=== PATIENT | female | born 1945 | race American Indian/Alaskan Native ===

== ENCOUNTER 2017-02-25 16:17 | Inpatient (IN) | payer MEDICARE, OTHER ==
[2017-02-25 16:17] VITALS: BMI 23.2
--- NOTE | 2017-02-25 17:15 | C.PDOC ---
History Of Present Illness 71 yr old female with ovarian cancer and is on chemo therapy, presents to the ER stating she gets intermittent ascites which needs to be drained and has not been drained in a while and the fluid is building up now. Patient states due to that she has been SOB, coughing with white sputum and feels like she is having trouble taking a deep breath. Patient states initially she was SOB on exertion but now any type of activity makes her SOB. Patient denies fever, chills, chest pain, nausea, vomiting, headache, weakness or numbness. Time Seen by Provider: 02/25/17 16:45 Chief Complaint (Nursing): Shortness Of Breath History Per: Patient History/Exam Limitations: no limitations Onset/Duration Of Symptoms: Days Current Symptoms Are (Timing): Still Present Past Medical History Reviewed: Historical Data, Nursing Documentation, Vital Signs Vital Signs: Last Vital Signs Temp 97.3 F L 02/25/17 16:37 Pulse 88 02/25/17 16:37 Resp 15 02/25/17 17:35 BP 185/97 H 02/25/17 16:37 Pulse Ox 99 02/25/17 19:02 - Medical History PMH: Anemia, Arthritis (GENERALIZED), Asthma, Diabetes, HTN, Hypercholesterolemia, Rheumatoid Arthritis, Seizures (UP TIL AGE 14YRS.) Surgical History: Endoscopy - [facility] Procedures CLOSED ENDOSCOPIC BIOPSY OF LARGE INTESTINE (11/29/14) DRAINAGE OF L PLEURAL CAV WITH DRAIN DEV, PERC APPROACH (12/18/16) DX ULTRASOUND-DIGESTIVE (11/29/14) ENDOSC POLYPECTOMY OF LG INTEST (11/29/14) ESOPHAGOGASTRODUODENOSCOPY [EGD] W/CLOSED BIOPSY (11/29/14) INFLUENZA VACCINATION (11/29/14) INJECT/INFUSE NEC (11/29/14) INSERTION OF TOTALLY IMPLANTABLE VASC ACCESS DEVIC (02/22/15) NEBULIZER THERAPY (11/29/14) OTH REMOVE BOTH OVARIES/TUBES (12/11/14) PERCUTANEOUS ABDOMINAL DRAINAGE (06/11/15) PERITONEAL BIOPSY (12/11/14) Family History: States: No Known Family Hx - Social History Hx Tobacco Use: No Hx Alcohol Use: No Hx Substance Use: No - Immunization History Hx Tetanus Toxoid Vaccination: Yes Hx Influenza Vaccination: Yes Hx Pneumococcal Vaccination: Yes Review Of Systems Except As Marked, All Systems Reviewed And Found Negative. Constitutional: Negative for: Fever, Chills, Sweats Cardiovascular: Negative for: Chest Pain Respiratory: Positive for: Cough, Shortness of Breath, Sputum (White) Gastrointestinal: Negative for: Nausea, Vomiting Neurological: Negative for: Weakness, Numbness, Headache Physical Exam - Physical Exam Appears: Well, Non-toxic, No Acute Distress Skin: Warm, Dry, No Rash Head: Atraumatic, Normacephalic Oral Mucosa: Moist Neck: Normal, Normal ROM, Supple Chest: Symmetrical, No Tenderness Cardiovascular: Rhythm Regular, No Murmur Respiratory: Decreased Breath Sounds (Remarkably diminished), Rales (On right) Gastrointestinal/Abdominal: Distention, No Guarding, Ascites Extremity: Normal ROM, No Tenderness, No Calf Tenderness, No Deformity, No Swelling, Other (No swelling to the ankles, feet or legs.) Neurological/Psych: Oriented x3, Normal Speech, Normal Motor ED Course And Treatment - Laboratory Results Result Diagrams: 02/25/17 17:37 02/25/17 17:37 Lab Interpretation: No Acute Changes ECG: Interpreted By Me, Viewed By Me ECG Rhythm: Sinus Rhythm ECG Interpretation: Normal Interpretation Of ECG: T wave inversion 1,2,4,5,[address]/T wave elevation. LVH. Rate From EC (BPM) O2 Sat by Pulse Oximetry: 99 (RA) Pulse Ox Interpretation: Normal - Radiology CXR: Interpreted by Me, Viewed By Me CXR Interpretation: Yes: Other (Significant bilateral pleural effusion, Left> Right) Reevaluation Time: 19:05 Reassessment Condition: Unchanged - Physician Consult Information Time Consulting Physician Contacted: 19:05 Physician Contacted: Migue Aranda Outcome Of Conversation: Patient well known to him.She is currently recieving treatment for ovarian cancer. He will admit for management of malignant ascites and pleural effusion. Medical Decision Making Medical Decision Making: PLAN: * CXR * EKG * CBC Disposition - Disposition Disposition: HOSPITALIZED Disposition Time: 19:06 Condition: SERIOUS - POA Present On Arrival: None - Clinical Impression Clinical Impression: Ovarian cancer, Ascites, malignant, Pleural effusion due to another disorder - Scribe Statement The provider has reviewed the documentation as recorded by the Garcia Latham Provider Attestation: All medical record entries made by the Scribe were at my direction and personally dictated by me. I have reviewed the chart and agree that the record accurately reflects my personal performance of the history, physical exam, medical decision making, and the department course for this patient. I have also personally directed, reviewed, and agree with the discharge instructions and disposition.
[2017-02-25 17:40] LABS: BASO % 0.4 % (0.0-2.0); EOS % 0.1 % (0.0-4.0); HEMATOCRIT 35.8 % (34.0-47.0); LYMPH # 0.8 K/uL (1.0-4.3); LYMPH % 11.7 % (20.0-40.0); MEAN CELL VOLUME 82.2 fL (81.0-99.0); MEAN CORPUSCULAR HEMOGLOBIN 25.7 pg (27.0-31.0); MEAN CORPUSCULAR HGB CONC 31.2 g/dL (33.0-37.0); MEAN PLATELET VOLUME 7.4 fL (7.2-11.7); MONO # 0.1 K/uL (0.0-0.8); MONO % 0.9 % (0.0-10.0); WHITE BLOOD COUNT 6.7 K/uL (4.8-10.8)
[2017-02-25 17:51] LABS: CHLORIDE 102 mmol/L (98-107)
[2017-02-25 17:52] LABS: POTASSIUM 4.1 mmol/L (3.6-5.2); SODIUM 139 mmol/L (132-148)
[2017-02-25 17:54] LABS: ALB/GLOB RATIO 1.2 (1.0-2.1); AST/SGOT 23 U/L (14-36); BILIRUBIN,TOTAL 0.9 mg/dL (0.2-1.3); BLOOD UREA NITROGEN 21 mg/dL (7-17); CARBON DIOXIDE 26 mmol/L (22-30); GFR AFRICAN-AMERICAN > 60; TOTAL PROTEIN 7.2 g/dL (6.3-8.3)
[2017-02-25 17:55] LABS: ALKALINE PHOSPHATASE 76 U/L (38-126); ALT/SGPT 26 U/L (9-52); CALCIUM 9.2 mg/dl (8.6-10.4); GLUCOSE,RANDOM 129 mg/dL (65-105)
[2017-02-25 18:01] LABS: INR 1.2
[2017-02-25 18:29] LABS: INR 1.2
[2017-02-25] MEDS ORDERED: Nitroglycerin 2% Ointment Foilpak UD TOP STA (22:29)
--- NOTE | 2017-02-26 00:40 | CP.PCM.HP ---
History of Present Illness - History of Present Illness History of Present Illness: Cheif complain: shortness of breath, difficyulty breathing on deep inspiratio HPI: 71 yr old female with ovarian cancer and is on chemo therapy, presents to the ER stating she gets intermittent ascites which needs to be drained and has not been drained in a while and the fluid is building up now. Patient states due to that she has been SOB, coughing with white sputum and feels like she is having trouble taking a deep breath. Patient states initially she was SOB on exertion but now any type of activity makes her SOB. Patient denies fever, chills, chest pain, nausea, vomiting, headache, weakness or numbness. Present on Admission - Present on Admission Any Indicators Present on Admission: No Review of Systems - Review of Systems Systems not reviewed;Unavailable: Respiratory Distress - Constitutional Constitutional: Fatigue, Lethargy. absent: As Per HPI, Anorexia, Chills, Daytime Sleepiness, Excessive Sweating, Fever, Frequent Falls, Headache, Increased Appetite, Malaise, Night Sweats, Snoring, Sleep Apnea, Weight Gain, Weight Loss, Weakness, Other - EENT Eyes: absent: As Per HPI, Blind Spots, Blurred Vision, Change in Vision, Decreased Night Vision, Diplopia, Discharge, Dry Eye, Exophthalmos, Floaters, Irritation, Itchy Eyes, Loss of Peripheral Vision, Pain, Photophobia, Requires Corrective Lenses, Sees Flashes, Spots in Vision, Tunnel Vision, Other Visual Disturbances, Loss of Vision, Other Nose/Mouth/Throat: absent: As Per HPI, Epistaxis, Nasal Congestion, Nasal Discharge, Nasal Obstruction, Nasal Trauma, Nose Pain, Post Nasal Drip, Sinus Pain, Sinus Pressure, Bleeding Gums, Change in Voice, Dental Pain, Dry Mouth, Dysphagia, Halitosis, Hoarsness, Lip Swelling, Mouth Lesions, Mouth Pain, Odynophagia, Sore Throat, Throat Swelling, Tongue Swelling, Facial Pain, Neck Pain, Neck Mass, Other - Cardiovascular Cardiovascular: Dyspnea. absent: As Per HPI, Acrocyanosis, Chest Pain, Chest Pain at Rest, Chest Pain with Activity, Claudication, Diaphoresis, Dyspnea on Exertion, Edema, Irregular Heart Rhythm, Pain Radiating to Arm/Neck/Jaw, Leg Edema, Leg Ulcers, Lightheadedness, Orthopnea, Palpitations, Paroxysmal Nocturnal Dyspnea, Pedal Edema, Radiating Pain, Rapid Heart Rate, Slow Heart Rate, Syncope, Other - Respiratory Respiratory: Cough, Dyspnea, Dyspnea on Exertion, Wheezing, Chest Congestion, Excessive Mucous Production, Pain with Coughing. absent: As Per HPI, Hemoptysis , Snoring, Stridor, Pain on Inspiration, Change in Mucous Color, Other - Gastrointestinal Gastrointestinal: absent: As Per HPI, Abdominal Pain, Belching, Bloating, Change in Bowel Habits, Change in Stool Character, Coffee Ground Emesis, Constipation, Cramping, Diarrhea, Dyspepsia, Dysphagia, Early Satiety, Excessive Flatus, Fecal Incontinence, Heartburn, Hematemesis, Hematochezia, Loose Stools, Melena, Nausea, Odynophagia, Temesmus, Vomiting, Other Past Patient History - Infectious Disease Hx of Infectious Diseases: None - Past Medical History & Family History Past Medical History?: Yes - Past Social History Smoking Status: Former Smoker - CARDIAC Hx Hypercholesterolemia: Yes Hx Hypertension: Yes - PULMONARY Hx Asthma: Yes - NEUROLOGICAL Hx Seizures: Yes (UP TIL AGE 14YRS.) - HEENT Hx HEENT Problems: Yes Hx Cataracts: Yes (LEFT) - ENDOCRINE/METABOLIC Hx Hyperthyroidism: No Hx Hypothyroidism: No - HEMATOLOGICAL/ONCOLOGICAL Hx Anemia: Yes - MUSCULOSKELETAL/RHEUMATOLOGICAL Hx Arthritis: Yes (GENERALIZED) Hx Rheumatoid Arthritis: Yes - GASTROINTESTINAL Hx Crohn's Disease: No Hx Diverticulitis: No Hx Gall Bladder Disease: No Hx Gastritis: No Hx Pancreatitis: No - GENITOURINARY/GYNECOLOGICAL Hx Sexually Transmitted Disorders: No - PSYCHIATRIC Hx Substance Use: No - SURGICAL HISTORY Hx Appendectomy: No Hx Carotid Endarterectomy: No Hx Cholecystectomy: No Hx Coronary Artery Bypass Graft: No Hx Tonsillectomy: No - ANESTHESIA Hx Anesthesia: Yes Hx Anesthesia Reactions: No Hx Malignant Hyperthermia: No Meds Home Medications: Home Medication List Medication Instructions Recorded Confirmed Type Apixaban [Eliquis] 5 mg PO BID #5 tablet 03/14/17 Rx Acetaminophen [Tylenol 325mg tab] 650 mg PO Q6 PRN tab 03/27/17 Rx Albuterol/Ipratropium [Duoneb 3 3 ml INH RQ6 03/27/17 Rx mg/0.5 mg (3 ml) UD] Docusate [Colace] 100 mg PO BID cap 03/27/17 Rx Famotidine [Pepcid] 20 mg PO DAILY tab 03/27/17 Rx Losartan [Cozaar] 100 mg PO DAILY tab 03/27/17 Rx Metoprolol Tartrate [Lopressor] 50 mg PO BID tab 03/27/17 Rx Promethazine [Phenergan Syrup] 12.5 mg PO Q6 PRN dose 03/27/17 Rx Rosuvastatin Calcium [Crestor] 10 mg PO HS tab 03/27/17 Rx cefTRIAXone [Rocephin] 2 gm IV DAILY #21 vial 03/27/17 Rx diltiaZEM CD [Cardizem CD] 300 mg PO DAILY cap 03/27/17 Rx oxyCODONE/Acetaminophen [Percocet 1 ea PO Q6 PRN #30 tab 03/27/17 Rx 5/325 mg Tab] Allergies/Adverse Reactions: Allergies Allergy/AdvReac Type Severity Reaction Status Date / Time No Known Allergies Allergy Verified 12/17/16 18:57 Physical Exam - Constitutional Appears: No Acute Distress, Agitated, Chronically Ill - Eye Exam Eye Exam: EOMI, Normal appearance, PERRL Pupil Exam: NORMAL ACCOMODATION, PERRL - ENT Exam ENT Exam: Mucous Membranes Moist, Normal Exam - Respiratory Exam Respiratory Exam: Decreased Breath Sounds, Rales, Wheezes - Cardiovascular Exam Cardiovascular Exam: REGULAR RHYTHM - GI/Abdominal Exam GI & Abdominal Exam: Normal Bowel Sounds - Rectal Exam Rectal Exam: Deferred Results - Vital Signs Recent Vital Signs: Last Vital Signs Temp 97.3 F L 02/25/17 16:37 Pulse 82 02/25/17 21:19 Resp 15 02/25/17 21:19 BP 168/95 H 02/25/17 21:19 Pulse Ox 100 02/25/17 21:19 - Labs Result Diagrams: 03/25/17 07:05 03/25/17 07:05 Assessment & Plan (1) Ascites, malignant Status: Acute (2) Diabetes mellitus Status: Chronic (3) Hypertension Status: Chronic (4) Ovarian cancer Status: Chronic (5) Pleural effusion due to another disorder Status: Acute (6) Shortness of breath Status: Acute
[2017-02-26] MEDS: Albuterol-Ipratrop 3 mg / 0.5 (3 ml) UD INH SCH ×4 (01:05→20:05)
[2017-02-26] MEDS: Enoxaparin 40 mg Syringe SC SCH (09:52)
[2017-02-26] MEDS ORDERED: cefTRIAXone IV 1 gm in Dextros 1 GM in Dextrose 5% In Water 50 ML IVPB SCH (10:00)
--- NOTE | 2017-02-26 10:48 | RAD ---
PROCEDURE: CHEST RADIOGRAPH, 1 VIEW HISTORY: Shortness of breath COMPARISON: 12/29/2016 FINDINGS: LUNGS: Near complete opacification of the left kavita thorax with large left pleural effusion. Adjacent consolidative changes with opacification throughout the remainder of the visualized left lung. Moderate right pleural effusion with confluent right basilar airspace opacity. PLEURA: As above. CARDIOVASCULAR: Cardiomegaly. OSSEOUS STRUCTURES: Right chest wall port with tip extending to the cavoatrial junction. VISUALIZED UPPER ABDOMEN: Normal. OTHER FINDINGS: Degenerative changes in the spine and shoulders. IMPRESSION: Near complete opacification of the left kavita thorax with large left pleural effusion. Adjacent consolidative changes with opacification throughout the remainder of the visualized left lung. Moderate right pleural effusion with confluent right basilar airspace opacity.
--- NOTE | 2017-02-26 12:56 | CARD ---
APPROVED REPORT EKG Measurement Heart [id number] <Conclusion> Normal sinus rhythm Voltage criteria for left ventricular hypertrophy Possible Lateral infarct, age undetermined Abnormal ECG
--- NOTE | 2017-02-26 13:47 | CT ---
CT chest without IV contrast Indication: Pleural effusion Technique: Contiguous axial images were obtained through the chest without intravenous contrast enhancement. Sagittal and coronal reconstructions were generated and reviewed. This CT exam was performed using 1 or more of the falling dose reduction techniques: Automated exposure control, adjustment of the MAA and/or kV according to patient size, and/or use of iterative reconstruction technique. Radiation dose (DLP): 429.14 MGy-cm. Comparison: Chest x-ray performed 02/25/17, CT chest abdomen pelvis with IV contrast performed 04/25/16 Findings: Right-sided MediPort extends to the cavoatrial junction. Visualized portions of the inferior thyroid gland appear unremarkable. The unenhanced mediastinal and hilar vascular structures appear grossly unremarkable. The heart appears within normal limits of size. Bilateral dependent consolidations. No pneumothorax. Bilateral pleural effusions, left greater than right with evidence of calcified septations. Subtle patchy ground-glass nodular densities involving bilateral upper lobes. Left-sided effusion and consolidation exerts mass effect on the left heart border. Limited visualization of the upper abdomen reveals loculated ascites adjacent to the liver. This collection appears to exert mass effect on the hepatic parenchyma. Mild degenerative changes of the spine. Impression: Right-sided MediPort. Bilateral dependent consolidations. Subtle patchy ground-glass nodular densities involving bilateral upper lobes. Bilateral pleural effusions, left greater than right with calcified septations involving the left effusion. Left-sided effusion and consolidation exerts mass effect on the left heart border. Loculated ascites partially imaged adjacent to the liver which exerts mass effect on the adjacent hepatic parenchyma.
--- NOTE | 2017-02-26 22:36 | CP.PCM.PN ---
Subjective - Date & Time of Evaluation Date of Evaluation: 02/26/17 Time of Evaluation: 09:23 - Subjective Subjective: pt seen & evaluated today, still c/o shortness of breath, cough, wheezing Objective - Vital Signs/Intake and Output Vital Signs (last 24 hours): Temp Pulse Resp BP Pulse Ox 98.1 F 100 H 22 118/76 97 02/26/17 15:25 02/26/17 16:27 02/26/17 15:25 02/26/17 15:25 02/26/17 15:25 - Medications Medications: Current Medications Albuterol/Ipratropium (Duoneb 3 Mg/0.5 Mg (3 Ml) Ud) 3 ml INH RQ6 [facility] Last Admin: 02/26/17 20:05 Dose: 3 ml Amlodipine Besylate (Norvasc) 5 mg PO DAILY [facility] Last Admin: 02/26/17 09:53 Dose: 5 mg Enoxaparin Sodium (Lovenox) 40 mg SC DAILY [facility] Last Admin: 02/26/17 09:52 Dose: 40 mg Famotidine (Pepcid) 20 mg PO DAILY [facility] Ferrous Sulfate (Feosol) 325 mg PO TID [facility] Last Admin: 02/26/17 18:46 Dose: 325 mg Ceftriaxone Sodium (Rocephin Iv 1 Gm Duplex) 50 mls @ 50 mls/30 min IVPB DAILY [facility] Rosuvastatin Calcium (Crestor) 10 mg PO HS [facility] Last Admin: 02/26/17 21:36 Dose: 10 mg - Labs Labs: PT 13.3 SECONDS (9.7-12.2) H 02/25/17 18:17 INR 1.2 02/25/17 18:17 APTT 31 SECONDS (21-34) D 02/25/17 18:17 - Constitutional Appears: No Acute Distress - Head Exam Head Exam: ATRAUMATIC, NORMAL INSPECTION, NORMOCEPHALIC - Eye Exam Eye Exam: EOMI, Normal appearance, PERRL Pupil Exam: NORMAL ACCOMODATION, PERRL - Respiratory Exam Respiratory Exam: Decreased Breath Sounds, Rhonchi, Wheezes - Cardiovascular Exam Cardiovascular Exam: REGULAR RHYTHM, +S1, +S2. absent: Murmur - GI/Abdominal Exam GI & Abdominal Exam: Soft, Normal Bowel Sounds. absent: Tenderness Assessment and Plan (1) Ascites, malignant Status: Acute (2) Diabetes mellitus Status: Chronic (3) Hypertension Status: Chronic (4) Ovarian cancer Status: Chronic (5) Pleural effusion due to another disorder Status: Acute (6) Shortness of breath Status: Acute
[2017-02-27] MEDS: Albuterol-Ipratrop 3 mg / 0.5 (3 ml) UD INH SCH ×4 (01:09→20:30)
[2017-02-27 07:07] LABS: BASO % 0.5 % (0.0-2.0); EOS # 0.2 K/uL (0.0-0.7); EOS % 2.1 % (0.0-4.0); HEMATOCRIT 33.6 % (34.0-47.0); LYMPH # 2.9 K/uL (1.0-4.3); LYMPH % 37.5 % (20.0-40.0); MEAN CELL VOLUME 82.2 fL (81.0-99.0); MEAN CORPUSCULAR HEMOGLOBIN 25.3 pg (27.0-31.0); MEAN CORPUSCULAR HGB CONC 30.8 g/dL (33.0-37.0); MEAN PLATELET VOLUME 7.8 fL (7.2-11.7); MONO # 0.5 K/uL (0.0-0.8); MONO % 6.4 % (0.0-10.0); NRBC % 0.1 % (0.0-2.0); RED CELL DISTRIBUTION WIDTH 17.3 % (11.5-14.5); WHITE BLOOD COUNT 7.9 K/uL (4.8-10.8)
[2017-02-27 07:44] LABS: CHLORIDE 105 mmol/L (98-107); POTASSIUM 3.6 mmol/L (3.6-5.2); SODIUM 143 mmol/L (132-148)
[2017-02-27 07:46] LABS: GFR AFRICAN-AMERICAN > 60
[2017-02-27 07:47] LABS: BLOOD UREA NITROGEN 13 mg/dL (7-17); CALCIUM 8.9 mg/dl (8.6-10.4); CARBON DIOXIDE 29 mmol/L (22-30); GLUCOSE,RANDOM 82 mg/dL (65-105)
--- NOTE | 2017-02-27 10:32 | CP.PCM.CON ---
History of Present Illness - History of Present Illness History of Present Illness: Reason for consultation : large left pleural effusion and shortness of breath 71-year-old female with history of ovarian cancer status post surgery and chemotherapy presented with complaints of increased abdominal pain and shortness of breath. Patient was admitted in December was shortness of breath and was found to have pulmonary embolism and large loculated pleural effusion status post chest tube insertion/drainage and pleurodesis. Denies fever or chills, denies chest pain. Status post paracentesis yesterday Review of Systems - Review of Systems All systems: reviewed and no additional remarkable complaints except (Shortness of breath and abdominal discomfort) Past Patient History - Infectious Disease Hx of Infectious Diseases: None - Past Medical History & Family History Past Medical History?: Yes - Past Social History Smoking Status: Former Smoker - CARDIAC Hx Hypercholesterolemia: Yes Hx Hypertension: Yes - PULMONARY Hx Asthma: Yes - NEUROLOGICAL Hx Seizures: Yes (UP TIL AGE 14YRS.) - HEENT Hx HEENT Problems: Yes Hx Cataracts: Yes (LEFT) - ENDOCRINE/METABOLIC Hx Hyperthyroidism: No Hx Hypothyroidism: No - HEMATOLOGICAL/ONCOLOGICAL Hx Anemia: Yes - MUSCULOSKELETAL/RHEUMATOLOGICAL Hx Arthritis: Yes (GENERALIZED) Hx Rheumatoid Arthritis: Yes - GASTROINTESTINAL Hx Crohn's Disease: No Hx Diverticulitis: No Hx Gall Bladder Disease: No Hx Gastritis: No Hx Pancreatitis: No - GENITOURINARY/GYNECOLOGICAL Hx Sexually Transmitted Disorders: No - PSYCHIATRIC Hx Substance Use: No - SURGICAL HISTORY Hx Appendectomy: No Hx Carotid Endarterectomy: No Hx Cholecystectomy: No Hx Coronary Artery Bypass Graft: No Hx Tonsillectomy: No - ANESTHESIA Hx Anesthesia: Yes Hx Anesthesia Reactions: No Hx Malignant Hyperthermia: No Meds Allergies/Adverse Reactions: Allergies Allergy/AdvReac Type Severity Reaction Status Date / Time No Known Allergies Allergy Verified 12/17/16 18:57 - Medications Medications: Current Medications Albuterol/Ipratropium (Duoneb 3 Mg/0.5 Mg (3 Ml) Ud) 3 ml INH RQ6 [facility] Last Admin: 02/27/17 07:28 Dose: 3 ml Amlodipine Besylate (Norvasc) 5 mg PO DAILY [facility] Last Admin: 02/26/17 09:53 Dose: 5 mg Enoxaparin Sodium (Lovenox) 40 mg SC DAILY [facility] Last Admin: 02/26/17 09:52 Dose: 40 mg Famotidine (Pepcid) 20 mg PO DAILY [facility] Ferrous Sulfate (Feosol) 325 mg PO TID [facility] Last Admin: 02/26/17 18:46 Dose: 325 mg Ceftriaxone Sodium (Rocephin Iv 1 Gm Duplex) 50 mls @ 50 mls/30 min IVPB DAILY [facility] Rosuvastatin Calcium (Crestor) 10 mg PO HS [facility] Last Admin: 02/26/17 21:36 Dose: 10 mg Physical Exam - Head Exam Head Exam: ATRAUMATIC, NORMOCEPHALIC - Eye Exam Eye Exam: Normal appearance - ENT Exam ENT Exam: Mucous Membranes Moist - Neck Exam Neck exam: Positive for: Normal Inspection - Respiratory Exam Respiratory Exam: Decreased Breath Sounds - Cardiovascular Exam Cardiovascular Exam: REGULAR RHYTHM - GI/Abdominal Exam GI & Abdominal Exam: Distended, Normal Bowel Sounds - Extremities Exam Extremities exam: Positive for: pedal edema - Neurological Exam Neurological exam: Alert, Oriented x3 Results - Vital Signs Recent Vital Signs: Last Vital Signs Temp 97.6 F 02/27/17 08:02 Pulse 79 02/27/17 08:02 Resp 20 02/27/17 08:02 BP 162/99 H 02/27/17 08:02 Pulse Ox 100 02/27/17 08:02 - Labs Result Diagrams: 02/27/17 06:52 02/27/17 06:52 Labs: Laboratory Results - last 24 hr 02/27/17 06:52 WBC 7.9 RBC 4.08 Hgb 10.3 L Hct 33.6 L MCV 82.2 MCH 25.3 L MCHC 30.8 L RDW 17.3 H Plt Count 207 MPV 7.8 Neut % (Auto) 53.5 Lymph % (Auto) 37.5 Gosper % (Auto) 6.4 Eos % (Auto) 2.1 Baso % (Auto) 0.5 Neut # 4.2 Lymph # 2.9 Gosper # 0.5 Eos # 0.2 Baso # 0.0 Sodium 143 Potassium 3.6 Chloride 105 Carbon Dioxide 29 Anion Gap 12 BUN 13 Creatinine 0.7 Est GFR ( Amer) > 60 Est GFR (Non-Af Amer) > 60 Random Glucose 82 Calcium 8.9 Assessment & Plan (1) Shortness of breath Status: Acute Comment: Shortness of breath secondary to pleural effusion. CAT scan of the chest consistent with bilateral pleural effusion left greater than right with loculation. Thoracic evaluation. Status post pleurodesis during last admission (2) Ascites, malignant Status: Acute Comment: Status post paracentesis yesterday by IR (3) Ovarian cancer Status: Chronic
[2017-02-27] MEDS: Enoxaparin 40 mg Syringe SC SCH (10:33)
[2017-02-27] MEDS: cefTRIAXone IV 1 gm in Dextros 50 ML IVPB SCH (10:35)
--- NOTE | 2017-02-27 14:36 | CP.PCM.CON ---
History of Present Illness - History of Present Illness History of Present Illness: Reason for consultation: Left pleural effusion, recurrent, with sob. Requested by DR. Frankel. 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 In Dec of this year, underwent a talc slurry pleurodesis, left(at the bedside), for a massive effusion, and drainge of right effusion with a chest tube.CT of chest on this admission: a massive left effusuion(pushing diaphragm down to abdomen, and mass effect on lung parenchyma) , and lung /loculated effusion covered with white talc+some areas of septations. I am not quite certain how much of the atelectactic lung will reexpand after evacuation of the effusion. I would like to evacuate the effusuion with a chest tube followed by a quick examination of pleural cavity with video-thorascope on Thursday under local + iv sedation. Based on the findings -will insert Pleurex cath or decortication(probably too extensive surgery for this patient) at a later date. I have discussed the surgery with the pt who accepted procedures without reservation.d/w Dr. Tai, assistant professor surgical technology. Past Patient History - Infectious Disease Hx of Infectious Diseases: None - Past Medical History & Family History Past Medical History?: Yes - Past Social History Smoking Status: Former Smoker - CARDIAC Hx Hypercholesterolemia: Yes Hx Hypertension: Yes - PULMONARY Hx Asthma: Yes - NEUROLOGICAL Hx Seizures: Yes (UP TIL AGE 14YRS.) - HEENT Hx HEENT Problems: Yes Hx Cataracts: Yes (LEFT) - ENDOCRINE/METABOLIC Hx Diabetes Mellitus Type 2: Yes - HEMATOLOGICAL/ONCOLOGICAL Hx Anemia: Yes - MUSCULOSKELETAL/RHEUMATOLOGICAL Hx Arthritis: Yes Hx Rheumatoid Arthritis: Yes - GASTROINTESTINAL Hx Crohn's Disease: No Hx Diverticulitis: No Hx Gall Bladder Disease: No Hx Gastritis: No Hx Pancreatitis: No - GENITOURINARY/GYNECOLOGICAL Hx Sexually Transmitted Disorders: No - PSYCHIATRIC Hx Substance Use: No - SURGICAL HISTORY Hx Appendectomy: No Hx Carotid Endarterectomy: No Hx Cholecystectomy: No Hx Coronary Artery Bypass Graft: No Hx Tonsillectomy: No - ANESTHESIA Hx Anesthesia: Yes Hx Anesthesia Reactions: No Hx Malignant Hyperthermia: No Meds Allergies/Adverse Reactions: Allergies Allergy/AdvReac Type Severity Reaction Status Date / Time No Known Allergies Allergy Verified 12/17/16 18:57 - Medications Medications: Current Medications Albuterol/Ipratropium (Duoneb 3 Mg/0.5 Mg (3 Ml) Ud) 3 ml INH RQ6 [facility] Last Admin: 02/27/17 13:18 Dose: 3 ml Amlodipine Besylate (Norvasc) 5 mg PO DAILY [facility] Last Admin: 02/27/17 10:33 Dose: 5 mg Enoxaparin Sodium (Lovenox) 40 mg SC DAILY [facility] Last Admin: 02/27/17 10:33 Dose: 40 mg Famotidine (Pepcid) 20 mg PO DAILY [facility] Last Admin: 02/27/17 10:32 Dose: 20 mg Ferrous Sulfate (Feosol) 325 mg PO TID [facility] Last Admin: 02/27/17 10:33 Dose: 325 mg Ceftriaxone Sodium (Rocephin Iv 1 Gm Duplex) 50 mls @ 50 mls/30 min IVPB DAILY [facility] Last Admin: 02/27/17 10:35 Dose: 50 mls/30 min Rosuvastatin Calcium (Crestor) 10 mg PO HS [facility] Last Admin: 02/26/17 21:36 Dose: 10 mg Results - Vital Signs Recent Vital Signs: Last Vital Signs Temp 97.6 F 02/27/17 08:02 Pulse 79 02/27/17 08:02 Resp 20 02/27/17 08:02 BP 162/99 H 02/27/17 08:02 Pulse Ox 100 02/27/17 08:02 - Labs Result Diagrams: 02/27/17 06:52 02/27/17 06:52 Labs: Laboratory Results - last 24 hr 02/27/17 06:52 WBC 7.9 RBC 4.08 Hgb 10.3 L Hct 33.6 L MCV 82.2 MCH 25.3 L MCHC 30.8 L RDW 17.3 H Plt Count 207 MPV 7.8 Neut % (Auto) 53.5 Lymph % (Auto) 37.5 [place] % (Auto) 6.4 Eos % (Auto) 2.1 Baso % (Auto) 0.5 Neut # 4.2 Lymph # 2.9 [place] # 0.5 Eos # 0.2 Baso # 0.0 Sodium 143 Potassium 3.6 Chloride 105 Carbon Dioxide 29 Anion Gap 12 BUN 13 Creatinine 0.7 Est GFR ( Amer) > 60 Est GFR (Non-Af Amer) > 60 Random Glucose 82 Calcium 8.9
--- NOTE | 2017-02-27 18:43 | CP.PCM.PN ---
Subjective - Date & Time of Evaluation Date of Evaluation: 02/27/17 Time of Evaluation: 09:24 - Subjective Subjective: Pt seen and examined, was also seen by pulmonary,shortness of breath improved Denies fever or chills, denies chest pain. Status post paracentesis yesterday Objective - Vital Signs/Intake and Output Vital Signs (last 24 hours): Temp Pulse Resp BP Pulse Ox 98.6 F 79 20 170/96 H 97 02/27/17 16:00 02/27/17 16:15 02/27/17 16:00 02/27/17 16:00 02/27/17 16:00 Intake and Output: 02/27/17 02/27/17 06:59 18:59 Intake Total 400 Balance 400 - Medications Medications: Current Medications Albuterol/Ipratropium (Duoneb 3 Mg/0.5 Mg (3 Ml) Ud) 3 ml INH RQ6 [facility] Last Admin: 02/27/17 13:18 Dose: 3 ml Amlodipine Besylate (Norvasc) 10 mg PO DAILY [facility] Enoxaparin Sodium (Lovenox) 40 mg SC DAILY [facility] Last Admin: 02/27/17 10:33 Dose: 40 mg Famotidine (Pepcid) 20 mg PO DAILY [facility] Last Admin: 02/27/17 10:32 Dose: 20 mg Ferrous Sulfate (Feosol) 325 mg PO TID [facility] Last Admin: 02/27/17 18:08 Dose: 325 mg Ceftriaxone Sodium (Rocephin Iv 1 Gm Duplex) 50 mls @ 50 mls/30 min IVPB DAILY [facility] Last Admin: 02/27/17 10:35 Dose: 50 mls/30 min Rosuvastatin Calcium (Crestor) 10 mg PO HS [facility] Last Admin: 02/26/17 21:36 Dose: 10 mg - Labs Labs: 02/27/17 06:52 02/27/17 06:52 PT 13.3 SECONDS (9.7-12.2) H 02/25/17 18:17 INR 1.2 02/25/17 18:17 APTT 31 SECONDS (21-34) D 02/25/17 18:17 - Constitutional Appears: No Acute Distress - Head Exam Head Exam: ATRAUMATIC, NORMAL INSPECTION, NORMOCEPHALIC - Eye Exam Eye Exam: EOMI, Normal appearance, PERRL Pupil Exam: NORMAL ACCOMODATION, PERRL - ENT Exam ENT Exam: Mucous Membranes Moist, Normal Exam - Respiratory Exam Respiratory Exam: Decreased Breath Sounds, Rales, Rhonchi - Cardiovascular Exam Cardiovascular Exam: REGULAR RHYTHM, +S1, +S2. absent: Murmur - GI/Abdominal Exam GI & Abdominal Exam: Soft, Normal Bowel Sounds. absent: Tenderness Assessment and Plan (1) Ascites, malignant Status: Acute (2) Diabetes mellitus Status: Chronic (3) Hypertension Status: Chronic (4) Ovarian cancer Status: Chronic (5) Pleural effusion due to another disorder Status: Acute (6) Shortness of breath Status: Acute
[2017-02-28] MEDS: Albuterol-Ipratrop 3 mg / 0.5 (3 ml) UD INH SCH ×4 (02:03→19:52)
[2017-02-28] MEDS: cefTRIAXone IV 1 gm in Dextros 50 ML IVPB SCH (10:39)
[2017-02-28] MEDS: Enoxaparin 40 mg Syringe SC SCH (10:39)
--- NOTE | 2017-02-28 19:59 | CP.PCM.PN ---
Subjective - Date & Time of Evaluation Date of Evaluation: 02/28/17 Time of Evaluation: 18:30 - Subjective Subjective: Patient seen and examined Patient was seen by thoracic surgery and for chest tube and possible VATS on Thursday Objective - Vital Signs/Intake and Output Vital Signs (last 24 hours): Temp Pulse Resp BP Pulse Ox 97.8 F 79 21 159/91 H 97 02/28/17 15:00 02/28/17 16:43 02/28/17 15:00 02/28/17 08:18 02/28/17 15:00 Intake and Output: 02/28/17 03/01/17 18:59 06:59 Intake Total 600 Balance 600 - Medications Medications: Current Medications Albuterol/Ipratropium (Duoneb 3 Mg/0.5 Mg (3 Ml) Ud) 3 ml INH RQ6 [facility] Last Admin: 02/28/17 19:52 Dose: 3 ml Amlodipine Besylate (Norvasc) 10 mg PO DAILY [facility] Last Admin: 02/28/17 10:39 Dose: 10 mg Enoxaparin Sodium (Lovenox) 40 mg SC DAILY [facility] Last Admin: 02/28/17 10:39 Dose: 40 mg Famotidine (Pepcid) 20 mg PO DAILY [facility] Last Admin: 02/28/17 10:36 Dose: 20 mg Ferrous Sulfate (Feosol) 325 mg PO TID [facility] Last Admin: 02/28/17 18:13 Dose: 325 mg Ceftriaxone Sodium (Rocephin Iv 1 Gm Duplex) 50 mls @ 50 mls/30 min IVPB DAILY [facility] Last Admin: 02/28/17 10:39 Dose: 50 mls/30 min Rosuvastatin Calcium (Crestor) 10 mg PO HS [facility] Last Admin: 02/27/17 21:06 Dose: 10 mg - Labs Labs: 02/27/17 06:52 02/27/17 06:52 PT 13.3 SECONDS (9.7-12.2) H 02/25/17 18:17 INR 1.2 02/25/17 18:17 APTT 31 SECONDS (21-34) D 02/25/17 18:17 - Head Exam Head Exam: ATRAUMATIC, NORMOCEPHALIC - Eye Exam Eye Exam: Normal appearance - ENT Exam ENT Exam: Normal Exam - Respiratory Exam Respiratory Exam: Decreased Breath Sounds - Cardiovascular Exam Cardiovascular Exam: REGULAR RHYTHM - GI/Abdominal Exam GI & Abdominal Exam: Soft, Normal Bowel Sounds Assessment and Plan (1) Malignant pleural effusion Assessment & Plan: For chest tube insertion and possible vats on Thursday Status: Acute (2) Shortness of breath Status: Acute (3) Ascites, malignant Status: Acute (4) Ovarian cancer Status: Chronic
--- NOTE | 2017-03-01 00:13 | CP.PCM.PN ---
Subjective - Date & Time of Evaluation Date of Evaluation: 02/28/17 Time of Evaluation: 09:26 - Subjective Subjective: Pt is seen and examined, is cormfortable, not short of breath, is to be evaluated by heme onc, Patient was seen by thoracic surgery and for chest tube and possible VATS on Thursday Objective - Vital Signs/Intake and Output Vital Signs (last 24 hours): Temp Pulse Resp BP Pulse Ox 97.8 F 79 21 139/108 H 97 02/28/17 15:00 02/28/17 16:43 02/28/17 15:00 02/28/17 15:25 02/28/17 15:00 Intake and Output: 02/28/17 03/01/17 18:59 06:59 Intake Total 600 300 Output Total 2 Balance 600 298 - Medications Medications: Current Medications Albuterol/Ipratropium (Duoneb 3 Mg/0.5 Mg (3 Ml) Ud) 3 ml INH RQ6 [facility] Last Admin: 02/28/17 19:52 Dose: 3 ml Amlodipine Besylate (Norvasc) 10 mg PO DAILY [facility] Last Admin: 02/28/17 10:39 Dose: 10 mg Enoxaparin Sodium (Lovenox) 40 mg SC DAILY [facility] Last Admin: 02/28/17 10:39 Dose: 40 mg Famotidine (Pepcid) 20 mg PO DAILY [facility] Last Admin: 02/28/17 10:36 Dose: 20 mg Ferrous Sulfate (Feosol) 325 mg PO TID [facility] Last Admin: 02/28/17 18:13 Dose: 325 mg Ceftriaxone Sodium (Rocephin Iv 1 Gm Duplex) 50 mls @ 50 mls/30 min IVPB DAILY [facility] Last Admin: 02/28/17 10:39 Dose: 50 mls/30 min Rosuvastatin Calcium (Crestor) 10 mg PO HS [facility] Last Admin: 02/27/17 21:06 Dose: 10 mg - Labs Labs: 02/27/17 06:52 02/27/17 06:52 PT 13.3 SECONDS (9.7-12.2) H 02/25/17 18:17 INR 1.2 02/25/17 18:17 APTT 31 SECONDS (21-34) D 02/25/17 18:17 - Constitutional Appears: Well - Head Exam Head Exam: ATRAUMATIC, NORMAL INSPECTION, NORMOCEPHALIC - Eye Exam Eye Exam: EOMI, Normal appearance, PERRL Pupil Exam: NORMAL ACCOMODATION, PERRL - Respiratory Exam Respiratory Exam: Decreased Breath Sounds, Rales, Rhonchi - Cardiovascular Exam Cardiovascular Exam: REGULAR RHYTHM, +S1, +S2. absent: Murmur Assessment and Plan (1) Ascites, malignant Status: Acute (2) Diabetes mellitus Status: Chronic (3) Hypertension Status: Chronic (4) Ovarian cancer Status: Chronic (5) Pleural effusion due to another disorder Status: Acute (6) Shortness of breath Status: Acute
[2017-03-01] MEDS: Albuterol-Ipratrop 3 mg / 0.5 (3 ml) UD INH SCH ×4 (01:52→19:25)
[2017-03-01 07:43] LABS: BASO % 0.7 % (0.0-2.0); EOS # 0.2 K/uL (0.0-0.7); EOS % 3.5 % (0.0-4.0); HEMATOCRIT 34.3 % (34.0-47.0); LYMPH # 1.5 K/uL (1.0-4.3); LYMPH % 31.1 % (20.0-40.0); MEAN CELL VOLUME 82.1 fL (81.0-99.0); MEAN CORPUSCULAR HEMOGLOBIN 25.3 pg (27.0-31.0); MEAN CORPUSCULAR HGB CONC 30.8 g/dL (33.0-37.0); MEAN PLATELET VOLUME 8.2 fL (7.2-11.7); MONO # 0.4 K/uL (0.0-0.8); MONO % 8.9 % (0.0-10.0); NRBC % 0.1 % (0.0-2.0); RED CELL DISTRIBUTION WIDTH 17.4 % (11.5-14.5); WHITE BLOOD COUNT 4.9 K/uL (4.8-10.8)
[2017-03-01 08:05] LABS: CHLORIDE 101 mmol/L (98-107); SODIUM 141 mmol/L (132-148)
[2017-03-01 08:06] LABS: POTASSIUM 3.5 mmol/L (3.6-5.2)
[2017-03-01 08:08] LABS: GFR AFRICAN-AMERICAN > 60
[2017-03-01 08:09] LABS: BLOOD UREA NITROGEN 10 mg/dL (7-17); CALCIUM 9.2 mg/dl (8.6-10.4); CARBON DIOXIDE 32 mmol/L (22-30); GLUCOSE,RANDOM 79 mg/dL (65-105)
[2017-03-01] MEDS: cefTRIAXone IV 1 gm in Dextros 50 ML IVPB SCH (09:43)
[2017-03-01] MEDS: Enoxaparin 40 mg Syringe SC SCH (09:43)
--- NOTE | 2017-03-01 11:44 | CP.PCM.CON ---
History of Present Illness - History of Present Illness History of Present Illness: 71 year old female with a history of HTN and metastatic PE ovarian cancer diagnosed 11/2014 on chemotherapy, recently changed and given this past Thursday, admitted with with worsening ascites and shortness of breath, found to have pleural effusion. She is currently for chest tube placement tomorrow. She is s/p paracentesis and feels better in her abdomen. She notes continued shortness of breath and cough. 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 Allergies: NKA Review of systems: All remaining review of systems including HEENT, cardiovascular, respiratory, gastrointestinal, genitourinary, musculoskeletal, dermatologic, neurologic, and psychiatric are negative unless mentioned in the HPI. Past Patient History - Infectious Disease Hx of Infectious Diseases: None - Past Medical History & Family History Past Medical History?: Yes - Past Social History Smoking Status: Former Smoker - CARDIAC Hx Hypercholesterolemia: Yes Hx Hypertension: Yes - PULMONARY Hx Asthma: Yes - NEUROLOGICAL Hx Seizures: Yes (UP TIL AGE 14YRS.) - HEENT Hx HEENT Problems: Yes Hx Cataracts: Yes (LEFT) - ENDOCRINE/METABOLIC Hx Diabetes Mellitus Type 2: Yes - HEMATOLOGICAL/ONCOLOGICAL Hx Anemia: Yes - MUSCULOSKELETAL/RHEUMATOLOGICAL Hx Arthritis: Yes Hx Rheumatoid Arthritis: Yes - GASTROINTESTINAL Hx Crohn's Disease: No Hx Diverticulitis: No Hx Gall Bladder Disease: No Hx Gastritis: No Hx Pancreatitis: No - GENITOURINARY/GYNECOLOGICAL Hx Sexually Transmitted Disorders: No - PSYCHIATRIC Hx Substance Use: No - SURGICAL HISTORY Hx Appendectomy: No Hx Carotid Endarterectomy: No Hx Cholecystectomy: No Hx Coronary Artery Bypass Graft: No Hx Tonsillectomy: No - ANESTHESIA Hx Anesthesia: Yes Hx Anesthesia Reactions: No Hx Malignant Hyperthermia: No Meds Allergies/Adverse Reactions: Allergies Allergy/AdvReac Type Severity Reaction Status Date / Time No Known Allergies Allergy Verified 12/17/16 18:57 - Medications Medications: Current Medications Albuterol/Ipratropium (Duoneb 3 Mg/0.5 Mg (3 Ml) Ud) 3 ml INH RQ6 [facility] Last Admin: 03/01/17 07:42 Dose: 3 ml Amlodipine Besylate (Norvasc) 10 mg PO DAILY [facility] Last Admin: 03/01/17 09:43 Dose: 10 mg Enoxaparin Sodium (Lovenox) 40 mg SC DAILY [facility] Last Admin: 03/01/17 09:43 Dose: 40 mg Famotidine (Pepcid) 20 mg PO DAILY [facility] Last Admin: 03/01/17 09:43 Dose: 20 mg Ferrous Sulfate (Feosol) 325 mg PO TID [facility] Last Admin: 03/01/17 09:43 Dose: 325 mg Ceftriaxone Sodium (Rocephin Iv 1 Gm Duplex) 50 mls @ 50 mls/30 min IVPB DAILY [facility] Last Admin: 03/01/17 09:43 Dose: 50 mls/30 min Potassium Chloride (K-Dur 20 Meq Er Tab) 40 meq PO DAILY [facility] Stop: 03/02/17 12:00 Rosuvastatin Calcium (Crestor) 10 mg PO HS [facility] Last Admin: 02/27/17 21:06 Dose: 10 mg Physical Exam - Head Exam Head Exam: ATRAUMATIC - Eye Exam Eye Exam: Normal appearance - ENT Exam ENT Exam: Mucous Membranes Dry - Respiratory Exam Respiratory Exam: Decreased Breath Sounds - Cardiovascular Exam Cardiovascular Exam: +S1, +S2 - GI/Abdominal Exam GI & Abdominal Exam: Normal Bowel Sounds - Extremities Exam Extremities exam: Positive for: pedal edema - Neurological Exam Neurological exam: Oriented x3 - Psychiatric Exam Psychiatric exam: Normal Affect, Normal Mood - Skin Skin Exam: Warm Results - Vital Signs Recent Vital Signs: Last Vital Signs Temp 98.1 F 03/01/17 08:09 Pulse 88 03/01/17 08:09 Resp 20 03/01/17 08:09 BP 144/82 03/01/17 08:09 Pulse Ox 100 03/01/17 08:09 - Labs Result Diagrams: 03/01/17 07:33 03/01/17 07:33 Labs: Laboratory Results - last 24 hr 03/01/17 07:33 WBC 4.9 RBC 4.17 Hgb 10.6 L Hct 34.3 MCV 82.1 MCH 25.3 L MCHC 30.8 L RDW 17.4 H Plt Count 199 MPV 8.2 Neut % (Auto) 55.8 Lymph % (Auto) 31.1 [place] % (Auto) 8.9 Eos % (Auto) 3.5 Baso % (Auto) 0.7 Neut # 2.7 Lymph # 1.5 [place] # 0.4 Eos # 0.2 Baso # 0.0 Sodium 141 Potassium 3.5 L Chloride 101 Carbon Dioxide 32 H Anion Gap 12 BUN 10 Creatinine 0.7 Est GFR ( Amer) > 60 Est GFR (Non-Af Amer) > 60 Random Glucose 79 Calcium 9.2 Assessment & Plan (1) Pleural effusion due to another disorder Assessment and Plan: suspect malignant effusion for chest tube tomorrow send pleural fluid for cytology Status: Acute (2) Ovarian cancer Assessment and Plan: malignant ascites s/p paracentesis recently started Doxil and Avastin Thursday rising CA125 noted Status: Chronic (3) Pulmonary embolism Assessment and Plan: therapeutic anticoagulation post chest tube Status: Acute (4) Anemia Assessment and Plan: chemotherapy and chronic disease Thank you for this interesting consult. Status: Chronic
[2017-03-01] MEDS: Potassium Chloride 20 mEq ER Tab PO SCH (12:12)
--- NOTE | 2017-03-01 16:09 | CP.PCM.PN ---
Subjective - Date & Time of Evaluation Date of Evaluation: 03/01/17 Time of Evaluation: 08:10 - Subjective Subjective: CT Surg: Dr. Mishra Pt seen and examined. Reports some shortness of breath, which is not different from baseline. Patient schedule for OR tomorrow AM. NPO after midnight. Objective - Vital Signs/Intake and Output Vital Signs (last 24 hours): Temp Pulse Resp BP Pulse Ox 98.1 F 88 20 144/82 100 03/01/17 08:09 03/01/17 08:09 03/01/17 08:09 03/01/17 08:09 03/01/17 08:09 Intake and Output: 03/01/17 03/01/17 06:59 18:59 Intake Total 300 290 Output Total 2 Balance 298 290 - Medications Medications: Current Medications Albuterol/Ipratropium (Duoneb 3 Mg/0.5 Mg (3 Ml) Ud) 3 ml INH RQ6 [facility] Last Admin: 03/01/17 13:32 Dose: 3 ml Amlodipine Besylate (Norvasc) 10 mg PO DAILY [facility] Last Admin: 03/01/17 09:43 Dose: 10 mg Enoxaparin Sodium (Lovenox) 40 mg SC DAILY [facility] Last Admin: 03/01/17 09:43 Dose: 40 mg Famotidine (Pepcid) 20 mg PO DAILY [facility] Last Admin: 03/01/17 09:43 Dose: 20 mg Ferrous Sulfate (Feosol) 325 mg PO TID [facility] Last Admin: 03/01/17 13:12 Dose: 325 mg Ceftriaxone Sodium (Rocephin Iv 1 Gm Duplex) 50 mls @ 50 mls/30 min IVPB DAILY [facility] Last Admin: 03/01/17 09:43 Dose: 50 mls/30 min Potassium Chloride (K-Dur 20 Meq Er Tab) 40 meq PO DAILY [facility] Stop: 03/02/17 12:00 Last Admin: 03/01/17 12:12 Dose: 40 meq Rosuvastatin Calcium (Crestor) 10 mg PO HS [facility] Last Admin: 02/27/17 21:06 Dose: 10 mg - Labs Labs: 03/01/17 07:33 03/01/17 07:33 PT 13.3 SECONDS (9.7-12.2) H 02/25/17 18:17 INR 1.2 02/25/17 18:17 APTT 31 SECONDS (21-34) D 02/25/17 18:17 - Constitutional Appears: Chronically Ill - Head Exam Head Exam: NORMOCEPHALIC - ENT Exam ENT Exam: Mucous Membranes Moist - Respiratory Exam Respiratory Exam: Decreased Breath Sounds. absent: Accessory Muscle Use, Rales , Rhonchi, Wheezes - Cardiovascular Exam Cardiovascular Exam: +S1, +S2 - GI/Abdominal Exam GI & Abdominal Exam: Soft - Neurological Exam Neurological Exam: Alert, Awake - Psychiatric Exam Psychiatric exam: Normal Mood - Skin Skin Exam: Normal Color, Warm Assessment and Plan - Assessment and Plan (Free Text) Assessment: 71F w/ massive left effusion & pleural mass effect -NPO past MN -OR tomorrow 11AM -Possible VATS, decortication vs. pleur-x Catheter insertion -D/w Dr. Mishra
--- NOTE | 2017-03-02 00:28 | CP.PCM.PN ---
Subjective - Date & Time of Evaluation Date of Evaluation: 03/01/17 Time of Evaluation: 09:27 - Subjective Subjective: Pt seen and examined. Reports some shortness of breath, which is not different from baseline. Patient schedule for OR tomorrow AM. NPO after midnight. Objective - Vital Signs/Intake and Output Vital Signs (last 24 hours): Temp Pulse Resp BP Pulse Ox 98.3 F 88 21 137/89 98 03/01/17 15:35 03/01/17 16:40 03/01/17 15:35 03/01/17 15:35 03/01/17 15:35 Intake and Output: 03/01/17 03/02/17 18:59 06:59 Intake Total 290 360 Balance 290 360 - Medications Medications: Current Medications Albuterol/Ipratropium (Duoneb 3 Mg/0.5 Mg (3 Ml) Ud) 3 ml INH RQ6 [facility] Last Admin: 03/01/17 19:25 Dose: 3 ml Amlodipine Besylate (Norvasc) 10 mg PO DAILY [facility] Last Admin: 03/01/17 09:43 Dose: 10 mg Enoxaparin Sodium (Lovenox) 40 mg SC DAILY [facility] Last Admin: 03/01/17 09:43 Dose: 40 mg Famotidine (Pepcid) 20 mg PO DAILY [facility] Last Admin: 03/01/17 09:43 Dose: 20 mg Ferrous Sulfate (Feosol) 325 mg PO TID [facility] Last Admin: 03/01/17 16:59 Dose: 325 mg Ceftriaxone Sodium (Rocephin Iv 1 Gm Duplex) 50 mls @ 50 mls/30 min IVPB DAILY [facility] Last Admin: 03/01/17 09:43 Dose: 50 mls/30 min Potassium Chloride (K-Dur 20 Meq Er Tab) 40 meq PO DAILY [facility] Stop: 03/02/17 12:00 Last Admin: 03/01/17 12:12 Dose: 40 meq Rosuvastatin Calcium (Crestor) 10 mg PO HS [facility] Last Admin: 03/01/17 21:03 Dose: 10 mg - Labs Labs: 03/01/17 07:33 03/01/17 07:33 PT 13.3 SECONDS (9.7-12.2) H 02/25/17 18:17 INR 1.2 02/25/17 18:17 APTT 31 SECONDS (21-34) D 02/25/17 18:17 - Constitutional Appears: No Acute Distress, Chronically Ill - Eye Exam Eye Exam: EOMI, Normal appearance, PERRL Pupil Exam: NORMAL ACCOMODATION, PERRL - Respiratory Exam Respiratory Exam: Clear to Ausculation Bilateral, NORMAL BREATHING PATTERN - Cardiovascular Exam Cardiovascular Exam: REGULAR RHYTHM, +S1, +S2. absent: Murmur - GI/Abdominal Exam GI & Abdominal Exam: Soft, Normal Bowel Sounds. absent: Tenderness Assessment and Plan (1) Ascites, malignant Status: Acute (2) Diabetes mellitus Status: Chronic (3) Hypertension Status: Chronic (4) Ovarian cancer Status: Chronic (5) Pleural effusion due to another disorder Status: Acute (6) Shortness of breath Status: Acute
[2017-03-02] MEDS: Albuterol-Ipratrop 3 mg / 0.5 (3 ml) UD INH SCH ×5 (01:18→20:44)
[2017-03-02] MEDS: Potassium Chloride 20 mEq ER Tab PO SCH (10:22)
[2017-03-02] MEDS: cefTRIAXone IV 1 gm in Dextros 50 ML IVPB SCH (10:22)
--- NOTE | 2017-03-02 10:41 | CP.PCM.PN ---
Subjective - Date & Time of Evaluation Date of Evaluation: 03/02/17 Time of Evaluation: 10:36 - Subjective Subjective: c/o sob. VATS , evacuation of left effusion, chest tube, and possible pleurex cath. under general anesthesia. Surgery discussed with the pt and her daughter,camacho( via cell phone), including risks, benefits, alternatives, possibility of , she and daughter accepted surgery without reservation. Objective - Vital Signs/Intake and Output Vital Signs (last 24 hours): Temp Pulse Resp BP Pulse Ox 97.9 F 90 18 155/91 H 98 03/02/17 07:15 03/02/17 07:15 03/02/17 07:15 03/02/17 07:15 03/02/17 07:15 Intake and Output: 03/02/17 03/02/17 06:59 18:59 Intake Total 360 Balance 360 - Medications Medications: Current Medications Albuterol/Ipratropium (Duoneb 3 Mg/0.5 Mg (3 Ml) Ud) 3 ml INH RQ6 [facility] Last Admin: 03/02/17 07:19 Dose: 3 ml Amlodipine Besylate (Norvasc) 10 mg PO DAILY [facility] Last Admin: 03/02/17 10:23 Dose: 10 mg Enoxaparin Sodium (Lovenox) 40 mg SC DAILY [facility] Last Admin: 03/01/17 09:43 Dose: 40 mg Famotidine (Pepcid) 20 mg PO DAILY [facility] Last Admin: 03/02/17 10:18 Dose: Not Given Ferrous Sulfate (Feosol) 325 mg PO TID [facility] Last Admin: 03/02/17 10:17 Dose: Not Given Ceftriaxone Sodium (Rocephin Iv 1 Gm Duplex) 50 mls @ 50 mls/30 min IVPB DAILY [facility] Last Admin: 03/02/17 10:22 Dose: 50 mls/30 min Potassium Chloride (K-Dur 20 Meq Er Tab) 40 meq PO DAILY [facility] Stop: 03/02/17 12:00 Last Admin: 03/02/17 10:22 Dose: 40 meq Rosuvastatin Calcium (Crestor) 10 mg PO HS [facility] Last Admin: 03/01/17 21:03 Dose: 10 mg - Labs Labs: 03/01/17 07:33 03/01/17 07:33 PT 13.3 SECONDS (9.7-12.2) H 02/25/17 18:17 INR 1.2 02/25/17 18:17 APTT 31 SECONDS (21-34) D 02/25/17 18:17
[2017-03-02] MEDS ORDERED: Lidocaine 2% Jelly (Uro-Jet) ONE (11:25)
[2017-03-02] MEDS ORDERED: Rocuronium 10 mg/ml (5 ml) ONE ×2 (11:50)
[2017-03-02] MEDS ORDERED: Succinylcholine Chloride 20 mg/ml Syr (5 ml) IV ONE (11:50)
[2017-03-02] MEDS ORDERED: Midazolam 2 MG/2 ML VIAL ONE (11:53)
[2017-03-02] MEDS ORDERED: Propofol 10 mg/ml Inj (20 ML) ONE (11:53)
[2017-03-02] MEDS ORDERED: ePHEDrine 50 mg/ml Inj ONE (12:17)
--- NOTE | 2017-03-02 14:39 | US ---
Date of Procedure: 02/26/2017 PROCEDURE: Ultrasound-guided aspiration abdominal collection Medications: 6 cc 1% Lidocaine HISTORY: Loculated right upper abdominal collection TECHNIQUE: Following informed consent , the patient was placed supine on the stretcher and the site was marked. A limited abdominal ultrasound was performed that showed a large amount of intra-abdominal fluid. Procedural time out was called and the Pt's abdomen was marked and prepped and draped in the usual sterile fashion. Under ultrasound guidance a drainage catheter was advanced into the collection. A total of 1 liter of dark colored fluid was removed without complication. The drainage catheter was removed and a dressing was applied. IMPRESSION: Ultrasound-guided drainage of loculated abdominal collection.
[2017-03-02] MEDS ORDERED: Bacitracin Ointment 30 GM TUBE ONE (15:24)
[2017-03-02] MEDS ORDERED: Neostigmine Methylsulfate 3mg/3ml Syringe IV ONE (15:25)
--- NOTE | 2017-03-02 16:16 | PCM.SURG1 ---
Surgeon's Initial Post Op Note - Surgeon's Notes Surgeon: Dr. Mishra Dairy Technician: Dr. Cruz PGY-2 Type of Anesthesia: General Endo Pre-Operative Diagnosis: Recurrent pleural effusions Operative Findings: see operative report Post-Operative Diagnosis: Recurrent pleural effusions Operation Performed: Left VATS converted to thoracotomy, evacuation of pleural fluid, debridement of left lung cavity, decortication, insertion of chest tubes and PleurX catheter Specimen/Specimens Removed: pleural peel, fibrinous exudate, 1100cc pleural fluid Estimated Blood Loss: EBL {In ML}: 30 Blood Products Given: N/A Drains Used: Chest Tubes (x2) Post-Op Condition: Poor Date of Surgery/Procedure: 03/02/17 Time of Surgery/Procedure: 16:15
[2017-03-02] MEDS ORDERED: HYDROmorphone 0.5 mg/0.5 ml ISec ONE (16:19)
[2017-03-02] MEDS: HYDROmorphone 0.5 mg/0.5 ml ISec IVP PRN ×4 (16:19→18:55)
[2017-03-02] MEDS ORDERED: HYDROmorphone 1 mg/ml ISec ONE (16:47)
[2017-03-02 17:16] LABS: BODY FLUID TYPE PLEURAL
[2017-03-02 18:09] LABS: CHLORIDE 103 mmol/L (98-107); POTASSIUM 4.9 mmol/L (3.6-5.2); SODIUM 138 mmol/L (132-148)
[2017-03-02 18:12] LABS: CARBON DIOXIDE 28 mmol/L (22-30); GFR AFRICAN-AMERICAN > 60
[2017-03-02 18:13] LABS: BLOOD UREA NITROGEN 13 mg/dL (7-17); CALCIUM 8.9 mg/dl (8.6-10.4); GLUCOSE,RANDOM 131 mg/dL (65-105)
[2017-03-02 18:36] LABS: BASO % 0.1 % (0.0-2.0); HEMATOCRIT 39.5 % (34.0-47.0); LYMPH # 0.8 K/uL (1.0-4.3); LYMPH % 9.2 % (20.0-40.0); MEAN CELL VOLUME 83.7 fL (81.0-99.0); MEAN CORPUSCULAR HGB CONC 29.9 g/dL (33.0-37.0); MEAN PLATELET VOLUME 8.3 fL (7.2-11.7); MONO # 0.4 K/uL (0.0-0.8); MONO % 4.3 % (0.0-10.0); PLATELET COUNT 224 K/uL (130-400); RED CELL DISTRIBUTION WIDTH 17.6 % (11.5-14.5); WHITE BLOOD COUNT 8.9 K/uL (4.8-10.8)
[2017-03-02] MEDS ORDERED: Dextrose 5%/0.45% NS 1,000 ML IV SCH (19:15)
[2017-03-02 21:29] LABS: NEUTROPHIL 85 % (50-75); TOTAL CELLS COUNTED 100
[2017-03-02 21:30] LABS: LARGE PLATELETS PRESENT; SMUDGE CELLS PRESENT
[2017-03-02 22:57] LABS: BF GROSS APPEARANCE TURBID (CLEAR)
--- NOTE | 2017-03-02 23:10 | CP.PCM.CON ---
History of Present Illness - History of Present Illness History of Present Illness: This is s 71 year old female with PMH of ovarian cancer on chemotherapy with multiple re-acumulations of ascities and pleural effussions. Today she went for VAts of the left lung amie got converted to thoracotomy with evacuation of 1.1 L and debridement. There are [address] connected to wound vac and one pleurex catheter (not connected). 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 Will not reverse narcotics since I do not want her to have a lot of pain since surgery is very painful. Will watch her. will check bmp post procedure, x-ray checked. Past Patient History - Infectious Disease Hx of Infectious Diseases: None - Past Medical History & Family History Past Medical History?: Yes - Past Social History Smoking Status: Former Smoker - CARDIAC Hx Hypercholesterolemia: Yes Hx Hypertension: Yes - PULMONARY Hx Asthma: Yes - NEUROLOGICAL Hx Seizures: Yes (UP TIL AGE 14YRS.) - HEENT Hx HEENT Problems: Yes Hx Cataracts: Yes (LEFT) - ENDOCRINE/METABOLIC Hx Diabetes Mellitus Type 2: Yes - HEMATOLOGICAL/ONCOLOGICAL Hx Anemia: Yes - MUSCULOSKELETAL/RHEUMATOLOGICAL Hx Arthritis: Yes Hx Rheumatoid Arthritis: Yes - GASTROINTESTINAL Hx Crohn's Disease: No Hx Diverticulitis: No Hx Gall Bladder Disease: No Hx Gastritis: No Hx Pancreatitis: No - GENITOURINARY/GYNECOLOGICAL Hx Sexually Transmitted Disorders: No - PSYCHIATRIC Hx Substance Use: No - SURGICAL HISTORY Hx Appendectomy: No Hx Carotid Endarterectomy: No Hx Cholecystectomy: No Hx Coronary Artery Bypass Graft: No Hx Tonsillectomy: No - ANESTHESIA Hx Anesthesia: Yes Hx Anesthesia Reactions: No Hx Malignant Hyperthermia: No Meds Allergies/Adverse Reactions: Allergies Allergy/AdvReac Type Severity Reaction Status Date / Time No Known Allergies Allergy Verified 12/17/16 18:57 - Medications Medications: Current Medications Albuterol/Ipratropium (Duoneb 3 Mg/0.5 Mg (3 Ml) Ud) 3 ml INH RQ6 [facility] Last Admin: 03/02/17 20:44 Dose: Not Given Amlodipine Besylate (Norvasc) 10 mg PO DAILY [facility] Last Admin: 03/02/17 10:23 Dose: 10 mg Enoxaparin Sodium (Lovenox) 40 mg SC DAILY [facility] Last Admin: 03/01/17 09:43 Dose: 40 mg Famotidine (Pepcid) 20 mg PO DAILY [facility] Last Admin: 03/02/17 10:18 Dose: Not Given Ferrous Sulfate (Feosol) 325 mg PO TID [facility] Last Admin: 03/02/17 21:22 Dose: Not Given Hydromorphone/Sodium Chloride (Dilaudid Fur Sorter) 6 mg IV Q4H PRN; Protocol PRN Reason: Pain, moderate (4-7) Ceftriaxone Sodium (Rocephin Iv 1 Gm Duplex) 50 mls @ 50 mls/30 min IVPB DAILY [facility] Last Admin: 03/02/17 10:22 Dose: 50 mls/30 min Dextrose/Sodium Chloride (Dextrose 5%/0.45% Ns 1000 Ml) 1,000 mls @ 60 mls/hr IV .[id number] [facility] Last Admin: 03/02/17 19:15 Dose: 0 mls Ondansetron HCl (Zofran Inj) 4 mg IVP Q4 PRN PRN Reason: Nausea/Vomiting Rosuvastatin Calcium (Crestor) 10 mg PO HS [facility] Last Admin: 03/02/17 21:22 Dose: Not Given Results - Vital Signs Recent Vital Signs: Last Vital Signs Temp 98.8 F 03/02/17 19:30 Pulse 101 H 03/02/17 22:00 Resp 14 03/02/17 22:57 BP 106/55 L 03/02/17 21:45 Pulse Ox 97 03/02/17 22:57 - Labs Result Diagrams: 03/02/17 18:06 03/02/17 17:50 Labs: Laboratory Results - last 24 hr 03/02/17 03/02/17 03/02/17 07:40 17:15 17:50 WBC RBC Hgb Hct MCV MCH MCHC RDW Plt Count MPV Neut % (Auto) Lymph % (Auto) Jenkins % (Auto) Eos % (Auto) Baso % (Auto) Neut # Lymph # Jenkins # Eos # Baso # Neutrophils % (Manual) Lymphocytes % (Manual) Monocytes % (Manual) Hypersegmented Polys Smudge Cells Toxic Granulation Platelet Estimate Large Platelets Polychromasia Poikilocytosis (manual Anisocytosis (manual) Microcytosis (manual) Sodium 138 Potassium 4.9 Chloride 103 Carbon Dioxide 28 Anion Gap 12 BUN 13 Creatinine 0.8 Est GFR ( Amer) > 60 Est GFR (Non-Af Amer) > 60 POC Glucose (mg/dL) Random Glucose 131 H Calcium 8.9 Fluid Source Pleural Hepatitis A IgM Ab Negative Hep Bs Antigen Negative Hep B Core IgM Ab Negative Hepatitis C Antibody Negative HIV 1&2 Antibody Screen Negative Blood Type O POSITIVE Antibody Screen Negative 03/02/17 03/02/17 18:03 18:06 WBC 8.9 D RBC 4.71 Hgb 11.8 Hct 39.5 MCV 83.7 MCH 25.0 L MCHC 29.9 L RDW 17.6 H Plt Count 224 MPV 8.3 Neut % (Auto) 86.4 H Lymph % (Auto) 9.2 L Jenkins % (Auto) 4.3 Eos % (Auto) 0.0 Baso % (Auto) 0.1 Neut # 7.7 H Lymph # 0.8 L Jenkins # 0.4 Eos # 0.0 Baso # 0.0 Neutrophils % (Manual) 85 H Lymphocytes % (Manual) 10 L Monocytes % (Manual) 5 Hypersegmented Polys Present Smudge Cells Present Toxic Granulation Present Platelet Estimate Normal Large Platelets Present Polychromasia Slight Poikilocytosis (manual Slight Anisocytosis (manual) Slight Microcytosis (manual) Slight Sodium Potassium Chloride Carbon Dioxide Anion Gap BUN Creatinine Est GFR ( Amer) Est GFR (Non-Af Amer) POC Glucose (mg/dL) 136 H Random Glucose Calcium Fluid Source Hepatitis A IgM Ab Hep Bs Antigen Hep B Core IgM Ab Hepatitis C Antibody HIV 1&2 Antibody Screen Blood Type Antibody Screen
[2017-03-02 23:16] LABS: BODY FLUID TOTAL COUNT 100 (0-0)
[2017-03-02 23:35] LABS: CALCIUM 8.6 mg/dl (8.6-10.4); MAGNESIUM 1.5 mg/dL (1.6-2.3); PHOSPHOROUS 5.4 mg/dL (2.5-4.5); POTASSIUM 5.9 mmol/L (3.6-5.2)
--- NOTE | 2017-03-03 01:11 | CP.PCM.PN ---
Subjective - Date & Time of Evaluation Date of Evaluation: 03/02/17 Time of Evaluation: 09:28 - Subjective Subjective: Pt seen and examined, s/p OR, on controlled analgesics for pain control, Today she went for VAts of the left lung amie got converted to thoracotomy with evacuation of 1.1 L and debridement. There are [address] connected to wound vac and one pleurex catheter (not connected). 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 Objective - Vital Signs/Intake and Output Vital Signs (last 24 hours): Temp Pulse Resp BP Pulse Ox 98.8 F 98 H 16 104/55 L 92 L 03/02/17 19:30 03/03/17 00:00 03/03/17 00:00 03/02/17 23:45 03/03/17 00:00 Intake and Output: 03/02/17 03/03/17 18:59 06:59 Intake Total 1900 300 Output Total 550 388 Balance 1350 -88 - Medications Medications: Current Medications Albuterol/Ipratropium (Duoneb 3 Mg/0.5 Mg (3 Ml) Ud) 3 ml INH RQ6 [facility] Last Admin: 03/02/17 20:44 Dose: Not Given Amlodipine Besylate (Norvasc) 10 mg PO DAILY [facility] Last Admin: 03/02/17 10:23 Dose: 10 mg Enoxaparin Sodium (Lovenox) 40 mg SC DAILY [facility] Last Admin: 03/01/17 09:43 Dose: 40 mg Famotidine (Pepcid) 20 mg PO DAILY [facility] Last Admin: 03/02/17 10:18 Dose: Not Given Ferrous Sulfate (Feosol) 325 mg PO TID [facility] Last Admin: 03/02/17 21:22 Dose: Not Given Hydromorphone/Sodium Chloride (Dilaudid Continuous Washer Operator) 6 mg IV Q4H PRN; Protocol PRN Reason: Pain, moderate (4-7) Ceftriaxone Sodium (Rocephin Iv 1 Gm Duplex) 50 mls @ 50 mls/30 min IVPB DAILY [facility] Last Admin: 03/02/17 10:22 Dose: 50 mls/30 min Dextrose/Sodium Chloride (Dextrose 5%/0.45% Ns 1000 Ml) 1,000 mls @ 60 mls/hr IV .[id number] [facility] Last Admin: 03/02/17 19:15 Dose: 0 mls Morphine Sulfate (Morphine) 4 mg IVP Q4 PRN PRN Reason: Pain, moderate (4-7) Ondansetron HCl (Zofran Inj) 4 mg IVP Q4 PRN PRN Reason: Nausea/Vomiting Rosuvastatin Calcium (Crestor) 10 mg PO HS [facility] Last Admin: 03/02/17 21:22 Dose: Not Given - Labs Labs: 03/02/17 18:06 03/02/17 23:21 PT 13.3 SECONDS (9.7-12.2) H 02/25/17 18:17 INR 1.2 02/25/17 18:17 APTT 31 SECONDS (21-34) D 02/25/17 18:17 - Constitutional Appears: No Acute Distress, Chronically Ill - Head Exam Head Exam: ATRAUMATIC, NORMAL INSPECTION, NORMOCEPHALIC - Eye Exam Eye Exam: EOMI, Normal appearance, PERRL Pupil Exam: NORMAL ACCOMODATION, PERRL - Respiratory Exam Respiratory Exam: Decreased Breath Sounds, Rales, Rhonchi - Cardiovascular Exam Cardiovascular Exam: REGULAR RHYTHM, +S1, +S2. absent: Murmur - GI/Abdominal Exam GI & Abdominal Exam: Soft, Normal Bowel Sounds. absent: Tenderness Assessment and Plan (1) Ascites, malignant Status: Acute (2) Diabetes mellitus Status: Chronic (3) Hypertension Status: Chronic (4) Ovarian cancer Status: Chronic (5) Pleural effusion due to another disorder Status: Acute (6) Shortness of breath Status: Acute
[2017-03-03] MEDS: Albuterol-Ipratrop 3 mg / 0.5 (3 ml) UD INH SCH (01:21)
[2017-03-03] MEDS ORDERED: Sodium Polystyrene Sulfonate Enema 30 gm/120 ml PR ONE (01:22)
[2017-03-03] MEDS ORDERED: Sodium Chloride 0.9% 1,000 ML IV SCH ×2 (01:30→12:09)
[2017-03-03 06:40] LABS: LYMPH # 0.8 K/uL (1.0-4.3); MEAN PLATELET VOLUME 8.2 fL (7.2-11.7); MONO # 0.4 K/uL (0.0-0.8); RED CELL DISTRIBUTION WIDTH 17.1 % (11.5-14.5)
[2017-03-03 06:49] LABS: POTASSIUM 5.5 mmol/L (3.6-5.2)
[2017-03-03 06:51] LABS: ALB/GLOB RATIO 1.1 (1.0-2.1); BILIRUBIN,TOTAL 0.6 mg/dL (0.2-1.3); TOTAL PROTEIN 5.9 g/dL (6.3-8.3)
[2017-03-03 06:52] LABS: CALCIUM 8.7 mg/dl (8.6-10.4)
[2017-03-03 06:59] LABS: BASO % 0.1 % (0.0-2.0); HEMATOCRIT 36.1 % (34.0-47.0); LYMPH % 10.2 % (20.0-40.0); MEAN CELL VOLUME 83.3 fL (81.0-99.0); MEAN CORPUSCULAR HEMOGLOBIN 25.9 pg (27.0-31.0); MEAN CORPUSCULAR HGB CONC 31.1 g/dL (33.0-37.0); NRBC % 0.1 % (0.0-2.0); WHITE BLOOD COUNT 7.3 K/uL (4.8-10.8)
[2017-03-03 07:52] LABS: MAGNESIUM 2.6 mg/dL (1.6-2.3); PHOSPHOROUS 4.3 mg/dL (2.5-4.5)
--- NOTE | 2017-03-03 08:51 | RAD ---
HISTORY: s/p left thoracotomy, drainage of fluid COMPARISON: 02/25/2017 FINDINGS: LUNGS: Right chest wall port in stable position. Multiple chest drains overlie the left kavita thorax status post thoracotomy with interval decrease in a now small to moderate loculated left pleural effusion. Adjacent prominent ill-defined consolidative opacities in the left mid to lower lung zone. Small loculated right pleural effusion with adjacent consolidative changes. Venous congestion. Upper lobe granulomatous changes. PLEURA: As above. CARDIOVASCULAR: Normal. OSSEOUS STRUCTURES: No significant abnormalities. VISUALIZED UPPER ABDOMEN: Normal. OTHER FINDINGS: None. IMPRESSION: Right chest wall port in stable position. Multiple chest drains overlie the left kavita thorax status post thoracotomy with interval decrease in a now small to moderate loculated left pleural effusion. Adjacent prominent ill-defined consolidative opacities in the left mid to lower lung zone. Small loculated right pleural effusion with adjacent consolidative changes. Venous congestion. Upper lobe granulomatous changes.
--- NOTE | 2017-03-03 09:27 | RAD ---
HISTORY: left chest tube, s/p thoracotomy COMPARISON: 03/02/2017 FINDINGS: LUNGS: Lines and tubes stable position. Prior left sided thoracotomy with residual small loculated left pleural effusion. Persistent ill-defined consolidative opacifications within the left mid to lower lung zone. Small loculated right pleural effusion. Right hilar prominence. PLEURA: As above. CARDIOVASCULAR: Normal. OSSEOUS STRUCTURES: No significant abnormalities. VISUALIZED UPPER ABDOMEN: Normal. OTHER FINDINGS: None. IMPRESSION: No significant interval change.
[2017-03-03] MEDS: cefTRIAXone IV 1 gm in Dextros 50 ML IVPB SCH (10:09)
--- NOTE | 2017-03-03 10:45 | CP.PCM.PN ---
Subjective - Date & Time of Evaluation Date of Evaluation: 03/03/17 Time of Evaluation: 07:30 - Subjective Subjective: Thoracic Surgery Dr. Mishra Pt S&E @bedside. Nursing reports that pt's CO2 reached 66% overnight and that the ICU attending d/nicole the LEAD SIMULATION MODELING ENGINEER. Today, Pt is not in pain and states that her breathing has greatly improved from the day before. (-)BM/Flatus since surgery. denies SOB, CP, palpitations or nausea. Pt is NPO per ICU Objective - Vital Signs/Intake and Output Vital Signs (last 24 hours): Temp Pulse Resp BP Pulse Ox 98.8 F 90 15 102/62 98 03/02/17 19:30 03/03/17 07:00 03/03/17 07:00 03/03/17 06:45 03/03/17 07:00 Intake and Output: 03/03/17 03/03/17 06:59 18:59 Intake Total 810 50 Output Total 715 Balance 95 50 - Medications Medications: Current Medications Amlodipine Besylate (Norvasc) 10 mg PO DAILY [facility] Last Admin: 03/03/17 10:09 Dose: 10 mg Enoxaparin Sodium (Lovenox) 40 mg SC DAILY [facility] Last Admin: 03/01/17 09:43 Dose: 40 mg Famotidine (Pepcid) 20 mg PO DAILY [facility] Last Admin: 03/03/17 10:09 Dose: 20 mg Ferrous Sulfate (Feosol) 325 mg PO TID [facility] Last Admin: 03/03/17 10:09 Dose: 325 mg Hydromorphone/Sodium Chloride (Dilaudid Physician General Practice) 6 mg IV Q4H PRN; Protocol PRN Reason: Pain, moderate (4-7) Ceftriaxone Sodium (Rocephin Iv 1 Gm Duplex) 50 mls @ 50 mls/30 min IVPB DAILY [facility] Last Admin: 03/03/17 10:09 Dose: 50 mls/30 min Sodium Chloride (Sodium Chloride 0.9%) 1,000 mls @ 50 mls/hr IV .Q20H [facility] Last Admin: 03/03/17 01:42 Dose: 50 mls/hr Morphine Sulfate (Morphine) 4 mg IVP Q4 PRN PRN Reason: Pain, moderate (4-7) Last Admin: 03/03/17 06:15 Dose: 4 mg Ondansetron HCl (Zofran Inj) 4 mg IVP Q4 PRN PRN Reason: Nausea/Vomiting Rosuvastatin Calcium (Crestor) 10 mg PO HS [facility] Last Admin: 03/02/17 21:22 Dose: Not Given - Labs Labs: 03/03/17 06:35 03/03/17 04:00 PT 13.3 SECONDS (9.7-12.2) H 02/25/17 18:17 INR 1.2 02/25/17 18:17 APTT 31 SECONDS (21-34) D 02/25/17 18:17 - Constitutional Appears: Non-toxic, No Acute Distress - Head Exam Head Exam: ATRAUMATIC, NORMOCEPHALIC - Eye Exam Eye Exam: Normal appearance. absent: Scleral icterus - Respiratory Exam Respiratory Exam: NORMAL BREATHING PATTERN (on NRB). absent: Accessory Muscle Use, Respiratory Distress Additional comments: chest dressing c/d/i CT x 2 present small air leak in CT#2 - Cardiovascular Exam Cardiovascular Exam: REGULAR RHYTHM. absent: Tachycardia, JVD - GI/Abdominal Exam GI & Abdominal Exam: Soft. absent: Firm, Rigid, Tenderness - Neurological Exam Neurological Exam: Alert, Awake, Oriented x3 - Psychiatric Exam Psychiatric exam: Anxious, Normal Affect - Skin Skin Exam: Dry, Warm Assessment and Plan - Assessment and Plan (Free Text) Assessment: 71y/o F POD#1 s/p thoracotomy w/ decortication and chest tube placement - continue pain management - IVF - advance diet as per ICU - monitor CO2, H&H, BMP - dressing to be changed per surgery - monitor chest tube output - fleming to be d/nicole tomorrow, pending UOP Further recs per Dr. Tad Salas PGY1
[2017-03-03] MEDS ORDERED: Sodium Chloride 0.9% 1,000 ML IV ONE ×3 (10:49→18:07)
--- NOTE | 2017-03-03 12:52 | CP.PCM.PN ---
Subjective - Date & Time of Evaluation Date of Evaluation: 03/03/17 Time of Evaluation: 12:43 - Subjective Subjective: POD#1. Pt s/e. Up in a bedside chair with n/c(3L O2). No more sob. Afebrile. wbc-7k. BUN and Creat-increased assoc with low u/o. On NS fluid chanllenge/ chest tube output: 240/40/since [id number] air leak. cxr-better aeration-some effusion. MANAGER WATER discontinued because of hypercarbia. a/p: Satisfactory POD#1. Incentive spirometer. Continue current rx. Path-pending. Objective - Vital Signs/Intake and Output Vital Signs (last 24 hours): Temp Pulse Resp BP Pulse Ox 98.8 F 91 H 23 123/67 95 03/02/17 19:30 03/03/17 11:00 03/03/17 11:00 03/03/17 10:45 03/03/17 11:00 Intake and Output: 03/03/17 03/03/17 06:59 18:59 Intake Total 810 1150 Output Total 715 0 Balance 95 1150 - Medications Medications: Current Medications Amlodipine Besylate (Norvasc) 10 mg PO DAILY [facility] Last Admin: 03/03/17 10:09 Dose: 10 mg Enoxaparin Sodium (Lovenox) 40 mg SC DAILY [facility] Last Admin: 03/01/17 09:43 Dose: 40 mg Famotidine (Pepcid) 20 mg PO DAILY [facility] Last Admin: 03/03/17 10:09 Dose: 20 mg Ferrous Sulfate (Feosol) 325 mg PO TID [facility] Last Admin: 03/03/17 10:09 Dose: 325 mg Hydromorphone/Sodium Chloride (Dilaudid Hospice Social Worker) 6 mg IV Q4H PRN; Protocol PRN Reason: Pain, moderate (4-7) Ceftriaxone Sodium (Rocephin Iv 1 Gm Duplex) 50 mls @ 50 mls/30 min IVPB DAILY [facility] Last Admin: 03/03/17 10:09 Dose: 50 mls/30 min Sodium Chloride (Sodium Chloride 0.9%) 1,000 mls @ 83 mls/hr IV .Q12H3M [facility] Morphine Sulfate (Morphine) 4 mg IVP Q4 PRN PRN Reason: Pain, moderate (4-7) Last Admin: 03/03/17 10:56 Dose: 4 mg Ondansetron HCl (Zofran Inj) 4 mg IVP Q4 PRN PRN Reason: Nausea/Vomiting Rosuvastatin Calcium (Crestor) 10 mg PO HS [facility] Last Admin: 03/02/17 21:22 Dose: Not Given - Labs Labs: 03/03/17 06:35 03/03/17 04:00 PT 13.3 SECONDS (9.7-12.2) H 02/25/17 18:17 INR 1.2 02/25/17 18:17 APTT 31 SECONDS (21-34) D 02/25/17 18:17
--- NOTE | 2017-03-03 13:03 | CP.CCUPN ---
<Ochoa Godwin - Last Filed: 03/03/17 17:43> CCU Subjective - Physician Review Subjective (Free Text): 03/03/17 17:11 Pt seen and examined at bedside. POD#1 s/p VATS procedure. Pt complaining of difficulty coughing out thick mucus today. She reports pain at surgical site this afternoon but reports her breathing is better than yesterday. Morphine DIRECT MARKETING EXECUTIVE discontinued overnight. Nursing reported poor output so pt was given two, one liter boluses with modest improvement. CCU Objective - Vital Signs / Intake & Output Vital Signs (Last 4 hours): Vital Signs Pulse Resp BP Pulse Ox 03/03/17 11:00 91 H 23 95 03/03/17 10:45 92 H 23 123/67 95 03/03/17 10:00 95 H 31 H 95 03/03/17 09:45 96 H 31 H 115/65 94 L Intake and Output (Last 8hrs): Intake & Output 03/02/17 03/03/17 03/03/17 22:59 06:59 14:59 Intake Total 622 190 0419 Output Total 938 327 0 Balance -296 562 9682 Weight 146 lb 8 oz Intake: IV 200 Intake, IV Amount 728 276 6147 Right Port-A-Cath 180 630 150 Right Forearm 1000 Output: Chest Tube Drainage 228 Drainage 267 Left Chest #2 33 Left Chest #1 234 Urine 710 30 0 Urethral (Douglass) 10 30 0 Emesis 30 Other: # Bowel Movements 0 - Physical Exam Head: Positive for: Atraumatic, Normocephalic Pupils: Positive for: PERRL Extroacular Muscles: Positive for: EOMI Conjunctiva: Positive for: Normal Mouth: Positive for: Moist Mucous Membranes Respiratory/Chest: Positive for: Clear to Auscultation, Other (chest dressing dry, intact). Negative for: Respiratory Distress, Accessory Muscle Use Cardiovascular: Positive for: Regular Rate and Rhythm, Normal S1, S2 Abdomen: Positive for: Normal Bowel Sounds. Negative for: Tenderness, Distention, Rebound, Guarding Upper Extremity: Positive for: Normal Inspection Lower Extremity: Positive for: Normal Inspection Skin: Positive for: Warm, Dry Psychiatric: Positive for: Alert, Oriented x 3 - Medications Active Medications: Active Medications Generic Name Dose Route Start Last Admin Trade Name Freq PRN Reason Stop Dose Admin Amlodipine Besylate 10 mg 02/27/17 17:48 03/03/17 10:09 Norvasc PO 10 mg DAILY ELLIE Administration Enoxaparin Sodium 40 mg 02/26/17 10:00 03/01/17 09:43 Lovenox SC 40 mg DAILY ELLIE Administration Famotidine 20 mg 02/27/17 10:00 03/03/17 10:09 Pepcid PO 20 mg DAILY ELLIE Administration Ferrous Sulfate 325 mg 02/26/17 10:00 03/03/17 10:09 Feosol PO 325 mg TID ELLIE Administration Hydromorphone/Sodium Chloride 6 mg 03/02/17 16:12 Dilaudid Supervisor Powdered Sugar IV Q4H PRN Pain, moderate (4-7) Protocol Ceftriaxone Sodium 50 mls @ 50 mls/30 min 02/27/17 10:00 03/03/17 10:09 Rocephin Iv 1 Gm Duplex IVPB 50 mls/30 min DAILY ELLIE Administration Sodium Chloride 1,000 mls @ 83 mls/hr 03/03/17 12:09 Sodium Chloride 0.9% IV .Q12H3M [facility] Morphine Sulfate 4 mg 03/03/17 00:58 03/03/17 10:56 Morphine IVP 4 mg Q4 PRN Administration Pain, moderate (4-7) Ondansetron HCl 4 mg 03/02/17 16:13 Zofran Inj IVP Q4 PRN Nausea/Vomiting Rosuvastatin Calcium 10 mg 02/25/17 22:00 03/02/17 21:22 Crestor PO Not Given HS ELLIE - Patient Studies Lab Studies: Microbiology Studies 03/02/17 Unknown Gram Stain - Final Pleural Fluid Body Fluid Culture - Preliminary NO GROWTH AFTER 24 HOURS Lab Studies 03/03/17 03/03/17 03/03/17 Range/Units 11:29 06:35 04:00 WBC 7.3 (4.8-10.8) K/uL RBC 4.33 (3.80-5.20) Mil/uL Hgb 11.2 (11.0-16.0) g/dL Hct 36.1 (34.0-47.0) % MCV 83.3 (81.0-99.0) fL MCH 25.9 L (27.0-31.0) pg MCHC 31.1 L (33.0-37.0) g/dL RDW 17.1 H (11.5-14.5) % Plt Count 222 (130-400) K/uL MPV 8.2 (7.2-11.7) fL Neut % (Auto) 83.7 H (50.0-75.0) % Lymph % (Auto) 10.2 L (20.0-40.0) % [place] % (Auto) 6.0 (0.0-10.0) % Eos % (Auto) 0.0 (0.0-4.0) % Baso % (Auto) 0.1 (0.0-2.0) % Neut # 6.1 (1.8-7.0) K/uL Lymph # 0.8 L (1.0-4.3) K/uL [place] # 0.4 (0.0-0.8) K/uL Eos # 0.0 (0.0-0.7) K/uL Baso # 0.0 (0.0-0.2) K/uL Neutrophils % (Manual) (50-75) % Lymphocytes % (Manual) (20-40) % Monocytes % (Manual) (0-10) % Hypersegmented Polys Smudge Cells Toxic Granulation Platelet Estimate (NORMAL) Large Platelets Polychromasia Poikilocytosis (manual Anisocytosis (manual) Microcytosis (manual) Sodium 137 (132-148) mmol/L Potassium 5.5 H (3.6-5.2) mmol/L Chloride 100 (98-107) mmol/L Carbon Dioxide 29 (22-30) mmol/L Anion Gap 14 (10-20) BUN 20 H (7-17) mg/dL Creatinine 2.1 H (0.7-1.2) MG/DL Est GFR ( Amer) 28 Est GFR (Non-Af Amer) 23 POC Glucose (mg/dL) 149 H (65-110) mg/dL Random Glucose 171 H (65-105) mg/dL Calcium 8.7 (8.6-10.4) mg/dl Phosphorus 4.3 (2.5-4.5) mg/dL Magnesium 2.6 H (1.6-2.3) mg/dL Total Bilirubin 0.6 (0.2-1.3) mg/dL AST 36 D (14-36) U/L ALT 47 (9-52) U/L Alkaline Phosphatase 70 (38-126) U/L Total Protein 5.9 L (6.3-8.3) g/dL Albumin 3.1 L D (3.5-5.0) g/dL Globulin 2.9 (2.2-3.9) gm/dL Albumin/Globulin Ratio 1.1 (1.0-2.1) Fluid Source Fluid Appearance (CLEAR) Fluid WBC (0.0-300.0) /mm3 Fluid RBC (0.0-0.0) /mm3 Fluid Tot Cell Count (0-0) Fluid Neutrophils (0-0) % Fluid Lymphocytes (0-0) % Fld Monocyte/Macrophag (0-0) % Fluid Comment Hepatitis A IgM Ab (NEGATIVE) Hep Bs Antigen (NEGATIVE) Hep B Core IgM Ab (NEGATIVE) Hepatitis C Antibody (NEGATIVE) HIV 1&2 Antibody Screen (NEGATIVE) 03/02/17 03/02/17 03/02/17 Range/Units 23:21 18:06 18:03 WBC 8.9 D (4.8-10.8) K/uL RBC 4.71 (3.80-5.20) Mil/uL Hgb 11.8 (11.0-16.0) g/dL Hct 39.5 (34.0-47.0) % MCV 83.7 (81.0-99.0) fL MCH 25.0 L (27.0-31.0) pg MCHC 29.9 L (33.0-37.0) g/dL RDW 17.6 H (11.5-14.5) % Plt Count 224 (130-400) K/uL MPV 8.3 (7.2-11.7) fL Neut % (Auto) 86.4 H (50.0-75.0) % Lymph % (Auto) 9.2 L (20.0-40.0) % [place] % (Auto) 4.3 (0.0-10.0) % Eos % (Auto) 0.0 (0.0-4.0) % Baso % (Auto) 0.1 (0.0-2.0) % Neut # 7.7 H (1.8-7.0) K/uL Lymph # 0.8 L (1.0-4.3) K/uL [place] # 0.4 (0.0-0.8) K/uL Eos # 0.0 (0.0-0.7) K/uL Baso # 0.0 (0.0-0.2) K/uL Neutrophils % (Manual) 85 H (50-75) % Lymphocytes % (Manual) 10 L (20-40) % Monocytes % (Manual) 5 (0-10) % Hypersegmented Polys Present Smudge Cells Present Toxic Granulation Present Platelet Estimate Normal (NORMAL) Large Platelets Present Polychromasia Slight Poikilocytosis (manual Slight Anisocytosis (manual) Slight Microcytosis (manual) Slight Sodium 136 (132-148) mmol/L Potassium 5.9 H (3.6-5.2) mmol/L Chloride 101 (98-107) mmol/L Carbon Dioxide 29 (22-30) mmol/L Anion Gap 12 (10-20) BUN 16 (7-17) mg/dL Creatinine 1.3 H (0.7-1.2) MG/DL Est GFR ( Amer) 49 Est GFR (Non-Af Amer) 40 POC Glucose (mg/dL) 136 H (65-110) mg/dL Random Glucose 188 H (65-105) mg/dL Calcium 8.6 (8.6-10.4) mg/dl Phosphorus 5.4 H (2.5-4.5) mg/dL Magnesium 1.5 L (1.6-2.3) mg/dL Total Bilirubin (0.2-1.3) mg/dL AST (14-36) U/L ALT (9-52) U/L Alkaline Phosphatase (38-126) U/L Total Protein (6.3-8.3) g/dL Albumin (3.5-5.0) g/dL Globulin (2.2-3.9) gm/dL Albumin/Globulin Ratio (1.0-2.1) Fluid Source Fluid Appearance (CLEAR) Fluid WBC (0.0-300.0) /mm3 Fluid RBC (0.0-0.0) /mm3 Fluid Tot Cell Count (0-0) Fluid Neutrophils (0-0) % Fluid Lymphocytes (0-0) % Fld Monocyte/Macrophag (0-0) % Fluid Comment Hepatitis A IgM Ab (NEGATIVE) Hep Bs Antigen (NEGATIVE) Hep B Core IgM Ab (NEGATIVE) Hepatitis C Antibody (NEGATIVE) HIV 1&2 Antibody Screen (NEGATIVE) 03/02/17 03/02/17 Range/Units 17:50 17:15 WBC (4.8-10.8) K/uL RBC (3.80-5.20) Mil/uL Hgb (11.0-16.0) g/dL Hct (34.0-47.0) % MCV (81.0-99.0) fL MCH (27.0-31.0) pg MCHC (33.0-37.0) g/dL RDW (11.5-14.5) % Plt Count (130-400) K/uL MPV (7.2-11.7) fL Neut % (Auto) (50.0-75.0) % Lymph % (Auto) (20.0-40.0) % [place] % (Auto) (0.0-10.0) % Eos % (Auto) (0.0-4.0) % Baso % (Auto) (0.0-2.0) % Neut # (1.8-7.0) K/uL Lymph # (1.0-4.3) K/uL [place] # (0.0-0.8) K/uL Eos # (0.0-0.7) K/uL Baso # (0.0-0.2) K/uL Neutrophils % (Manual) (50-75) % Lymphocytes % (Manual) (20-40) % Monocytes % (Manual) (0-10) % Hypersegmented Polys Smudge Cells Toxic Granulation Platelet Estimate (NORMAL) Large Platelets Polychromasia Poikilocytosis (manual Anisocytosis (manual) Microcytosis (manual) Sodium 138 (132-148) mmol/L Potassium 4.9 (3.6-5.2) mmol/L Chloride 103 (98-107) mmol/L Carbon Dioxide 28 (22-30) mmol/L Anion Gap 12 (10-20) BUN 13 (7-17) mg/dL Creatinine 0.8 (0.7-1.2) MG/DL Est GFR ( Amer) > 60 Est GFR (Non-Af Amer) > 60 POC Glucose (mg/dL) (65-110) mg/dL Random Glucose 131 H (65-105) mg/dL Calcium 8.9 (8.6-10.4) mg/dl Phosphorus (2.5-4.5) mg/dL Magnesium (1.6-2.3) mg/dL Total Bilirubin (0.2-1.3) mg/dL AST (14-36) U/L ALT (9-52) U/L Alkaline Phosphatase (38-126) U/L Total Protein (6.3-8.3) g/dL Albumin (3.5-5.0) g/dL Globulin (2.2-3.9) gm/dL Albumin/Globulin Ratio (1.0-2.1) Fluid Source Pleural Fluid Appearance Turbid (CLEAR) Fluid WBC 9532.0 H (0.0-300.0) /mm3 Fluid RBC 669840.0 H (0.0-0.0) /mm3 Fluid Tot Cell Count 100 H (0-0) Fluid Neutrophils 33.0 H (0-0) % Fluid Lymphocytes 56.0 H (0-0) % Fld Monocyte/Macrophag 11 H (0-0) % Fluid Comment Hepatitis A IgM Ab Negative (NEGATIVE) Hep Bs Antigen Negative (NEGATIVE) Hep B Core IgM Ab Negative (NEGATIVE) Hepatitis C Antibody Negative (NEGATIVE) HIV 1&2 Antibody Screen Negative (NEGATIVE) Laboratory Results - last 24 hr 03/02/17 03/02/17 03/02/17 17:15 17:50 18:03 WBC RBC Hgb Hct MCV MCH MCHC RDW Plt Count MPV Neut % (Auto) Lymph % (Auto) [place] % (Auto) Eos % (Auto) Baso % (Auto) Neut # Lymph # [place] # Eos # Baso # Neutrophils % (Manual) Lymphocytes % (Manual) Monocytes % (Manual) Hypersegmented Polys Smudge Cells Toxic Granulation Platelet Estimate Large Platelets Polychromasia Poikilocytosis (manual Anisocytosis (manual) Microcytosis (manual) Sodium 138 Potassium 4.9 Chloride 103 Carbon Dioxide 28 Anion Gap 12 BUN 13 Creatinine 0.8 Est GFR ( Amer) > 60 Est GFR (Non-Af Amer) > 60 POC Glucose (mg/dL) 136 H Random Glucose 131 H Calcium 8.9 Phosphorus Magnesium Total Bilirubin AST ALT Alkaline Phosphatase Total Protein Albumin Globulin Albumin/Globulin Ratio Fluid Source Pleural Fluid Appearance Turbid Fluid WBC 9532.0 H Fluid RBC 596766.0 H Fluid Tot Cell Count 100 H Fluid Neutrophils 33.0 H Fluid Lymphocytes 56.0 H Fld Monocyte/Macrophag 11 H Fluid Comment Hepatitis A IgM Ab Negative Hep Bs Antigen Negative Hep B Core IgM Ab Negative Hepatitis C Antibody Negative HIV 1&2 Antibody Screen Negative 03/02/17 03/02/17 03/03/17 18:06 23:21 04:00 WBC 8.9 D RBC 4.71 Hgb 11.8 Hct 39.5 MCV 83.7 MCH 25.0 L MCHC 29.9 L RDW 17.6 H Plt Count 224 MPV 8.3 Neut % (Auto) 86.4 H Lymph % (Auto) 9.2 L [place] % (Auto) 4.3 Eos % (Auto) 0.0 Baso % (Auto) 0.1 Neut # 7.7 H Lymph # 0.8 L [place] # 0.4 Eos # 0.0 Baso # 0.0 Neutrophils % (Manual) 85 H Lymphocytes % (Manual) 10 L Monocytes % (Manual) 5 Hypersegmented Polys Present Smudge Cells Present Toxic Granulation Present Platelet Estimate Normal Large Platelets Present Polychromasia Slight Poikilocytosis (manual Slight Anisocytosis (manual) Slight Microcytosis (manual) Slight Sodium 136 137 Potassium 5.9 H 5.5 H Chloride 101 100 Carbon Dioxide 29 29 Anion Gap 12 14 BUN 16 20 H Creatinine 1.3 H 2.1 H Est GFR ( Amer) 49 28 Est GFR (Non-Af Amer) 40 23 POC Glucose (mg/dL) Random Glucose 188 H 171 H Calcium 8.6 8.7 Phosphorus 5.4 H 4.3 Magnesium 1.5 L 2.6 H Total Bilirubin 0.6 AST 36 D ALT 47 Alkaline Phosphatase 70 Total Protein 5.9 L Albumin 3.1 L D Globulin 2.9 Albumin/Globulin Ratio 1.1 Fluid Source Fluid Appearance Fluid WBC Fluid RBC Fluid Tot Cell Count Fluid Neutrophils Fluid Lymphocytes Fld Monocyte/Macrophag Fluid Comment Hepatitis A IgM Ab Hep Bs Antigen Hep B Core IgM Ab Hepatitis C Antibody HIV 1&2 Antibody Screen 03/03/17 03/03/17 06:35 11:29 WBC 7.3 RBC 4.33 Hgb 11.2 Hct 36.1 MCV 83.3 MCH 25.9 L MCHC 31.1 L RDW 17.1 H Plt Count 222 MPV 8.2 Neut % (Auto) 83.7 H Lymph % (Auto) 10.2 L [place] % (Auto) 6.0 Eos % (Auto) 0.0 Baso % (Auto) 0.1 Neut # 6.1 Lymph # 0.8 L [place] # 0.4 Eos # 0.0 Baso # 0.0 Neutrophils % (Manual) Lymphocytes % (Manual) Monocytes % (Manual) Hypersegmented Polys Smudge Cells Toxic Granulation Platelet Estimate Large Platelets Polychromasia Poikilocytosis (manual Anisocytosis (manual) Microcytosis (manual) Sodium Potassium Chloride Carbon Dioxide Anion Gap BUN Creatinine Est GFR ( Amer) Est GFR (Non-Af Amer) POC Glucose (mg/dL) 149 H Random Glucose Calcium Phosphorus Magnesium Total Bilirubin AST ALT Alkaline Phosphatase Total Protein Albumin Globulin Albumin/Globulin Ratio Fluid Source Fluid Appearance Fluid WBC Fluid RBC Fluid Tot Cell Count Fluid Neutrophils Fluid Lymphocytes Fld Monocyte/Macrophag Fluid Comment Hepatitis A IgM Ab Hep Bs Antigen Hep B Core IgM Ab Hepatitis C Antibody HIV 1&2 Antibody Screen Review of Systems - Constitutional Constitutional: absent: Fever, Chills - EENT Eyes: absent: Change in Vision Ears: absent: Decreased Hearing - Cardiovascular Cardiovascular: absent: Chest Pain, Chest Pain at Rest, Dyspnea, Dyspnea on Exertion - Respiratory Respiratory: absent: Cough, Dyspnea, Dyspnea on Exertion, Wheezing Additional comments: Difficulty clearing mucus - Gastrointestinal Gastrointestinal: absent: Abdominal Pain, Nausea, Vomiting - Genitourinary Genitourinary: absent: Dysuria - Musculoskeletal Musculoskeletal: absent: Back Pain - Integumentary Integumentary: absent: Dry Skin, Wounds - Neurological Neurological: absent: Tingling, Weakness - Psychiatric Psychiatric: Anxiety. absent: Depression - Endocrine Endocrine: absent: Polydipsia, Polyphagia Critical Care Progress Note - Nutrition Nutrition: Nutrition Category Date Time Status NPO Diet [DIET] Diets 03/02/17 Dinner Active Assessment/Plan - Assessment and Plan (Free Text) Assessment: 71 year old female, PMH of ovarian cancer on chemotherapy, with multiple reaccumulations of ascities and pleural effussions. POD#1, s/p VATS procedure of the left lung that got converted to thoracotomy. 2 chest tubes placed connected to wound vac. Plan: Neuro: AAOx3 CV: Hypertension - Continue home Norvasc 10mg PO Daily CAD - Crestor 10mg HS Pulm: Dr. Mishra, CT surgeon consulted: help appreciated POD #1, thoracotomy - 240cc/40cc serosanguinous drainage from chest tube 1&2 respectively - f/u cytology Morphine 4mg IVP Q4H PRN for pain Zofran 4mg IV Q4H PRN Dr. Wright, convention services director consulted: help appreciated PCXR (03/03/17): Prior left sided thoracotomy with residual small loculated left pleural effusion. Persistent consolidative opacifications within the left mid to lower lung zone. Small loculated right pleural effusion. Right hilar prominence (see full report) Hx of PE - Home medication of Eliquis 10mg PO BID GI: Liquid diet Hx of ascites S/p paracentesis (02/28/17) : Poor urinary output post-procedure 3, one-liter, fluid challenges NS @ 125 cc/hr Monitor I/Os Hem/Onc: Hx of stage IV ovarian cancer Dr. Florez, Hem/onc consult, help appreciated Dr. Chris, Hem/onc consult, help appreciated - believe malignant effusion - f/u cytology - rising CA-125 Prophylaxis: DVT: SCDs VTE: Lovenox 40mg SC Daily GI: Pepcid 20mg PO Daily <Rakan Wright S - Last Filed: 03/03/17 18:24> CCU Objective - Vital Signs / Intake & Output Vital Signs (Last 4 hours): Vital Signs Pulse Resp BP Pulse Ox 03/03/17 17:00 95 H 13 95 03/03/17 16:45 105 H 18 136/58 L 97 03/03/17 16:00 93 H 14 98 03/03/17 15:59 93 H 20 98 03/03/17 15:46 88 19 132/66 97 03/03/17 15:00 94 H 16 94 L 03/03/17 14:45 96 H 14 112/73 95 Intake and Output (Last 8hrs): Intake & Output 03/03/17 03/03/17 03/03/17 06:59 14:59 22:59 Intake Total 630 1466 1166 Output Total 327 175 45 Balance 303 1291 1121 Weight 146 lb 8 oz Intake: Intake, IV Amount 630 1466 1166 Right Port-A-Cath 630 466 166 Right Forearm 1000 1000 Output: Drainage 267 125 Left Chest #2 33 75 Left Chest #1 234 50 Urine 30 50 45 Urethral (Douglass) 30 50 45 Emesis 30 Other: # Bowel Movements 0 - Medications Active Medications: Active Medications Generic Name Dose Route Start Last Admin Trade Name Freq PRN Reason Stop Dose Admin Amlodipine Besylate 10 mg 02/27/17 17:48 03/03/17 10:09 Norvasc PO 10 mg DAILY ELLIE Administration Enoxaparin Sodium 40 mg 02/26/17 10:00 03/01/17 09:43 Lovenox SC 40 mg DAILY ELLIE Administration Famotidine 20 mg 02/27/17 10:00 03/03/17 10:09 Pepcid PO 20 mg DAILY ELLIE Administration Ferrous Sulfate 325 mg 02/26/17 10:00 03/03/17 18:22 Feosol PO 325 mg TID ELLIE Administration Hydromorphone/Sodium Chloride 6 mg 03/02/17 16:12 Dilaudid Supervisor Powdered Sugar IV Q4H PRN Pain, moderate (4-7) Protocol Ceftriaxone Sodium 50 mls @ 50 mls/30 min 02/27/17 10:00 03/03/17 10:09 Rocephin Iv 1 Gm Duplex IVPB 50 mls/30 min DAILY ELLIE Administration Sodium Chloride 1,000 mls @ 83 mls/hr 03/03/17 12:09 03/03/17 13:31 Sodium Chloride 0.9% IV Not Given .Q12H3M ELLIE Sodium Chloride 1,000 mls @ 125 mls/hr 03/03/17 18:07 Sodium Chloride 0.9% IV 03/04/17 02:06 .Q8H ONE Morphine Sulfate 4 mg 03/03/17 00:58 03/03/17 16:47 Morphine IVP 4 mg Q4 PRN Administration Pain, moderate (4-7) Ondansetron HCl 4 mg 03/02/17 16:13 Zofran Inj IVP Q4 PRN Nausea/Vomiting Rosuvastatin Calcium 10 mg 02/25/17 22:00 03/02/17 21:22 Crestor PO Not Given HS ELLIE - Patient Studies Lab Studies: Microbiology Studies 03/02/17 Unknown Gram Stain - Final Pleural Fluid Body Fluid Culture - Preliminary NO GROWTH AFTER 24 HOURS Lab Studies 03/03/17 03/03/17 03/03/17 Range/Units 16:25 11:29 06:35 WBC 7.3 (4.8-10.8) K/uL RBC 4.33 (3.80-5.20) Mil/uL Hgb 11.2 (11.0-16.0) g/dL Hct 36.1 (34.0-47.0) % MCV 83.3 (81.0-99.0) fL MCH 25.9 L (27.0-31.0) pg MCHC 31.1 L (33.0-37.0) g/dL RDW 17.1 H (11.5-14.5) % Plt Count 222 (130-400) K/uL MPV 8.2 (7.2-11.7) fL Neut % (Auto) 83.7 H (50.0-75.0) % Lymph % (Auto) 10.2 L (20.0-40.0) % [place] % (Auto) 6.0 (0.0-10.0) % Eos % (Auto) 0.0 (0.0-4.0) % Baso % (Auto) 0.1 (0.0-2.0) % Neut # 6.1 (1.8-7.0) K/uL Lymph # 0.8 L (1.0-4.3) K/uL [place] # 0.4 (0.0-0.8) K/uL Eos # 0.0 (0.0-0.7) K/uL Baso # 0.0 (0.0-0.2) K/uL Neutrophils % (Manual) (50-75) % Lymphocytes % (Manual) (20-40) % Monocytes % (Manual) (0-10) % Hypersegmented Polys Smudge Cells Toxic Granulation Platelet Estimate (NORMAL) Large Platelets Polychromasia Poikilocytosis (manual Anisocytosis (manual) Microcytosis (manual) Sodium (132-148) mmol/L Potassium (3.6-5.2) mmol/L Chloride (98-107) mmol/L Carbon Dioxide (22-30) mmol/L Anion Gap (10-20) BUN (7-17) mg/dL Creatinine (0.7-1.2) MG/DL Est GFR ( Amer) Est GFR (Non-Af Amer) POC Glucose (mg/dL) 127 H 149 H (65-110) mg/dL Random Glucose (65-105) mg/dL Calcium (8.6-10.4) mg/dl Phosphorus (2.5-4.5) mg/dL Magnesium (1.6-2.3) mg/dL Total Bilirubin (0.2-1.3) mg/dL AST (14-36) U/L ALT (9-52) U/L Alkaline Phosphatase (38-126) U/L Total Protein (6.3-8.3) g/dL Albumin (3.5-5.0) g/dL Globulin (2.2-3.9) gm/dL Albumin/Globulin Ratio (1.0-2.1) Fluid Appearance (CLEAR) Fluid WBC (0.0-300.0) /mm3 Fluid RBC (0.0-0.0) /mm3 Fluid Tot Cell Count (0-0) Fluid Neutrophils (0-0) % Fluid Lymphocytes (0-0) % Fld Monocyte/Macrophag (0-0) % Fluid Diff Path Review Fluid Comment Hepatitis A IgM Ab (NEGATIVE) Hep Bs Antigen (NEGATIVE) Hep B Core IgM Ab (NEGATIVE) Hepatitis C Antibody (NEGATIVE) HIV 1&2 Antibody Screen (NEGATIVE) 03/03/17 03/02/17 03/02/17 Range/Units 04:00 23:21 18:06 WBC 8.9 D (4.8-10.8) K/uL RBC 4.71 (3.80-5.20) Mil/uL Hgb 11.8 (11.0-16.0) g/dL Hct 39.5 (34.0-47.0) % MCV 83.7 (81.0-99.0) fL MCH 25.0 L (27.0-31.0) pg MCHC 29.9 L (33.0-37.0) g/dL RDW 17.6 H (11.5-14.5) % Plt Count 224 (130-400) K/uL MPV 8.3 (7.2-11.7) fL Neut % (Auto) 86.4 H (50.0-75.0) % Lymph % (Auto) 9.2 L (20.0-40.0) % [place] % (Auto) 4.3 (0.0-10.0) % Eos % (Auto) 0.0 (0.0-4.0) % Baso % (Auto) 0.1 (0.0-2.0) % Neut # 7.7 H (1.8-7.0) K/uL Lymph # 0.8 L (1.0-4.3) K/uL [place] # 0.4 (0.0-0.8) K/uL Eos # 0.0 (0.0-0.7) K/uL Baso # 0.0 (0.0-0.2) K/uL Neutrophils % (Manual) 85 H (50-75) % Lymphocytes % (Manual) 10 L (20-40) % Monocytes % (Manual) 5 (0-10) % Hypersegmented Polys Present Smudge Cells Present Toxic Granulation Present Platelet Estimate Normal (NORMAL) Large Platelets Present Polychromasia Slight Poikilocytosis (manual Slight Anisocytosis (manual) Slight Microcytosis (manual) Slight Sodium 137 136 (132-148) mmol/L Potassium 5.5 H 5.9 H (3.6-5.2) mmol/L Chloride 100 101 (98-107) mmol/L Carbon Dioxide 29 29 (22-30) mmol/L Anion Gap 14 12 (10-20) BUN 20 H 16 (7-17) mg/dL Creatinine 2.1 H 1.3 H (0.7-1.2) MG/DL Est GFR ( Amer) 28 49 Est GFR (Non-Af Amer) 23 40 POC Glucose (mg/dL) (65-110) mg/dL Random Glucose 171 H 188 H (65-105) mg/dL Calcium 8.7 8.6 (8.6-10.4) mg/dl Phosphorus 4.3 5.4 H (2.5-4.5) mg/dL Magnesium 2.6 H 1.5 L (1.6-2.3) mg/dL Total Bilirubin 0.6 (0.2-1.3) mg/dL AST 36 D (14-36) U/L ALT 47 (9-52) U/L Alkaline Phosphatase 70 (38-126) U/L Total Protein 5.9 L (6.3-8.3) g/dL Albumin 3.1 L D (3.5-5.0) g/dL Globulin 2.9 (2.2-3.9) gm/dL Albumin/Globulin Ratio 1.1 (1.0-2.1) Fluid Appearance (CLEAR) Fluid WBC (0.0-300.0) /mm3 Fluid RBC (0.0-0.0) /mm3 Fluid Tot Cell Count (0-0) Fluid Neutrophils (0-0) % Fluid Lymphocytes (0-0) % Fld Monocyte/Macrophag (0-0) % Fluid Diff Path Review Fluid Comment Hepatitis A IgM Ab (NEGATIVE) Hep Bs Antigen (NEGATIVE) Hep B Core IgM Ab (NEGATIVE) Hepatitis C Antibody (NEGATIVE) HIV 1&2 Antibody Screen (NEGATIVE) 03/02/17 03/02/17 Range/Units 17:50 17:15 WBC (4.8-10.8) K/uL RBC (3.80-5.20) Mil/uL Hgb (11.0-16.0) g/dL Hct (34.0-47.0) % MCV (81.0-99.0) fL MCH (27.0-31.0) pg MCHC (33.0-37.0) g/dL RDW (11.5-14.5) % Plt Count (130-400) K/uL MPV (7.2-11.7) fL Neut % (Auto) (50.0-75.0) % Lymph % (Auto) (20.0-40.0) % [place] % (Auto) (0.0-10.0) % Eos % (Auto) (0.0-4.0) % Baso % (Auto) (0.0-2.0) % Neut # (1.8-7.0) K/uL Lymph # (1.0-4.3) K/uL [place] # (0.0-0.8) K/uL Eos # (0.0-0.7) K/uL Baso # (0.0-0.2) K/uL Neutrophils % (Manual) (50-75) % Lymphocytes % (Manual) (20-40) % Monocytes % (Manual) (0-10) % Hypersegmented Polys Smudge Cells Toxic Granulation Platelet Estimate (NORMAL) Large Platelets Polychromasia Poikilocytosis (manual Anisocytosis (manual) Microcytosis (manual) Sodium (132-148) mmol/L Potassium (3.6-5.2) mmol/L Chloride (98-107) mmol/L Carbon Dioxide (22-30) mmol/L Anion Gap (10-20) BUN (7-17) mg/dL Creatinine (0.7-1.2) MG/DL Est GFR ( Amer) Est GFR (Non-Af Amer) POC Glucose (mg/dL) (65-110) mg/dL Random Glucose (65-105) mg/dL Calcium (8.6-10.4) mg/dl Phosphorus (2.5-4.5) mg/dL Magnesium (1.6-2.3) mg/dL Total Bilirubin (0.2-1.3) mg/dL AST (14-36) U/L ALT (9-52) U/L Alkaline Phosphatase (38-126) U/L Total Protein (6.3-8.3) g/dL Albumin (3.5-5.0) g/dL Globulin (2.2-3.9) gm/dL Albumin/Globulin Ratio (1.0-2.1) Fluid Appearance Turbid (CLEAR) Fluid WBC 9532.0 H (0.0-300.0) /mm3 Fluid RBC 867304.0 H (0.0-0.0) /mm3 Fluid Tot Cell Count 100 H (0-0) Fluid Neutrophils 33.0 H (0-0) % Fluid Lymphocytes 56.0 H (0-0) % Fld Monocyte/Macrophag 11 H (0-0) % Fluid Diff Path Review Fluid Comment Hepatitis A IgM Ab Negative (NEGATIVE) Hep Bs Antigen Negative (NEGATIVE) Hep B Core IgM Ab Negative (NEGATIVE) Hepatitis C Antibody Negative (NEGATIVE) HIV 1&2 Antibody Screen Negative (NEGATIVE) Laboratory Results - last 24 hr 03/02/17 03/02/17 03/02/17 17:15 17:50 18:06 WBC 8.9 D RBC 4.71 Hgb 11.8 Hct 39.5 MCV 83.7 MCH 25.0 L MCHC 29.9 L RDW 17.6 H Plt Count 224 MPV 8.3 Neut % (Auto) 86.4 H Lymph % (Auto) 9.2 L [place] % (Auto) 4.3 Eos % (Auto) 0.0 Baso % (Auto) 0.1 Neut # 7.7 H Lymph # 0.8 L [place] # 0.4 Eos # 0.0 Baso # 0.0 Neutrophils % (Manual) 85 H Lymphocytes % (Manual) 10 L Monocytes % (Manual) 5 Hypersegmented Polys Present Smudge Cells Present Toxic Granulation Present Platelet Estimate Normal Large Platelets Present Polychromasia Slight Poikilocytosis (manual Slight Anisocytosis (manual) Slight Microcytosis (manual) Slight Sodium Potassium Chloride Carbon Dioxide Anion Gap BUN Creatinine Est GFR ( Amer) Est GFR (Non-Af Amer) POC Glucose (mg/dL) Random Glucose Calcium Phosphorus Magnesium Total Bilirubin AST ALT Alkaline Phosphatase Total Protein Albumin Globulin Albumin/Globulin Ratio Fluid Appearance Turbid Fluid WBC 9532.0 H Fluid RBC 725247.0 H Fluid Tot Cell Count 100 H Fluid Neutrophils 33.0 H Fluid Lymphocytes 56.0 H Fld Monocyte/Macrophag 11 H Fluid Diff Path Review Fluid Comment Hepatitis A IgM Ab Negative Hep Bs Antigen Negative Hep B Core IgM Ab Negative Hepatitis C Antibody Negative HIV 1&2 Antibody Screen Negative 03/02/17 03/03/17 03/03/17 23:21 04:00 06:35 WBC 7.3 RBC 4.33 Hgb 11.2 Hct 36.1 MCV 83.3 MCH 25.9 L MCHC 31.1 L RDW 17.1 H Plt Count 222 MPV 8.2 Neut % (Auto) 83.7 H Lymph % (Auto) 10.2 L [place] % (Auto) 6.0 Eos % (Auto) 0.0 Baso % (Auto) 0.1 Neut # 6.1 Lymph # 0.8 L [place] # 0.4 Eos # 0.0 Baso # 0.0 Neutrophils % (Manual) Lymphocytes % (Manual) Monocytes % (Manual) Hypersegmented Polys Smudge Cells Toxic Granulation Platelet Estimate Large Platelets Polychromasia Poikilocytosis (manual Anisocytosis (manual) Microcytosis (manual) Sodium 136 137 Potassium 5.9 H 5.5 H Chloride 101 100 Carbon Dioxide 29 29 Anion Gap 12 14 BUN 16 20 H Creatinine 1.3 H 2.1 H Est GFR ( Amer) 49 28 Est GFR (Non-Af Amer) 40 23 POC Glucose (mg/dL) Random Glucose 188 H 171 H Calcium 8.6 8.7 Phosphorus 5.4 H 4.3 Magnesium 1.5 L 2.6 H Total Bilirubin 0.6 AST 36 D ALT 47 Alkaline Phosphatase 70 Total Protein 5.9 L Albumin 3.1 L D Globulin 2.9 Albumin/Globulin Ratio 1.1 Fluid Appearance Fluid WBC Fluid RBC Fluid Tot Cell Count Fluid Neutrophils Fluid Lymphocytes Fld Monocyte/Macrophag Fluid Diff Path Review Fluid Comment Hepatitis A IgM Ab Hep Bs Antigen Hep B Core IgM Ab Hepatitis C Antibody HIV 1&2 Antibody Screen 03/03/17 03/03/17 11:29 16:25 WBC RBC Hgb Hct MCV MCH MCHC RDW Plt Count MPV Neut % (Auto) Lymph % (Auto) [place] % (Auto) Eos % (Auto) Baso % (Auto) Neut # Lymph # [place] # Eos # Baso # Neutrophils % (Manual) Lymphocytes % (Manual) Monocytes % (Manual) Hypersegmented Polys Smudge Cells Toxic Granulation Platelet Estimate Large Platelets Polychromasia Poikilocytosis (manual Anisocytosis (manual) Microcytosis (manual) Sodium Potassium Chloride Carbon Dioxide Anion Gap BUN Creatinine Est GFR ( Amer) Est GFR (Non-Af Amer) POC Glucose (mg/dL) 149 H 127 H Random Glucose Calcium Phosphorus Magnesium Total Bilirubin AST ALT Alkaline Phosphatase Total Protein Albumin Globulin Albumin/Globulin Ratio Fluid Appearance Fluid WBC Fluid RBC Fluid Tot Cell Count Fluid Neutrophils Fluid Lymphocytes Fld Monocyte/Macrophag Fluid Diff Path Review Fluid Comment Hepatitis A IgM Ab Hep Bs Antigen Hep B Core IgM Ab Hepatitis C Antibody HIV 1&2 Antibody Screen Critical Care Progress Note - Nutrition Nutrition: Nutrition Category Date Time Status Liquid Diet [DIET] Diets 03/03/17 Lunch Active Assessment/Plan (1) Malignant pleural effusion Current Visit: Yes Status: Acute (2) Shortness of breath Current Visit: Yes Status: Acute (3) Ascites, malignant Current Visit: Yes Status: Acute (4) Ovarian cancer Current Visit: Yes Status: Chronic Attending/Attestation - Attestation I have personally seen and examined this patient.: Yes I have fully participated in the care of the patient.: Yes I have reviewed all pertinent clinical information: Yes Notes (Text): 03/03/17 18:22 Patient seen and examined in the intensive care unit. Case discussed with STAFF in the morning rounds. 71 year old female, PMH of ovarian cancer on chemotherapy, with multiple reaccumulations of ascities and pleural effussions. POD#1, s/p VATS procedure of the left lung that got converted to thoracotomy. 2 chest tubes placed connected to wound vac. Worsening renal function noted function noted. Continue IV fluid resuscitation and monitor urine output
[2017-03-03] MEDS ORDERED: (Novolin R) Insulin Human Regular 100 units/ml vial IV ONE ×2 (13:07→13:30)
[2017-03-03] MEDS ORDERED: Dextrose 50% SYRINGE Inj (50 ml) IV STA ×2 (13:07→13:26)
[2017-03-03] MEDS ORDERED: Acetylcysteine 20% Inhal Soln (4ml) INH STA (17:08)
[2017-03-03] MEDS ORDERED: Albuterol 0.042% Inhal Sol (1.25 mg/3 mL) UD INH STA (17:12)
[2017-03-03] MEDS ORDERED: Acetylcysteine 20% Inhal Soln (4ml) ONE (17:15)
[2017-03-03] MEDS ORDERED: Albuterol 0.083% Inhal Sol (2.5 mg/3 mL) UD ONE (17:16)
[2017-03-03 21:58] LABS: POTASSIUM 4.2 mmol/L (3.6-5.2)
[2017-03-03 22:02] LABS: CALCIUM 7.8 mg/dl (8.6-10.4)
[2017-03-03] MEDS: Promethazine 12.5 mg/10 ml Syrup PO PRN (22:05)
--- NOTE | 2017-03-04 01:02 | CP.PCM.PN ---
Subjective - Date & Time of Evaluation Date of Evaluation: 03/03/17 Time of Evaluation: 10:45 - Subjective Subjective: Has dry cough, s/p VATS Objective - Vital Signs/Intake and Output Vital Signs (last 24 hours): Temp Pulse Resp BP Pulse Ox 97.4 F L 99 H 14 122/59 L 96 03/04/17 00:00 03/04/17 00:00 03/04/17 00:00 03/03/17 23:45 03/04/17 00:00 Intake and Output: 03/03/17 03/04/17 18:59 06:59 Intake Total 3420 750 Output Total 420 190 Balance 3000 560 - Medications Medications: Current Medications Amlodipine Besylate (Norvasc) 10 mg PO DAILY [facility] Last Admin: 03/03/17 10:09 Dose: 10 mg Enoxaparin Sodium (Lovenox) 40 mg SC DAILY [facility] Last Admin: 03/01/17 09:43 Dose: 40 mg Famotidine (Pepcid) 20 mg PO DAILY [facility] Last Admin: 03/03/17 10:09 Dose: 20 mg Ferrous Sulfate (Feosol) 325 mg PO TID [facility] Last Admin: 03/03/17 18:22 Dose: 325 mg Ceftriaxone Sodium (Rocephin Iv 1 Gm Duplex) 50 mls @ 50 mls/30 min IVPB DAILY [facility] Last Admin: 03/03/17 10:09 Dose: 50 mls/30 min Sodium Chloride (Sodium Chloride 0.9%) 1,000 mls @ 125 mls/hr IV .Q8H ONE Stop: 03/04/17 02:06 Last Admin: 03/03/17 18:24 Dose: 125 mls/hr Morphine Sulfate (Morphine) 4 mg IVP Q4 PRN PRN Reason: Pain, moderate (4-7) Last Admin: 03/03/17 22:00 Dose: 4 mg Ondansetron HCl (Zofran Inj) 4 mg IVP Q4 PRN PRN Reason: Nausea/Vomiting Promethazine HCl (Phenergan Syrup) 12.5 mg PO Q6 PRN PRN Reason: cough Last Admin: 03/03/17 22:05 Dose: 12.5 mg Rosuvastatin Calcium (Crestor) 10 mg PO HS [facility] Last Admin: 03/03/17 21:23 Dose: 10 mg - Labs Labs: 03/03/17 06:35 03/03/17 21:48 PT 13.3 SECONDS (9.7-12.2) H 02/25/17 18:17 INR 1.2 02/25/17 18:17 APTT 31 SECONDS (21-34) D 02/25/17 18:17 - Head Exam Head Exam: ATRAUMATIC - Eye Exam Eye Exam: Normal appearance - ENT Exam ENT Exam: Mucous Membranes Dry - Respiratory Exam Respiratory Exam: NORMAL BREATHING PATTERN - Cardiovascular Exam Cardiovascular Exam: +S1, +S2 - GI/Abdominal Exam GI & Abdominal Exam: Normal Bowel Sounds - Extremities Exam Extremities Exam: Normal Inspection Assessment and Plan (1) Pleural effusion due to another disorder Assessment & Plan: s/p VATS with chest tube f/u cytology Status: Acute (2) Ovarian cancer Assessment & Plan: outpatient chemotherapy Status: Chronic (3) Pulmonary embolism Assessment & Plan: therapeutic anticoagulation Status: Acute (4) Anemia Assessment & Plan: chronic disease and chemotherapy Status: Chronic
[2017-03-04] MEDS ORDERED: Sodium Chloride 0.9% 1,000 ML IV ONE (01:29)
[2017-03-04] MEDS: Sodium Chloride 0.9% 1,000 ML IV SCH ×4 (01:35→22:00)
--- NOTE | 2017-03-04 01:38 | CP.PCM.PN ---
Subjective - Date & Time of Evaluation Date of Evaluation: 03/03/17 Time of Evaluation: 09:29 - Subjective Subjective: Pt seen and examined at bedside. POD#1 s/p VATS procedure. afebrile, congested.Pt complaining of difficulty coughing out thick mucus today. She reports pain at surgical site this afternoon but reports her breathing is better than yesterday. Morphine COPYIST discontinued overnight. Nursing reported poor output so pt was given two, one liter boluses with modest improvement. Objective - Vital Signs/Intake and Output Vital Signs (last 24 hours): Temp Pulse Resp BP Pulse Ox 97.4 F L 99 H 14 122/59 L 96 03/04/17 00:00 03/04/17 00:00 03/04/17 00:00 03/03/17 23:45 03/04/17 00:00 Intake and Output: 03/03/17 03/04/17 18:59 06:59 Intake Total 3420 750 Output Total 420 190 Balance 3000 560 - Medications Medications: Current Medications Amlodipine Besylate (Norvasc) 10 mg PO DAILY [facility] Last Admin: 03/03/17 10:09 Dose: 10 mg Enoxaparin Sodium (Lovenox) 40 mg SC DAILY [facility] Last Admin: 03/01/17 09:43 Dose: 40 mg Famotidine (Pepcid) 20 mg PO DAILY [facility] Last Admin: 03/03/17 10:09 Dose: 20 mg Ferrous Sulfate (Feosol) 325 mg PO TID [facility] Last Admin: 03/03/17 18:22 Dose: 325 mg Ceftriaxone Sodium (Rocephin Iv 1 Gm Duplex) 50 mls @ 50 mls/30 min IVPB DAILY [facility] Last Admin: 03/03/17 10:09 Dose: 50 mls/30 min Sodium Chloride (Sodium Chloride 0.9%) 1,000 mls @ 100 mls/hr IV .Q10H [facility] Last Admin: 03/04/17 01:35 Dose: 100 mls/hr Morphine Sulfate (Morphine) 4 mg IVP Q4 PRN PRN Reason: Pain, moderate (4-7) Last Admin: 03/03/17 22:00 Dose: 4 mg Ondansetron HCl (Zofran Inj) 4 mg IVP Q4 PRN PRN Reason: Nausea/Vomiting Promethazine HCl (Phenergan Syrup) 12.5 mg PO Q6 PRN PRN Reason: cough Last Admin: 03/03/17 22:05 Dose: 12.5 mg Rosuvastatin Calcium (Crestor) 10 mg PO HS [facility] Last Admin: 03/03/17 21:23 Dose: 10 mg - Labs Labs: 03/03/17 06:35 03/03/17 21:48 PT 13.3 SECONDS (9.7-12.2) H 02/25/17 18:17 INR 1.2 02/25/17 18:17 APTT 31 SECONDS (21-34) D 02/25/17 18:17 - Constitutional Appears: No Acute Distress - Head Exam Head Exam: ATRAUMATIC, NORMAL INSPECTION, NORMOCEPHALIC - Eye Exam Eye Exam: EOMI, Normal appearance, PERRL Pupil Exam: NORMAL ACCOMODATION, PERRL - Respiratory Exam Respiratory Exam: Decreased Breath Sounds, Rhonchi - Cardiovascular Exam Cardiovascular Exam: REGULAR RHYTHM, +S1, +S2. absent: Murmur Assessment and Plan (1) Ascites, malignant Status: Acute (2) Diabetes mellitus Status: Chronic (3) Hypertension Status: Chronic (4) Ovarian cancer Status: Chronic (5) Pleural effusion due to another disorder Status: Acute (6) Shortness of breath Status: Acute
[2017-03-04 06:53] LABS: BASO % 0.3 % (0.0-2.0); EOS # 0.1 K/uL (0.0-0.7); EOS % 1.6 % (0.0-4.0); HEMATOCRIT 29.9 % (34.0-47.0); LYMPH % 18.5 % (20.0-40.0); MEAN CELL VOLUME 83.8 fL (81.0-99.0); MEAN CORPUSCULAR HEMOGLOBIN 25.8 pg (27.0-31.0); MEAN CORPUSCULAR HGB CONC 30.7 g/dL (33.0-37.0); MEAN PLATELET VOLUME 8.3 fL (7.2-11.7); MONO # 0.3 K/uL (0.0-0.8); MONO % 6.1 % (0.0-10.0); RED CELL DISTRIBUTION WIDTH 17.2 % (11.5-14.5); WHITE BLOOD COUNT 5.4 K/uL (4.8-10.8)
[2017-03-04 07:05] LABS: CHLORIDE 106 mmol/L (98-107); POTASSIUM 4.2 mmol/L (3.6-5.2); SODIUM 139 mmol/L (132-148)
[2017-03-04 07:07] LABS: AST/SGOT 73 U/L (14-36); BILIRUBIN,TOTAL 0.3 mg/dL (0.2-1.3); CARBON DIOXIDE 27 mmol/L (22-30); GFR AFRICAN-AMERICAN > 60
[2017-03-04 07:08] LABS: ALKALINE PHOSPHATASE 60 U/L (38-126); ALT/SGPT 42 U/L (9-52); BLOOD UREA NITROGEN 16 mg/dL (7-17); CALCIUM 7.9 mg/dl (8.6-10.4); GLUCOSE,RANDOM 94 mg/dL (65-105)
[2017-03-04 07:12] LABS: MAGNESIUM 2.1 mg/dL (1.6-2.3); PHOSPHOROUS 2.9 mg/dL (2.5-4.5)
--- NOTE | 2017-03-04 08:52 | RAD ---
HISTORY: left chest tube, s/p thoracotomy COMPARISON: 03/03/2017 FINDINGS: LUNGS: Lines and tubes in stable position. Moderate loculated right pleural effusion. Moderate loculated left hydro pneumothorax. Confluent airspace consolidative changes in the left mid to lower lung zone as well as the right mid to lower lung zone. Bilateral hilar prominence. Upper lobe with scattered nodularity. PLEURA: As above. CARDIOVASCULAR: Normal. OSSEOUS STRUCTURES: No significant abnormalities. VISUALIZED UPPER ABDOMEN: Normal. OTHER FINDINGS: None. IMPRESSION: Lines and tubes in stable position. Moderate loculated right pleural effusion. Moderate loculated left hydro pneumothorax. Confluent airspace consolidative changes in the left mid to lower lung zone as well as the right mid to lower lung zone. Bilateral hilar prominence. Upper lobe with scattered nodularity.
[2017-03-04] MEDS: cefTRIAXone IV 1 gm in Dextros 50 ML IVPB SCH (10:02)
--- NOTE | 2017-03-04 11:19 | CP.CCUPN ---
<Ochoa Godwin - Last Filed: 03/04/17 16:48> CCU Subjective - Physician Review Subjective (Free Text): 03/04/17 11:13 Pt seen and examined at bedside. POD#2, s/p thoracotomy. Pt reports breathing well and is using incentive spirometer. She reports improvement in her thick mucous from last night. Pt with 400/130 serosanguinous drainage from two chest tubes respectively. She reports minimal pain at site, and says the pain medicine has it well controlled. Critical Care Time Spent (in minutes): 35 CCU Objective - Vital Signs / Intake & Output Vital Signs (Last 4 hours): Vital Signs Temp Pulse Resp BP Pulse Ox 03/04/17 10:45 97 H 19 137/64 100 03/04/17 09:46 101 H 15 119/76 96 03/04/17 08:45 99 H 23 120/78 96 03/04/17 08:00 98.7 F 03/04/17 07:45 98 H 9 L 131/77 98 Intake and Output (Last 8hrs): Intake & Output 03/03/17 03/04/17 03/04/17 22:59 06:59 14:59 Intake Total 2444 900 740 Output Total 385 476 170 Balance 2059 424 570 Weight 136 lb Intake: Intake, IV Amount 1874 850 500 Right Port-A-Cath 874 850 500 Right Forearm 1000 Oral 570 50 240 Output: Drainage 100 216 Left Chest #2 20 16 Left Chest #1 80 200 Urine 285 260 170 Urethral (Douglass) 285 260 170 - Physical Exam Head: Positive for: Atraumatic, Normocephalic Pupils: Positive for: PERRL Extroacular Muscles: Positive for: EOMI Conjunctiva: Positive for: Normal Mouth: Positive for: Moist Mucous Membranes Respiratory/Chest: Positive for: Clear to Auscultation, Other (chest dressing dry, intact). Negative for: Respiratory Distress, Accessory Muscle Use Cardiovascular: Positive for: Regular Rate and Rhythm, Normal S1, S2 Abdomen: Positive for: Normal Bowel Sounds. Negative for: Tenderness, Distention, Rebound, Guarding Upper Extremity: Positive for: Normal Inspection Lower Extremity: Positive for: Normal Inspection Skin: Positive for: Warm, Dry Psychiatric: Positive for: Alert, Oriented x 3 - Medications Active Medications: Active Medications Generic Name Dose Route Start Last Admin Trade Name Freq PRN Reason Stop Dose Admin Amlodipine Besylate 10 mg 02/27/17 17:48 03/04/17 09:58 Norvasc PO 10 mg DAILY ELLIE Administration Enoxaparin Sodium 40 mg 02/26/17 10:00 03/01/17 09:43 Lovenox SC 40 mg DAILY ELLIE Administration Famotidine 20 mg 02/27/17 10:00 03/04/17 09:58 Pepcid PO 20 mg DAILY ELLIE Administration Ferrous Sulfate 325 mg 02/26/17 10:00 03/04/17 09:57 Feosol PO 325 mg TID ELLIE Administration Sodium Chloride 1,000 mls @ 100 mls/hr 03/04/17 01:30 03/04/17 01:35 Sodium Chloride 0.9% IV 100 mls/hr .Q10H ELLIE Administration Morphine Sulfate 4 mg 03/03/17 00:58 03/04/17 03:46 Morphine IVP 4 mg Q4 PRN Administration Pain, moderate (4-7) Ondansetron HCl 4 mg 03/02/17 16:13 Zofran Inj IVP Q4 PRN Nausea/Vomiting Promethazine HCl 12.5 mg 03/03/17 21:32 03/03/17 22:05 Phenergan Syrup PO 12.5 mg Q6 PRN Administration cough Rosuvastatin Calcium 10 mg 02/25/17 22:00 03/03/17 21:23 Crestor PO 10 mg HS ELLIE Administration - Patient Studies Lab Studies: Microbiology Studies 03/02/17 18:00 Anaerobic Culture - Final Pleural Fluid NO ANAEROBES ISOLATED. 03/02/17 Unknown Gram Stain - Final Pleural Fluid Body Fluid Culture - Preliminary NO GROWTH AFTER 24 HOURS Lab Studies 03/04/17 03/04/17 03/04/17 Range/Units 07:15 06:43 04:00 WBC 5.4 (4.8-10.8) K/uL RBC 3.57 L (3.80-5.20) Mil/uL Hgb 9.2 L D (11.0-16.0) g/dL Hct 29.9 L (34.0-47.0) % MCV 83.8 (81.0-99.0) fL MCH 25.8 L (27.0-31.0) pg MCHC 30.7 L (33.0-37.0) g/dL RDW 17.2 H (11.5-14.5) % Plt Count 165 (130-400) K/uL MPV 8.3 (7.2-11.7) fL Neut % (Auto) 73.5 (50.0-75.0) % Lymph % (Auto) 18.5 L (20.0-40.0) % [place] % (Auto) 6.1 (0.0-10.0) % Eos % (Auto) 1.6 (0.0-4.0) % Baso % (Auto) 0.3 (0.0-2.0) % Neut # 4.0 (1.8-7.0) K/uL Lymph # 1.0 (1.0-4.3) K/uL [place] # 0.3 (0.0-0.8) K/uL Eos # 0.1 (0.0-0.7) K/uL Baso # 0.0 (0.0-0.2) K/uL Sodium 139 (132-148) mmol/L Potassium 4.2 (3.6-5.2) mmol/L Chloride 106 (98-107) mmol/L Carbon Dioxide 27 (22-30) mmol/L Anion Gap 9 L (10-20) BUN 16 (7-17) mg/dL Creatinine 0.9 (0.7-1.2) MG/DL Est GFR ( Amer) > 60 Est GFR (Non-Af Amer) > 60 POC Glucose (mg/dL) 121 H (65-110) mg/dL Random Glucose 94 (65-105) mg/dL Calcium 7.9 L (8.6-10.4) mg/dl Phosphorus 2.9 (2.5-4.5) mg/dL Magnesium 2.1 (1.6-2.3) mg/dL Total Bilirubin 0.3 (0.2-1.3) mg/dL AST 73 H D (14-36) U/L ALT 42 (9-52) U/L Alkaline Phosphatase 60 (38-126) U/L Total Protein 5.0 L (6.3-8.3) g/dL Albumin 2.5 L (3.5-5.0) g/dL Globulin 2.5 (2.2-3.9) gm/dL Albumin/Globulin Ratio 1.0 (1.0-2.1) Fluid Diff Path Review 03/03/17 03/03/17 03/03/17 Range/Units 21:48 16:25 11:29 WBC (4.8-10.8) K/uL RBC (3.80-5.20) Mil/uL Hgb (11.0-16.0) g/dL Hct (34.0-47.0) % MCV (81.0-99.0) fL MCH (27.0-31.0) pg MCHC (33.0-37.0) g/dL RDW (11.5-14.5) % Plt Count (130-400) K/uL MPV (7.2-11.7) fL Neut % (Auto) (50.0-75.0) % Lymph % (Auto) (20.0-40.0) % [place] % (Auto) (0.0-10.0) % Eos % (Auto) (0.0-4.0) % Baso % (Auto) (0.0-2.0) % Neut # (1.8-7.0) K/uL Lymph # (1.0-4.3) K/uL [place] # (0.0-0.8) K/uL Eos # (0.0-0.7) K/uL Baso # (0.0-0.2) K/uL Sodium 138 (132-148) mmol/L Potassium 4.2 (3.6-5.2) mmol/L Chloride 107 (98-107) mmol/L Carbon Dioxide 25 (22-30) mmol/L Anion Gap 11 (10-20) BUN 20 H (7-17) mg/dL Creatinine 1.3 H (0.7-1.2) MG/DL Est GFR ( Amer) 49 Est GFR (Non-Af Amer) 40 POC Glucose (mg/dL) 127 H 149 H (65-110) mg/dL Random Glucose 119 H (65-105) mg/dL Calcium 7.8 L (8.6-10.4) mg/dl Phosphorus (2.5-4.5) mg/dL Magnesium (1.6-2.3) mg/dL Total Bilirubin (0.2-1.3) mg/dL AST (14-36) U/L ALT (9-52) U/L Alkaline Phosphatase (38-126) U/L Total Protein (6.3-8.3) g/dL Albumin (3.5-5.0) g/dL Globulin (2.2-3.9) gm/dL Albumin/Globulin Ratio (1.0-2.1) Fluid Diff Path Review 03/02/17 Range/Units 17:15 WBC (4.8-10.8) K/uL RBC (3.80-5.20) Mil/uL Hgb (11.0-16.0) g/dL Hct (34.0-47.0) % MCV (81.0-99.0) fL MCH (27.0-31.0) pg MCHC (33.0-37.0) g/dL RDW (11.5-14.5) % Plt Count (130-400) K/uL MPV (7.2-11.7) fL Neut % (Auto) (50.0-75.0) % Lymph % (Auto) (20.0-40.0) % [place] % (Auto) (0.0-10.0) % Eos % (Auto) (0.0-4.0) % Baso % (Auto) (0.0-2.0) % Neut # (1.8-7.0) K/uL Lymph # (1.0-4.3) K/uL [place] # (0.0-0.8) K/uL Eos # (0.0-0.7) K/uL Baso # (0.0-0.2) K/uL Sodium (132-148) mmol/L Potassium (3.6-5.2) mmol/L Chloride (98-107) mmol/L Carbon Dioxide (22-30) mmol/L Anion Gap (10-20) BUN (7-17) mg/dL Creatinine (0.7-1.2) MG/DL Est GFR ( Amer) Est GFR (Non-Af Amer) POC Glucose (mg/dL) (65-110) mg/dL Random Glucose (65-105) mg/dL Calcium (8.6-10.4) mg/dl Phosphorus (2.5-4.5) mg/dL Magnesium (1.6-2.3) mg/dL Total Bilirubin (0.2-1.3) mg/dL AST (14-36) U/L ALT (9-52) U/L Alkaline Phosphatase (38-126) U/L Total Protein (6.3-8.3) g/dL Albumin (3.5-5.0) g/dL Globulin (2.2-3.9) gm/dL Albumin/Globulin Ratio (1.0-2.1) Fluid Diff Path Review Laboratory Results - last 24 hr 03/02/17 03/03/17 03/03/17 17:15 11:29 16:25 WBC RBC Hgb Hct MCV MCH MCHC RDW Plt Count MPV Neut % (Auto) Lymph % (Auto) [place] % (Auto) Eos % (Auto) Baso % (Auto) Neut # Lymph # [place] # Eos # Baso # Sodium Potassium Chloride Carbon Dioxide Anion Gap BUN Creatinine Est GFR ( Amer) Est GFR (Non-Af Amer) POC Glucose (mg/dL) 149 H 127 H Random Glucose Calcium Phosphorus Magnesium Total Bilirubin AST ALT Alkaline Phosphatase Total Protein Albumin Globulin Albumin/Globulin Ratio Fluid Diff Path Review 03/03/17 03/04/17 03/04/17 21:48 04:00 06:43 WBC 5.4 RBC 3.57 L Hgb 9.2 L D Hct 29.9 L MCV 83.8 MCH 25.8 L MCHC 30.7 L RDW 17.2 H Plt Count 165 MPV 8.3 Neut % (Auto) 73.5 Lymph % (Auto) 18.5 L [place] % (Auto) 6.1 Eos % (Auto) 1.6 Baso % (Auto) 0.3 Neut # 4.0 Lymph # 1.0 [place] # 0.3 Eos # 0.1 Baso # 0.0 Sodium 138 139 Potassium 4.2 4.2 Chloride 107 106 Carbon Dioxide 25 27 Anion Gap 11 9 L BUN 20 H 16 Creatinine 1.3 H 0.9 Est GFR ( Amer) 49 > 60 Est GFR (Non-Af Amer) 40 > 60 POC Glucose (mg/dL) Random Glucose 119 H 94 Calcium 7.8 L 7.9 L Phosphorus 2.9 Magnesium 2.1 Total Bilirubin 0.3 AST 73 H D ALT 42 Alkaline Phosphatase 60 Total Protein 5.0 L Albumin 2.5 L Globulin 2.5 Albumin/Globulin Ratio 1.0 Fluid Diff Path Review 03/04/17 07:15 WBC RBC Hgb Hct MCV MCH MCHC RDW Plt Count MPV Neut % (Auto) Lymph % (Auto) [place] % (Auto) Eos % (Auto) Baso % (Auto) Neut # Lymph # [place] # Eos # Baso # Sodium Potassium Chloride Carbon Dioxide Anion Gap BUN Creatinine Est GFR ( Amer) Est GFR (Non-Af Amer) POC Glucose (mg/dL) 121 H Random Glucose Calcium Phosphorus Magnesium Total Bilirubin AST ALT Alkaline Phosphatase Total Protein Albumin Globulin Albumin/Globulin Ratio Fluid Diff Path Review Review of Systems - Constitutional Constitutional: absent: Fever, Chills - EENT Eyes: absent: Change in Vision Ears: absent: Decreased Hearing - Cardiovascular Cardiovascular: absent: Chest Pain, Chest Pain at Rest, Dyspnea, Dyspnea on Exertion - Respiratory Respiratory: Cough (producing clear phlegm). absent: Dyspnea on Exertion, Wheezing - Gastrointestinal Gastrointestinal: absent: Abdominal Pain, Heartburn, Nausea, Vomiting - Genitourinary Genitourinary: absent: Dysuria - Musculoskeletal Musculoskeletal: absent: Numbness, Tingling Critical Care Progress Note - Nutrition Nutrition: Nutrition Category Date Time Status Regular Diet [DIET] Diets 03/04/17 Lunch Active Assessment/Plan - Assessment and Plan (Free Text) Assessment: 71 year old female, PMH of ovarian cancer on chemotherapy, with multiple reaccumulations of ascities and pleural effussions. POD#1, s/p VATS procedure of the left lung that got converted to thoracotomy. 2 chest tubes placed connected to wound vac. Plan: Neuro: AAOx3 CV: Hypertension - Continue home Norvasc 10mg PO Daily CAD - Crestor 10mg HS Pulm: Dr. Mishra, CT surgeon consulted: help appreciated POD #1, thoracotomy - 240cc/40cc serosanguinous drainage from chest tube 1&2 respectively - f/u cytology Morphine 4mg IVP Q4H PRN for pain Zofran 4mg IV Q4H PRN Dr. Wright, managing member consulted: help appreciated PCXR (03/04/17): Moderate loculated right pleural effusion. Moderate loculated right pleural effusion. Moderate loculated left hydro pneumothorax. Confluent airspace consolidative changes in the left mid to lower lung zone as well as right mid to lower lung zone. Bilateral hilar prominence. Upper lobe with scattered nodularity. (see full report) Hx of PE - Home medication of Eliquis 10mg PO BID GI: Liquid diet Hx of ascites S/p paracentesis (02/28/17) : Improved urinary output - 50cc/hr Monitor I/Os Hem/Onc: Hx of stage IV ovarian cancer Dr. Florez, Hem/onc consult, help appreciated Dr. Chris, Hem/onc consult, help appreciated - believe malignant effusion - f/u cytology - rising CA-125 MSKLT: PT/OT: OOB to chair today - f/u reccs Prophylaxis: DVT: SCDs VTE: Lovenox 40mg SC Daily (RESTARTED GI: Pepcid 20mg PO Daily <Rakan Wright S - Last Filed: 03/04/17 16:59> CCU Objective - Vital Signs / Intake & Output Vital Signs (Last 4 hours): Vital Signs Temp Pulse Resp BP Pulse Ox 03/04/17 16:00 98.3 F 03/04/17 15:45 99 H 151/68 H 99 03/04/17 14:46 104 H 149/77 98 03/04/17 14:00 108 H 100 03/04/17 13:46 109 H 139/57 L 98 03/04/17 13:00 103 H 12 97 Intake and Output (Last 8hrs): Intake & Output 03/04/17 03/04/17 03/04/17 06:59 14:59 22:59 Intake Total 900 1280 200 Output Total 476 340 120 Balance 424 940 80 Weight 136 lb Intake: Intake, IV Amount 850 800 200 Right Port-A-Cath 850 800 200 Oral 50 480 Output: Drainage 216 Left Chest #2 16 Left Chest #1 200 Urine 260 340 120 Urethral (Douglass) 260 340 120 - Medications Active Medications: Active Medications Generic Name Dose Route Start Last Admin Trade Name Freq PRN Reason Stop Dose Admin Amlodipine Besylate 10 mg 02/27/17 17:48 03/04/17 09:58 Norvasc PO 10 mg DAILY ELLIE Administration Enoxaparin Sodium 40 mg 02/26/17 10:00 03/01/17 09:43 Lovenox SC 40 mg DAILY ELLIE Administration Famotidine 20 mg 02/27/17 10:00 03/04/17 09:58 Pepcid PO 20 mg DAILY ELLIE Administration Ferrous Sulfate 325 mg 02/26/17 10:00 03/04/17 14:50 Feosol PO 325 mg TID ELLIE Administration Sodium Chloride 1,000 mls @ 100 mls/hr 03/04/17 01:30 03/04/17 11:52 Sodium Chloride 0.9% IV 100 mls/hr .Q10H ELLIE Administration Morphine Sulfate 4 mg 03/03/17 00:58 03/04/17 03:46 Morphine IVP 4 mg Q4 PRN Administration Pain, moderate (4-7) Ondansetron HCl 4 mg 03/02/17 16:13 Zofran Inj IVP Q4 PRN Nausea/Vomiting Promethazine HCl 12.5 mg 03/03/17 21:32 03/03/17 22:05 Phenergan Syrup PO 12.5 mg Q6 PRN Administration cough Rosuvastatin Calcium 10 mg 02/25/17 22:00 03/03/17 21:23 Crestor PO 10 mg HS ELLIE Administration - Patient Studies Lab Studies: Microbiology Studies 03/02/17 08:29 Mycobacterial Culture - Preliminary Other: Please Indicate 03/02/17 Unknown Gram Stain - Final Pleural Fluid Body Fluid Culture - Preliminary NO GROWTH AFTER 2 DAYS 03/02/17 18:00 Anaerobic Culture - Final Pleural Fluid NO ANAEROBES ISOLATED. Lab Studies 03/04/17 03/04/17 03/04/17 Range/Units 16:36 12:09 07:15 WBC (4.8-10.8) K/uL RBC (3.80-5.20) Mil/uL Hgb (11.0-16.0) g/dL Hct (34.0-47.0) % MCV (81.0-99.0) fL MCH (27.0-31.0) pg MCHC (33.0-37.0) g/dL RDW (11.5-14.5) % Plt Count (130-400) K/uL MPV (7.2-11.7) fL Neut % (Auto) (50.0-75.0) % Lymph % (Auto) (20.0-40.0) % [place] % (Auto) (0.0-10.0) % Eos % (Auto) (0.0-4.0) % Baso % (Auto) (0.0-2.0) % Neut # (1.8-7.0) K/uL Lymph # (1.0-4.3) K/uL [place] # (0.0-0.8) K/uL Eos # (0.0-0.7) K/uL Baso # (0.0-0.2) K/uL Sodium (132-148) mmol/L Potassium (3.6-5.2) mmol/L Chloride (98-107) mmol/L Carbon Dioxide (22-30) mmol/L Anion Gap (10-20) BUN (7-17) mg/dL Creatinine (0.7-1.2) MG/DL Est GFR ( Amer) Est GFR (Non-Af Amer) POC Glucose (mg/dL) 164 H 140 H 121 H (65-110) mg/dL Random Glucose (65-105) mg/dL Calcium (8.6-10.4) mg/dl Phosphorus (2.5-4.5) mg/dL Magnesium (1.6-2.3) mg/dL Total Bilirubin (0.2-1.3) mg/dL AST (14-36) U/L ALT (9-52) U/L Alkaline Phosphatase (38-126) U/L Total Protein (6.3-8.3) g/dL Albumin (3.5-5.0) g/dL Globulin (2.2-3.9) gm/dL Albumin/Globulin Ratio (1.0-2.1) 03/04/17 03/04/17 03/03/17 Range/Units 06:43 04:00 21:48 WBC 5.4 (4.8-10.8) K/uL RBC 3.57 L (3.80-5.20) Mil/uL Hgb 9.2 L D (11.0-16.0) g/dL Hct 29.9 L (34.0-47.0) % MCV 83.8 (81.0-99.0) fL MCH 25.8 L (27.0-31.0) pg MCHC 30.7 L (33.0-37.0) g/dL RDW 17.2 H (11.5-14.5) % Plt Count 165 (130-400) K/uL MPV 8.3 (7.2-11.7) fL Neut % (Auto) 73.5 (50.0-75.0) % Lymph % (Auto) 18.5 L (20.0-40.0) % [place] % (Auto) 6.1 (0.0-10.0) % Eos % (Auto) 1.6 (0.0-4.0) % Baso % (Auto) 0.3 (0.0-2.0) % Neut # 4.0 (1.8-7.0) K/uL Lymph # 1.0 (1.0-4.3) K/uL [place] # 0.3 (0.0-0.8) K/uL Eos # 0.1 (0.0-0.7) K/uL Baso # 0.0 (0.0-0.2) K/uL Sodium 139 138 (132-148) mmol/L Potassium 4.2 4.2 (3.6-5.2) mmol/L Chloride 106 107 (98-107) mmol/L Carbon Dioxide 27 25 (22-30) mmol/L Anion Gap 9 L 11 (10-20) BUN 16 20 H (7-17) mg/dL Creatinine 0.9 1.3 H (0.7-1.2) MG/DL Est GFR ( Amer) > 60 49 Est GFR (Non-Af Amer) > 60 40 POC Glucose (mg/dL) (65-110) mg/dL Random Glucose 94 119 H (65-105) mg/dL Calcium 7.9 L 7.8 L (8.6-10.4) mg/dl Phosphorus 2.9 (2.5-4.5) mg/dL Magnesium 2.1 (1.6-2.3) mg/dL Total Bilirubin 0.3 (0.2-1.3) mg/dL AST 73 H D (14-36) U/L ALT 42 (9-52) U/L Alkaline Phosphatase 60 (38-126) U/L Total Protein 5.0 L (6.3-8.3) g/dL Albumin 2.5 L (3.5-5.0) g/dL Globulin 2.5 (2.2-3.9) gm/dL Albumin/Globulin Ratio 1.0 (1.0-2.1) Laboratory Results - last 24 hr 03/03/17 03/04/17 03/04/17 21:48 04:00 06:43 WBC 5.4 RBC 3.57 L Hgb 9.2 L D Hct 29.9 L MCV 83.8 MCH 25.8 L MCHC 30.7 L RDW 17.2 H Plt Count 165 MPV 8.3 Neut % (Auto) 73.5 Lymph % (Auto) 18.5 L [place] % (Auto) 6.1 Eos % (Auto) 1.6 Baso % (Auto) 0.3 Neut # 4.0 Lymph # 1.0 [place] # 0.3 Eos # 0.1 Baso # 0.0 Sodium 138 139 Potassium 4.2 4.2 Chloride 107 106 Carbon Dioxide 25 27 Anion Gap 11 9 L BUN 20 H 16 Creatinine 1.3 H 0.9 Est GFR ( Amer) 49 > 60 Est GFR (Non-Af Amer) 40 > 60 POC Glucose (mg/dL) Random Glucose 119 H 94 Calcium 7.8 L 7.9 L Phosphorus 2.9 Magnesium 2.1 Total Bilirubin 0.3 AST 73 H D ALT 42 Alkaline Phosphatase 60 Total Protein 5.0 L Albumin 2.5 L Globulin 2.5 Albumin/Globulin Ratio 1.0 03/04/17 03/04/17 03/04/17 07:15 12:09 16:36 WBC RBC Hgb Hct MCV MCH MCHC RDW Plt Count MPV Neut % (Auto) Lymph % (Auto) [place] % (Auto) Eos % (Auto) Baso % (Auto) Neut # Lymph # [place] # Eos # Baso # Sodium Potassium Chloride Carbon Dioxide Anion Gap BUN Creatinine Est GFR ( Amer) Est GFR (Non-Af Amer) POC Glucose (mg/dL) 121 H 140 H 164 H Random Glucose Calcium Phosphorus Magnesium Total Bilirubin AST ALT Alkaline Phosphatase Total Protein Albumin Globulin Albumin/Globulin Ratio Critical Care Progress Note - Nutrition Nutrition: Nutrition Category Date Time Status Regular Diet [DIET] Diets 03/04/17 Lunch Active Assessment/Plan (1) Malignant pleural effusion Current Visit: Yes Status: Acute (2) Shortness of breath Current Visit: Yes Status: Acute (3) Ascites, malignant Current Visit: Yes Status: Acute (4) Ovarian cancer Current Visit: Yes Status: Chronic Attending/Attestation - Attestation I have personally seen and examined this patient.: Yes I have fully participated in the care of the patient.: Yes I have reviewed all pertinent clinical information: Yes Notes (Text): 03/04/17 16:58 Patient seen and examined in the intensive care unit. Case discussed with house staff in the morning rounds. 2 chest tubes still draining serosanguineous fluid Continue present treatment and follow-up chest x-ray
[2017-03-04] MEDS ORDERED: POLYETHYLENE GLYCOL 3350 17 GM/Dose PACKET PO ONE ×2 (14:53→16:36)
--- NOTE | 2017-03-04 16:39 | CP.PCM.PN ---
Subjective - Date & Time of Evaluation Date of Evaluation: 03/04/17 Time of Evaluation: 07:00 - Subjective Subjective: THORACIC SURGERY PROGRESS NOTE FOR DR. BUCKLEY Patient seen and examined at bedside in the ICU. She is feeling better and does not have much pain. She had a small BM. She states that she has not been OOB yet. Chest tubes remain in place. Objective - Vital Signs/Intake and Output Vital Signs (last 24 hours): Temp Pulse Resp BP Pulse Ox 98.3 F 99 H 12 151/68 H 99 03/04/17 16:00 03/04/17 15:45 03/04/17 13:00 03/04/17 15:45 03/04/17 15:45 Intake and Output: 03/04/17 03/04/17 06:59 18:59 Intake Total 1550 1480 Output Total 616 460 Balance 934 1020 - Medications Medications: Current Medications Amlodipine Besylate (Norvasc) [address] [facility] Last Admin: 03/04/17 09:58 Dose: 10 mg Enoxaparin Sodium (Lovenox) [address] [facility] Last Admin: 03/01/17 09:43 Dose: 40 mg Famotidine (Pepcid) [address] [facility] Last Admin: 03/04/17 09:58 Dose: 20 mg Ferrous Sulfate (Feosol) [address] [facility] Last Admin: 03/04/17 14:50 Dose: 325 mg Sodium Chloride (Sodium Chloride 0.9%) 1,000 mls @ 100 mls/hr IV .Q10H [facility] Last Admin: 03/04/17 11:52 Dose: 100 mls/hr Morphine Sulfate (Morphine) 4 mg IVP Q4 PRN PRN Reason: Pain, moderate (4-7) Last Admin: 03/04/17 03:46 Dose: 4 mg Ondansetron HCl (Zofran Inj) 4 mg IVP Q4 PRN PRN Reason: Nausea/Vomiting Promethazine HCl (Phenergan Syrup) 12.5 mg PO Q6 PRN PRN Reason: cough Last Admin: 03/03/17 22:05 Dose: 12.5 mg Rosuvastatin Calcium (Crestor) [address] [facility] Last Admin: 03/03/17 21:23 Dose: 10 mg - Labs Labs: 03/04/17 06:43 03/04/17 04:00 PT 13.3 SECONDS (9.7-12.2) H 02/25/17 18:17 INR 1.2 02/25/17 18:17 APTT 31 SECONDS (21-34) D 02/25/17 18:17 - Constitutional Appears: Non-toxic, No Acute Distress - Head Exam Head Exam: ATRAUMATIC, NORMAL INSPECTION - Eye Exam Eye Exam: EOMI, Normal appearance - Respiratory Exam Respiratory Exam: NORMAL BREATHING PATTERN. absent: Respiratory Distress Additional comments: Both Chest tubes in place on suction Chest tube #1 (38F): 300cc serosanguinous output over past 24 hours Chest tube #2 (28F): 107cc serosanguinous output over past 24 hours Dressings clean/dry/intact - Cardiovascular Exam Cardiovascular Exam: Tachycardia - GI/Abdominal Exam GI & Abdominal Exam: Soft. absent: Tenderness - Neurological Exam Neurological Exam: Alert, Awake - Psychiatric Exam Psychiatric exam: Normal Affect, Normal Mood - Skin Skin Exam: Dry, Normal Color, Warm Assessment and Plan - Assessment and Plan (Free Text) Assessment: 71yo F with recurrent pleural effusion s/p Left VATS converted to thoracotomy, evacuation of pleural fluid, debridement of left lung cavity, decortication, insertion of chest tubes and PleurX catheter POD#2 - Afebrile, mild tachycardia - Advanced to regular diet - PT ordered - Chest tube #1 (38F): 300cc serosanguinous output over past 24 hours - Chest tube #2 (28F): 107cc serosanguinous output over past 24 hours - Low urine output, keep Doug[place], strict Is & Os, fluid challenges per ICU - Continue daily CXRs - Discussed plan with Dr. Tad Cruz PGY-2
[2017-03-04] MEDS: Promethazine 12.5 mg/10 ml Syrup PO PRN (19:44)
[2017-03-04] MEDS: Albuterol-Ipratrop 3 mg / 0.5 (3 ml) UD INH SCH (20:30)
--- NOTE | 2017-03-04 23:06 | CP.PCM.PN ---
Subjective - Date & Time of Evaluation Date of Evaluation: 03/04/17 Time of Evaluation: 09:31 - Subjective Subjective: pt seen and examined, sitting n chair, she has /l chest tube with serosanginous fluid Objective - Vital Signs/Intake and Output Vital Signs (last 24 hours): Temp Pulse Resp BP Pulse Ox 99.6 F 107 H 31 H 142/71 96 03/04/17 20:00 03/04/17 22:00 03/04/17 22:00 03/04/17 21:45 03/04/17 22:00 Intake and Output: 03/04/17 03/05/17 18:59 06:59 Intake Total 2160 400 Output Total 881 Balance 1279 400 - Medications Medications: Current Medications Albuterol/Ipratropium (Duoneb 3 Mg/0.5 Mg (3 Ml) Ud) 3 ml INH RQ6 [facility] Last Admin: 03/04/17 20:30 Dose: 3 ml Amlodipine Besylate (Norvasc) 10 mg PO DAILY [facility] Last Admin: 03/04/17 09:58 Dose: 10 mg Enoxaparin Sodium (Lovenox) 40 mg SC DAILY [facility] Last Admin: 03/01/17 09:43 Dose: 40 mg Famotidine (Pepcid) 20 mg PO DAILY [facility] Last Admin: 03/04/17 09:58 Dose: 20 mg Ferrous Sulfate (Feosol) 325 mg PO TID [facility] Last Admin: 03/04/17 18:50 Dose: 325 mg Sodium Chloride (Sodium Chloride 0.9%) 1,000 mls @ 100 mls/hr IV .Q10H [facility] Last Admin: 03/04/17 22:00 Dose: 100 mls/hr Morphine Sulfate (Morphine) 4 mg IVP Q4 PRN PRN Reason: Pain, moderate (4-7) Last Admin: 03/04/17 22:46 Dose: 4 mg Ondansetron HCl (Zofran Inj) 4 mg IVP Q4 PRN PRN Reason: Nausea/Vomiting Promethazine HCl (Phenergan Syrup) 12.5 mg PO Q6 PRN PRN Reason: cough Last Admin: 03/04/17 19:44 Dose: 12.5 mg Rosuvastatin Calcium (Crestor) 10 mg PO HS [facility] Last Admin: 03/04/17 21:01 Dose: 10 mg - Labs Labs: 03/04/17 06:43 03/04/17 04:00 PT 13.3 SECONDS (9.7-12.2) H 02/25/17 18:17 INR 1.2 02/25/17 18:17 APTT 31 SECONDS (21-34) D 02/25/17 18:17 - Constitutional Appears: No Acute Distress, Chronically Ill - Head Exam Head Exam: ATRAUMATIC, NORMAL INSPECTION, NORMOCEPHALIC - Eye Exam Eye Exam: EOMI, Normal appearance, PERRL Pupil Exam: NORMAL ACCOMODATION, PERRL - Respiratory Exam Respiratory Exam: Decreased Breath Sounds, Rhonchi, NORMAL BREATHING PATTERN - Cardiovascular Exam Cardiovascular Exam: REGULAR RHYTHM, +S1, +S2. absent: Murmur - GI/Abdominal Exam GI & Abdominal Exam: Soft, Normal Bowel Sounds. absent: Tenderness Assessment and Plan (1) Ascites, malignant Status: Acute (2) Diabetes mellitus Status: Chronic (3) Hypertension Status: Chronic (4) Ovarian cancer Status: Chronic (5) Pleural effusion due to another disorder Status: Acute (6) Shortness of breath Status: Acute
[2017-03-05] MEDS: Albuterol-Ipratrop 3 mg / 0.5 (3 ml) UD INH SCH ×4 (03:13→20:01)
[2017-03-05 06:40] LABS: BASO % 0.4 % (0.0-2.0); EOS # 0.1 K/uL (0.0-0.7); HEMATOCRIT 29.3 % (34.0-47.0); LYMPH # 1.2 K/uL (1.0-4.3); LYMPH % 29.5 % (20.0-40.0); MEAN CELL VOLUME 83.1 fL (81.0-99.0); MEAN CORPUSCULAR HEMOGLOBIN 25.3 pg (27.0-31.0); MEAN CORPUSCULAR HGB CONC 30.4 g/dL (33.0-37.0); MEAN PLATELET VOLUME 8.3 fL (7.2-11.7); MONO # 0.3 K/uL (0.0-0.8); MONO % 6.3 % (0.0-10.0); NRBC % 0.1 % (0.0-2.0)
[2017-03-05 06:53] LABS: CHLORIDE 104 mmol/L (98-107); POTASSIUM 3.6 mmol/L (3.6-5.2); SODIUM 138 mmol/L (132-148)
[2017-03-05 06:55] LABS: ALKALINE PHOSPHATASE 67 U/L (38-126); AST/SGOT 50 U/L (14-36); BILIRUBIN,TOTAL 0.5 mg/dL (0.2-1.3); BLOOD UREA NITROGEN 10 mg/dL (7-17); CARBON DIOXIDE 28 mmol/L (22-30); GFR AFRICAN-AMERICAN > 60; TOTAL PROTEIN 4.9 g/dL (6.3-8.3)
[2017-03-05 06:56] LABS: ALT/SGPT 46 U/L (9-52); CALCIUM 7.9 mg/dl (8.6-10.4); GLUCOSE,RANDOM 96 mg/dL (65-105); MAGNESIUM 1.8 mg/dL (1.6-2.3); PHOSPHOROUS 2.1 mg/dL (2.5-4.5)
--- NOTE | 2017-03-05 09:44 | RAD ---
HISTORY: left chest tube, s/p thoracotomy COMPARISON: Chest x-ray performed 03/04/17 TECHNIQUE: Chest, one view. FINDINGS: LUNGS: Lines and tubes in stable position. Moderate loculated right pleural effusion. Moderate loculated left hydropneumothorax. Confluent airspace consolidative changes in the left mid to lower lung zone as well as the right mid to lower lung zone. Bilateral hilar prominence. Scattered nodularity within the upper lobes. Please note that chest x-ray has limited sensitivity for the detection of pulmonary masses. CARDIOVASCULAR: Stable. OSSEOUS STRUCTURES: Osseous demineralization. Degenerative changes. High-riding bilateral humeral heads may be seen in the setting of chronic rotator cuff injury. Suspect right calcific tendinitis VISUALIZED UPPER ABDOMEN: Unremarkable. OTHER FINDINGS: None. IMPRESSION: No significant interval change appreciated. Findings as above.
--- NOTE | 2017-03-05 13:22 | CP.PCM.PN ---
Subjective - Date & Time of Evaluation Date of Evaluation: 03/05/17 Time of Evaluation: 13:20 - Subjective Subjective: pod#3. No c/o. Afebrile. wbc-wk chest tube:200/6/serosanguinous no air leak. cxr-hydorpneumo, left-right pleural effusion. a/p: Satisfactory pod #3. chest tubes to under waterseal starting tomorrow. Objective - Vital Signs/Intake and Output Vital Signs (last 24 hours): Temp Pulse Resp BP Pulse Ox 98.7 F 79 26 H 149/73 99 03/05/17 12:00 03/05/17 12:00 03/05/17 12:00 03/05/17 11:45 03/05/17 12:00 Intake and Output: 03/05/17 03/05/17 06:59 18:59 Intake Total 1200 340 Output Total 1400 775 Balance -200 -435 - Medications Medications: Current Medications Albuterol/Ipratropium (Duoneb 3 Mg/0.5 Mg (3 Ml) Ud) 3 ml INH RQ6 [facility] Last Admin: 03/05/17 08:34 Dose: 3 ml Enoxaparin Sodium (Lovenox) 40 mg SC DAILY [facility] Last Admin: 03/01/17 09:43 Dose: 40 mg Famotidine (Pepcid) 20 mg PO DAILY [facility] Last Admin: 03/05/17 09:26 Dose: 20 mg Ferrous Sulfate (Feosol) 325 mg PO TID [facility] Last Admin: 03/05/17 09:26 Dose: 325 mg Metoprolol Tartrate (Lopressor) 25 mg PO BID [facility] Last Admin: 03/05/17 09:24 Dose: 25 mg Morphine Sulfate (Morphine) 4 mg IVP Q4 PRN PRN Reason: Pain, moderate (4-7) Last Admin: 03/04/17 22:46 Dose: 4 mg Ondansetron HCl (Zofran Inj) 4 mg IVP Q4 PRN PRN Reason: Nausea/Vomiting Promethazine HCl (Phenergan Syrup) 12.5 mg PO Q6 PRN PRN Reason: cough Last Admin: 03/04/17 19:44 Dose: 12.5 mg Rosuvastatin Calcium (Crestor) 10 mg PO HS [facility] Last Admin: 03/04/17 21:01 Dose: 10 mg - Labs Labs: 03/05/17 06:30 03/05/17 06:30 PT 13.3 SECONDS (9.7-12.2) H 02/25/17 18:17 INR 1.2 02/25/17 18:17 APTT 31 SECONDS (21-34) D 02/25/17 18:17
--- NOTE | 2017-03-05 13:27 | CP.PCM.PN ---
Subjective - Date & Time of Evaluation Date of Evaluation: 03/05/17 Time of Evaluation: 11:10 - Subjective Subjective: Pt seen and examined in ICU sitting in chair. Pt presented with L sided plural effusion treated with the placement of two chest tubes. Pt describes feeling good and denied pain and specifically denied headache, chest pain, abdominal pain, pain with breathing, and SOB. Objective - Vital Signs/Intake and Output Vital Signs (last 24 hours): Temp Pulse Resp BP Pulse Ox 98.7 F 79 26 H 149/73 99 03/05/17 12:00 03/05/17 12:00 03/05/17 12:00 03/05/17 11:45 03/05/17 12:00 Intake and Output: 03/05/17 03/05/17 06:59 18:59 Intake Total 1200 340 Output Total 1400 775 Balance -200 -435 - Medications Medications: Current Medications Albuterol/Ipratropium (Duoneb 3 Mg/0.5 Mg (3 Ml) Ud) 3 ml INH RQ6 [facility] Last Admin: 03/05/17 08:34 Dose: 3 ml Enoxaparin Sodium (Lovenox) 40 mg SC DAILY [facility] Last Admin: 03/01/17 09:43 Dose: 40 mg Famotidine (Pepcid) 20 mg PO DAILY [facility] Last Admin: 03/05/17 09:26 Dose: 20 mg Ferrous Sulfate (Feosol) 325 mg PO TID [facility] Last Admin: 03/05/17 09:26 Dose: 325 mg Metoprolol Tartrate (Lopressor) 25 mg PO BID [facility] Last Admin: 03/05/17 09:24 Dose: 25 mg Morphine Sulfate (Morphine) 4 mg IVP Q4 PRN PRN Reason: Pain, moderate (4-7) Last Admin: 03/04/17 22:46 Dose: 4 mg Ondansetron HCl (Zofran Inj) 4 mg IVP Q4 PRN PRN Reason: Nausea/Vomiting Promethazine HCl (Phenergan Syrup) 12.5 mg PO Q6 PRN PRN Reason: cough Last Admin: 03/04/17 19:44 Dose: 12.5 mg Rosuvastatin Calcium (Crestor) 10 mg PO HS [facility] Last Admin: 03/04/17 21:01 Dose: 10 mg - Labs Labs: 03/05/17 06:30 03/05/17 06:30 PT 13.3 SECONDS (9.7-12.2) H 02/25/17 18:17 INR 1.2 02/25/17 18:17 APTT 31 SECONDS (21-34) D 02/25/17 18:17 - Constitutional Appears: Well, No Acute Distress - Head Exam Head Exam: ATRAUMATIC, NORMOCEPHALIC - Respiratory Exam Respiratory Exam: Rhonchi (bilat LL), NORMAL BREATHING PATTERN. absent: Clear to Ausculation Bilateral, Rales, Wheezes, Respiratory Distress Additional comments: Two chest tubes with draining fluid; dressings CDI - Cardiovascular Exam Cardiovascular Exam: +S1, +S2. absent: Murmur - Neurological Exam Neurological Exam: Alert, Awake, Oriented x3 - Psychiatric Exam Psychiatric exam: Normal Affect, Normal Mood - Skin Skin Exam: Dry, Intact, Normal Color, Warm Assessment and Plan (1) Malignant pleural effusion Assessment & Plan: Chest tubes have been draining fluid (7pm yesterday to 7am today 90ml and 45ml drained); no fluid drainage since then. Will continue to monitor for pain, SOB, and fluid drainage Status: Acute (2) Shortness of breath Status: Acute (3) Ascites, malignant Status: Acute (4) Ovarian cancer Status: Chronic
--- NOTE | 2017-03-05 15:07 | CP.CCUPN ---
<Ochoa Godwin - Last Filed: 03/05/17 14:58> CCU Subjective - Physician Review Subjective (Free Text): 03/05/17 14:58 Pt seen and examined at bedside. POD#3, s/p thoracotomy. Pt reports breathing well today and denies complaints. Pt has improving urinary output so fluids and fleming were discontinued. She reports minimal pain at site, and says the pain medicine has it well controlled. Nursing noted Paroxysmal SVT overnight so Lopressor added by overnight heel trimmer. Pt admits small BM yesterday. She denies chest pain, abdominal pain, and SOB. Critical Care Time Spent (in minutes): 35 CCU Objective - Vital Signs / Intake & Output Vital Signs (Last 4 hours): Vital Signs Temp Pulse Resp BP Pulse Ox 03/05/17 14:18 85 26 H 100 03/05/17 14:00 88 13 99 03/05/17 13:45 99 H 20 158/85 H 97 03/05/17 13:01 87 13 99 03/05/17 12:45 84 14 149/62 99 03/05/17 12:40 82 16 100 03/05/17 12:00 98.7 F 79 26 H 99 03/05/17 11:45 82 9 L 149/73 98 03/05/17 11:36 81 8 L 147/70 99 03/05/17 11:13 90 19 96 03/05/17 11:12 92 H 26 H 95 03/05/17 11:00 85 18 100 Intake and Output (Last 8hrs): Intake & Output 03/04/17 03/05/17 03/05/17 22:59 06:59 14:59 Intake Total 1280 800 340 Output Total 1026 900 776 Balance 254 -100 -436 Weight 136 lb Intake: Intake, IV Amount 800 800 100 Right Port-A-Cath 800 800 100 Oral 480 240 Output: Drainage 206 Left Chest #2 6 Left Chest #1 200 Urine 820 900 775 Urethral (Fleming) 820 900 775 Stool 1 - Physical Exam Head: Positive for: Atraumatic, Normocephalic Pupils: Positive for: PERRL Extroacular Muscles: Positive for: EOMI Conjunctiva: Positive for: Normal Mouth: Positive for: Moist Mucous Membranes Respiratory/Chest: Positive for: Rhonchi (bilat; especially in lower lobes), Other (Two chest tubes with draining fluid; dressings CDI). Negative for: Respiratory Distress, Accessory Muscle Use Cardiovascular: Positive for: Regular Rate and Rhythm, Normal S1, S2 Abdomen: Positive for: Normal Bowel Sounds. Negative for: Tenderness, Distention, Rebound, Guarding Upper Extremity: Positive for: Normal Inspection Lower Extremity: Positive for: Normal Inspection Neurological: Positive for: CN II-XII Intact Skin: Positive for: Warm, Dry Psychiatric: Positive for: Alert, Oriented x 3 - Medications Active Medications: Active Medications Generic Name Dose Route Start Last Admin Trade Name Freq PRN Reason Stop Dose Admin Albuterol/Ipratropium 3 ml 03/04/17 20:30 03/05/17 14:11 Duoneb 3 Mg/0.5 Mg (3 Ml) Ud INH 3 ml RQ6 ELLIE Administration Enoxaparin Sodium 40 mg 02/26/17 10:00 03/01/17 09:43 Lovenox SC 40 mg DAILY ELLIE Administration Famotidine 20 mg 02/27/17 10:00 03/05/17 09:26 Pepcid PO 20 mg DAILY ELLIE Administration Ferrous Sulfate 325 mg 02/26/17 10:00 03/05/17 14:36 Feosol PO 325 mg TID ELLIE Administration Metoprolol Tartrate 25 mg 03/05/17 10:00 03/05/17 09:24 Lopressor PO 25 mg BID ELLIE Administration Morphine Sulfate 4 mg 03/03/17 00:58 03/04/17 22:46 Morphine IVP 4 mg Q4 PRN Administration Pain, moderate (4-7) Ondansetron HCl 4 mg 03/02/17 16:13 Zofran Inj IVP Q4 PRN Nausea/Vomiting Promethazine HCl 12.5 mg 03/03/17 21:32 03/04/17 19:44 Phenergan Syrup PO 12.5 mg Q6 PRN Administration cough Rosuvastatin Calcium 10 mg 02/25/17 22:00 03/04/17 21:01 Crestor PO 10 mg HS ELLIE Administration - Patient Studies Lab Studies: Microbiology Studies 03/02/17 Unknown Gram Stain - Final Pleural Fluid Body Fluid Culture - Preliminary NO GROWTH AFTER 3 DAYS 03/02/17 21:19 MRSA Culture (Admit) - Final Naris MRSA NOT DETECTED 03/02/17 08:29 Mycobacterial Culture - Preliminary Other: Please Indicate Lab Studies 03/05/17 03/04/17 03/02/17 Range/Units 06:30 16:36 17:15 WBC 4.0 L (4.8-10.8) K/uL RBC 3.52 L (3.80-5.20) Mil/uL Hgb 8.9 L (11.0-16.0) g/dL Hct 29.3 L (34.0-47.0) % MCV 83.1 (81.0-99.0) fL MCH 25.3 L (27.0-31.0) pg MCHC 30.4 L (33.0-37.0) g/dL RDW 17.0 H (11.5-14.5) % Plt Count 173 (130-400) K/uL MPV 8.3 (7.2-11.7) fL Neut % (Auto) 61.8 (50.0-75.0) % Lymph % (Auto) 29.5 (20.0-40.0) % Floyd % (Auto) 6.3 (0.0-10.0) % Eos % (Auto) 2.0 (0.0-4.0) % Baso % (Auto) 0.4 (0.0-2.0) % Neut # 2.5 (1.8-7.0) K/uL Lymph # 1.2 (1.0-4.3) K/uL Floyd # 0.3 (0.0-0.8) K/uL Eos # 0.1 (0.0-0.7) K/uL Baso # 0.0 (0.0-0.2) K/uL Sodium 138 (132-148) mmol/L Potassium 3.6 (3.6-5.2) mmol/L Chloride 104 (98-107) mmol/L Carbon Dioxide 28 (22-30) mmol/L Anion Gap 10 (10-20) BUN 10 (7-17) mg/dL Creatinine 0.7 (0.7-1.2) MG/DL Est GFR ( Amer) > 60 Est GFR (Non-Af Amer) > 60 POC Glucose (mg/dL) 164 H (65-110) mg/dL Random Glucose 96 (65-105) mg/dL Calcium 7.9 L (8.6-10.4) mg/dl Phosphorus 2.1 L (2.5-4.5) mg/dL Magnesium 1.8 (1.6-2.3) mg/dL Total Bilirubin 0.5 (0.2-1.3) mg/dL AST 50 H D (14-36) U/L ALT 46 (9-52) U/L Alkaline Phosphatase 67 (38-126) U/L Total Protein 4.9 L (6.3-8.3) g/dL Albumin 2.5 L (3.5-5.0) g/dL Globulin 2.4 (2.2-3.9) gm/dL Albumin/Globulin Ratio 1.0 (1.0-2.1) Pleural LDH 5994 (()) U/L Laboratory Results - last 24 hr 03/02/17 03/04/17 03/05/17 17:15 16:36 06:30 WBC 4.0 L RBC 3.52 L Hgb 8.9 L Hct 29.3 L MCV 83.1 MCH 25.3 L MCHC 30.4 L RDW 17.0 H Plt Count 173 MPV 8.3 Neut % (Auto) 61.8 Lymph % (Auto) 29.5 Floyd % (Auto) 6.3 Eos % (Auto) 2.0 Baso % (Auto) 0.4 Neut # 2.5 Lymph # 1.2 Floyd # 0.3 Eos # 0.1 Baso # 0.0 Sodium 138 Potassium 3.6 Chloride 104 Carbon Dioxide 28 Anion Gap 10 BUN 10 Creatinine 0.7 Est GFR ( Amer) > 60 Est GFR (Non-Af Amer) > 60 POC Glucose (mg/dL) 164 H Random Glucose 96 Calcium 7.9 L Phosphorus 2.1 L Magnesium 1.8 Total Bilirubin 0.5 AST 50 H D ALT 46 Alkaline Phosphatase 67 Total Protein 4.9 L Albumin 2.5 L Globulin 2.4 Albumin/Globulin Ratio 1.0 Pleural LDH 5994 EKG/Cardiology Studies: Cardiology / EKG Studies 03/05/17 08:00 EKG [ELECTROCARDIOGRAM] Routine Comment: Mode Of Transportation: Reason For Exam: change in cardiac rhythmn Review of Systems - Constitutional Constitutional: absent: Fever, Chills - EENT Eyes: absent: Change in Vision Ears: absent: Decreased Hearing - Cardiovascular Cardiovascular: absent: Chest Pain, Chest Pain at Rest, Dyspnea, Dyspnea on Exertion - Respiratory Respiratory: Cough (dry , occasional, improving). absent: Hemoptysis - Gastrointestinal Gastrointestinal: Constipation. absent: Abdominal Pain, Nausea, Vomiting - Genitourinary Genitourinary: absent: Dysuria - Musculoskeletal Musculoskeletal: absent: Back Pain, Numbness, Tingling - Integumentary Integumentary: Dry Skin. absent: Wounds - Neurological Neurological: absent: Numbness, Tingling, Weakness - Psychiatric Psychiatric: absent: Anxiety, Depression Critical Care Progress Note - Nutrition Nutrition: Nutrition Category Date Time Status Regular Diet [DIET] Diets 03/04/17 Lunch Active Assessment/Plan - Assessment and Plan (Free Text) Assessment: 71 year old female, PMH of ovarian cancer on chemotherapy, with multiple reaccumulations of ascities and pleural effusions. POD#3, s/p VATS procedure of the left lung that got converted to thoracotomy, debridement of left lung. 2 chest tubes placed and PleurX catheter. Plan: Neuro: AAOx3 CV: Paroxysmal SVT - Lopressor 25mg PO BID Hypertension - Continue home Norvasc 10mg PO Daily CAD - Crestor 10mg HS Pulm: Dr. Mishra, CT surgeon consulted: help appreciated POD #3, thoracotomy - 230cc/65cc serosanguinous drainage from chest tube 1&2 respectively - f/u cytology Morphine 2mg IVP Q4H PRN for pain - decreased from yesterday Zofran 4mg IV Q4H PRN Duonebs Q6H Cough - Much improved today - Promethazine 12.5mg PO Q6 PRN Dr. Wright, glass crusher consulted: help appreciated PCXR (03/05/17): Moderate loculated right pleural effusion. Moderate loculated right pleural effusion. Moderate loculated left hydro pneumothorax. Confluent airspace consolidative changes in the left mid to lower lung zone as well as right mid to lower lung zone. Bilateral hilar prominence. Upper lobe with scattered nodularity. (see full report) Hx of PE - Home medication of Eliquis 10mg PO BID GI: Tolerating regular diet Start Ensure supplementation Hx of ascites - S/p paracentesis (02/28/17) Elevated AST level - downtrending (73 to 50) : Improved urinary output - Fluids discontinued Monitor I/Os Hem/Onc: Hx of stage IV ovarian cancer Dr. Florez, Hem/onc consult, help appreciated Dr. Chris, Hem/onc consult, help appreciated - Feosol 325 mg PO TID - believe malignant effusion - f/u cytology - rising CA-125 MSKLT: PT/OT: OOB to chair today - f/u reccs Prophylaxis: DVT: SCDs VTE: Lovenox 40mg SC Daily (RESTARTED) GI: Pepcid 20mg PO BID <Latef,Andrew M - Last Filed: 03/05/17 18:03> CCU Objective - Vital Signs / Intake & Output Vital Signs (Last 4 hours): Vital Signs Temp Pulse Resp BP Pulse Ox 03/05/17 17:52 168/84 H 03/05/17 17:00 95 H 31 H 97 03/05/17 16:56 93 H 33 H 168/77 H 99 03/05/17 16:00 98.8 F 91 H 11 L 100 03/05/17 15:45 141/61 03/05/17 15:44 92 H 20 97 03/05/17 15:40 96 H 19 97 03/05/17 15:00 94 H 22 98 03/05/17 14:45 95 H 12 155/64 H 99 03/05/17 14:20 84 26 H 100 03/05/17 14:18 85 26 H 100 Intake and Output (Last 8hrs): Intake & Output 03/05/17 03/05/17 03/05/17 06:59 14:59 22:59 Intake Total 800 340 120 Output Total 900 776 500 Balance -100 -436 -380 Weight 136 lb Intake: Intake, IV Amount 800 100 Right Port-A-Cath 800 100 Oral 240 120 Output: Urine 900 775 500 Urine, Voided 500 Urethral (Fleming) 900 775 Stool 1 - Medications Active Medications: Active Medications Generic Name Dose Route Start Last Admin Trade Name Freq PRN Reason Stop Dose Admin Albuterol/Ipratropium 3 ml 03/04/17 20:30 03/05/17 14:11 Duoneb 3 Mg/0.5 Mg (3 Ml) Ud INH 3 ml RQ6 ELLIE Administration Enoxaparin Sodium 40 mg 02/26/17 10:00 03/01/17 09:43 Lovenox SC 40 mg DAILY ELLIE Administration Famotidine 20 mg 02/27/17 10:00 03/05/17 09:26 Pepcid PO 20 mg DAILY ELLIE Administration Ferrous Sulfate 325 mg 02/26/17 10:00 03/05/17 17:51 Feosol PO 325 mg TID ELLIE Administration Metoprolol Tartrate 25 mg 03/05/17 10:00 03/05/17 17:52 Lopressor PO 25 mg BID ELLIE Administration Morphine Sulfate 2 mg 03/05/17 15:08 Morphine IVP Q4 PRN Pain, moderate (4-7) Ondansetron HCl 4 mg 03/02/17 16:13 Zofran Inj IVP Q4 PRN Nausea/Vomiting Promethazine HCl 12.5 mg 03/03/17 21:32 03/04/17 19:44 Phenergan Syrup PO 12.5 mg Q6 PRN Administration cough Rosuvastatin Calcium 10 mg 02/25/17 22:00 03/04/17 21:01 Crestor PO 10 mg HS ELLEI Administration - Patient Studies Lab Studies: Microbiology Studies 03/02/17 Unknown Gram Stain - Final Pleural Fluid Body Fluid Culture - Preliminary NO GROWTH AFTER 3 DAYS 03/02/17 21:19 MRSA Culture (Admit) - Final Naris MRSA NOT DETECTED 03/02/17 08:29 Mycobacterial Culture - Preliminary Other: Please Indicate Lab Studies 03/05/17 03/02/17 Range/Units 06:30 17:15 WBC 4.0 L (4.8-10.8) K/uL RBC 3.52 L (3.80-5.20) Mil/uL Hgb 8.9 L (11.0-16.0) g/dL Hct 29.3 L (34.0-47.0) % MCV 83.1 (81.0-99.0) fL MCH 25.3 L (27.0-31.0) pg MCHC 30.4 L (33.0-37.0) g/dL RDW 17.0 H (11.5-14.5) % Plt Count 173 (130-400) K/uL MPV 8.3 (7.2-11.7) fL Neut % (Auto) 61.8 (50.0-75.0) % Lymph % (Auto) 29.5 (20.0-40.0) % Floyd % (Auto) 6.3 (0.0-10.0) % Eos % (Auto) 2.0 (0.0-4.0) % Baso % (Auto) 0.4 (0.0-2.0) % Neut # 2.5 (1.8-7.0) K/uL Lymph # 1.2 (1.0-4.3) K/uL Floyd # 0.3 (0.0-0.8) K/uL Eos # 0.1 (0.0-0.7) K/uL Baso # 0.0 (0.0-0.2) K/uL Sodium 138 (132-148) mmol/L Potassium 3.6 (3.6-5.2) mmol/L Chloride 104 (98-107) mmol/L Carbon Dioxide 28 (22-30) mmol/L Anion Gap 10 (10-20) BUN 10 (7-17) mg/dL Creatinine 0.7 (0.7-1.2) MG/DL Est GFR ( Amer) > 60 Est GFR (Non-Af Amer) > 60 Random Glucose 96 (65-105) mg/dL Calcium 7.9 L (8.6-10.4) mg/dl Phosphorus 2.1 L (2.5-4.5) mg/dL Magnesium 1.8 (1.6-2.3) mg/dL Total Bilirubin 0.5 (0.2-1.3) mg/dL AST 50 H D (14-36) U/L ALT 46 (9-52) U/L Alkaline Phosphatase 67 (38-126) U/L Total Protein 4.9 L (6.3-8.3) g/dL Albumin 2.5 L (3.5-5.0) g/dL Globulin 2.4 (2.2-3.9) gm/dL Albumin/Globulin Ratio 1.0 (1.0-2.1) Fluid Albumin 2.6 (()) g/dL Pleural LDH 5994 (()) U/L Pleural Amylase 116 (()) U/L Laboratory Results - last 24 hr 03/02/17 03/05/17 17:15 06:30 WBC 4.0 L RBC 3.52 L Hgb 8.9 L Hct 29.3 L MCV 83.1 MCH 25.3 L MCHC 30.4 L RDW 17.0 H Plt Count 173 MPV 8.3 Neut % (Auto) 61.8 Lymph % (Auto) 29.5 Floyd % (Auto) 6.3 Eos % (Auto) 2.0 Baso % (Auto) 0.4 Neut # 2.5 Lymph # 1.2 Floyd # 0.3 Eos # 0.1 Baso # 0.0 Sodium 138 Potassium 3.6 Chloride 104 Carbon Dioxide 28 Anion Gap 10 BUN 10 Creatinine 0.7 Est GFR ( Amer) > 60 Est GFR (Non-Af Amer) > 60 Random Glucose 96 Calcium 7.9 L Phosphorus 2.1 L Magnesium 1.8 Total Bilirubin 0.5 AST 50 H D ALT 46 Alkaline Phosphatase 67 Total Protein 4.9 L Albumin 2.5 L Globulin 2.4 Albumin/Globulin Ratio 1.0 Fluid Albumin 2.6 Pleural LDH 5994 Pleural Amylase 116 EKG/Cardiology Studies: Cardiology / EKG Studies 03/05/17 08:00 EKG [ELECTROCARDIOGRAM] Routine Comment: Mode Of Transportation: Reason For Exam: change in cardiac rhythmn Critical Care Progress Note - Nutrition Nutrition: Nutrition Category Date Time Status Regular Diet [DIET] Diets 03/04/17 Lunch Active Attending/Attestation - Attestation I have personally seen and examined this patient.: Yes I have fully participated in the care of the patient.: Yes I have reviewed all pertinent clinical information: Yes Notes (Text): Today: February The Patient was seen and examined at the bedside, Medical records reviewed, all clinical/lab/hemodynamic/radiographic data were reviewed and management issues were discussed and formulated, Events reviewed Pain issues, skin care, head of the bed elevation, glycemic control were addressed. Agree with above treatment plans as transcribed in Dr. Godwin note
[2017-03-05] MEDS: Promethazine 12.5 mg/10 ml Syrup PO PRN (21:31)
[2017-03-06] MEDS: Albuterol-Ipratrop 3 mg / 0.5 (3 ml) UD INH SCH ×4 (01:27→21:10)
--- NOTE | 2017-03-06 01:48 | CP.PCM.PN ---
Subjective - Date & Time of Evaluation Date of Evaluation: 03/05/17 Time of Evaluation: 09:35 - Subjective Subjective: Pt seen and examined at bedside. s/p thoracotomy has b/l chest tube, no distress , Pt reports breathing well today and denies complaints. Pt has improving urinary output so fluids and fleming were discontinued. She reports minimal pain at site, and says the pain medicine has it well controlled. Nursing noted Paroxysmal SVT overnight so Lopressor added by overnight prepress supervisor. Pt admits small BM yesterday. She denies chest pain, abdominal pain, and SOB. Objective - Vital Signs/Intake and Output Vital Signs (last 24 hours): Temp Pulse Resp BP Pulse Ox 98.8 F 79 25 H 125/68 100 03/05/17 16:00 03/05/17 23:55 03/05/17 23:55 03/05/17 23:45 03/05/17 23:55 Intake and Output: 03/05/17 03/06/17 18:59 06:59 Intake Total 460 100 Output Total 1476 600 Balance -1016 -500 - Medications Medications: Current Medications Albuterol/Ipratropium (Duoneb 3 Mg/0.5 Mg (3 Ml) Ud) 3 ml INH RQ6 [facility] Last Admin: 03/06/17 01:27 Dose: Not Given Enoxaparin Sodium (Lovenox) 40 mg SC DAILY [facility] Last Admin: 03/01/17 09:43 Dose: 40 mg Famotidine (Pepcid) 20 mg PO DAILY [facility] Last Admin: 03/05/17 09:26 Dose: 20 mg Ferrous Sulfate (Feosol) 325 mg PO TID [facility] Last Admin: 03/05/17 17:51 Dose: 325 mg Metoprolol Tartrate (Lopressor) 50 mg PO BID [facility] Morphine Sulfate (Morphine) 2 mg IVP Q4 PRN PRN Reason: Pain, moderate (4-7) Last Admin: 03/05/17 21:32 Dose: 2 mg Ondansetron HCl (Zofran Inj) 4 mg IVP Q4 PRN PRN Reason: Nausea/Vomiting Promethazine HCl (Phenergan Syrup) 12.5 mg PO Q6 PRN PRN Reason: cough Last Admin: 03/05/17 21:31 Dose: 12.5 mg Rosuvastatin Calcium (Crestor) 10 mg PO [facility] Last Admin: 03/05/17 21:32 Dose: 10 mg - Labs Labs: 03/05/17 06:30 03/05/17 06:30 PT 13.3 SECONDS (9.7-12.2) H 02/25/17 18:17 INR 1.2 02/25/17 18:17 APTT 31 SECONDS (21-34) D 02/25/17 18:17 - Constitutional Appears: No Acute Distress - Head Exam Head Exam: ATRAUMATIC, NORMAL INSPECTION, NORMOCEPHALIC - Eye Exam Eye Exam: EOMI, Normal appearance, PERRL Pupil Exam: NORMAL ACCOMODATION, PERRL - Respiratory Exam Respiratory Exam: Clear to Ausculation Bilateral, NORMAL BREATHING PATTERN - Cardiovascular Exam Cardiovascular Exam: REGULAR RHYTHM, +S1, +S2. absent: Murmur - GI/Abdominal Exam GI & Abdominal Exam: Soft, Normal Bowel Sounds. absent: Tenderness Assessment and Plan (1) Ascites, malignant Status: Acute (2) Diabetes mellitus Status: Chronic (3) Hypertension Status: Chronic (4) Ovarian cancer Status: Chronic (5) Pleural effusion due to another disorder Status: Acute (6) Shortness of breath Status: Acute
[2017-03-06 06:13] LABS: BASO % 0.6 % (0.0-2.0); EOS # 0.1 K/uL (0.0-0.7); EOS % 3.5 % (0.0-4.0); HEMATOCRIT 28.4 % (34.0-47.0); LYMPH # 1.4 K/uL (1.0-4.3); LYMPH % 35.4 % (20.0-40.0); MEAN CELL VOLUME 81.2 fL (81.0-99.0); MEAN CORPUSCULAR HEMOGLOBIN 25.8 pg (27.0-31.0); MEAN CORPUSCULAR HGB CONC 31.7 g/dL (33.0-37.0); MEAN PLATELET VOLUME 8.2 fL (7.2-11.7); MONO # 0.2 K/uL (0.0-0.8); MONO % 6.3 % (0.0-10.0); NRBC % 0.1 % (0.0-2.0); WHITE BLOOD COUNT 3.9 K/uL (4.8-10.8)
[2017-03-06 06:26] LABS: CHLORIDE 99 mmol/L (98-107)
[2017-03-06 06:27] LABS: SODIUM 135 mmol/L (132-148)
[2017-03-06 06:29] LABS: AST/SGOT 38 U/L (14-36); BILIRUBIN,TOTAL 0.8 mg/dL (0.2-1.3); CARBON DIOXIDE 31 mmol/L (22-30); GFR AFRICAN-AMERICAN > 60
[2017-03-06 06:30] LABS: ALKALINE PHOSPHATASE 75 U/L (38-126); ALT/SGPT 43 U/L (9-52); BLOOD UREA NITROGEN 8 mg/dL (7-17); CALCIUM 7.7 mg/dl (8.6-10.4); GLUCOSE,RANDOM 96 mg/dL (65-105)
--- NOTE | 2017-03-06 08:39 | RAD ---
HISTORY: left chest tube, s/p thoracotomy COMPARISON: 03/05/2017 FINDINGS: LUNGS: Lines and tubes in stable position. Persistent small left-sided hydro pneumothorax. Dense consolidative changes within the left mid and lower lung zones. Additional small loculated right pleural effusion. Consolidative changes noted with the right mid to lower lung zone. Moderate venous congestion. . PLEURA: As above. CARDIOVASCULAR: Cardiomegaly. OSSEOUS STRUCTURES: Degenerative changes in the spine and shoulders. VISUALIZED UPPER ABDOMEN: Normal. OTHER FINDINGS: None. IMPRESSION: Lines and tubes in stable position. Persistent small left-sided hydro pneumothorax. Dense consolidative changes within the left mid and lower lung zones. Additional small loculated right pleural effusion. Consolidative changes noted with the right mid to lower lung zone. Moderate venous congestion. . Cardiomegaly.
[2017-03-06] MEDS: Potassium Chloride 20 mEq ER Tab PO SCH ×2 (10:49→14:41)
[2017-03-06] MEDS: Enoxaparin 40 mg Syringe SC SCH (10:49)
--- NOTE | 2017-03-06 11:06 | CP.PCM.PN ---
Subjective - Date & Time of Evaluation Date of Evaluation: 03/06/17 Time of Evaluation: 07:30 - Subjective Subjective: Thoracic surgery progress note for Dr. Mishra Pt S&E. Pt had episode of SVT vs Afib last night and was given cardizem and lopressor. Heart returned to NSR with normal rate. Today, pt states she is feeling better and that her pain is well controlled. She states she was able to get out of bed yesterday and sit in the chair. Pt denies chest pain, difficulty breathing, nausea, fever or chills. Fleming was removed yesterday. Chest tubes put on waterseal this morning and dressings changed. Objective - Vital Signs/Intake and Output Vital Signs (last 24 hours): Temp Pulse Resp BP Pulse Ox 98.3 F 101 H 26 H 143/70 93 L 03/06/17 08:00 03/06/17 10:00 03/06/17 09:51 03/06/17 09:51 03/06/17 10:00 Intake and Output: 03/06/17 03/06/17 06:59 18:59 Intake Total 100 360 Output Total 1086 1 Balance -986 359 - Medications Medications: Current Medications Albuterol/Ipratropium (Duoneb 3 Mg/0.5 Mg (3 Ml) Ud) 3 ml INH RQ6 [facility] Last Admin: 03/06/17 07:42 Dose: 3 ml Enoxaparin Sodium (Lovenox) 40 mg SC DAILY [facility] Last Admin: 03/06/17 10:49 Dose: 40 mg Famotidine (Pepcid) 20 mg PO DAILY [facility] Last Admin: 03/06/17 10:50 Dose: 20 mg Ferrous Sulfate (Feosol) 325 mg PO TID [facility] Last Admin: 03/06/17 10:49 Dose: 325 mg Metoprolol Tartrate (Lopressor) 50 mg PO BID [facility] Last Admin: 03/06/17 10:49 Dose: 50 mg Morphine Sulfate (Morphine) 2 mg IVP Q4 PRN PRN Reason: Pain, moderate (4-7) Last Admin: 03/05/17 21:32 Dose: 2 mg Ondansetron HCl (Zofran Inj) 4 mg IVP Q4 PRN PRN Reason: Nausea/Vomiting Potassium Chloride (K-Dur 20 Meq Er Tab) 40 meq PO Q4H [facility] Stop: 03/06/17 12:46 Last Admin: 03/06/17 10:49 Dose: 40 meq Promethazine HCl (Phenergan Syrup) 12.5 mg PO Q6 PRN PRN Reason: cough Last Admin: 03/05/17 21:31 Dose: 12.5 mg Rosuvastatin Calcium (Crestor) 10 mg PO HS [facility] Last Admin: 03/05/17 21:32 Dose: 10 mg - Labs Labs: 03/06/17 06:00 03/06/17 06:05 PT 13.3 SECONDS (9.7-12.2) H 02/25/17 18:17 INR 1.2 02/25/17 18:17 APTT 31 SECONDS (21-34) D 02/25/17 18:17 - Constitutional Appears: Non-toxic, No Acute Distress - Head Exam Head Exam: ATRAUMATIC, NORMOCEPHALIC - Eye Exam Eye Exam: EOMI. absent: Scleral icterus - Respiratory Exam Respiratory Exam: NORMAL BREATHING PATTERN. absent: Respiratory Distress Additional comments: Chest tube dressings are clean and dry. Dressings changed. - Cardiovascular Exam Cardiovascular Exam: RRR. absent: JVD - Neurological Exam Neurological Exam: Alert, Awake, Oriented x3 - Psychiatric Exam Psychiatric exam: Normal Affect, Normal Mood - Skin Skin Exam: Dry, Warm Assessment and Plan - Assessment and Plan (Free Text) Assessment: Assessment: 71yo F with recurrent pleural effusion s/p Left VATS converted to thoracotomy, evacuation of pleural fluid, debridement of left lung cavity, decortication, insertion of chest tubes and PleurX catheter POD#4 Plan: - Afebrile - Chest tube #1 (38F): 216 cc serosanguinous output over past 24 hours - Chest tube #2 (28F): 170 cc serosanguinous output over past 24 hours - both chest tubes put on water-seal - fleming d/nicole - Continue daily CXRs - continue incentive spirometer - encourage ambulation, pt seeing PT - Discussed plan with Dr. Tad Cruz PGY-2
--- NOTE | 2017-03-06 11:38 | CP.PCM.PN ---
Subjective - Date & Time of Evaluation Date of Evaluation: 03/06/17 Time of Evaluation: 11:00 - Subjective Subjective: Has cough, feeling better overall Objective - Vital Signs/Intake and Output Vital Signs (last 24 hours): Temp Pulse Resp BP Pulse Ox 98.3 F 101 H 26 H 143/70 93 L 03/06/17 08:00 03/06/17 10:00 03/06/17 09:51 03/06/17 09:51 03/06/17 10:00 Intake and Output: 03/06/17 03/06/17 06:59 18:59 Intake Total 100 360 Output Total 1086 1 Balance -986 359 - Medications Medications: Current Medications Albuterol/Ipratropium (Duoneb 3 Mg/0.5 Mg (3 Ml) Ud) 3 ml INH RQ6 [facility] Last Admin: 03/06/17 07:42 Dose: 3 ml Enoxaparin Sodium (Lovenox) 40 mg SC DAILY [facility] Last Admin: 03/06/17 10:49 Dose: 40 mg Famotidine (Pepcid) 20 mg PO DAILY [facility] Last Admin: 03/06/17 10:50 Dose: 20 mg Ferrous Sulfate (Feosol) 325 mg PO TID [facility] Last Admin: 03/06/17 10:49 Dose: 325 mg Metoprolol Tartrate (Lopressor) 50 mg PO BID [facility] Last Admin: 03/06/17 10:49 Dose: 50 mg Morphine Sulfate (Morphine) 2 mg IVP Q4 PRN PRN Reason: Pain, moderate (4-7) Last Admin: 03/05/17 21:32 Dose: 2 mg Ondansetron HCl (Zofran Inj) 4 mg IVP Q4 PRN PRN Reason: Nausea/Vomiting Potassium Chloride (K-Dur 20 Meq Er Tab) 40 meq PO Q4H [facility] Stop: 03/06/17 12:46 Last Admin: 03/06/17 10:49 Dose: 40 meq Promethazine HCl (Phenergan Syrup) 12.5 mg PO Q6 PRN PRN Reason: cough Last Admin: 03/05/17 21:31 Dose: 12.5 mg Rosuvastatin Calcium (Crestor) 10 mg PO HS [facility] Last Admin: 03/05/17 21:32 Dose: 10 mg - Labs Labs: 03/06/17 06:00 03/06/17 06:05 PT 13.3 SECONDS (9.7-12.2) H 02/25/17 18:17 INR 1.2 02/25/17 18:17 APTT 31 SECONDS (21-34) D 02/25/17 18:17 - Head Exam Head Exam: ATRAUMATIC - Eye Exam Eye Exam: Normal appearance - ENT Exam ENT Exam: Mucous Membranes Dry - Respiratory Exam Respiratory Exam: NORMAL BREATHING PATTERN - Cardiovascular Exam Cardiovascular Exam: +S1, +S2 - GI/Abdominal Exam GI & Abdominal Exam: Normal Bowel Sounds - Extremities Exam Extremities Exam: Pedal Edema - Neurological Exam Neurological Exam: Oriented x3 - Psychiatric Exam Psychiatric exam: Normal Affect, Normal Mood - Skin Skin Exam: Warm Assessment and Plan (1) Pleural effusion due to another disorder Assessment & Plan: suspect malignant f/u cytology s/p chest tube Status: Acute (2) Ovarian cancer Assessment & Plan: progressive disease recently underwent switch chemotherapy regimen (Doxil +Avastin) Status: Chronic (3) Pulmonary embolism Assessment & Plan: therapeutic anticoagulation Status: Acute (4) Anemia Assessment & Plan: chronic disease, chemotherapy Status: Chronic
[2017-03-06] MEDS ORDERED: POLYETHYLENE GLYCOL 3350 17 GM/Dose PACKET PO ONE (11:45)
--- NOTE | 2017-03-06 13:12 | CP.PCM.PN ---
Subjective - Date & Time of Evaluation Date of Evaluation: 03/06/17 Time of Evaluation: 11:20 - Subjective Subjective: Pt seen and examined in ICU sitting in a chair breathing comfortably with NC 3L. Pt says the NC is needed and used. Pt complains of one episode of coughing with white phlegm produced; subsequent episodes of non-productive coughing experienced during physical exam. Pt also complains of throat soreness and increased urination compared to before her hospital stay. Pt denies all pain, chest pain, abdominal pain, SOB, and congestion. Tube drainage output 7pm to 7am 166mL and 20mL Objective - Vital Signs/Intake and Output Vital Signs (last 24 hours): Temp Pulse Resp BP Pulse Ox 98.3 F 101 H 26 H 143/70 93 L 03/06/17 08:00 03/06/17 10:00 03/06/17 09:51 03/06/17 09:51 03/06/17 10:00 Intake and Output: 03/06/17 03/06/17 06:59 18:59 Intake Total 100 360 Output Total 1086 1 Balance -986 359 - Medications Medications: Current Medications Albuterol/Ipratropium (Duoneb 3 Mg/0.5 Mg (3 Ml) Ud) 3 ml INH RQ6 [facility] Last Admin: 03/06/17 07:42 Dose: 3 ml Enoxaparin Sodium (Lovenox) 40 mg SC DAILY [facility] Last Admin: 03/06/17 10:49 Dose: 40 mg Famotidine (Pepcid) 20 mg PO DAILY [facility] Last Admin: 03/06/17 10:50 Dose: 20 mg Ferrous Sulfate (Feosol) 325 mg PO TID [facility] Last Admin: 03/06/17 10:49 Dose: 325 mg Metoprolol Tartrate (Lopressor) 50 mg PO BID [facility] Last Admin: 03/06/17 10:49 Dose: 50 mg Morphine Sulfate (Morphine) 2 mg IVP Q4 PRN PRN Reason: Pain, moderate (4-7) Last Admin: 03/05/17 21:32 Dose: 2 mg Ondansetron HCl (Zofran Inj) 4 mg IVP Q4 PRN PRN Reason: Nausea/Vomiting Promethazine HCl (Phenergan Syrup) 12.5 mg PO Q6 PRN PRN Reason: cough Last Admin: 03/05/17 21:31 Dose: 12.5 mg Rosuvastatin Calcium (Crestor) 10 mg PO HS [facility] Last Admin: 03/05/17 21:32 Dose: 10 mg - Labs Labs: 03/06/17 06:00 03/06/17 06:05 PT 13.3 SECONDS (9.7-12.2) H 02/25/17 18:17 INR 1.2 02/25/17 18:17 APTT 31 SECONDS (21-34) D 02/25/17 18:17 - Constitutional Appears: Well, No Acute Distress - Head Exam Head Exam: ATRAUMATIC, NORMOCEPHALIC - Respiratory Exam Respiratory Exam: Decreased Breath Sounds, Rhonchi (bi UL and LL crackles; middle lobe spared), NORMAL BREATHING PATTERN. absent: Clear to Ausculation Bilateral, Prolonged Expiratory Phase, Rales, Wheezes, Respiratory Distress Additional comments: chest tubes in place with bandages CDI - Cardiovascular Exam Cardiovascular Exam: Irregular Rhythm, +S1, +S2. absent: Murmur - Neurological Exam Neurological Exam: Alert, Awake, Oriented x3 - Psychiatric Exam Psychiatric exam: Normal Affect, Normal Mood - Skin Skin Exam: Dry, Intact, Normal Color, Warm Assessment and Plan (1) Malignant pleural effusion Assessment & Plan: Chest tubes have been draining fluid (7pm yesterday to 7am today 166ml and 20ml drained). Will continue to monitor for pain, SOB, and fluid drainage Status: Acute (2) Shortness of breath Status: Acute (3) Ascites, malignant Status: Acute (4) Ovarian cancer Status: Chronic
--- NOTE | 2017-03-06 13:56 | CP.PCM.PN ---
Subjective - Date & Time of Evaluation Date of Evaluation: 03/06/17 Time of Evaluation: 13:55 Objective - Vital Signs/Intake and Output Vital Signs (last 24 hours): Temp Pulse Resp BP Pulse Ox 98.3 F 101 H 26 H 143/70 93 L 03/06/17 08:00 03/06/17 10:00 03/06/17 09:51 03/06/17 09:51 03/06/17 10:00 Intake and Output: 03/06/17 03/06/17 06:59 18:59 Intake Total 100 360 Output Total 1086 1 Balance -986 359 - Medications Medications: Current Medications Albuterol/Ipratropium (Duoneb 3 Mg/0.5 Mg (3 Ml) Ud) 3 ml INH RQ6 [facility] Last Admin: 03/06/17 13:26 Dose: 3 ml Enoxaparin Sodium (Lovenox) 40 mg SC DAILY [facility] Last Admin: 03/06/17 10:49 Dose: 40 mg Famotidine (Pepcid) 20 mg PO DAILY [facility] Last Admin: 03/06/17 10:50 Dose: 20 mg Ferrous Sulfate (Feosol) 325 mg PO TID [facility] Last Admin: 03/06/17 10:49 Dose: 325 mg Metoprolol Tartrate (Lopressor) 50 mg PO BID [facility] Last Admin: 03/06/17 10:49 Dose: 50 mg Morphine Sulfate (Morphine) 2 mg IVP Q4 PRN PRN Reason: Pain, moderate (4-7) Last Admin: 03/05/17 21:32 Dose: 2 mg Ondansetron HCl (Zofran Inj) 4 mg IVP Q4 PRN PRN Reason: Nausea/Vomiting Promethazine HCl (Phenergan Syrup) 12.5 mg PO Q6 PRN PRN Reason: cough Last Admin: 03/05/17 21:31 Dose: 12.5 mg Rosuvastatin Calcium (Crestor) 10 mg PO [facility] Last Admin: 03/05/17 21:32 Dose: 10 mg - Labs Labs: 03/06/17 06:00 03/06/17 06:05 PT 13.3 SECONDS (9.7-12.2) H 02/25/17 18:17 INR 1.2 02/25/17 18:17 APTT 31 SECONDS (21-34) D 02/25/17 18:17
--- NOTE | 2017-03-06 17:02 | CP.CCUPN ---
<Ochoa Godwin - Last Filed: 03/06/17 17:21> CCU Subjective - Physician Review Subjective (Free Text): 03/06/17 16:54 Pt seen and examined at bedside. POD#4, s/p thoracotomy. Nursing reports episodes of SVT vs Afib and was given Cardizem and Lopressor by the overnight dog breeder. Monitor showed return to NSR with normal rate. Pt at no time reported any discomfort or chest pain. Pt has been out of bed to chair multiple times, and reports tolerating diet, and breathing well on 3L of oxygen. She does c/o episodes of dry cough that have been present since admission. Pt admits moving her bowels without difficulty. She denies chest pain, palpitations , abdominal pain, or SOB. Tube drainage output: Overnight - Tube 1: 166mL and Tube 2: 20mL 24 hour - Tube 1: 216 ml and tube 2: 170ml Chest tubes were placed on waterseal this AM. Critical Care Time Spent (in minutes): 40 CCU Objective - Vital Signs / Intake & Output Vital Signs (Last 4 hours): Vital Signs Temp Pulse Resp BP Pulse Ox 03/06/17 16:00 98.8 F 90 26 H 97 03/06/17 15:45 87 30 H 143/74 96 03/06/17 14:45 92 H 17 141/91 H 95 03/06/17 14:00 94 H 16 95 03/06/17 13:46 89 16 145/110 H 97 03/06/17 13:00 80 35 H 98 Intake and Output (Last 8hrs): Intake & Output 03/06/17 03/06/17 03/06/17 06:59 14:59 22:59 Intake Total 0 720 Output Total 486 1 Balance -486 719 Weight 133 lb Intake: Oral 0 720 Output: Drainage 186 Left Chest #2 20 Left Chest #1 166 Urine 300 Urine, Voided 300 Urine/Stool Mix 1 - Physical Exam Head: Positive for: Atraumatic, Normocephalic Pupils: Positive for: PERRL Extroacular Muscles: Positive for: EOMI Conjunctiva: Positive for: Normal Mouth: Positive for: Moist Mucous Membranes Respiratory/Chest: Positive for: Rhonchi, Other (Two chest tubes with draining serosanguinous fluid; dressings CDI). Negative for: Respiratory Distress, Accessory Muscle Use Cardiovascular: Positive for: Regular Rate and Rhythm, Normal S1, S2 Abdomen: Positive for: Normal Bowel Sounds. Negative for: Tenderness, Distention, Rebound, Guarding Upper Extremity: Positive for: Normal Inspection Lower Extremity: Positive for: Normal Inspection Neurological: Positive for: Speech Normal Skin: Positive for: Warm, Dry Psychiatric: Positive for: Alert, Oriented x 3 - Medications Active Medications: Active Medications Generic Name Dose Route Start Last Admin Trade Name Freq PRN Reason Stop Dose Admin Albuterol/Ipratropium 3 ml 03/04/17 20:30 03/06/17 13:26 Duoneb 3 Mg/0.5 Mg (3 Ml) Ud INH 3 ml RQ6 [facility] Administration Enoxaparin Sodium 40 mg 02/26/17 10:00 03/06/17 10:49 Lovenox SC 40 mg DAILY [facility] Administration Famotidine 20 mg 02/27/17 10:00 03/06/17 10:50 Pepcid PO 20 mg DAILY [facility] Administration Ferrous Sulfate 325 mg 02/26/17 10:00 03/06/17 14:40 Feosol PO 325 mg TID [facility] Administration Metoprolol Tartrate 50 mg 03/06/17 10:00 03/06/17 10:49 Lopressor PO 50 mg BID [facility] Administration Morphine Sulfate 2 mg 03/05/17 15:08 03/05/17 21:32 Morphine IVP 2 mg Q4 PRN Administration Pain, moderate (4-7) Ondansetron HCl 4 mg 03/02/17 16:13 Zofran Inj IVP Q4 PRN Nausea/Vomiting Promethazine HCl 12.5 mg 03/03/17 21:32 03/05/17 21:31 Phenergan Syrup PO 12.5 mg Q6 PRN Administration cough Rosuvastatin Calcium 10 mg 02/25/17 22:00 03/05/17 21:32 Crestor PO 10 mg HS ELLIE Administration - Patient Studies Lab Studies: Microbiology Studies 03/02/17 Unknown Gram Stain - Final Pleural Fluid Body Fluid Culture - Final No growth. Lab Studies 03/06/17 03/06/17 03/02/17 Range/Units 06:05 06:00 17:15 WBC 3.9 L (4.8-10.8) K/uL RBC 3.50 L (3.80-5.20) Mil/uL Hgb 9.0 L (11.0-16.0) g/dL Hct 28.4 L (34.0-47.0) % MCV 81.2 (81.0-99.0) fL MCH 25.8 L (27.0-31.0) pg MCHC 31.7 L (33.0-37.0) g/dL RDW 17.0 H (11.5-14.5) % Plt Count 193 (130-400) K/uL MPV 8.2 (7.2-11.7) fL Neut % (Auto) 54.2 (50.0-75.0) % Lymph % (Auto) 35.4 (20.0-40.0) % [place] % (Auto) 6.3 (0.0-10.0) % Eos % (Auto) 3.5 (0.0-4.0) % Baso % (Auto) 0.6 (0.0-2.0) % Neut # 2.1 (1.8-7.0) K/uL Lymph # 1.4 (1.0-4.3) K/uL [place] # 0.2 (0.0-0.8) K/uL Eos # 0.1 (0.0-0.7) K/uL Baso # 0.0 (0.0-0.2) K/uL Sodium 135 (132-148) mmol/L Potassium 3.0 L (3.6-5.2) mmol/L Chloride 99 (98-107) mmol/L Carbon Dioxide 31 H (22-30) mmol/L Anion Gap 8 L (10-20) BUN 8 (7-17) mg/dL Creatinine 0.6 L (0.7-1.2) MG/DL Est GFR ( Amer) > 60 Est GFR (Non-Af Amer) > 60 Random Glucose 96 (65-105) mg/dL Calcium 7.7 L (8.6-10.4) mg/dl Total Bilirubin 0.8 (0.2-1.3) mg/dL AST 38 H D (14-36) U/L ALT 43 (9-52) U/L Alkaline Phosphatase 75 (38-126) U/L Total Protein 5.0 L (6.3-8.3) g/dL Albumin 2.5 L (3.5-5.0) g/dL Globulin 2.5 (2.2-3.9) gm/dL Albumin/Globulin Ratio 1.0 (1.0-2.1) Pleural Amylase 116 (()) U/L Laboratory Results - last 24 hr 03/02/17 03/06/17 03/06/17 17:15 06:00 06:05 WBC 3.9 L RBC 3.50 L Hgb 9.0 L Hct 28.4 L MCV 81.2 MCH 25.8 L MCHC 31.7 L RDW 17.0 H Plt Count 193 MPV 8.2 Neut % (Auto) 54.2 Lymph % (Auto) 35.4 [place] % (Auto) 6.3 Eos % (Auto) 3.5 Baso % (Auto) 0.6 Neut # 2.1 Lymph # 1.4 [place] # 0.2 Eos # 0.1 Baso # 0.0 Sodium 135 Potassium 3.0 L Chloride 99 Carbon Dioxide 31 H Anion Gap 8 L BUN 8 Creatinine 0.6 L Est GFR ( Amer) > 60 Est GFR (Non-Af Amer) > 60 Random Glucose 96 Calcium 7.7 L Total Bilirubin 0.8 AST 38 H D ALT 43 Alkaline Phosphatase 75 Total Protein 5.0 L Albumin 2.5 L Globulin 2.5 Albumin/Globulin Ratio 1.0 Pleural Amylase 116 Review of Systems - Constitutional Constitutional: absent: Fever, Chills - EENT Eyes: absent: Change in Vision Ears: absent: Decreased Hearing Nose/Mouth/Throat: absent: Hoarsness, Sore Throat - Cardiovascular Cardiovascular: absent: Chest Pain, Chest Pain at Rest, Dyspnea, Dyspnea on Exertion - Respiratory Respiratory: Cough (dry; present on/off since admission) - Gastrointestinal Gastrointestinal: absent: Abdominal Pain, Heartburn, Nausea, Vomiting - Genitourinary Genitourinary: absent: Difficulty Urinating, Dysuria - Musculoskeletal Musculoskeletal: absent: Numbness, Tingling - Integumentary Integumentary: absent: Dry Skin - Neurological Neurological: absent: Numbness, Tremor, Weakness - Psychiatric Psychiatric: absent: Anxiety, Depression Critical Care Progress Note - Nutrition Nutrition: Nutrition Category Date Time Status Regular Diet [DIET] Diets 03/04/17 Lunch Active Assessment/Plan - Assessment and Plan (Free Text) Assessment: 71 year old female, PMH of ovarian cancer on chemotherapy, with multiple reaccumulations of ascities and pleural effusions. POD#3, s/p VATS procedure of the left lung that was converted to thoracotomy, debridement of left lung. 2 chest tubes placed and PleurX catheter. Chest tubes placed on waterseal this AM. Plan: Neuro: AAOx3 CV: Paroxysmal SVT vs Afib - Cardizem 10mg IV ONCE - Lopressor increased to 50mg PO BID Hypertension - Continue home Norvasc 10mg PO Daily CAD - Crestor 10mg HS Pulm: Dr. Mishra, CT surgeon consulted: help appreciated POD #4, thoracotomy - 216cc/170cc serosanguinous drainage over 24 hrs from chest tube 1&2 respectively - Malignant cells found in pleural fluid - In line with expectation of malignant effusion Morphine 2mg IVP Q4H PRN for pain Zofran 4mg IV Q4H PRN Duonebs Q6H Cough - Dry, Occasional, Afebrile - Promethazine 12.5mg PO Q6 PRN Dr. Wright, machine ii engraver consulted: help appreciated PCXR (03/06/17): Lines and tubes stable position. Persistent small left-sided pneumothorax. Dense consolidative changes within left mid and lower lung zones. Additional small loculated right pleural effusion. Consolidated changes noted with the right mid to lower lung zone. Moderate venous congestion (see full report) Hx of PE - Home medication of Eliquis 10mg PO BID GI: Tolerating regular diet Continue Ensure supplementation Constipation - Colace 100mg PO BID Hx of ascites - S/p paracentesis (02/28/17) Elevated AST level - downtrending (73 to 50) : Improved urinary output - Fluids discontinued Monitor I/Os Hem/Onc: Hx of stage IV ovarian cancer Dr. Florez, Hem/onc consult, help appreciated Dr. Chris, Hem/onc consult, help appreciated - Feosol 325 mg PO TID - believe malignant effusion - Malignant cells shown in pleural fluid; in line with expected malignant effusion - rising CA-125 MSKLT: PT/OT: OOB to chair today - OOB to chair, ambulated two feet with rolling walker Prophylaxis: DVT: SCDs VTE: Lovenox 40mg SC Daily GI: Pepcid 20mg PO BID Pt stable for transfer to telemetry unit. D/w Dr. Yara Godwin, PGY-1 <Andrew Livingston M - Last Filed: 03/07/17 23:05> CCU Objective - Vital Signs / Intake & Output Vital Signs (Last 4 hours): Vital Signs Pulse 03/07/17 20:00 89 Intake and Output (Last 8hrs): Intake & Output 03/07/17 03/07/17 03/08/17 14:59 22:59 06:59 Output Total 7 Balance -7 Output: Drainage 7 Left Chest #2 5 Left Chest #1 2 - Medications Active Medications: Active Medications Generic Name Dose Route Start Last Admin Trade Name Freq PRN Reason Stop Dose Admin Albuterol/Ipratropium 3 ml 03/04/17 20:30 03/07/17 20:36 Duoneb 3 Mg/0.5 Mg (3 Ml) Ud INH 3 ml RQ6 [facility] Administration Docusate Sodium 100 mg 03/06/17 18:00 03/07/17 17:26 Colace PO 100 mg BID [facility]IE Administration Enoxaparin Sodium 40 mg 02/26/17 10:00 03/07/17 09:27 Lovenox SC 40 mg DAILY [facility] Administration Famotidine 20 mg 02/27/17 10:00 03/07/17 09:27 Pepcid PO 20 mg DAILY [facility] Administration Ferrous Sulfate 325 mg 02/26/17 10:00 03/07/17 17:26 Feosol PO 325 mg TID ELLIE Administration Metoprolol Tartrate 50 mg 03/06/17 10:00 03/07/17 17:26 Lopressor PO 50 mg BID [facility] Administration Morphine Sulfate 2 mg 03/05/17 15:08 03/07/17 18:42 Morphine IVP 2 mg Q4 PRN Administration Pain, moderate (4-7) Ondansetron HCl 4 mg 03/02/17 16:13 Zofran Inj IVP Q4 PRN Nausea/Vomiting Promethazine HCl 12.5 mg 03/03/17 21:32 03/07/17 17:27 Phenergan Syrup PO 12.5 mg Q6 PRN Administration cough Rosuvastatin Calcium 10 mg 02/25/17 22:00 03/07/17 21:27 Crestor PO 10 mg HS ELLIE Administration - Patient Studies Lab Studies: Microbiology Studies 03/06/17 20:30 MRSA Culture (Admit) - Final Nose MRSA NOT DETECTED Lab Studies 03/07/17 Range/Units 06:41 WBC 4.2 L (4.8-10.8) K/uL RBC 3.44 L (3.80-5.20) Mil/uL Hgb 8.8 L (11.0-16.0) g/dL Hct 28.1 L (34.0-47.0) % MCV 81.7 (81.0-99.0) fL MCH 25.4 L (27.0-31.0) pg MCHC 31.1 L (33.0-37.0) g/dL RDW 16.7 H (11.5-14.5) % Plt Count 182 (130-400) K/uL MPV 8.1 (7.2-11.7) fL Neut % (Auto) 56.6 (50.0-75.0) % Lymph % (Auto) 33.3 (20.0-40.0) % [place] % (Auto) 7.1 (0.0-10.0) % Eos % (Auto) 2.5 (0.0-4.0) % Baso % (Auto) 0.5 (0.0-2.0) % Neut # 2.4 (1.8-7.0) K/uL Lymph # 1.4 (1.0-4.3) K/uL [place] # 0.3 (0.0-0.8) K/uL Eos # 0.1 (0.0-0.7) K/uL Baso # 0.0 (0.0-0.2) K/uL Sodium 137 (132-148) mmol/L Potassium 3.9 (3.6-5.2) mmol/L Chloride 101 (98-107) mmol/L Carbon Dioxide 29 (22-30) mmol/L Anion Gap 10 (10-20) BUN 8 (7-17) mg/dL Creatinine 0.5 L (0.7-1.2) MG/DL Est GFR ( Amer) > 60 Est GFR (Non-Af Amer) > 60 Random Glucose 96 (65-105) mg/dL Calcium 8.2 L (8.6-10.4) mg/dl Phosphorus 1.8 L (2.5-4.5) mg/dL Magnesium 1.8 (1.6-2.3) mg/dL Total Bilirubin 0.4 (0.2-1.3) mg/dL AST 35 (14-36) U/L ALT 32 (9-52) U/L Alkaline Phosphatase 72 (38-126) U/L Total Protein 5.1 L (6.3-8.3) g/dL Albumin 2.6 L (3.5-5.0) g/dL Globulin 2.6 (2.2-3.9) gm/dL Albumin/Globulin Ratio 1.0 (1.0-2.1) Laboratory Results - last 24 hr 03/07/17 06:41 WBC 4.2 L RBC 3.44 L Hgb 8.8 L Hct 28.1 L MCV 81.7 MCH 25.4 L MCHC 31.1 L RDW 16.7 H Plt Count 182 MPV 8.1 Neut % (Auto) 56.6 Lymph % (Auto) 33.3 [place] % (Auto) 7.1 Eos % (Auto) 2.5 Baso % (Auto) 0.5 Neut # 2.4 Lymph # 1.4 [place] # 0.3 Eos # 0.1 Baso # 0.0 Sodium 137 Potassium 3.9 Chloride 101 Carbon Dioxide 29 Anion Gap 10 BUN 8 Creatinine 0.5 L Est GFR ( Amer) > 60 Est GFR (Non-Af Amer) > 60 Random Glucose 96 Calcium 8.2 L Phosphorus 1.8 L Magnesium 1.8 Total Bilirubin 0.4 AST 35 ALT 32 Alkaline Phosphatase 72 Total Protein 5.1 L Albumin 2.6 L Globulin 2.6 Albumin/Globulin Ratio 1.0 Critical Care Progress Note - Nutrition Nutrition: Nutrition Category Date Time Status Regular Diet [DIET] Diets 03/04/17 Lunch Active Regular Diet [DIET] Diets 03/08/17 Breakfast Active Attending/Attestation - Attestation I have personally seen and examined this patient.: Yes I have fully participated in the care of the patient.: Yes I have reviewed all pertinent clinical information: Yes Notes (Text): Today: Thursday, March 06, 2017 The Patient was seen and examined at the bedside, Medical records reviewed, all clinical/lab/hemodynamic/radiographic data were reviewed and management issues were discussed and formulated, Events reviewed Pain issues, skin care, head of the bed elevation, glycemic control were addressed. Agree with above treatment plans as transcribed in Dr. Godwin note
[2017-03-07] MEDS: Albuterol-Ipratrop 3 mg / 0.5 (3 ml) UD INH SCH ×4 (01:37→20:36)
--- NOTE | 2017-03-07 06:52 | CP.PCM.PN ---
Subjective - Date & Time of Evaluation Date of Evaluation: 03/07/17 Time of Evaluation: 06:49 - Subjective Subjective: Thoracic Surgery - Dr. Mishra Pt S&E. CARLY. PT has mild pain from Left chest tubes, unchanged from previous days. She has a cough which she states is also unchanged. Right chest tubes to waterseal, 10cc total drained. Tube #2 with airleak. Objective - Vital Signs/Intake and Output Vital Signs (last 24 hours): Temp Pulse Resp BP Pulse Ox 98.8 F 86 20 162/85 H 98 03/07/17 00:20 03/07/17 00:20 03/07/17 00:20 03/07/17 00:20 03/07/17 00:20 Intake and Output: 03/06/17 03/07/17 18:59 06:59 Intake Total 720 Output Total 1 12 Balance 719 -12 - Medications Medications: Current Medications Albuterol/Ipratropium (Duoneb 3 Mg/0.5 Mg (3 Ml) Ud) 3 ml INH RQ6 [facility] Last Admin: 03/07/17 01:37 Dose: Not Given Docusate Sodium (Colace) 100 mg PO BID [facility] Last Admin: 03/06/17 17:08 Dose: 100 mg Enoxaparin Sodium (Lovenox) 40 mg SC DAILY [facility] Last Admin: 03/06/17 10:49 Dose: 40 mg Famotidine (Pepcid) 20 mg PO DAILY [facility] Last Admin: 03/06/17 10:50 Dose: 20 mg Ferrous Sulfate (Feosol) 325 mg PO TID [facility] Last Admin: 03/06/17 17:08 Dose: 325 mg Metoprolol Tartrate (Lopressor) 50 mg PO BID [facility] Last Admin: 03/06/17 17:08 Dose: 50 mg Morphine Sulfate (Morphine) 2 mg IVP Q4 PRN PRN Reason: Pain, moderate (4-7) Last Admin: 03/05/17 21:32 Dose: 2 mg Ondansetron HCl (Zofran Inj) 4 mg IVP Q4 PRN PRN Reason: Nausea/Vomiting Promethazine HCl (Phenergan Syrup) 12.5 mg PO Q6 PRN PRN Reason: cough Last Admin: 03/05/17 21:31 Dose: 12.5 mg Rosuvastatin Calcium (Crestor) 10 mg PO HS [facility] Last Admin: 03/06/17 21:23 Dose: 10 mg - Labs Labs: 03/06/17 06:00 03/06/17 06:05 PT 13.3 SECONDS (9.7-12.2) H 02/25/17 18:17 INR 1.2 02/25/17 18:17 APTT 31 SECONDS (21-34) D 02/25/17 18:17 - Constitutional Appears: No Acute Distress - Head Exam Head Exam: ATRAUMATIC, NORMAL INSPECTION, NORMOCEPHALIC - Respiratory Exam Respiratory Exam: NORMAL BREATHING PATTERN. absent: Respiratory Distress Additional comments: Left chest tubes to waterseal, Airleak from tube #2 w/ 10cc total drained serosanguinous - Neurological Exam Neurological Exam: Alert, Oriented x3 - Skin Skin Exam: Dry, Intact Assessment and Plan - Assessment and Plan (Free Text) Assessment: 71F w/ malignant effusion, s/p L Vats conv. to Thoracotomy w/ decortication and PleurX catheter placement, POD #5 - Chest tube #1 (38F): 0 cc serosanguinous output over past 24 hours - Chest tube #2 (28F): 10 cc serosanguinous output over past 24 hours, + Airleak Plan: - Continue CTs to waterseal - Encourage OOB/Ambulation - Encourage Incentive Spirometer - F/U CXR DW Dr Tad Gayle PGY2
[2017-03-07 07:00] LABS: CHLORIDE 101 mmol/L (98-107); POTASSIUM 3.9 mmol/L (3.6-5.2); SODIUM 137 mmol/L (132-148)
[2017-03-07 07:02] LABS: BILIRUBIN,TOTAL 0.4 mg/dL (0.2-1.3); GFR AFRICAN-AMERICAN > 60
[2017-03-07 07:03] LABS: ALKALINE PHOSPHATASE 72 U/L (38-126); ALT/SGPT 32 U/L (9-52); AST/SGOT 35 U/L (14-36); BLOOD UREA NITROGEN 8 mg/dL (7-17); CARBON DIOXIDE 29 mmol/L (22-30); GLUCOSE,RANDOM 96 mg/dL (65-105); PHOSPHOROUS 1.8 mg/dL (2.5-4.5); TOTAL PROTEIN 5.1 g/dL (6.3-8.3)
[2017-03-07 07:04] LABS: CALCIUM 8.2 mg/dl (8.6-10.4); MAGNESIUM 1.8 mg/dL (1.6-2.3)
[2017-03-07 07:05] LABS: BASO % 0.5 % (0.0-2.0); EOS # 0.1 K/uL (0.0-0.7); EOS % 2.5 % (0.0-4.0); HEMATOCRIT 28.1 % (34.0-47.0); LYMPH # 1.4 K/uL (1.0-4.3); LYMPH % 33.3 % (20.0-40.0); MEAN CELL VOLUME 81.7 fL (81.0-99.0); MEAN CORPUSCULAR HEMOGLOBIN 25.4 pg (27.0-31.0); MEAN CORPUSCULAR HGB CONC 31.1 g/dL (33.0-37.0); MEAN PLATELET VOLUME 8.1 fL (7.2-11.7); MONO # 0.3 K/uL (0.0-0.8); MONO % 7.1 % (0.0-10.0); NRBC % 0.1 % (0.0-2.0); RED CELL DISTRIBUTION WIDTH 16.7 % (11.5-14.5); WHITE BLOOD COUNT 4.2 K/uL (4.8-10.8)
[2017-03-07] MEDS: Enoxaparin 40 mg Syringe SC SCH (09:27)
[2017-03-07] MEDS: Promethazine 12.5 mg/10 ml Syrup PO PRN ×2 (09:27→17:27)
--- NOTE | 2017-03-07 11:20 | RAD ---
HISTORY: left chest tube, s/p thoracotomy COMPARISON: Comparison made with prior study 03/06/2017 FINDINGS: LUNGS: Lines and tubes in stable position. Persistent small left-sided hydro pneumothorax. Dense consolidative changes within the left mid and lower lung zones. Additional small loculated right pleural effusion. Consolidative changes noted with the right mid to lower lung zone. Moderate venous congestion. . PLEURA: As above CARDIOVASCULAR: Cardiomegaly OSSEOUS STRUCTURES: Degenerative changes in the spine and shoulders. VISUALIZED UPPER ABDOMEN: Normal. OTHER FINDINGS: None. IMPRESSION: Lines and tubes in stable position. Persistent small left-sided hydro pneumothorax. Dense consolidative changes within the left mid and lower lung zones. Additional small loculated right pleural effusion. Consolidative changes noted with the right mid to lower lung zone. Moderate venous congestion. . Cardiomegaly.
--- NOTE | 2017-03-07 14:29 | CP.PCM.PN ---
Subjective - Date & Time of Evaluation Date of Evaluation: 03/06/17 Time of Evaluation: 09:50 - Subjective Subjective: Pt seen and examined in ICU sitting in a chair breathing comfortably with NC 3L.chest tube in place, Pt says the NC is needed and used. Pt complains of one episode of coughing with white phlegm produced; subsequent episodes of non- productive coughing experienced during physical exam. Pt also complains of throat soreness and increased urination compared to before her hospital stay. Pt denies all pain, chest pain, abdominal pain, SOB, and congestion Objective - Vital Signs/Intake and Output Vital Signs (last 24 hours): Temp Pulse Resp BP Pulse Ox 99.0 F 91 H 20 165/71 H 100 03/07/17 09:03 03/07/17 09:26 03/07/17 09:03 03/07/17 09:26 03/07/17 09:03 Intake and Output: 03/07/17 03/07/17 06:59 18:59 Output Total 12 7 Balance -12 -7 - Medications Medications: Current Medications Albuterol/Ipratropium (Duoneb 3 Mg/0.5 Mg (3 Ml) Ud) 3 ml INH RQ6 [facility] Last Admin: 03/07/17 13:48 Dose: 3 ml Docusate Sodium (Colace) 100 mg PO BID [facility] Last Admin: 03/07/17 09:27 Dose: 100 mg Enoxaparin Sodium (Lovenox) 40 mg SC DAILY [facility] Last Admin: 03/07/17 09:27 Dose: 40 mg Famotidine (Pepcid) 20 mg PO DAILY [facility] Last Admin: 03/07/17 09:27 Dose: 20 mg Ferrous Sulfate (Feosol) 325 mg PO TID [facility] Last Admin: 03/07/17 13:51 Dose: 325 mg Metoprolol Tartrate (Lopressor) 50 mg PO BID [facility] Last Admin: 03/07/17 09:27 Dose: 50 mg Morphine Sulfate (Morphine) 2 mg IVP Q4 PRN PRN Reason: Pain, moderate (4-7) Last Admin: 03/05/17 21:32 Dose: 2 mg Ondansetron HCl (Zofran Inj) 4 mg IVP Q4 PRN PRN Reason: Nausea/Vomiting Promethazine HCl (Phenergan Syrup) 12.5 mg PO Q6 PRN PRN Reason: cough Last Admin: 03/07/17 09:27 Dose: 12.5 mg Rosuvastatin Calcium (Crestor) 10 mg PO HS [facility] Last Admin: 03/06/17 21:23 Dose: 10 mg - Labs Labs: 03/07/17 06:41 03/07/17 06:41 PT 13.3 SECONDS (9.7-12.2) H 02/25/17 18:17 INR 1.2 02/25/17 18:17 APTT 31 SECONDS (21-34) D 02/25/17 18:17 - Constitutional Appears: No Acute Distress - Head Exam Head Exam: ATRAUMATIC, NORMAL INSPECTION, NORMOCEPHALIC - Eye Exam Eye Exam: EOMI, Normal appearance, PERRL Pupil Exam: NORMAL ACCOMODATION, PERRL - Respiratory Exam Respiratory Exam: Decreased Breath Sounds, Rales, NORMAL BREATHING PATTERN - Cardiovascular Exam Cardiovascular Exam: REGULAR RHYTHM, +S1, +S2. absent: Murmur - GI/Abdominal Exam GI & Abdominal Exam: Soft, Normal Bowel Sounds. absent: Tenderness Assessment and Plan (1) Ascites, malignant Status: Acute (2) Diabetes mellitus Status: Chronic (3) Hypertension Status: Chronic (4) Ovarian cancer Status: Chronic (5) Pleural effusion due to another disorder Status: Acute (6) Shortness of breath Status: Acute
--- NOTE | 2017-03-07 19:58 | CP.PCM.PN ---
Subjective - Date & Time of Evaluation Date of Evaluation: 03/07/17 Time of Evaluation: 18:40 - Subjective Subjective: Feeling better Objective - Vital Signs/Intake and Output Vital Signs (last 24 hours): Temp Pulse Resp BP Pulse Ox 98.7 F 89 20 169/94 H 99 03/07/17 16:00 03/07/17 16:00 03/07/17 16:00 03/07/17 16:00 03/07/17 16:00 Intake and Output: 03/07/17 03/08/17 18:59 06:59 Output Total 7 Balance -7 - Medications Medications: Current Medications Albuterol/Ipratropium (Duoneb 3 Mg/0.5 Mg (3 Ml) Ud) 3 ml INH RQ6 [facility] Last Admin: 03/07/17 13:48 Dose: 3 ml Docusate Sodium (Colace) 100 mg PO BID [facility] Last Admin: 03/07/17 17:26 Dose: 100 mg Enoxaparin Sodium (Lovenox) 40 mg SC DAILY [facility] Last Admin: 03/07/17 09:27 Dose: 40 mg Famotidine (Pepcid) 20 mg PO DAILY [facility] Last Admin: 03/07/17 09:27 Dose: 20 mg Ferrous Sulfate (Feosol) 325 mg PO TID [facility] Last Admin: 03/07/17 17:26 Dose: 325 mg Metoprolol Tartrate (Lopressor) 50 mg PO BID [facility] Last Admin: 03/07/17 17:26 Dose: 50 mg Morphine Sulfate (Morphine) 2 mg IVP Q4 PRN PRN Reason: Pain, moderate (4-7) Last Admin: 03/07/17 18:42 Dose: 2 mg Ondansetron HCl (Zofran Inj) 4 mg IVP Q4 PRN PRN Reason: Nausea/Vomiting Promethazine HCl (Phenergan Syrup) 12.5 mg PO Q6 PRN PRN Reason: cough Last Admin: 03/07/17 17:27 Dose: 12.5 mg Rosuvastatin Calcium (Crestor) 10 mg PO HS [facility] Last Admin: 03/06/17 21:23 Dose: 10 mg - Labs Labs: 03/07/17 06:41 03/07/17 06:41 PT 13.3 SECONDS (9.7-12.2) H 02/25/17 18:17 INR 1.2 02/25/17 18:17 APTT 31 SECONDS (21-34) D 02/25/17 18:17 - Head Exam Head Exam: ATRAUMATIC - Eye Exam Eye Exam: Normal appearance - ENT Exam ENT Exam: Mucous Membranes Dry - Respiratory Exam Respiratory Exam: Decreased Breath Sounds - Cardiovascular Exam Cardiovascular Exam: +S1, +S2 - GI/Abdominal Exam GI & Abdominal Exam: Normal Bowel Sounds - Extremities Exam Extremities Exam: Pedal Edema Assessment and Plan (1) Pleural effusion due to another disorder Assessment & Plan: s/p chest tube f/u cytology Status: Acute (2) Ovarian cancer Assessment & Plan: recent progression and switch of chemotherapy Status: Chronic (3) Pulmonary embolism Assessment & Plan: therapeutic anticoagulation Status: Acute (4) Anemia Assessment & Plan: chronic disease and chemotherapy Status: Chronic
[2017-03-08] MEDS: Albuterol-Ipratrop 3 mg / 0.5 (3 ml) UD INH SCH ×4 (01:59→20:11)
--- NOTE | 2017-03-08 09:37 | CP.PCM.PN ---
Subjective - Date & Time of Evaluation Date of Evaluation: 03/08/17 Time of Evaluation: 08:00 - Subjective Subjective: THORACIC SURGERY PROGRESS NOTE FOR DR. BUCKLEY Patient seen and examined at bedside. She is feeling well and does not have much pain. She is currently eating her soft breakfast. Chest tubes remain in place. Objective - Vital Signs/Intake and Output Vital Signs (last 24 hours): Temp Pulse Resp BP Pulse Ox 98.7 F 83 20 151/88 H 100 03/08/17 08:30 03/08/17 08:30 03/08/17 08:30 03/08/17 08:30 03/08/17 08:30 Intake and Output: 03/08/17 03/08/17 06:59 18:59 Output Total 316 Balance -316 - Medications Medications: Current Medications Albuterol/Ipratropium (Duoneb 3 Mg/0.5 Mg (3 Ml) Ud) 3 ml INH RQ6 [facility] Last Admin: 03/08/17 08:58 Dose: 3 ml Docusate Sodium (Colace) 100 mg PO BID [facility] Last Admin: 03/07/17 17:26 Dose: 100 mg Enoxaparin Sodium (Lovenox) 40 mg SC DAILY [facility] Last Admin: 03/07/17 09:27 Dose: 40 mg Famotidine (Pepcid) 20 mg PO DAILY [facility] Last Admin: 03/07/17 09:27 Dose: 20 mg Ferrous Sulfate (Feosol) 325 mg PO TID [facility] Last Admin: 03/07/17 17:26 Dose: 325 mg Metoprolol Tartrate (Lopressor) 50 mg PO BID [facility] Last Admin: 03/07/17 17:26 Dose: 50 mg Morphine Sulfate (Morphine) 2 mg IVP Q4 PRN PRN Reason: Pain, moderate (4-7) Last Admin: 03/07/17 18:42 Dose: 2 mg Ondansetron HCl (Zofran Inj) 4 mg IVP Q4 PRN PRN Reason: Nausea/Vomiting Promethazine HCl (Phenergan Syrup) 12.5 mg PO Q6 PRN PRN Reason: cough Last Admin: 03/07/17 17:27 Dose: 12.5 mg Rosuvastatin Calcium (Crestor) 10 mg PO HS [facility] Last Admin: 03/07/17 21:27 Dose: 10 mg - Labs Labs: 03/07/17 06:41 03/07/17 06:41 PT 13.3 SECONDS (9.7-12.2) H 02/25/17 18:17 INR 1.2 02/25/17 18:17 APTT 31 SECONDS (21-34) D 02/25/17 18:17 - Constitutional Appears: Non-toxic, No Acute Distress, Chronically Ill - Head Exam Head Exam: ATRAUMATIC, NORMAL INSPECTION - Eye Exam Eye Exam: EOMI, Normal appearance - Respiratory Exam Respiratory Exam: NORMAL BREATHING PATTERN. absent: Respiratory Distress Additional comments: Both Chest tubes in place on water seal Chest tube #1 (38F): 98cc serosanguinous output over past 24 hours Chest tube #2 (28F): 18cc serosanguinous output over past 24 hours - Cardiovascular Exam Cardiovascular Exam: +S1, +S2 - Neurological Exam Neurological Exam: Alert, Awake - Psychiatric Exam Psychiatric exam: Normal Affect, Normal Mood - Skin Skin Exam: Dry, Normal Color Assessment and Plan - Assessment and Plan (Free Text) Assessment: 71yo F with recurrent pleural effusion s/p Left VATS converted to thoracotomy, evacuation of pleural fluid, debridement of left lung cavity, decortication, insertion of chest tubes and PleurX catheter POD#6 - Afebrile, VSS - Switched to soft diet per pt request - PT - Both chest tubes remain on water seal - Chest tube #1 (38F): 98cc serosanguinous output over past 24 hours - Chest tube #2 (28F): 18cc serosanguinous output over past 24 hours - Continue daily CXRs - Possible tube removal Thu or - Discussed plan with Dr. Tad Cruz PGY-2
[2017-03-08] MEDS: Enoxaparin 40 mg Syringe SC SCH (09:39)
[2017-03-08] MEDS: Promethazine 12.5 mg/10 ml Syrup PO PRN (09:45)
--- NOTE | 2017-03-08 13:28 | RAD ---
HISTORY: chest tubes, pleural effusion COMPARISON: Comparison chest 03/07/2017 FINDINGS: LUNGS: Re- demonstrated are multiple left-sided chest tubes. Small residual left-sided pneumothorax not excluded Re- demonstrated are bilateral mid to lower lobe consolidation changes with bilateral effusions. Central pulmonary vasculature is slightly increased PLEURA: No significant pleural effusion identified, no pneumothorax apparent. CARDIOVASCULAR: Unchanged OSSEOUS STRUCTURES: No significant abnormalities. VISUALIZED UPPER ABDOMEN: Normal. OTHER FINDINGS: None. IMPRESSION: Re- demonstrated are multiple left-sided chest tubes. Small residual left-sided pneumothorax not excluded Re- demonstrated are bilateral mid to lower lobe consolidation changes with bilateral effusions. Central pulmonary vasculature is slightly increased .
--- NOTE | 2017-03-08 23:05 | CP.PCM.PN ---
Subjective - Date & Time of Evaluation Date of Evaluation: 03/07/17 Time of Evaluation: 09:52 - Subjective Subjective: Pt seen & evaluated at bedside, c/o mild pain from Left chest tubes, unchanged from previous days. She has a cough which she states is also unchanged. Objective - Vital Signs/Intake and Output Vital Signs (last 24 hours): Temp Pulse Resp BP Pulse Ox 98.8 F 90 22 162/80 H 100 03/08/17 16:05 03/08/17 16:22 03/08/17 16:05 03/08/17 16:05 03/08/17 16:05 Intake and Output: 03/08/17 03/09/17 18:59 06:59 Intake Total 150 Output Total 460 Balance -310 - Medications Medications: Current Medications Albuterol/Ipratropium (Duoneb 3 Mg/0.5 Mg (3 Ml) Ud) 3 ml INH RQ6 [facility] Last Admin: 03/08/17 20:11 Dose: 3 ml Docusate Sodium (Colace) 100 mg PO BID [facility] Last Admin: 03/08/17 18:03 Dose: 100 mg Enoxaparin Sodium (Lovenox) 40 mg SC DAILY [facility] Last Admin: 03/08/17 09:39 Dose: 40 mg Famotidine (Pepcid) 20 mg PO DAILY [facility] Last Admin: 03/08/17 09:39 Dose: 20 mg Ferrous Sulfate (Feosol) 325 mg PO TID [facility] Last Admin: 03/08/17 18:03 Dose: 325 mg Metoprolol Tartrate (Lopressor) 50 mg PO BID [facility] Last Admin: 03/08/17 18:03 Dose: 50 mg Morphine Sulfate (Morphine) 2 mg IVP Q4 PRN PRN Reason: Pain, moderate (4-7) Last Admin: 03/07/17 18:42 Dose: 2 mg Ondansetron HCl (Zofran Inj) 4 mg IVP Q4 PRN PRN Reason: Nausea/Vomiting Promethazine HCl (Phenergan Syrup) 12.5 mg PO Q6 PRN PRN Reason: cough Last Admin: 03/08/17 09:45 Dose: 12.5 mg Rosuvastatin Calcium (Crestor) 10 mg PO HS [facility] Last Admin: 03/08/17 21:29 Dose: 10 mg - Labs Labs: 03/07/17 06:41 03/07/17 06:41 PT 13.3 SECONDS (9.7-12.2) H 02/25/17 18:17 INR 1.2 02/25/17 18:17 APTT 31 SECONDS (21-34) D 02/25/17 18:17 - Constitutional Appears: No Acute Distress, Chronically Ill - Head Exam Head Exam: ATRAUMATIC, NORMAL INSPECTION, NORMOCEPHALIC - Eye Exam Eye Exam: EOMI, Normal appearance, PERRL Pupil Exam: NORMAL ACCOMODATION, PERRL - Respiratory Exam Respiratory Exam: Clear to Ausculation Bilateral, NORMAL BREATHING PATTERN - Cardiovascular Exam Cardiovascular Exam: REGULAR RHYTHM, +S1, +S2. absent: Murmur - GI/Abdominal Exam GI & Abdominal Exam: Soft, Normal Bowel Sounds. absent: Tenderness Assessment and Plan (1) Ascites, malignant Status: Acute (2) Diabetes mellitus Status: Chronic (3) Hypertension Status: Chronic (4) Ovarian cancer Status: Chronic (5) Pleural effusion due to another disorder Status: Acute (6) Shortness of breath Status: Acute
--- NOTE | 2017-03-08 23:10 | CP.PCM.PN ---
Subjective - Date & Time of Evaluation Date of Evaluation: 03/08/17 Time of Evaluation: 09:52 - Subjective Subjective: 71yo F seen and evaluated at bedside, with recurrent pleural effusion s/p Left VATS converted to thoracotomy, evacuation of pleural fluid, debridement of left lung cavity, decortication, insertion of chest tubes and PleurX catheter POD#6 - Afebrile, VSS - Switched to soft diet per pt request - PT - Both chest tubes remain on water seal - Chest tube #1 (38F): 98cc serosanguinous output over past 24 hours - Chest tube #2 (28F): 18cc serosanguinous output over past 24 hours - Continue daily CXRs Objective - Vital Signs/Intake and Output Vital Signs (last 24 hours): Temp Pulse Resp BP Pulse Ox 98.8 F 90 22 162/80 H 100 03/08/17 16:05 03/08/17 16:22 03/08/17 16:05 03/08/17 16:05 03/08/17 16:05 Intake and Output: 03/08/17 03/09/17 18:59 06:59 Intake Total 150 Output Total 460 70 Balance -310 -70 - Medications Medications: Current Medications Albuterol/Ipratropium (Duoneb 3 Mg/0.5 Mg (3 Ml) Ud) 3 ml INH RQ6 [facility] Last Admin: 03/08/17 20:11 Dose: 3 ml Docusate Sodium (Colace) 100 mg PO BID [facility] Last Admin: 03/08/17 18:03 Dose: 100 mg Enoxaparin Sodium (Lovenox) 40 mg SC DAILY [facility] Last Admin: 03/08/17 09:39 Dose: 40 mg Famotidine (Pepcid) 20 mg PO DAILY [facility] Last Admin: 03/08/17 09:39 Dose: 20 mg Ferrous Sulfate (Feosol) 325 mg PO TID [facility] Last Admin: 03/08/17 18:03 Dose: 325 mg Metoprolol Tartrate (Lopressor) 50 mg PO BID [facility] Last Admin: 03/08/17 18:03 Dose: 50 mg Morphine Sulfate (Morphine) 2 mg IVP Q4 PRN PRN Reason: Pain, moderate (4-7) Last Admin: 03/07/17 18:42 Dose: 2 mg Ondansetron HCl (Zofran Inj) 4 mg IVP Q4 PRN PRN Reason: Nausea/Vomiting Promethazine HCl (Phenergan Syrup) 12.5 mg PO Q6 PRN PRN Reason: cough Last Admin: 03/08/17 09:45 Dose: 12.5 mg Rosuvastatin Calcium (Crestor) 10 mg PO HS [facility] Last Admin: 03/08/17 21:29 Dose: 10 mg - Labs Labs: 03/07/17 06:41 03/07/17 06:41 PT 13.3 SECONDS (9.7-12.2) H 02/25/17 18:17 INR 1.2 02/25/17 18:17 APTT 31 SECONDS (21-34) D 02/25/17 18:17 - Constitutional Appears: No Acute Distress, Chronically Ill - Head Exam Head Exam: ATRAUMATIC, NORMAL INSPECTION, NORMOCEPHALIC - Eye Exam Eye Exam: EOMI, Normal appearance, PERRL Pupil Exam: NORMAL ACCOMODATION, PERRL - Cardiovascular Exam Cardiovascular Exam: REGULAR RHYTHM, +S1, +S2. absent: Murmur - GI/Abdominal Exam GI & Abdominal Exam: Soft, Normal Bowel Sounds. absent: Tenderness Assessment and Plan (1) Ascites, malignant Status: Acute (2) Diabetes mellitus Status: Chronic (3) Hypertension Status: Chronic (4) Ovarian cancer Status: Chronic (5) Pleural effusion due to another disorder Status: Acute (6) Shortness of breath Status: Acute
[2017-03-09] MEDS: Albuterol-Ipratrop 3 mg / 0.5 (3 ml) UD INH SCH ×4 (01:45→19:56)
--- NOTE | 2017-03-09 08:48 | RAD ---
HISTORY: chest tubes, pleural effusion COMPARISON: 03/08/2017 FINDINGS: LUNGS: Lines and tubes in stable position. Persistent loculated bilateral pleural effusions. Persistent ill-defined consolidative changes seen at the lateral aspect of the left mid to lower lung zone with more focal consolidative changes seen within the right lower lung zone. Bilateral hilar prominence. Upper lobe granulomatous changes. Scattered nodularity throughout both lungs. . PLEURA: As above. CARDIOVASCULAR: Normal. OSSEOUS STRUCTURES: No significant abnormalities. VISUALIZED UPPER ABDOMEN: Normal. OTHER FINDINGS: None. IMPRESSION: Lines and tubes in stable position. Persistent loculated bilateral pleural effusions. Persistent ill-defined consolidative changes seen at the lateral aspect of the left mid to lower lung zone with more focal consolidative changes seen within the right lower lung zone. Bilateral hilar prominence. Upper lobe granulomatous changes. Scattered nodularity throughout both lungs. .
--- NOTE | 2017-03-09 09:57 | CP.PCM.PN ---
Subjective - Date & Time of Evaluation Date of Evaluation: 03/09/17 Time of Evaluation: 07:30 - Subjective Subjective: Patient seen and examined. Sitting comfortably in no acute distress but complaining of slight chest discomfort Chest tube in place draining fluids Afebrile Denies shortness of breath Objective - Vital Signs/Intake and Output Vital Signs (last 24 hours): Temp Pulse Resp BP Pulse Ox 97.9 F 90 18 151/88 H 97 03/09/17 08:56 03/09/17 08:56 03/09/17 08:56 03/09/17 08:56 03/09/17 08:56 Intake and Output: 03/09/17 03/09/17 06:59 18:59 Output Total 70 30 Balance -70 -30 - Medications Medications: Current Medications Albuterol/Ipratropium (Duoneb 3 Mg/0.5 Mg (3 Ml) Ud) 3 ml INH RQ6 [facility] Last Admin: 03/09/17 09:21 Dose: Not Given Docusate Sodium (Colace) 100 mg PO BID [facility] Last Admin: 03/08/17 18:03 Dose: 100 mg Enoxaparin Sodium (Lovenox) 40 mg SC DAILY [facility] Last Admin: 03/08/17 09:39 Dose: 40 mg Famotidine (Pepcid) 20 mg PO DAILY [facility] Last Admin: 03/08/17 09:39 Dose: 20 mg Ferrous Sulfate (Feosol) 325 mg PO TID [facility] Last Admin: 03/08/17 18:03 Dose: 325 mg Losartan Potassium (Cozaar) 50 mg PO DAILY [facility] Metoprolol Tartrate (Lopressor) 50 mg PO BID [facility] Last Admin: 03/08/17 18:03 Dose: 50 mg Morphine Sulfate (Morphine) 2 mg IVP Q4 PRN PRN Reason: Pain, moderate (4-7) Last Admin: 03/07/17 18:42 Dose: 2 mg Ondansetron HCl (Zofran Inj) 4 mg IVP Q4 PRN PRN Reason: Nausea/Vomiting Promethazine HCl (Phenergan Syrup) 12.5 mg PO Q6 PRN PRN Reason: cough Last Admin: 03/08/17 09:45 Dose: 12.5 mg Rosuvastatin Calcium (Crestor) 10 mg PO [facility] Last Admin: 04/23/17 21:29 Dose: 10 mg - Labs Labs: 03/07/17 06:41 03/07/17 06:41 PT 13.3 SECONDS (9.7-12.2) H 02/25/17 18:17 INR 1.2 02/25/17 18:17 APTT 31 SECONDS (21-34) D 02/25/17 18:17 - Head Exam Head Exam: ATRAUMATIC, NORMOCEPHALIC - Eye Exam Eye Exam: Normal appearance - ENT Exam ENT Exam: Mucous Membranes Moist - Neck Exam Neck Exam: Normal Inspection - Respiratory Exam Respiratory Exam: Decreased Breath Sounds - Cardiovascular Exam Cardiovascular Exam: REGULAR RHYTHM - GI/Abdominal Exam GI & Abdominal Exam: Soft, Normal Bowel Sounds - Extremities Exam Extremities Exam: Normal Inspection - Neurological Exam Neurological Exam: Alert, Oriented x3 Assessment and Plan (1) Malignant pleural effusion Assessment & Plan: Status post chest tube insertion and drainage Chest tube management as per surgery Continue nebulizer treatment and pain medication Status: Acute (2) Shortness of breath Status: Acute (3) Ascites, malignant Status: Acute (4) Ovarian cancer Status: Chronic
[2017-03-09] MEDS: Enoxaparin 40 mg Syringe SC SCH (10:58)
--- NOTE | 2017-03-09 11:06 | CT ---
PROCEDURE: CT Chest without contrast HISTORY: L pleural effusion. chest tubes PleurX catheter COMPARISON: Comparison is made to the previous study dated 02/27/2016 TECHNIQUE: Contiguous axial images were obtained through the chest without intravenous contrast enhancement. Sagittal and coronal reconstructions were performed. Radiation dose (DLP): 289.46 mGy-cm. This CT exam was performed using one or more of the following dose reduction techniques: Automated exposure control, adjustment of the mA and/or kV according to patient size, and/or use of iterative reconstruction technique. FINDINGS: LUNGS: Interval improvement and partial re-expansion of the left lung lower lobe compared to the previous exam. No significant interval change in the right lung since the previous study. MEDIASTINUM: The thoracic aorta is mildly ectatic and tortuous. The heart is mildly enlarged. Main pulmonary artery is mildly enlarged. Mild mediastinal and hilar lymphadenopathy are again seen. PLEURA: Interval insertion of 2 chest the tubes at the left dural cavity since the previous exam. Interval decrease in the size of the left pleural effusion. Interval appearance of localized pneumothorax and air-fluid level at the mid to lower left chest cavity since the previous exam. Foci of pleural thickening seen on the left chest. Persistent moderate to large right pleural effusion. BONES: No fracture. No destructive lesion. UPPER ABDOMEN: There is localized fluid collections seen at the right subdiaphragmatic region anterior to the liver dome again noted may represent loculated ascites versus abscess formation. There is also partially imaged fluid collection at the right upper abdomen anterior to the right liver lobe. OTHER FINDINGS: Right-sided Port-A-Cath is seen in place. IMPRESSION: Interval insertion of 2 left chest tubes since the previous exam. Interval decrease in the size of the left pleural effusion since the previous study. Small amount of localized pneumothorax at the mid and lower left chest cavity associated with air-fluid level. Moderate to large right pleural effusion. Interval improvement in the lungs since the previous study. Two localized fluid collections at the right upper abdomen. If indicated dedicated CT of the abdomen may be obtained.
--- NOTE | 2017-03-09 16:21 | CP.PCM.PN ---
Subjective - Date & Time of Evaluation Date of Evaluation: 03/09/17 Time of Evaluation: 07:00 - Subjective Subjective: THORACIC SURGERY PROGRESS NOTE FOR DR. BUCKLEY Patient seen and examined at bedside. She is feeling well, tolerating her diet, and denies SOB. Chest tubes remain in place on water seal. Objective - Vital Signs/Intake and Output Vital Signs (last 24 hours): Temp Pulse Resp BP Pulse Ox 98.5 F 90 20 139/77 96 03/09/17 15:35 03/09/17 16:00 03/09/17 15:35 03/09/17 15:35 03/09/17 15:35 Intake and Output: 03/09/17 03/09/17 06:59 18:59 Output Total 70 30 Balance -70 -30 - Medications Medications: Current Medications Albuterol/Ipratropium (Duoneb 3 Mg/0.5 Mg (3 Ml) Ud) 3 ml INH RQ6 [facility] Last Admin: 03/09/17 14:05 Dose: 3 ml Docusate Sodium (Colace) 100 mg PO BID [facility] Last Admin: 03/09/17 10:59 Dose: 100 mg Enoxaparin Sodium (Lovenox) 40 mg SC DAILY [facility] Last Admin: 03/09/17 10:58 Dose: 40 mg Famotidine (Pepcid) 20 mg PO DAILY [facility] Last Admin: 03/09/17 10:59 Dose: 20 mg Ferrous Sulfate (Feosol) 325 mg PO TID [facility] Last Admin: 03/09/17 13:39 Dose: 325 mg Losartan Potassium (Cozaar) 50 mg PO DAILY [facility] Last Admin: 03/09/17 11:01 Dose: 50 mg Metoprolol Tartrate (Lopressor) 50 mg PO BID [facility] Last Admin: 03/09/17 10:59 Dose: 50 mg Morphine Sulfate (Morphine) 2 mg IVP Q4 PRN PRN Reason: Pain, moderate (4-7) Last Admin: 03/07/17 18:42 Dose: 2 mg Ondansetron HCl (Zofran Inj) 4 mg IVP Q4 PRN PRN Reason: Nausea/Vomiting Promethazine HCl (Phenergan Syrup) 12.5 mg PO Q6 PRN PRN Reason: cough Last Admin: 03/08/17 09:45 Dose: 12.5 mg Rosuvastatin Calcium (Crestor) 10 mg PO HS [facility] Last Admin: 03/08/17 21:29 Dose: 10 mg - Labs Labs: 03/07/17 06:41 03/07/17 06:41 PT 13.3 SECONDS (9.7-12.2) H 02/25/17 18:17 INR 1.2 02/25/17 18:17 APTT 31 SECONDS (21-34) D 02/25/17 18:17 - Constitutional Appears: Non-toxic, No Acute Distress, Chronically Ill - Respiratory Exam Respiratory Exam: NORMAL BREATHING PATTERN. absent: Respiratory Distress Additional comments: Both Chest tubes in place on water seal Chest tube #1 (38F): 204cc serosanguinous output over past 24 hours Chest tube #2 (28F): 58cc serosanguinous output over past 24 hours (air leak present) - Cardiovascular Exam Cardiovascular Exam: +S1, +S2 - Neurological Exam Neurological Exam: Alert, Awake, Oriented x3 - Psychiatric Exam Psychiatric exam: Normal Affect, Normal Mood - Skin Skin Exam: Dry, Normal Color, Warm Assessment and Plan - Assessment and Plan (Free Text) Assessment: 71yo F with recurrent pleural effusion s/p Left VATS converted to thoracotomy, evacuation of pleural fluid, debridement of left lung cavity, decortication, insertion of chest tubes and PleurX catheter POD#7 - Afebrile, VSS - Switched to soft diet per pt request - PT - Both chest tubes remain on water seal - Chest tube #1 (38F): 204cc serosanguinous output over past 24 hours - Chest tube #2 (28F): 58cc serosanguinous output over past 24 hours (air leak) - Continue daily CXRs - CT Chest: decrease in left pleural effusion since previous CT, small amount of localized pneumothorax at mid and lower left chest cavity associated with air fluid level; moderate to large right pleural effusion - 38F tube clamped - Possible 38F tube removal tomorrow - Scheduled for OR Thursday to place chest tube on right side due to large pleural effusion on right - Discussed plan with Dr. Tad Cruz PGY-2
--- NOTE | 2017-03-10 00:27 | CP.PCM.PN ---
Subjective - Date & Time of Evaluation Date of Evaluation: 03/09/17 Time of Evaluation: 09:55 - Subjective Subjective: Patient seen and examined at bedside. She is feeling well, tolerating her diet, and denies SOB. Chest tubes remain in place on water seal. Objective - Vital Signs/Intake and Output Vital Signs (last 24 hours): Temp Pulse Resp BP Pulse Ox 98.5 F 90 20 139/77 96 03/09/17 15:35 03/09/17 16:00 03/09/17 15:35 03/09/17 15:35 03/09/17 15:35 Intake and Output: 03/09/17 03/10/17 18:59 06:59 Output Total 30 10 Balance -30 -10 - Medications Medications: Current Medications Albuterol/Ipratropium (Duoneb 3 Mg/0.5 Mg (3 Ml) Ud) 3 ml INH RQ6 [facility] Last Admin: 03/09/17 19:56 Dose: 3 ml Docusate Sodium (Colace) 100 mg PO BID [facility] Last Admin: 03/09/17 17:50 Dose: 100 mg Enoxaparin Sodium (Lovenox) 40 mg SC DAILY [facility] Last Admin: 03/09/17 10:58 Dose: 40 mg Famotidine (Pepcid) 20 mg PO DAILY [facility] Last Admin: 03/09/17 10:59 Dose: 20 mg Ferrous Sulfate (Feosol) 325 mg PO TID [facility] Last Admin: 03/09/17 17:51 Dose: 325 mg Losartan Potassium (Cozaar) 50 mg PO DAILY [facility] Last Admin: 03/09/17 11:01 Dose: 50 mg Metoprolol Tartrate (Lopressor) 50 mg PO BID [facility] Last Admin: 03/09/17 17:51 Dose: 50 mg Morphine Sulfate (Morphine) 2 mg IVP Q4 PRN PRN Reason: Pain, moderate (4-7) Last Admin: 03/07/17 18:42 Dose: 2 mg Ondansetron HCl (Zofran Inj) 4 mg IVP Q4 PRN PRN Reason: Nausea/Vomiting Promethazine HCl (Phenergan Syrup) 12.5 mg PO Q6 PRN PRN Reason: cough Last Admin: 03/08/17 09:45 Dose: 12.5 mg Rosuvastatin Calcium (Crestor) 10 mg PO HS [facility] Last Admin: 03/09/17 21:34 Dose: 10 mg - Labs Labs: 03/07/17 06:41 03/07/17 06:41 PT 13.3 SECONDS (9.7-12.2) H 02/25/17 18:17 INR 1.2 02/25/17 18:17 APTT 31 SECONDS (21-34) D 02/25/17 18:17 - Constitutional Appears: No Acute Distress, Chronically Ill - Head Exam Head Exam: ATRAUMATIC, NORMAL INSPECTION, NORMOCEPHALIC - Eye Exam Eye Exam: EOMI, Normal appearance, PERRL Pupil Exam: NORMAL ACCOMODATION, PERRL - Respiratory Exam Respiratory Exam: Clear to Ausculation Bilateral, NORMAL BREATHING PATTERN - Cardiovascular Exam Cardiovascular Exam: REGULAR RHYTHM, +S1, +S2. absent: Murmur - GI/Abdominal Exam GI & Abdominal Exam: Soft, Normal Bowel Sounds. absent: Tenderness Assessment and Plan (1) Ascites, malignant Status: Acute (2) Diabetes mellitus Status: Chronic (3) Hypertension Status: Chronic (4) Ovarian cancer Status: Chronic (5) Pleural effusion due to another disorder Status: Acute (6) Shortness of breath Status: Acute
[2017-03-10] MEDS: Albuterol-Ipratrop 3 mg / 0.5 (3 ml) UD INH SCH ×4 (01:11→19:44)
[2017-03-10 06:23] LABS: BLOOD UREA NITROGEN 13 mg/dL (7-17); CALCIUM 8.5 mg/dl (8.6-10.4); CARBON DIOXIDE 32 mmol/L (22-30); CHLORIDE 97 mmol/L (98-107); GFR AFRICAN-AMERICAN > 60; GLUCOSE,RANDOM 97 mg/dL (65-105); POTASSIUM 3.7 mmol/L (3.6-5.2); SODIUM 135 mmol/L (132-148)
[2017-03-10 07:31] LABS: BASO % 0.7 % (0.0-2.0); EOS # 0.1 K/uL (0.0-0.7); EOS % 1.9 % (0.0-4.0); HEMATOCRIT 28.6 % (34.0-47.0); LYMPH # 1.5 K/uL (1.0-4.3); LYMPH % 30.4 % (20.0-40.0); MEAN CELL VOLUME 81.9 fL (81.0-99.0); MEAN CORPUSCULAR HEMOGLOBIN 25.4 pg (27.0-31.0); MEAN PLATELET VOLUME 8.6 fL (7.2-11.7); MONO # 0.4 K/uL (0.0-0.8); MONO % 8.1 % (0.0-10.0); NRBC % 0.1 % (0.0-2.0); RED CELL DISTRIBUTION WIDTH 16.6 % (11.5-14.5); WHITE BLOOD COUNT 5.1 K/uL (4.8-10.8)
[2017-03-10] MEDS: Enoxaparin 40 mg Syringe SC SCH (09:56)
--- NOTE | 2017-03-10 10:24 | RAD ---
HISTORY: chest tubes, pleural effusion COMPARISON: 03/09/2017 FINDINGS: LUNGS: Lines and tubes in stable position. Persistent moderate loculated left hydro pneumothorax. Persistent moderate right sided loculated pleural effusion. Biapical pleural thickening with upper lobe granulomatous changes. Persistent confluent consolidative changes in the left mid to lower lung zone as well as the right hilar region and right lung base. PLEURA: As above. CARDIOVASCULAR: Cardiomegaly. Calcification at the aortic knob. OSSEOUS STRUCTURES: Degenerative changes in the spine and shoulders. VISUALIZED UPPER ABDOMEN: Normal. OTHER FINDINGS: None. IMPRESSION: Lines and tubes in stable position. Persistent moderate loculated left hydro pneumothorax. Persistent moderate right sided loculated pleural effusion. Biapical pleural thickening with upper lobe granulomatous changes. Persistent confluent consolidative changes in the left mid to lower lung zone as well as the right hilar region and right lung base.
--- NOTE | 2017-03-10 11:18 | CP.PCM.PN ---
Subjective - Date & Time of Evaluation Date of Evaluation: 03/10/17 Time of Evaluation: 07:00 - Subjective Subjective: THORACIC SURGERY PROGRESS NOTE FOR DR. BUCKLEY Patient seen and examined at bedside. She is feeling well and currently denies SOB but had some this morning. She has some cough but no sputum production. She denies pain with inspiration. She reports some difficulty swallowing. Chest tubes remain in place on water seal and the 38F tube was clamped yesterday. Objective - Vital Signs/Intake and Output Vital Signs (last 24 hours): Temp Pulse Resp BP Pulse Ox 97.9 F 108 H 18 158/84 H 100 03/10/17 08:37 03/10/17 09:55 03/10/17 08:37 03/10/17 09:55 03/10/17 08:37 Intake and Output: 03/10/17 03/10/17 06:59 18:59 Output Total 10 Balance -10 - Medications Medications: Current Medications Albuterol/Ipratropium (Duoneb 3 Mg/0.5 Mg (3 Ml) Ud) 3 ml INH RQ6 [facility] Last Admin: 03/10/17 07:38 Dose: 3 ml Docusate Sodium (Colace) 100 mg PO BID [facility] Last Admin: 03/10/17 09:56 Dose: 100 mg Enoxaparin Sodium (Lovenox) 40 mg SC DAILY [facility] Last Admin: 03/10/17 09:56 Dose: 40 mg Famotidine (Pepcid) 20 mg PO DAILY [facility] Last Admin: 03/10/17 09:56 Dose: 20 mg Ferrous Sulfate (Feosol) 325 mg PO TID [facility] Last Admin: 03/10/17 09:56 Dose: 325 mg Losartan Potassium (Cozaar) 50 mg PO DAILY [facility] Last Admin: 03/10/17 09:56 Dose: 50 mg Metoprolol Tartrate (Lopressor) 50 mg PO BID [facility] Last Admin: 03/10/17 09:56 Dose: 50 mg Morphine Sulfate (Morphine) 2 mg IVP Q4 PRN PRN Reason: Pain, moderate (4-7) Last Admin: 03/07/17 18:42 Dose: 2 mg Ondansetron HCl (Zofran Inj) 4 mg IVP Q4 PRN PRN Reason: Nausea/Vomiting Promethazine HCl (Phenergan Syrup) 12.5 mg PO Q6 PRN PRN Reason: cough Last Admin: 03/08/17 09:45 Dose: 12.5 mg Rosuvastatin Calcium (Crestor) 10 mg PO HS [facility] Last Admin: 03/09/17 21:34 Dose: 10 mg - Labs Labs: 03/10/17 06:30 03/10/17 06:47 PT 13.3 SECONDS (9.7-12.2) H 02/25/17 18:17 INR 1.2 02/25/17 18:17 APTT 31 SECONDS (21-34) D 02/25/17 18:17 - Constitutional Appears: Non-toxic, No Acute Distress, Chronically Ill - Respiratory Exam Respiratory Exam: NORMAL BREATHING PATTERN. absent: Respiratory Distress Additional comments: Both Chest tubes in place on water seal , Chest tube #1 clamped Chest tube #1 (38F): 50cc serosanguinous output over past 24 hours (the output before the tube was clamped) Chest tube #2 (28F): 35cc serosanguinous output over past 24 hours (air leak present) - Cardiovascular Exam Cardiovascular Exam: +S1, +S2 - Neurological Exam Neurological Exam: Alert, Awake - Psychiatric Exam Psychiatric exam: Normal Affect, Normal Mood - Skin Skin Exam: Dry, Normal Color, Warm Assessment and Plan - Assessment and Plan (Free Text) Assessment: 71yo F with recurrent pleural effusion s/p Left VATS converted to thoracotomy, evacuation of pleural fluid, debridement of left lung cavity, decortication, insertion of chest tubes and PleurX catheter POD#8 - Afebrile, VSS - On dysphagia diet, patient still complains of some difficulty swallowing, swallow eval done, changed diet to Pureed with thin liquids as per recommendations - PT - 38F tube clamped yesterday - Both Chest tubes in place on water seal, Chest tube #1 clamped - Chest tube #1 (38F): 50cc serosanguinous output over past 24 hours (the output before the tube was clamped) - Chest tube #2 (28F): 35cc serosanguinous output over past 24 hours (air leak present) - Continue daily CXRs - Removed chest tube #1 (38F) at bedside - Did trial of pleurX catheter which was able to adequately drain fluid - Cancelled plans for OR tomorrow as CXR shows improvement today - Discussed plan with Dr. Tad Cruz PGY-2
--- NOTE | 2017-03-10 14:32 | CP.PCM.PN ---
Subjective - Date & Time of Evaluation Date of Evaluation: 03/10/17 Time of Evaluation: 14:27 - Subjective Subjective: Pt s/e. Mangement plan discussed with residents on rounds today. Effusion removed via pleurex drainge system(serosanguinous)-200cc. 32f tube removed. Small air leak via 28f chest tube. Will connect to Heimlich valve tomorrow provided significant air leak present, and make d/c plan. Objective - Vital Signs/Intake and Output Vital Signs (last 24 hours): Temp Pulse Resp BP Pulse Ox 97.9 F 108 H 18 158/84 H 100 03/10/17 08:37 03/10/17 09:55 03/10/17 08:37 03/10/17 09:55 03/10/17 08:37 Intake and Output: 03/10/17 03/10/17 06:59 18:59 Output Total 10 Balance -10 - Medications Medications: Current Medications Albuterol/Ipratropium (Duoneb 3 Mg/0.5 Mg (3 Ml) Ud) 3 ml INH RQ6 [facility] Last Admin: 03/10/17 13:28 Dose: Not Given Docusate Sodium (Colace) 100 mg PO BID [facility] Last Admin: 03/10/17 09:56 Dose: 100 mg Enoxaparin Sodium (Lovenox) 40 mg SC DAILY [facility] Last Admin: 03/10/17 09:56 Dose: 40 mg Famotidine (Pepcid) 20 mg PO DAILY [facility] Last Admin: 03/10/17 09:56 Dose: 20 mg Ferrous Sulfate (Feosol) 325 mg PO TID [facility] Last Admin: 03/10/17 09:56 Dose: 325 mg Losartan Potassium (Cozaar) 50 mg PO DAILY [facility] Last Admin: 03/10/17 09:56 Dose: 50 mg Metoprolol Tartrate (Lopressor) 50 mg PO BID [facility] Last Admin: 03/10/17 09:56 Dose: 50 mg Morphine Sulfate (Morphine) 2 mg IVP Q4 PRN PRN Reason: Pain, moderate (4-7) Last Admin: 03/07/17 18:42 Dose: 2 mg Ondansetron HCl (Zofran Inj) 4 mg IVP Q4 PRN PRN Reason: Nausea/Vomiting Promethazine HCl (Phenergan Syrup) 12.5 mg PO Q6 PRN PRN Reason: cough Last Admin: 03/08/17 09:45 Dose: 12.5 mg Rosuvastatin Calcium (Crestor) 10 mg PO HS [facility] Last Admin: 03/09/17 21:34 Dose: 10 mg - Labs Labs: 03/10/17 06:30 03/10/17 06:47 PT 13.3 SECONDS (9.7-12.2) H 02/25/17 18:17 INR 1.2 02/25/17 18:17 APTT 31 SECONDS (21-34) D 02/25/17 18:17
--- NOTE | 2017-03-10 15:20 | RAD ---
HISTORY: chest tube removal, one remains COMPARISON: Plain radiographs performed earlier the same day FINDINGS: The right MediPort terminates in the SVC. There is stable position of the left lower chest tube. The left upper chest tube has been removed. LUNGS: No active pulmonary disease. PLEURA: There is a moderate right pleural effusion. There is a persistent left pleural effusion. Question of small left apical pneumothorax. CARDIOVASCULAR: Normal. OSSEOUS STRUCTURES: No significant abnormalities. VISUALIZED UPPER ABDOMEN: Normal. OTHER FINDINGS: None. IMPRESSION: Interval removal of left upper chest tube. Small left pleural effusion and question of small apical pneumothorax. Moderate right pleural effusion.
--- NOTE | 2017-03-10 16:15 | CP.PCM.PN ---
Subjective - Date & Time of Evaluation Date of Evaluation: 03/10/17 Time of Evaluation: 16:00 - Subjective Subjective: Patient seen and examined.. Sitting comfortably in no acute distress 1 chest tube removed Continue with 2 chest tube with some airleak Objective - Vital Signs/Intake and Output Vital Signs (last 24 hours): Temp Pulse Resp BP Pulse Ox 97.3 F L 89 20 158/81 H 97 03/10/17 16:00 03/10/17 16:00 03/10/17 16:00 03/10/17 16:00 03/10/17 16:00 Intake and Output: 03/10/17 03/10/17 06:59 18:59 Intake Total 400 Output Total 10 225 Balance -10 175 - Medications Medications: Current Medications Albuterol/Ipratropium (Duoneb 3 Mg/0.5 Mg (3 Ml) Ud) 3 ml INH RQ6 [facility] Last Admin: 03/10/17 13:28 Dose: Not Given Docusate Sodium (Colace) 100 mg PO BID [facility] Last Admin: 03/10/17 09:56 Dose: 100 mg Enoxaparin Sodium (Lovenox) 40 mg SC DAILY [facility] Last Admin: 03/10/17 09:56 Dose: 40 mg Famotidine (Pepcid) 20 mg PO DAILY [facility] Last Admin: 03/10/17 09:56 Dose: 20 mg Ferrous Sulfate (Feosol) 325 mg PO TID [facility] Last Admin: 03/10/17 14:29 Dose: 325 mg Losartan Potassium (Cozaar) 50 mg PO DAILY [facility] Last Admin: 03/10/17 09:56 Dose: 50 mg Metoprolol Tartrate (Lopressor) 50 mg PO BID [facility] Last Admin: 03/10/17 09:56 Dose: 50 mg Morphine Sulfate (Morphine) 2 mg IVP Q4 PRN PRN Reason: Pain, moderate (4-7) Last Admin: 03/07/17 18:42 Dose: 2 mg Ondansetron HCl (Zofran Inj) 4 mg IVP Q4 PRN PRN Reason: Nausea/Vomiting Promethazine HCl (Phenergan Syrup) 12.5 mg PO Q6 PRN PRN Reason: cough Last Admin: 03/08/17 09:45 Dose: 12.5 mg Rosuvastatin Calcium (Crestor) 10 mg PO [facility] Last Admin: 03/09/17 21:34 Dose: 10 mg - Labs Labs: 03/10/17 06:30 03/10/17 06:47 PT 13.3 SECONDS (9.7-12.2) H 02/25/17 18:17 INR 1.2 02/25/17 18:17 APTT 31 SECONDS (21-34) D 02/25/17 18:17 - Head Exam Head Exam: ATRAUMATIC, NORMOCEPHALIC - ENT Exam ENT Exam: Mucous Membranes Moist - Neck Exam Neck Exam: Normal Inspection - Respiratory Exam Respiratory Exam: Decreased Breath Sounds - Cardiovascular Exam Cardiovascular Exam: REGULAR RHYTHM - GI/Abdominal Exam GI & Abdominal Exam: Soft, Normal Bowel Sounds Assessment and Plan (1) Malignant pleural effusion Assessment & Plan: Status post chest tube insertion by thoracic Today one chest tube removed and the second kept Because of air leak Pleurix catheter to be inserted for drainage off pleural effusion Status: Acute (2) Ascites, malignant Status: Acute (3) Ovarian cancer Status: Chronic (4) Shortness of breath Status: Acute
[2017-03-10] MEDS: Promethazine 12.5 mg/10 ml Syrup PO PRN (20:22)
--- NOTE | 2017-03-11 01:20 | CP.PCM.PN ---
Subjective - Date & Time of Evaluation Date of Evaluation: 03/10/17 Time of Evaluation: 09:56 - Subjective Subjective: Patient seen and examined.. Sitting comfortably in no acute distress 1 chest tube removed and a Pleurx catheter placed Continue with 2 chest tube with some airleak Objective - Vital Signs/Intake and Output Vital Signs (last 24 hours): Temp Pulse Resp BP Pulse Ox 97.3 F L 96 H 20 158/81 H 89 L 03/10/17 16:00 03/11/17 00:54 03/10/17 16:00 03/10/17 16:00 03/10/17 16:36 Intake and Output: 03/10/17 03/11/17 18:59 06:59 Intake Total 400 Output Total 225 Balance 175 - Medications Medications: Current Medications Albuterol/Ipratropium (Duoneb 3 Mg/0.5 Mg (3 Ml) Ud) 3 ml INH RQ6 [facility] Last Admin: 03/10/17 19:44 Dose: 3 ml Docusate Sodium (Colace) 100 mg PO BID [facility] Last Admin: 03/10/17 18:17 Dose: 100 mg Enoxaparin Sodium (Lovenox) 40 mg SC DAILY [facility] Last Admin: 03/10/17 09:56 Dose: 40 mg Famotidine (Pepcid) 20 mg PO DAILY [facility] Last Admin: 03/10/17 09:56 Dose: 20 mg Ferrous Sulfate (Feosol) 325 mg PO TID [facility] Last Admin: 03/10/17 18:17 Dose: 325 mg Losartan Potassium (Cozaar) 50 mg PO DAILY [facility] Last Admin: 03/10/17 09:56 Dose: 50 mg Metoprolol Tartrate (Lopressor) 50 mg PO BID [facility] Last Admin: 03/10/17 18:17 Dose: 50 mg Morphine Sulfate (Morphine) 2 mg IVP Q4 PRN PRN Reason: Pain, moderate (4-7) Last Admin: 03/07/17 18:42 Dose: 2 mg Ondansetron HCl (Zofran Inj) 4 mg IVP Q4 PRN PRN Reason: Nausea/Vomiting Promethazine HCl (Phenergan Syrup) 12.5 mg PO Q6 PRN PRN Reason: cough Last Admin: 03/10/17 20:22 Dose: 12.5 mg Rosuvastatin Calcium (Crestor) 10 mg PO HS [facility] Last Admin: 03/10/17 21:52 Dose: 10 mg - Labs Labs: 03/10/17 06:30 03/10/17 06:47 PT 13.3 SECONDS (9.7-12.2) H 02/25/17 18:17 INR 1.2 02/25/17 18:17 APTT 31 SECONDS (21-34) D 02/25/17 18:17 - Constitutional Appears: No Acute Distress - Head Exam Head Exam: ATRAUMATIC, NORMAL INSPECTION, NORMOCEPHALIC - Eye Exam Eye Exam: EOMI, Normal appearance, PERRL Pupil Exam: NORMAL ACCOMODATION, PERRL - Neck Exam Neck Exam: Full ROM, Normal Inspection. absent: Lymphadenopathy - Respiratory Exam Respiratory Exam: Clear to Ausculation Bilateral, NORMAL BREATHING PATTERN - Cardiovascular Exam Cardiovascular Exam: REGULAR RHYTHM, +S1, +S2. absent: Murmur - GI/Abdominal Exam GI & Abdominal Exam: Soft, Normal Bowel Sounds. absent: Tenderness Assessment and Plan (1) Ascites, malignant Status: Acute (2) Diabetes mellitus Status: Chronic (3) Hypertension Status: Chronic (4) Ovarian cancer Status: Chronic (5) Pleural effusion due to another disorder Status: Acute (6) Shortness of breath Status: Acute
[2017-03-11] MEDS: Albuterol-Ipratrop 3 mg / 0.5 (3 ml) UD INH SCH ×4 (01:46→19:55)
--- NOTE | 2017-03-11 08:27 | RAD ---
HISTORY: chest tubes, pleural effusion COMPARISON: 03/10/2017 FINDINGS: LUNGS: Right chest wall port with tip extending to the cavoatrial junction. Other lines and tubes in stable position. Moderate loculated bilateral pleural effusions. Biapical pleural thickening with upper lobe granulomatous changes. Prominent somewhat ill-defined consolidative changes in the mid to lower lung zones bilaterally. PLEURA: As above. CARDIOVASCULAR: Normal. OSSEOUS STRUCTURES: Degenerative changes in the spine and shoulders. VISUALIZED UPPER ABDOMEN: Normal. OTHER FINDINGS: None. IMPRESSION: No significant interval change.
[2017-03-11] MEDS: Enoxaparin 40 mg Syringe SC SCH (09:09)
--- NOTE | 2017-03-11 17:30 | CP.PCM.PN ---
Subjective - Date & Time of Evaluation Date of Evaluation: 03/11/17 Time of Evaluation: 11:00 - Subjective Subjective: Patient seen and examined. Lying comfortably in no acute distress 1 chest tube still draining fluid with persistent air leak Objective - Vital Signs/Intake and Output Vital Signs (last 24 hours): Temp Pulse Resp BP Pulse Ox 98.7 F 85 20 163/83 H 96 03/11/17 16:23 03/11/17 16:23 03/11/17 16:23 03/11/17 16:23 03/11/17 16:23 Intake and Output: 03/11/17 03/11/17 06:59 18:59 Intake Total 600 500 Output Total 50 160 Balance 550 340 - Medications Medications: Current Medications Albuterol/Ipratropium (Duoneb 3 Mg/0.5 Mg (3 Ml) Ud) 3 ml INH RQ6 [facility] Last Admin: 03/11/17 13:55 Dose: 3 ml Docusate Sodium (Colace) 100 mg PO BID [facility] Last Admin: 03/11/17 09:09 Dose: 100 mg Enoxaparin Sodium (Lovenox) 40 mg SC DAILY [facility] Last Admin: 03/11/17 09:09 Dose: 40 mg Famotidine (Pepcid) 20 mg PO DAILY [facility] Last Admin: 03/11/17 09:09 Dose: 20 mg Ferrous Sulfate (Feosol) 325 mg PO TID [facility] Last Admin: 03/11/17 13:34 Dose: 325 mg Losartan Potassium (Cozaar) 50 mg PO DAILY [facility] Last Admin: 03/11/17 09:09 Dose: 50 mg Metoprolol Tartrate (Lopressor) 50 mg PO BID [facility] Last Admin: 03/11/17 09:09 Dose: 50 mg Morphine Sulfate (Morphine) 2 mg IVP Q4 PRN PRN Reason: Pain, moderate (4-7) Last Admin: 03/07/17 18:42 Dose: 2 mg Ondansetron HCl (Zofran Inj) 4 mg IVP Q4 PRN PRN Reason: Nausea/Vomiting Promethazine HCl (Phenergan Syrup) 12.5 mg PO Q6 PRN PRN Reason: cough Last Admin: 03/10/17 20:22 Dose: 12.5 mg Rosuvastatin Calcium (Crestor) 10 mg PO HS [facility] Last Admin: 03/10/17 21:52 Dose: 10 mg - Labs Labs: 03/10/17 06:30 03/10/17 06:47 PT 13.3 SECONDS (9.7-12.2) H 02/25/17 18:17 INR 1.2 02/25/17 18:17 APTT 31 SECONDS (21-34) D 02/25/17 18:17 - Constitutional Appears: No Acute Distress - Head Exam Head Exam: ATRAUMATIC, NORMOCEPHALIC - Eye Exam Eye Exam: Normal appearance - ENT Exam ENT Exam: Mucous Membranes Moist - Neck Exam Neck Exam: Normal Inspection - Respiratory Exam Respiratory Exam: Decreased Breath Sounds - Cardiovascular Exam Cardiovascular Exam: REGULAR RHYTHM - GI/Abdominal Exam GI & Abdominal Exam: Soft, Normal Bowel Sounds Assessment and Plan (1) Malignant pleural effusion Assessment & Plan: Discontinue Chest tube and the plan is to change it to pleurx catheter Status: Acute (2) Ascites, malignant Status: Acute (3) Ovarian cancer Status: Chronic (4) Shortness of breath Status: Acute
--- NOTE | 2017-03-12 00:08 | CP.PCM.PN ---
Subjective - Date & Time of Evaluation Date of Evaluation: 03/11/17 Time of Evaluation: 19:00 - Subjective Subjective: No complaints Objective - Vital Signs/Intake and Output Vital Signs (last 24 hours): Temp Pulse Resp BP Pulse Ox 98.7 F 85 20 163/83 H 96 03/11/17 16:23 03/11/17 16:23 03/11/17 16:23 03/11/17 16:23 03/11/17 16:23 Intake and Output: 03/11/17 03/12/17 18:59 06:59 Intake Total 500 200 Output Total 160 50 Balance 340 150 - Medications Medications: Current Medications Albuterol/Ipratropium (Duoneb 3 Mg/0.5 Mg (3 Ml) Ud) 3 ml INH RQ6 [facility] Last Admin: 03/11/17 19:55 Dose: 3 ml Docusate Sodium (Colace) 100 mg PO BID [facility] Last Admin: 03/11/17 19:05 Dose: 100 mg Enoxaparin Sodium (Lovenox) 40 mg SC DAILY [facility] Last Admin: 03/11/17 09:09 Dose: 40 mg Famotidine (Pepcid) 20 mg PO DAILY [facility] Last Admin: 03/11/17 09:09 Dose: 20 mg Ferrous Sulfate (Feosol) 325 mg PO TID [facility] Last Admin: 03/11/17 19:05 Dose: 325 mg Losartan Potassium (Cozaar) 50 mg PO DAILY [facility] Last Admin: 03/11/17 09:09 Dose: 50 mg Metoprolol Tartrate (Lopressor) 50 mg PO BID [facility] Last Admin: 03/11/17 19:05 Dose: 50 mg Morphine Sulfate (Morphine) 2 mg IVP Q4 PRN PRN Reason: Pain, moderate (4-7) Last Admin: 03/07/17 18:42 Dose: 2 mg Ondansetron HCl (Zofran Inj) 4 mg IVP Q4 PRN PRN Reason: Nausea/Vomiting Promethazine HCl (Phenergan Syrup) 12.5 mg PO Q6 PRN PRN Reason: cough Last Admin: 03/10/17 20:22 Dose: 12.5 mg Rosuvastatin Calcium (Crestor) 10 mg PO [facility] Last Admin: 03/11/17 22:02 Dose: 10 mg - Labs Labs: 03/10/17 06:30 03/10/17 06:47 PT 13.3 SECONDS (9.7-12.2) H 02/25/17 18:17 INR 1.2 02/25/17 18:17 APTT 31 SECONDS (21-34) D 02/25/17 18:17 - Head Exam Head Exam: ATRAUMATIC - Eye Exam Eye Exam: Normal appearance - ENT Exam ENT Exam: Mucous Membranes Dry - Respiratory Exam Respiratory Exam: Decreased Breath Sounds - Cardiovascular Exam Cardiovascular Exam: +S1, +S2 - GI/Abdominal Exam GI & Abdominal Exam: Normal Bowel Sounds - Extremities Exam Extremities Exam: Pedal Edema Assessment and Plan (1) Pleural effusion due to another disorder Assessment & Plan: malignant effusion s/p chest tube and for pleurex catheter Status: Acute (2) Anemia Assessment & Plan: chronic disease and chemotherapy Status: Chronic (3) Pulmonary embolism Assessment & Plan: provoked from malignancy anticoagulation Status: Acute (4) Ovarian cancer Assessment & Plan: outpatient chemotherapy Status: Chronic
--- NOTE | 2017-03-12 01:01 | CP.PCM.PN ---
Subjective - Date & Time of Evaluation Date of Evaluation: 03/11/17 Time of Evaluation: 09:58 - Subjective Subjective: Patient seen and examined.Lying comfortably in no acute distress1 chest tube still draining fluid with persistent air leak Objective - Vital Signs/Intake and Output Vital Signs (last 24 hours): Temp Pulse Resp BP Pulse Ox 98.7 F 87 20 158/79 H 97 03/11/17 23:25 03/12/17 00:16 03/11/17 23:25 03/11/17 23:25 03/11/17 23:25 Intake and Output: 03/11/17 03/12/17 18:59 06:59 Intake Total 500 200 Output Total 160 50 Balance 340 150 - Medications Medications: Current Medications Albuterol/Ipratropium (Duoneb 3 Mg/0.5 Mg (3 Ml) Ud) 3 ml INH RQ6 [facility] Last Admin: 03/11/17 19:55 Dose: 3 ml Docusate Sodium (Colace) 100 mg PO BID [facility] Last Admin: 03/11/17 19:05 Dose: 100 mg Enoxaparin Sodium (Lovenox) 40 mg SC DAILY [facility] Last Admin: 03/11/17 09:09 Dose: 40 mg Famotidine (Pepcid) 20 mg PO DAILY [facility] Last Admin: 03/11/17 09:09 Dose: 20 mg Ferrous Sulfate (Feosol) 325 mg PO TID [facility] Last Admin: 03/11/17 19:05 Dose: 325 mg Losartan Potassium (Cozaar) 50 mg PO DAILY [facility] Last Admin: 03/11/17 09:09 Dose: 50 mg Metoprolol Tartrate (Lopressor) 50 mg PO BID [facility] Last Admin: 03/11/17 19:05 Dose: 50 mg Morphine Sulfate (Morphine) 2 mg IVP Q4 PRN PRN Reason: Pain, moderate (4-7) Last Admin: 03/07/17 18:42 Dose: 2 mg Ondansetron HCl (Zofran Inj) 4 mg IVP Q4 PRN PRN Reason: Nausea/Vomiting Promethazine HCl (Phenergan Syrup) 12.5 mg PO Q6 PRN PRN Reason: cough Last Admin: 03/10/17 20:22 Dose: 12.5 mg Rosuvastatin Calcium (Crestor) 10 mg PO HS [facility] Last Admin: 03/11/17 22:02 Dose: 10 mg - Labs Labs: 03/10/17 06:30 03/10/17 06:47 PT 13.3 SECONDS (9.7-12.2) H 02/25/17 18:17 INR 1.2 02/25/17 18:17 APTT 31 SECONDS (21-34) D 02/25/17 18:17 - Constitutional Appears: No Acute Distress, Chronically Ill - Head Exam Head Exam: ATRAUMATIC, NORMAL INSPECTION, NORMOCEPHALIC - Eye Exam Eye Exam: EOMI, Normal appearance, PERRL Pupil Exam: NORMAL ACCOMODATION, PERRL - Respiratory Exam Respiratory Exam: Decreased Breath Sounds, Rales Additional comments: chest tube draining - Cardiovascular Exam Cardiovascular Exam: REGULAR RHYTHM, +S1, +S2. absent: Murmur Assessment and Plan (1) Ascites, malignant Status: Acute (2) Diabetes mellitus Status: Chronic (3) Hypertension Status: Chronic (4) Ovarian cancer Status: Chronic (5) Pleural effusion due to another disorder Status: Acute (6) Shortness of breath Status: Acute
[2017-03-12] MEDS: Albuterol-Ipratrop 3 mg / 0.5 (3 ml) UD INH SCH ×4 (01:55→19:57)
[2017-03-12 08:45] LABS: BASO % 1.2 % (0.0-2.0); EOS # 0.1 K/uL (0.0-0.7); EOS % 2.2 % (0.0-4.0); HEMATOCRIT 27.6 % (34.0-47.0); LYMPH # 1.5 K/uL (1.0-4.3); LYMPH % 34.9 % (20.0-40.0); MEAN CELL VOLUME 82.2 fL (81.0-99.0); MEAN CORPUSCULAR HEMOGLOBIN 25.8 pg (27.0-31.0); MEAN CORPUSCULAR HGB CONC 31.4 g/dL (33.0-37.0); MEAN PLATELET VOLUME 8.3 fL (7.2-11.7); MONO # 0.5 K/uL (0.0-0.8); MONO % 10.6 % (0.0-10.0); NRBC % 0.1 % (0.0-2.0); RED CELL DISTRIBUTION WIDTH 16.6 % (11.5-14.5); WHITE BLOOD COUNT 4.3 K/uL (4.8-10.8)
[2017-03-12 08:55] LABS: CHLORIDE 100 mmol/L (98-107)
[2017-03-12 08:56] LABS: SODIUM 138 mmol/L (132-148)
[2017-03-12 08:57] LABS: GFR AFRICAN-AMERICAN > 60
[2017-03-12 08:58] LABS: BLOOD UREA NITROGEN 8 mg/dL (7-17); CALCIUM 8.6 mg/dl (8.6-10.4); CARBON DIOXIDE 32 mmol/L (22-30); GLUCOSE,RANDOM 82 mg/dL (65-105)
[2017-03-12] MEDS: Enoxaparin 40 mg Syringe SC SCH (09:58)
--- NOTE | 2017-03-12 10:23 | CP.PCM.PN ---
Subjective - Date & Time of Evaluation Date of Evaluation: 03/12/17 Time of Evaluation: 10:20 - Subjective Subjective: PGY1 Note for Dr. Mishra: Patient seen and examined. Patient resting comfortably in bed. Patient currently denies feeling short of breath. Patient states she is eating without much difficulty. Discussed with patient plan for removing chest tube at time of discharge. Objective - Vital Signs/Intake and Output Vital Signs (last 24 hours): Temp Pulse Resp BP Pulse Ox 98.6 F 88 20 172/94 H 98 03/12/17 07:26 03/12/17 07:26 03/12/17 07:26 03/12/17 07:26 03/12/17 07:26 Intake and Output: 03/12/17 03/12/17 06:59 18:59 Intake Total 500 Output Total 130 Balance 370 - Medications Medications: Current Medications Albuterol/Ipratropium (Duoneb 3 Mg/0.5 Mg (3 Ml) Ud) 3 ml INH RQ6 [facility] Last Admin: 03/12/17 09:05 Dose: 3 ml Docusate Sodium (Colace) 100 mg PO BID [facility] Last Admin: 03/12/17 09:58 Dose: 100 mg Enoxaparin Sodium (Lovenox) 40 mg SC DAILY [facility] Last Admin: 03/12/17 09:58 Dose: 40 mg Famotidine (Pepcid) 20 mg PO DAILY [facility] Last Admin: 03/12/17 09:58 Dose: 20 mg Ferrous Sulfate (Feosol) 325 mg PO TID [facility] Last Admin: 03/12/17 09:58 Dose: 325 mg Losartan Potassium (Cozaar) 50 mg PO DAILY [facility] Last Admin: 03/12/17 09:58 Dose: 50 mg Metoprolol Tartrate (Lopressor) 50 mg PO BID [facility] Last Admin: 03/12/17 09:58 Dose: 50 mg Morphine Sulfate (Morphine) 2 mg IVP Q4 PRN PRN Reason: Pain, moderate (4-7) Last Admin: 03/07/17 18:42 Dose: 2 mg Ondansetron HCl (Zofran Inj) 4 mg IVP Q4 PRN PRN Reason: Nausea/Vomiting Promethazine HCl (Phenergan Syrup) 12.5 mg PO Q6 PRN PRN Reason: cough Last Admin: 03/10/17 20:22 Dose: 12.5 mg Rosuvastatin Calcium (Crestor) 10 mg PO HS [facility] Last Admin: 03/11/17 22:02 Dose: 10 mg - Labs Labs: 03/12/17 08:30 03/12/17 08:30 PT 13.3 SECONDS (9.7-12.2) H 02/25/17 18:17 INR 1.2 02/25/17 18:17 APTT 31 SECONDS (21-34) D 02/25/17 18:17 - Constitutional Appears: Non-toxic, Chronically Ill - Eye Exam Eye Exam: EOMI - Respiratory Exam Respiratory Exam: absent: Accessory Muscle Use, Respiratory Distress Additional comments: Chest Tube #2 with 70cc output over past 24 hours, small air leak present - Neurological Exam Neurological Exam: Alert, Awake - Skin Skin Exam: Dry, Warm Assessment and Plan - Assessment and Plan (Free Text) Assessment: 71yo F with recurrent pleural effusion s/p Left VATS converted to thoracotomy, evacuation of pleural fluid, debridement of left lung cavity, decortication, insertion of chest tubes and PleurX catheter POD#10 - Afebrile, VSS - On pureed with thin liquids diet as per Speech Pathology recommendations - PT - Chest tube #2 (28F): 70cc serosanguinous output over past 24 hours (small air leak present) - Did trial of pleurX catheter 03/10 which was able to adequately drain fluid - Plan for removal of second chest tube at time of discharge - Further recs per Dr. Mishra
--- NOTE | 2017-03-12 11:18 | CP.PCM.PN ---
Subjective - Date & Time of Evaluation Date of Evaluation: 03/12/17 Time of Evaluation: 10:00 - Subjective Subjective: Patient seen and examined. Sitting comfortably in no acute distress with chest tube in place draining minimal fluid Afebrile Objective - Vital Signs/Intake and Output Vital Signs (last 24 hours): Temp Pulse Resp BP Pulse Ox 98.6 F 88 20 172/94 H 98 03/12/17 07:26 03/12/17 07:26 03/12/17 07:26 03/12/17 07:26 03/12/17 07:26 Intake and Output: 03/12/17 03/12/17 06:59 18:59 Intake Total 500 Output Total 130 Balance 370 - Medications Medications: Current Medications Albuterol/Ipratropium (Duoneb 3 Mg/0.5 Mg (3 Ml) Ud) 3 ml INH RQ6 [facility] Last Admin: 03/12/17 09:05 Dose: 3 ml Docusate Sodium (Colace) 100 mg PO BID [facility] Last Admin: 03/12/17 09:58 Dose: 100 mg Enoxaparin Sodium (Lovenox) 40 mg SC DAILY [facility] Last Admin: 03/12/17 09:58 Dose: 40 mg Famotidine (Pepcid) 20 mg PO DAILY [facility] Last Admin: 03/12/17 09:58 Dose: 20 mg Ferrous Sulfate (Feosol) 325 mg PO TID [facility] Last Admin: 03/12/17 09:58 Dose: 325 mg Losartan Potassium (Cozaar) 50 mg PO DAILY [facility] Last Admin: 03/12/17 09:58 Dose: 50 mg Metoprolol Tartrate (Lopressor) 50 mg PO BID [facility] Last Admin: 03/12/17 09:58 Dose: 50 mg Morphine Sulfate (Morphine) 2 mg IVP Q4 PRN PRN Reason: Pain, moderate (4-7) Last Admin: 03/07/17 18:42 Dose: 2 mg Ondansetron HCl (Zofran Inj) 4 mg IVP Q4 PRN PRN Reason: Nausea/Vomiting Promethazine HCl (Phenergan Syrup) 12.5 mg PO Q6 PRN PRN Reason: cough Last Admin: 03/10/17 20:22 Dose: 12.5 mg Rosuvastatin Calcium (Crestor) 10 mg PO HS [facility] Last Admin: 03/11/17 22:02 Dose: 10 mg - Labs Labs: 03/12/17 08:30 03/12/17 08:30 PT 13.3 SECONDS (9.7-12.2) H 02/25/17 18:17 INR 1.2 02/25/17 18:17 APTT 31 SECONDS (21-34) D 02/25/17 18:17 - Head Exam Head Exam: ATRAUMATIC, NORMOCEPHALIC - Eye Exam Eye Exam: Normal appearance - ENT Exam ENT Exam: Mucous Membranes Moist - Neck Exam Neck Exam: Normal Inspection - Respiratory Exam Respiratory Exam: Decreased Breath Sounds - Cardiovascular Exam Cardiovascular Exam: REGULAR RHYTHM - GI/Abdominal Exam GI & Abdominal Exam: Soft, Normal Bowel Sounds Assessment and Plan (1) Malignant pleural effusion Assessment & Plan: Consider to discontinue chest tube and change to Pleurx catheter nebulizer treatment Status: Acute (2) Ascites, malignant Status: Acute (3) Ovarian cancer Status: Chronic (4) Shortness of breath Status: Acute
[2017-03-13] MEDS: Albuterol-Ipratrop 3 mg / 0.5 (3 ml) UD INH SCH ×4 (01:28→19:15)
--- NOTE | 2017-03-13 08:53 | RAD ---
HISTORY: chest tube, effusions COMPARISON: 03/11/2017 FINDINGS: LUNGS: Right chest wall port with tip extending to the cavoatrial junction. Lines and tubes in stable position. Persistent moderate loculated right pleural effusion. Persistent small to moderate loculated left hydro pneumothorax. Diffuse increased interstitial lung markings. Somewhat ill-defined consolidative opacities in the mid to lower lung zones bilaterally. Upper lobe granulomatous changes. PLEURA: As above. CARDIOVASCULAR: Cardiomegaly. Calcification at the aortic knob. OSSEOUS STRUCTURES: Degenerative changes in the spine and shoulders. VISUALIZED UPPER ABDOMEN: Normal. OTHER FINDINGS: None. IMPRESSION: Right chest wall port with tip extending to the cavoatrial junction. Lines and tubes in stable position. Persistent moderate loculated right pleural effusion. Persistent small to moderate loculated left hydro pneumothorax. Diffuse increased interstitial lung markings. Somewhat ill-defined consolidative opacities in the mid to lower lung zones bilaterally. Upper lobe granulomatous changes.
[2017-03-13] MEDS: Enoxaparin 40 mg Syringe SC SCH (10:07)
--- NOTE | 2017-03-13 13:27 | CP.PCM.PN ---
Subjective - Date & Time of Evaluation Date of Evaluation: 03/13/17 Time of Evaluation: 07:00 - Subjective Subjective: THORACIC SURGERY PROGRESS NOTE FOR DR. BUCKLEY Patient seen and examined at bedside. There were no acute events overnight per nurse. She is feeling well and notes improvement in breathing and cough. She has no problems now with eating now that she is on the pureed diet. Chest tube remains in place on water seal. Per the patient, the nurse changed the dressing an hour ago because it was wet. Objective - Vital Signs/Intake and Output Vital Signs (last 24 hours): Temp Pulse Resp BP Pulse Ox 97.7 F 91 H 20 151/84 H 97 03/13/17 08:21 03/13/17 09:30 03/13/17 08:21 03/13/17 08:21 03/13/17 08:21 Intake and Output: 03/13/17 03/13/17 06:59 18:59 Intake Total 200 Output Total 180 Balance 20 - Medications Medications: Current Medications Albuterol/Ipratropium (Duoneb 3 Mg/0.5 Mg (3 Ml) Ud) 3 ml INH RQ6 [facility] Last Admin: 03/13/17 08:16 Dose: 3 ml Docusate Sodium (Colace) 100 mg PO BID [facility] Last Admin: 03/13/17 10:07 Dose: 100 mg Enoxaparin Sodium (Lovenox) 40 mg SC DAILY [facility] Last Admin: 03/13/17 10:07 Dose: 40 mg Famotidine (Pepcid) 20 mg PO DAILY [facility] Last Admin: 03/13/17 10:07 Dose: 20 mg Ferrous Sulfate (Feosol) 325 mg PO TID [facility] Last Admin: 03/13/17 13:03 Dose: 325 mg Losartan Potassium (Cozaar) 50 mg PO DAILY [facility] Last Admin: 03/13/17 10:07 Dose: 50 mg Metoprolol Tartrate (Lopressor) 50 mg PO BID [facility] Last Admin: 03/13/17 10:07 Dose: 50 mg Morphine Sulfate (Morphine) 2 mg IVP Q4 PRN PRN Reason: Pain, moderate (4-7) Last Admin: 03/07/17 18:42 Dose: 2 mg Ondansetron HCl (Zofran Inj) 4 mg IVP Q4 PRN PRN Reason: Nausea/Vomiting Promethazine HCl (Phenergan Syrup) 12.5 mg PO Q6 PRN PRN Reason: cough Last Admin: 03/10/17 20:22 Dose: 12.5 mg Rosuvastatin Calcium (Crestor) 10 mg PO HS [facility] Last Admin: 03/12/17 21:54 Dose: 10 mg - Labs Labs: 03/12/17 08:30 03/12/17 08:30 PT 13.3 SECONDS (9.7-12.2) H 02/25/17 18:17 INR 1.2 02/25/17 18:17 APTT 31 SECONDS (21-34) D 02/25/17 18:17 - Constitutional Appears: Non-toxic, No Acute Distress, Chronically Ill - Respiratory Exam Respiratory Exam: NORMAL BREATHING PATTERN. absent: Respiratory Distress Additional comments: Left Chest tube in place on water seal Chest tube (28F): 280cc serosanguinous output over past 24 hours (air leak present) Assessment and Plan - Assessment and Plan (Free Text) Assessment: 71yo F with recurrent pleural effusion s/p Left VATS converted to thoracotomy, evacuation of pleural fluid, debridement of left lung cavity, decortication, insertion of chest tubes and PleurX catheter POD#11 - Afebrile, VSS - On pureed diet, tolerating well - 38F removed 03/10 - Did trial of pleurX catheter on 03/10 which was able to adequately drain fluid - Chest tube (28F): 280cc serosanguinous output over past 24 hours (air leak present) - Continue daily CXRs - May need Heimlich valve - Discussed plan with Dr. Tad Cruz PGY-2
--- NOTE | 2017-03-13 18:38 | CP.PCM.PN ---
Subjective - Date & Time of Evaluation Date of Evaluation: 03/13/17 Time of Evaluation: 17:00 - Subjective Subjective: Patient seen and examined. Found with persistent cough after drinking and showed. Patient states that whenever she tries to drink something she starts coughing Chest tube still in place draining minimal fluid Plan is to discontinue chest tube and symmetric to Heimlich valve Objective - Vital Signs/Intake and Output Vital Signs (last 24 hours): Temp Pulse Resp BP Pulse Ox 99.2 F 82 20 129/77 97 03/13/17 16:00 03/13/17 16:00 03/13/17 08:21 03/13/17 16:00 03/13/17 08:21 Intake and Output: 03/13/17 03/13/17 06:59 18:59 Intake Total 200 Output Total 180 90 Balance 20 -90 - Medications Medications: Current Medications Albuterol/Ipratropium (Duoneb 3 Mg/0.5 Mg (3 Ml) Ud) 3 ml INH RQ6 [facility] Last Admin: 03/13/17 14:12 Dose: 3 ml Docusate Sodium (Colace) 100 mg PO BID [facility] Last Admin: 03/13/17 18:01 Dose: 100 mg Enoxaparin Sodium (Lovenox) 40 mg SC DAILY [facility] Last Admin: 03/13/17 10:07 Dose: 40 mg Famotidine (Pepcid) 20 mg PO DAILY [facility] Last Admin: 03/13/17 10:07 Dose: 20 mg Ferrous Sulfate (Feosol) 325 mg PO TID [facility] Last Admin: 03/13/17 18:01 Dose: 325 mg Losartan Potassium (Cozaar) 50 mg PO DAILY [facility] Last Admin: 03/13/17 10:07 Dose: 50 mg Metoprolol Tartrate (Lopressor) 50 mg PO BID [facility] Last Admin: 03/13/17 18:01 Dose: 50 mg Morphine Sulfate (Morphine) 2 mg IVP Q4 PRN PRN Reason: Pain, moderate (4-7) Last Admin: 03/07/17 18:42 Dose: 2 mg Ondansetron HCl (Zofran Inj) 4 mg IVP Q4 PRN PRN Reason: Nausea/Vomiting Promethazine HCl (Phenergan Syrup) 12.5 mg PO Q6 PRN PRN Reason: cough Last Admin: 03/10/17 20:22 Dose: 12.5 mg Rosuvastatin Calcium (Crestor) 10 mg PO HS [facility] Last Admin: 03/12/17 21:54 Dose: 10 mg - Labs Labs: 03/12/17 08:30 03/12/17 08:30 PT 13.3 SECONDS (9.7-12.2) H 02/25/17 18:17 INR 1.2 02/25/17 18:17 APTT 31 SECONDS (21-34) D 02/25/17 18:17 - Head Exam Head Exam: ATRAUMATIC, NORMOCEPHALIC - Eye Exam Eye Exam: Normal appearance - ENT Exam ENT Exam: Mucous Membranes Moist - Neck Exam Neck Exam: Normal Inspection - Respiratory Exam Respiratory Exam: Decreased Breath Sounds - Cardiovascular Exam Cardiovascular Exam: REGULAR RHYTHM - GI/Abdominal Exam GI & Abdominal Exam: Soft, Normal Bowel Sounds - Extremities Exam Extremities Exam: Normal Inspection Assessment and Plan (1) Malignant pleural effusion Assessment & Plan: Status post chest tube insertion and drainage Discontinue chest tube and switch to Heimlich valve Patient most likely aspirating to thin liquid Continue nebulizer treatment Status: Acute (2) Ascites, malignant Status: Acute (3) Ovarian cancer Status: Chronic (4) Shortness of breath Status: Acute
--- NOTE | 2017-03-14 00:03 | CP.PCM.PN ---
Subjective - Date & Time of Evaluation Date of Evaluation: 03/12/17 Time of Evaluation: 10:00 - Subjective Subjective: Patient seen and examined.Afebrile Sitting comfortably in no acute distress with chest tube in place draining minimal fluid, She is in process of removeal of chest tube, then subacute rehab and oncology is follwoiing up pat Objective - Vital Signs/Intake and Output Vital Signs (last 24 hours): Temp Pulse Resp BP Pulse Ox 99.2 F 82 20 129/77 97 03/13/17 16:00 03/13/17 16:00 03/13/17 08:21 03/13/17 16:00 03/13/17 08:21 Intake and Output: 03/13/17 03/14/17 18:59 06:59 Output Total 90 90 Balance -90 -90 - Medications Medications: Current Medications Albuterol/Ipratropium (Duoneb 3 Mg/0.5 Mg (3 Ml) Ud) 3 ml INH RQ6 [facility] Last Admin: 03/13/17 19:15 Dose: 3 ml Docusate Sodium (Colace) 100 mg PO BID [facility] Last Admin: 03/13/17 18:01 Dose: 100 mg Enoxaparin Sodium (Lovenox) 40 mg SC DAILY [facility] Last Admin: 03/13/17 10:07 Dose: 40 mg Famotidine (Pepcid) 20 mg PO DAILY [facility] Last Admin: 03/13/17 10:07 Dose: 20 mg Ferrous Sulfate (Feosol) 325 mg PO TID [facility] Last Admin: 03/13/17 18:01 Dose: 325 mg Losartan Potassium (Cozaar) 50 mg PO DAILY [facility] Last Admin: 03/13/17 10:07 Dose: 50 mg Metoprolol Tartrate (Lopressor) 50 mg PO BID [facility] Last Admin: 03/13/17 18:01 Dose: 50 mg Morphine Sulfate (Morphine) 2 mg IVP Q4 PRN PRN Reason: Pain, moderate (4-7) Last Admin: 03/07/17 18:42 Dose: 2 mg Ondansetron HCl (Zofran Inj) 4 mg IVP Q4 PRN PRN Reason: Nausea/Vomiting Promethazine HCl (Phenergan Syrup) 12.5 mg PO Q6 PRN PRN Reason: cough Last Admin: 03/10/17 20:22 Dose: 12.5 mg Rosuvastatin Calcium (Crestor) 10 mg PO HS [facility] Last Admin: 03/13/17 21:36 Dose: Not Given - Labs Labs: 03/12/17 08:30 03/12/17 08:30 PT 13.3 SECONDS (9.7-12.2) H 02/25/17 18:17 INR 1.2 02/25/17 18:17 APTT 31 SECONDS (21-34) D 02/25/17 18:17 - Constitutional Appears: No Acute Distress, Chronically Ill - Head Exam Head Exam: ATRAUMATIC, NORMAL INSPECTION, NORMOCEPHALIC - Respiratory Exam Respiratory Exam: Decreased Breath Sounds, Rales, Rhonchi - Cardiovascular Exam Cardiovascular Exam: REGULAR RHYTHM, +S1, +S2. absent: Murmur - GI/Abdominal Exam GI & Abdominal Exam: Distended, Hypoactive Bowel Sounds Assessment and Plan (1) Ascites, malignant Status: Acute (2) Diabetes mellitus Status: Chronic (3) Hypertension Status: Chronic (4) Ovarian cancer Status: Chronic (5) Pleural effusion due to another disorder Status: Acute (6) Shortness of breath Status: Acute
--- NOTE | 2017-03-14 00:05 | CP.PCM.PN ---
Subjective - Date & Time of Evaluation Date of Evaluation: 03/13/17 Time of Evaluation: 10:01 - Subjective Subjective: Pt seen and examined at bedside, is feeling better although Chest tube remains in place on water seal, she is for placement in subacute rehab Objective - Vital Signs/Intake and Output Vital Signs (last 24 hours): Temp Pulse Resp BP Pulse Ox 99.2 F 82 20 129/77 97 03/13/17 16:00 03/13/17 16:00 03/13/17 08:21 03/13/17 16:00 03/13/17 08:21 Intake and Output: 03/13/17 03/14/17 18:59 06:59 Output Total 90 90 Balance -90 -90 - Medications Medications: Current Medications Albuterol/Ipratropium (Duoneb 3 Mg/0.5 Mg (3 Ml) Ud) 3 ml INH RQ6 [facility] Last Admin: 03/13/17 19:15 Dose: 3 ml Docusate Sodium (Colace) 100 mg PO BID [facility] Last Admin: 03/13/17 18:01 Dose: 100 mg Enoxaparin Sodium (Lovenox) 40 mg SC DAILY [facility] Last Admin: 03/13/17 10:07 Dose: 40 mg Famotidine (Pepcid) 20 mg PO DAILY [facility] Last Admin: 03/13/17 10:07 Dose: 20 mg Ferrous Sulfate (Feosol) 325 mg PO TID [facility] Last Admin: 03/13/17 18:01 Dose: 325 mg Losartan Potassium (Cozaar) 50 mg PO DAILY [facility] Last Admin: 03/13/17 10:07 Dose: 50 mg Metoprolol Tartrate (Lopressor) 50 mg PO BID [facility] Last Admin: 03/13/17 18:01 Dose: 50 mg Morphine Sulfate (Morphine) 2 mg IVP Q4 PRN PRN Reason: Pain, moderate (4-7) Last Admin: 03/07/17 18:42 Dose: 2 mg Ondansetron HCl (Zofran Inj) 4 mg IVP Q4 PRN PRN Reason: Nausea/Vomiting Promethazine HCl (Phenergan Syrup) 12.5 mg PO Q6 PRN PRN Reason: cough Last Admin: 03/10/17 20:22 Dose: 12.5 mg Rosuvastatin Calcium (Crestor) 10 mg PO [facility] Last Admin: 03/13/17 21:36 Dose: Not Given - Labs Labs: 03/12/17 08:30 03/12/17 08:30 PT 13.3 SECONDS (9.7-12.2) H 02/25/17 18:17 INR 1.2 02/25/17 18:17 APTT 31 SECONDS (21-34) D 02/25/17 18:17 - Constitutional Appears: No Acute Distress, Chronically Ill - Head Exam Head Exam: ATRAUMATIC, NORMAL INSPECTION, NORMOCEPHALIC - Eye Exam Eye Exam: EOMI, Normal appearance, PERRL Pupil Exam: NORMAL ACCOMODATION, PERRL - Respiratory Exam Respiratory Exam: Decreased Breath Sounds, Rales - Cardiovascular Exam Cardiovascular Exam: REGULAR RHYTHM, +S1, +S2. absent: Murmur - Neurological Exam Neurological Exam: Alert, Awake, CN II-XII Intact, Normal Gait, Oriented x3 Assessment and Plan (1) Ascites, malignant Status: Acute (2) Diabetes mellitus Status: Chronic (3) Hypertension Status: Chronic (4) Ovarian cancer Status: Chronic (5) Pleural effusion due to another disorder Status: Acute (6) Shortness of breath Status: Acute
[2017-03-14] MEDS: Albuterol-Ipratrop 3 mg / 0.5 (3 ml) UD INH SCH ×2 (01:27→08:58)
[2017-03-14 08:08] LABS: BASO % 0.5 % (0.0-2.0); EOS # 0.1 K/uL (0.0-0.7); EOS % 1.4 % (0.0-4.0); HEMATOCRIT 27.6 % (34.0-47.0); LYMPH # 1.4 K/uL (1.0-4.3); LYMPH % 27.2 % (20.0-40.0); MEAN CELL VOLUME 82.4 fL (81.0-99.0); MEAN CORPUSCULAR HEMOGLOBIN 25.8 pg (27.0-31.0); MEAN CORPUSCULAR HGB CONC 31.3 g/dL (33.0-37.0); MEAN PLATELET VOLUME 7.6 fL (7.2-11.7); MONO # 0.6 K/uL (0.0-0.8); MONO % 12.2 % (0.0-10.0); RED CELL DISTRIBUTION WIDTH 16.6 % (11.5-14.5)
[2017-03-14 08:24] LABS: CHLORIDE 99 mmol/L (98-107)
[2017-03-14 08:25] LABS: POTASSIUM 4.3 mmol/L (3.6-5.2); SODIUM 138 mmol/L (132-148)
[2017-03-14 08:27] LABS: ALB/GLOB RATIO 0.9 (1.0-2.1); ALKALINE PHOSPHATASE 66 U/L (38-126); ALT/SGPT 18 U/L (9-52); AST/SGOT 19 U/L (14-36); BILIRUBIN,TOTAL 0.5 mg/dL (0.2-1.3); BLOOD UREA NITROGEN 12 mg/dL (7-17); CARBON DIOXIDE 31 mmol/L (22-30); GFR AFRICAN-AMERICAN > 60; TOTAL PROTEIN 5.6 g/dL (6.3-8.3)
[2017-03-14 08:28] LABS: CALCIUM 8.7 mg/dl (8.6-10.4); GLUCOSE,RANDOM 87 mg/dL (65-105)
--- NOTE | 2017-03-14 08:55 | CP.PCM.PCO ---
Physician Communication Note - Physician Communication Note Physician Communication Note: will place heimlich valve prior to D/C, please page [employer]
--- NOTE | 2017-03-14 09:22 | CP.PCM.PN ---
Subjective - Date & Time of Evaluation Date of Evaluation: 03/14/17 Time of Evaluation: 08:00 - Subjective Subjective: Patient seen and examined sitting comfortably in no acute distress Denies cough, denies fever or chills, denies chest pain Chest tube in place and the plan is to discontinue chest tube today by surgery Objective - Vital Signs/Intake and Output Vital Signs (last 24 hours): Temp Pulse Resp BP Pulse Ox 98.4 F 92 H 20 130/77 98 03/14/17 08:04 03/14/17 08:04 03/14/17 08:04 03/14/17 08:04 03/14/17 08:04 Intake and Output: 03/14/17 03/14/17 06:59 18:59 Intake Total 100 Output Total 140 Balance -40 - Medications Medications: Current Medications Albuterol/Ipratropium (Duoneb 3 Mg/0.5 Mg (3 Ml) Ud) 3 ml INH RQ6 [facility] Last Admin: 03/14/17 08:58 Dose: Not Given Docusate Sodium (Colace) 100 mg PO BID [facility] Last Admin: 03/13/17 18:01 Dose: 100 mg Enoxaparin Sodium (Lovenox) 40 mg SC DAILY [facility] Last Admin: 03/13/17 10:07 Dose: 40 mg Famotidine (Pepcid) 20 mg PO DAILY [facility] Last Admin: 03/13/17 10:07 Dose: 20 mg Ferrous Sulfate (Feosol) 325 mg PO TID [facility] Last Admin: 03/13/17 18:01 Dose: 325 mg Losartan Potassium (Cozaar) 50 mg PO DAILY [facility] Last Admin: 03/13/17 10:07 Dose: 50 mg Metoprolol Tartrate (Lopressor) 50 mg PO BID [facility] Last Admin: 03/13/17 18:01 Dose: 50 mg Morphine Sulfate (Morphine) 2 mg IVP Q4 PRN PRN Reason: Pain, moderate (4-7) Last Admin: 03/07/17 18:42 Dose: 2 mg Ondansetron HCl (Zofran Inj) 4 mg IVP Q4 PRN PRN Reason: Nausea/Vomiting Promethazine HCl (Phenergan Syrup) 12.5 mg PO Q6 PRN PRN Reason: cough Last Admin: 03/10/17 20:22 Dose: 12.5 mg Rosuvastatin Calcium (Crestor) 10 mg PO HS [facility] Last Admin: 03/13/17 21:36 Dose: Not Given - Labs Labs: 03/14/17 08:01 03/14/17 08:01 PT 13.3 SECONDS (9.7-12.2) H 02/25/17 18:17 INR 1.2 02/25/17 18:17 APTT 31 SECONDS (21-34) D 02/25/17 18:17 - Head Exam Head Exam: ATRAUMATIC, NORMOCEPHALIC - Eye Exam Eye Exam: Normal appearance - ENT Exam ENT Exam: Mucous Membranes Moist - Neck Exam Neck Exam: Normal Inspection - Respiratory Exam Respiratory Exam: Decreased Breath Sounds - Cardiovascular Exam Cardiovascular Exam: REGULAR RHYTHM - GI/Abdominal Exam GI & Abdominal Exam: Soft, Normal Bowel Sounds Assessment and Plan (1) Malignant pleural effusion Assessment & Plan: Continue nebulizer treatment *Heimlich valve placement today Status: Acute (2) Ascites, malignant Status: Acute (3) Ovarian cancer Status: Chronic (4) Shortness of breath Status: Acute
[2017-03-14] MEDS: Enoxaparin 40 mg Syringe SC SCH (10:12)
--- NOTE | 2017-03-14 10:40 | RAD ---
HISTORY: chest tube COMPARISON: Chest x-ray performed 03/13/17 TECHNIQUE: Chest, one view. FINDINGS: Right-sided MediPort extends the cavoatrial junction. Left-sided chest tube. Multiple external wires and leads obscure evaluation of the underlying parenchyma. LUNGS: Superior most lung apices excluded from view. Persistent moderate loculated right pleural effusion. Persistent small to moderate loculated left hydro pneumothorax. Prominent interstitial markings without significant interval change. Somewhat ill-defined consolidative opacities in the mid to lower lung zones bilaterally. Upper lobe granulomatous changes. Please note that chest x-ray has limited sensitivity for the detection of pulmonary masses. CARDIOVASCULAR: Cardiomegaly. Atherosclerotic calcifications. OSSEOUS STRUCTURES: Osseous demineralization. Degenerative changes. VISUALIZED UPPER ABDOMEN: Unremarkable. OTHER FINDINGS: Skin shelley, left chest. IMPRESSION: Support lines and tubes as above. Overall no significant interval change in appearance of the lung de luna.
--- NOTE | 2017-03-14 14:37 | CP.PCM.PN ---
Subjective - Date & Time of Evaluation Date of Evaluation: 03/14/17 Time of Evaluation: 14:33 - Subjective Subjective: 71 Y/O FEMALE SEEN AND EXAMINED, ADMITTED HERE FOR MALIGNENT PLEAURAL EFFUSION, ASCITES, OVARIAN CANCER, AAOX3, DENIES ANY PAIN, SOB, CHEST TUBE REMOVED AND HEMILICH VALVE REPLACMENT DONE BY SURGERY, PT D/C TO [facility] PER DR REYNOSO, PT CLEARED FOR D/C PER DR WEBER AND SURGERY WELL. CONTINUE MEDS PER MED REC, CALL DR REYNOSO FOR ADMITTING ORDERS. Objective - Vital Signs/Intake and Output Vital Signs (last 24 hours): Temp Pulse Resp BP Pulse Ox 98.4 F 92 H 20 130/77 98 03/14/17 08:04 03/14/17 08:04 03/14/17 08:04 03/14/17 08:04 03/14/17 08:04 Intake and Output: 03/14/17 03/14/17 06:59 18:59 Intake Total 100 Output Total 140 Balance -40 - Medications Medications: Current Medications Docusate Sodium (Colace) 100 mg PO BID [facility] Last Admin: 03/14/17 10:12 Dose: 100 mg Enoxaparin Sodium (Lovenox) 40 mg SC DAILY [facility] Last Admin: 03/14/17 10:12 Dose: 40 mg Famotidine (Pepcid) 20 mg PO DAILY [facility] Last Admin: 03/14/17 10:12 Dose: 20 mg Ferrous Sulfate (Feosol) 325 mg PO TID [facility] Last Admin: 03/14/17 13:26 Dose: 325 mg Losartan Potassium (Cozaar) 50 mg PO DAILY [facility] Last Admin: 03/14/17 10:13 Dose: 50 mg Metoprolol Tartrate (Lopressor) 50 mg PO BID [facility] Last Admin: 03/14/17 10:12 Dose: 50 mg Morphine Sulfate (Morphine) 2 mg IVP Q4 PRN PRN Reason: Pain, moderate (4-7) Last Admin: 03/07/17 18:42 Dose: 2 mg Ondansetron HCl (Zofran Inj) 4 mg IVP Q4 PRN PRN Reason: Nausea/Vomiting Promethazine HCl (Phenergan Syrup) 12.5 mg PO Q6 PRN PRN Reason: cough Last Admin: 04/25/17 20:22 Dose: 12.5 mg Rosuvastatin Calcium (Crestor) 10 mg PO HS [facility] Last Admin: 03/13/17 21:36 Dose: Not Given - Labs Labs: 03/14/17 08:01 03/14/17 08:01 PT 13.3 SECONDS (9.7-12.2) H 02/25/17 18:17 INR 1.2 02/25/17 18:17 APTT 31 SECONDS (21-34) D 02/25/17 18:17
--- NOTE | 2017-03-14 14:53 | OP ---
PROCEDURE DATE: 03/02/2017 PREOPERATIVE DIAGNOSES: 1. Recurrent left pleural effusion. 2. Atelectasis of left lower lobe. 3. Shortness of breath. 4. Stage IV ovarian carcinoma. POSTOPERATIVE DIAGNOSES 1. Recurrent pleural effusion, left. 2. Atelectasis of the left lower lobe. 3. Frozen left chest cavity for pleural peel entrapping the left lung. 4. Fibrinous exudate. 5. Fibrothorax. 6. Extensive pleuritis. 7. Stage IV ovarian carcinoma. SURGERY PERFORMED: 1. Left VATS converted to left thoracotomy. 2. Evacuation of pleural fluid. 3. Debridement of left lung cavity. 4. Decortication. 5. Parietal pleurectomy. 6. Insertion of chest tubes. 7. Insertion of a PleurX catheter. ANESTHESIA: Double lumen endotracheal general anesthesia. SURGEON: Dr. Mishra. STRIP MACHINE OPERATOR: Dr. Cruz INDICATION FOR SURGERY: The patient is a 71-year-old female who 2 years ago underwent a debulking surgery for ovarian carcinoma. The patient now presents with stage IV ovarian carcinoma associated with recurrent pleural effusions. Two months prior to admission, she underwent talc pleurodesis at bedside, however, the procedure failed to produce expected outcome. The patient today underwent surgery for recurrent pleural effusion. OPERATIVE PROCEDURE: The patient was taken to the operating room where under satisfactory double lumen endotracheal general anesthesia, the patient was placed in a right lateral decubitus position and then operative field was prepared and draped in a sterile fashion. Surgery was initially started out using a utility incision which was placed in the fourth intercostal space anterior to the latissimus dorsi, approximately 6 cm long, which soon showed above described diagnoses. Therefore, it was converted to muscle sparing left thoracotomy incision and then the pleural cavity was carefully entered extrapleurally, making a digital dissection between the parietal pleura and the chest wall. After entering the chest cavity, exudative pleural effusion and fibrinous exudate, were removed using a Rausch sucker. Approximately 1100 mL of fluid was evacuated. Next, the chest wall was debrided using sharp and blunt dissection and in some areas, the parietal pleurectomy was carried out. Also, approximately 300 mL of whitish amorphous fibrinous exudate was removed manually, which appeared to be sedimented talc mixed with fibrinous exudate. After satisfactory removal of effusion and exudate, parietal pleurectomy and debridement of chest wall were carried out with blunt and sharp dissections. Next, decortication of the left lower lobe was carried out in the usual manner using sharp and blunt dissections. I was able to reexpand the lung only partially despite decortication simply because the lung parenchyma was also invaded with metastatic processes. Two chest tubes i.e., 32-Amharic and 28- Amharic curved chest tubes were inserted posteriorly and in supradiaphragmatic area respectively and these were secured at the skin edge with 0 silk sutures. Finally, the PleurX catheter was inserted: catheter passed in a retrograde fashion a through skin tunnel(the felt ring aprox 3cm from the skin opening), placing the proximal tip in the supradiaphragmatic space, and secured with O- silk suture. Chest wall was finally closed in layers, ribs with figure of eight #1 Maxon, and muscle fascia with continous 0 Vicryl, subcutaneous fascia with 2-0 Vicryl and then the skin with skin shelley. Sterile dressings were applied and taped in the usual manner. The patient tolerated the procedure very well and was transferred to the recovery room, extubated, in stable condition. Estimated blood loss was approximately 30 mL. Sponge, needle and instrument counts were correct. Tarun Mishra MD cc: [id number] TT: 03/14/2017 14:52:50 desi GORMAN
--- NOTE | 2017-03-14 14:55 | RAD ---
HISTORY: comparison, s/p hemilch valve COMPARISON: Chest x-ray performed earlier the same day. TECHNIQUE: Chest, one view. FINDINGS: Right-sided MediPort extends the cavoatrial junction. Left-sided chest tube. Multiple external wires and leads obscure evaluation of the underlying parenchyma. LUNGS: Persistent moderate loculated right pleural effusion. Persistent small to moderate loculated left hydro pneumothorax. Prominent interstitial markings without significant interval change. Somewhat ill-defined consolidative opacities in the mid to lower lung zones bilaterally. Upper lobe granulomatous changes. Please note that chest x-ray has limited sensitivity for the detection of pulmonary masses. CARDIOVASCULAR: Cardiomegaly. Atherosclerotic calcifications. OSSEOUS STRUCTURES: Osseous demineralization. Degenerative changes. VISUALIZED UPPER ABDOMEN: Unremarkable. OTHER FINDINGS: Skin shelley, left chest. IMPRESSION: No significant interval change.
--- NOTE | 2017-03-15 01:21 | CP.PCM.PN ---
Subjective - Date & Time of Evaluation Date of Evaluation: 03/14/17 Time of Evaluation: 10:02 - Subjective Subjective: Patient seen and examined sitting comfortably in no acute distress Denies cough, denies fever or chills, denies chest pain S/P Chest tube REMOVAL, PT IS FOR SUBACUTE REHAB PLACEMENT Objective - Vital Signs/Intake and Output Vital Signs (last 24 hours): Temp Pulse Resp BP Pulse Ox 98.5 F 82 20 136/85 99 03/14/17 23:32 03/15/17 00:20 03/14/17 23:32 03/14/17 23:32 03/14/17 23:32 Intake and Output: 03/14/17 03/15/17 18:59 06:59 Intake Total 240 Output Total 370 Balance -130 - Medications Medications: Current Medications Docusate Sodium (Colace) 100 mg PO BID [facility] Last Admin: 03/14/17 18:11 Dose: 100 mg Enoxaparin Sodium (Lovenox) 40 mg SC DAILY [facility] Last Admin: 03/14/17 10:12 Dose: 40 mg Famotidine (Pepcid) 20 mg PO DAILY [facility] Last Admin: 03/14/17 10:12 Dose: 20 mg Ferrous Sulfate (Feosol) 325 mg PO TID [facility] Last Admin: 03/14/17 18:11 Dose: 325 mg Losartan Potassium (Cozaar) 50 mg PO DAILY [facility] Last Admin: 03/14/17 10:13 Dose: 50 mg Metoprolol Tartrate (Lopressor) 50 mg PO BID [facility] Last Admin: 03/14/17 18:12 Dose: 50 mg Morphine Sulfate (Morphine) 2 mg IVP Q4 PRN PRN Reason: Pain, moderate (4-7) Last Admin: 03/07/17 18:42 Dose: 2 mg Ondansetron HCl (Zofran Inj) 4 mg IVP Q4 PRN PRN Reason: Nausea/Vomiting Promethazine HCl (Phenergan Syrup) 12.5 mg PO Q6 PRN PRN Reason: cough Last Admin: 03/10/17 20:22 Dose: 12.5 mg Rosuvastatin Calcium (Crestor) 10 mg PO HS [facility] Last Admin: 03/14/17 21:20 Dose: 10 mg - Labs Labs: 03/14/17 08:01 03/14/17 08:01 PT 13.3 SECONDS (9.7-12.2) H 02/25/17 18:17 INR 1.2 02/25/17 18:17 APTT 31 SECONDS (21-34) D 02/25/17 18:17 - Constitutional Appears: No Acute Distress, Chronically Ill - Head Exam Head Exam: ATRAUMATIC, NORMAL INSPECTION, NORMOCEPHALIC - Eye Exam Eye Exam: EOMI, Normal appearance, PERRL Pupil Exam: NORMAL ACCOMODATION, PERRL - Respiratory Exam Respiratory Exam: Decreased Breath Sounds, Rales, Rhonchi - Cardiovascular Exam Cardiovascular Exam: REGULAR RHYTHM, +S1, +S2. absent: Murmur - GI/Abdominal Exam GI & Abdominal Exam: Soft, Normal Bowel Sounds. absent: Tenderness Assessment and Plan (1) Ascites, malignant Status: Acute (2) Diabetes mellitus Status: Chronic (3) Hypertension Status: Chronic (4) Ovarian cancer Status: Chronic (5) Pleural effusion due to another disorder Status: Acute (6) Shortness of breath Status: Acute
--- NOTE | 2017-03-15 08:49 | CP.PCM.PN ---
Subjective - Date & Time of Evaluation Date of Evaluation: 03/15/17 Time of Evaluation: 07:30 - Subjective Subjective: CT Surgery Pt S&E, NAEO. Pt without complaints this AM. Pneumostat valve drain in place. 90cc serous output. Use 30 or 60cc syringe to drain PRN and use green IV cap to clean before and after each drainage. Objective - Vital Signs/Intake and Output Vital Signs (last 24 hours): Temp Pulse Resp BP Pulse Ox 98.2 F 82 19 149/83 98 03/15/17 08:11 03/15/17 08:11 03/15/17 08:11 03/15/17 08:11 03/15/17 08:11 Intake and Output: 03/15/17 03/15/17 06:59 18:59 Intake Total 340 Output Total 390 Balance -50 - Medications Medications: Current Medications Docusate Sodium (Colace) 100 mg PO BID [facility] Last Admin: 03/14/17 18:11 Dose: 100 mg Enoxaparin Sodium (Lovenox) 40 mg SC DAILY [facility] Last Admin: 03/14/17 10:12 Dose: 40 mg Famotidine (Pepcid) 20 mg PO DAILY [facility] Last Admin: 03/14/17 10:12 Dose: 20 mg Ferrous Sulfate (Feosol) 325 mg PO TID [facility] Last Admin: 03/14/17 18:11 Dose: 325 mg Losartan Potassium (Cozaar) 50 mg PO DAILY [facility] Last Admin: 03/14/17 10:13 Dose: 50 mg Metoprolol Tartrate (Lopressor) 50 mg PO BID [facility] Last Admin: 03/14/17 18:12 Dose: 50 mg Morphine Sulfate (Morphine) 2 mg IVP Q4 PRN PRN Reason: Pain, moderate (4-7) Last Admin: 03/07/17 18:42 Dose: 2 mg Ondansetron HCl (Zofran Inj) 4 mg IVP Q4 PRN PRN Reason: Nausea/Vomiting Promethazine HCl (Phenergan Syrup) 12.5 mg PO Q6 PRN PRN Reason: cough Last Admin: 03/10/17 20:22 Dose: 12.5 mg Rosuvastatin Calcium (Crestor) 10 mg PO [facility] Last Admin: 03/14/17 21:20 Dose: 10 mg - Labs Labs: 03/14/17 08:01 03/14/17 08:01 PT 13.3 SECONDS (9.7-12.2) H 02/25/17 18:17 INR 1.2 02/25/17 18:17 APTT 31 SECONDS (21-34) D 02/25/17 18:17 - Constitutional Appears: Non-toxic, No Acute Distress - Head Exam Head Exam: ATRAUMATIC, NORMOCEPHALIC - Eye Exam Eye Exam: EOMI. absent: Scleral icterus - Respiratory Exam Respiratory Exam: NORMAL BREATHING PATTERN. absent: Respiratory Distress - GI/Abdominal Exam GI & Abdominal Exam: Soft. absent: Distended, Tenderness - Neurological Exam Neurological Exam: Alert, Awake - Skin Skin Exam: Dry, Warm Assessment and Plan - Assessment and Plan (Free Text) Assessment: 71F with recurrent pleural effusion s/p Left VATS converted to thoracotomy, evacuation of pleural fluid, debridement of left lung cavity, decortication, insertion of chest tubes and PleurX catheter POD#13 Plan: Pneumostat drain: Use 30 or 60cc syringe to drain PRN and use green IV cap to clean access port before and after each drainage. Drain frequently as needed, as reservoir holds ~35cc F/U CXR read D/W Dr. Tad Hodgson PGY3
[2017-03-15] MEDS: Enoxaparin 40 mg Syringe SC SCH (09:33)
--- NOTE | 2017-03-15 12:06 | RAD ---
Chest, one view Indication: Chest tube Comparison: Chest x-ray performed 03/14/17 Findings: Right-sided MediPort with distal tip in the expected location of the cavoatrial junction. Left-sided chest tube. Surgical shelley, left chest wall. Heart size appears top normal. Atherosclerotic calcifications. Persistent moderate loculated right pleural effusion. Persistent small to moderate loculated left hydro pneumothorax. Prominent interstitial markings without significant interval change. Somewhat ill-defined consolidative opacities in the mid to lower lung zones bilaterally ; slightly decreased on the left. Upper lobe granulomatous changes. Please note that chest x-ray has limited sensitivity for the detection of pulmonary masses. Osseous demineralization. Degenerative changes of the spine and shoulders. Probable right-sided calcific tendinitis. Acromioclavicular arthropathy. Impression: Persistent moderate loculated right pleural effusion. Persistent small to moderate loculated left hydro pneumothorax. Prominent interstitial markings without significant interval change. Somewhat ill-defined consolidative opacities in the mid to lower lung zones bilaterally ; slightly decreased on the left.
--- NOTE | 2017-03-15 23:22 | CP.PCM.PN ---
Subjective - Date & Time of Evaluation Date of Evaluation: 03/15/17 Time of Evaluation: 10:03 - Subjective Subjective: Pt seen and evaluated at bedside, s/op chest tube removal but CXR shows pleural effusion again, we hold her discharge and monitoring her, she is for pulmonary and thoracic surgery eval, Pneumostat valve drain in place. 90cc serous output. Use 30 or 60cc syringe to drain PRN and use green IV cap to clean before and after each drainage. I talked to pt sisiter and daughter and explained them the nature of pt condition, i plan to talk and advice them about palliative care Objective - Vital Signs/Intake and Output Vital Signs (last 24 hours): Temp Pulse Resp BP Pulse Ox 0 F L 114 H 20 168/86 H 96 03/15/17 16:00 03/15/17 17:54 03/15/17 17:54 03/15/17 17:54 03/15/17 16:00 Intake and Output: 03/15/17 03/16/17 18:59 06:59 Intake Total 480 320 Output Total 40 50 Balance 440 270 - Medications Medications: Current Medications Docusate Sodium (Colace) 100 mg PO BID [facility] Last Admin: 03/15/17 17:49 Dose: 100 mg Enoxaparin Sodium (Lovenox) 40 mg SC DAILY [facility] Last Admin: 03/15/17 09:33 Dose: 40 mg Famotidine (Pepcid) 20 mg PO DAILY [facility] Last Admin: 03/15/17 09:34 Dose: 20 mg Ferrous Sulfate (Feosol) 325 mg PO TID [facility] Last Admin: 03/15/17 17:49 Dose: 325 mg Losartan Potassium (Cozaar) 50 mg PO DAILY [facility] Last Admin: 03/15/17 09:33 Dose: 50 mg Metoprolol Tartrate (Lopressor) 50 mg PO BID [facility] Last Admin: 03/15/17 17:50 Dose: 50 mg Morphine Sulfate (Morphine) 2 mg IVP Q4 PRN PRN Reason: Pain, moderate (4-7) Last Admin: 03/07/17 18:42 Dose: 2 mg Ondansetron HCl (Zofran Inj) 4 mg IVP Q4 PRN PRN Reason: Nausea/Vomiting Promethazine HCl (Phenergan Syrup) 12.5 mg PO Q6 PRN PRN Reason: cough Last Admin: 03/10/17 20:22 Dose: 12.5 mg Rosuvastatin Calcium (Crestor) 10 mg PO HS [facility] Last Admin: 03/15/17 21:38 Dose: 10 mg - Labs Labs: 03/14/17 08:01 03/14/17 08:01 PT 13.3 SECONDS (9.7-12.2) H 02/25/17 18:17 INR 1.2 02/25/17 18:17 APTT 31 SECONDS (21-34) D 02/25/17 18:17 - Constitutional Appears: No Acute Distress, Chronically Ill - Head Exam Head Exam: ATRAUMATIC, NORMAL INSPECTION, NORMOCEPHALIC - Eye Exam Eye Exam: EOMI, Normal appearance, PERRL Pupil Exam: NORMAL ACCOMODATION, PERRL - ENT Exam ENT Exam: Mucous Membranes Moist, Normal Exam - Respiratory Exam Respiratory Exam: Decreased Breath Sounds, Rales, Wheezes - Cardiovascular Exam Cardiovascular Exam: REGULAR RHYTHM, +S1, +S2. absent: Murmur - GI/Abdominal Exam GI & Abdominal Exam: Soft - Neurological Exam Neurological Exam: Alert, Awake Assessment and Plan (1) Ascites, malignant Status: Acute (2) Diabetes mellitus Status: Chronic (3) Hypertension Status: Chronic (4) Ovarian cancer Status: Chronic (5) Pleural effusion due to another disorder Status: Acute (6) Shortness of breath Status: Acute
[2017-03-16] MEDS: Enoxaparin 40 mg Syringe SC SCH (10:36)
[2017-03-16 13:11] LABS: EOS % 0.1 % (0.0-4.0); LYMPH # 0.9 K/uL (1.0-4.3); MONO # 0.7 K/uL (0.0-0.8); NRBC % 0.1 % (0.0-2.0); WHITE BLOOD COUNT 5.3 K/uL (4.8-10.8)
[2017-03-16 13:19] LABS: BASO % 0.6 % (0.0-2.0); HEMATOCRIT 30.6 % (34.0-47.0); LYMPH % 16.5 % (20.0-40.0); MEAN CELL VOLUME 82.7 fL (81.0-99.0); MEAN CORPUSCULAR HEMOGLOBIN 26.2 pg (27.0-31.0); MEAN CORPUSCULAR HGB CONC 31.7 g/dL (33.0-37.0); MEAN PLATELET VOLUME 7.6 fL (7.2-11.7); MONO % 13.6 % (0.0-10.0); RED CELL DISTRIBUTION WIDTH 16.6 % (11.5-14.5)
[2017-03-16 13:37] LABS: CHLORIDE 95 mmol/L (98-107); SODIUM 133 mmol/L (132-148)
[2017-03-16 13:38] LABS: POTASSIUM 4.3 mmol/L (3.6-5.2)
[2017-03-16 13:40] LABS: GFR AFRICAN-AMERICAN > 60
[2017-03-16 13:41] LABS: BLOOD UREA NITROGEN 12 mg/dL (7-17); CALCIUM 9.1 mg/dl (8.6-10.4); CARBON DIOXIDE 25 mmol/L (22-30); GLUCOSE,RANDOM 175 mg/dL (65-105)
--- NOTE | 2017-03-16 14:44 | CP.PCM.PN ---
Subjective - Date & Time of Evaluation Date of Evaluation: 03/16/17 Time of Evaluation: 14:39 - Subjective Subjective: Pt s/e. No c/o. Tmax-100.8(started on antibiotic). cxr-I do not appreciate pneumo although air leak is present. will consider removing the tube when pt becomes stable before d/c home. Objective - Vital Signs/Intake and Output Vital Signs (last 24 hours): Temp Pulse Resp BP Pulse Ox 98.2 F 98 H 20 129/73 98 03/16/17 10:35 03/16/17 11:00 03/16/17 07:15 03/16/17 10:35 03/16/17 07:15 Intake and Output: 03/16/17 03/16/17 06:59 18:59 Intake Total 420 Output Total 50 Balance 370 - Medications Medications: Current Medications Acetaminophen (Tylenol 325mg Tab) 650 mg PO Q6 PRN PRN Reason: Fever >100.4 F Last Admin: 03/16/17 08:59 Dose: 650 mg Docusate Sodium (Colace) 100 mg PO BID [facility] Last Admin: 03/16/17 10:36 Dose: 100 mg Enoxaparin Sodium (Lovenox) 40 mg SC DAILY [facility] Last Admin: 03/16/17 10:36 Dose: 40 mg Famotidine (Pepcid) 20 mg PO DAILY [facility] Last Admin: 03/16/17 10:36 Dose: 20 mg Ferrous Sulfate (Feosol) 325 mg PO TID [facility] Last Admin: 03/16/17 14:14 Dose: 325 mg Cefepime HCl 1 gm/ Dextrose 50 mls @ 100 mls/hr IVPB Q12H [facility] Last Admin: 03/16/17 11:18 Dose: 100 mls/hr Vancomycin HCl 1,000 mg/ (Sodium Chloride) 250 mls @ 166.6 mls/hr IVPB Q12H [facility] Last Admin: 03/16/17 12:17 Dose: 166.6 mls/hr Losartan Potassium (Cozaar) 50 mg PO DAILY [facility] Last Admin: 03/16/17 10:37 Dose: 50 mg Metoprolol Tartrate (Lopressor) 50 mg PO BID [facility] Last Admin: 03/16/17 10:36 Dose: 50 mg Morphine Sulfate (Morphine) 2 mg IVP Q4 PRN PRN Reason: Pain, moderate (4-7) Last Admin: 03/07/17 18:42 Dose: 2 mg Ondansetron HCl (Zofran Inj) 4 mg IVP Q4 PRN PRN Reason: Nausea/Vomiting Promethazine HCl (Phenergan Syrup) 12.5 mg PO Q6 PRN PRN Reason: cough Last Admin: 03/10/17 20:22 Dose: 12.5 mg Rosuvastatin Calcium (Crestor) 10 mg PO HS [facility] Last Admin: 03/15/17 21:38 Dose: 10 mg - Labs Labs: 03/16/17 13:06 03/16/17 13:06 PT 13.3 SECONDS (9.7-12.2) H 02/25/17 18:17 INR 1.2 02/25/17 18:17 APTT 31 SECONDS (21-34) D 02/25/17 18:17
[2017-03-16] MEDS: Promethazine 12.5 mg/10 ml Syrup PO PRN (17:13)
--- NOTE | 2017-03-16 17:47 | CP.PCM.PN ---
Subjective - Date & Time of Evaluation Date of Evaluation: 03/16/17 Time of Evaluation: 08:30 - Subjective Subjective: Patient seen and examined. Spikes fever Chest x-ray with persistent left hydropneumothorax Denies cough, Objective - Vital Signs/Intake and Output Vital Signs (last 24 hours): Temp Pulse Resp BP Pulse Ox 99 F 118 H 20 180/97 H 98 03/16/17 15:26 03/16/17 15:26 03/16/17 15:26 03/16/17 15:26 03/16/17 15:26 Intake and Output: 03/16/17 03/16/17 06:59 18:59 Intake Total 420 800 Output Total 50 112 Balance 370 688 - Medications Medications: Current Medications Acetaminophen (Tylenol 325mg Tab) 650 mg PO Q6 PRN PRN Reason: Fever >100.4 F Last Admin: 03/16/17 08:59 Dose: 650 mg Docusate Sodium (Colace) 100 mg PO BID [facility] Last Admin: 03/16/17 17:08 Dose: 100 mg Enoxaparin Sodium (Lovenox) 40 mg SC DAILY [facility] Last Admin: 03/16/17 10:36 Dose: 40 mg Famotidine (Pepcid) 20 mg PO DAILY [facility] Last Admin: 03/16/17 10:36 Dose: 20 mg Ferrous Sulfate (Feosol) 325 mg PO TID [facility] Last Admin: 03/16/17 17:08 Dose: 325 mg Cefepime HCl 1 gm/ Dextrose 50 mls @ 100 mls/hr IVPB Q12H [facility] Last Admin: 03/16/17 11:18 Dose: 100 mls/hr Vancomycin HCl 1,000 mg/ (Sodium Chloride) 250 mls @ 166.6 mls/hr IVPB Q12H [facility] Last Admin: 03/16/17 12:17 Dose: 166.6 mls/hr Losartan Potassium (Cozaar) 50 mg PO DAILY [facility] Last Admin: 03/16/17 10:37 Dose: 50 mg Metoprolol Tartrate (Lopressor) 50 mg PO BID [facility] Last Admin: 03/16/17 17:08 Dose: 50 mg Morphine Sulfate (Morphine) 2 mg IVP Q4 PRN PRN Reason: Pain, moderate (4-7) Last Admin: 03/07/17 18:42 Dose: 2 mg Ondansetron HCl (Zofran Inj) 4 mg IVP Q4 PRN PRN Reason: Nausea/Vomiting Promethazine HCl (Phenergan Syrup) 12.5 mg PO Q6 PRN PRN Reason: cough Last Admin: 03/16/17 17:13 Dose: 12.5 mg Rosuvastatin Calcium (Crestor) 10 mg PO HS [facility] Last Admin: 03/15/17 21:38 Dose: 10 mg - Labs Labs: 03/16/17 13:06 03/16/17 13:06 PT 13.3 SECONDS (9.7-12.2) H 02/25/17 18:17 INR 1.2 02/25/17 18:17 APTT 31 SECONDS (21-34) D 02/25/17 18:17 - Constitutional Appears: No Acute Distress - Head Exam Head Exam: ATRAUMATIC, NORMOCEPHALIC - ENT Exam ENT Exam: Mucous Membranes Moist - Neck Exam Neck Exam: Normal Inspection - Respiratory Exam Respiratory Exam: Decreased Breath Sounds - Cardiovascular Exam Cardiovascular Exam: REGULAR RHYTHM - GI/Abdominal Exam GI & Abdominal Exam: Soft, Normal Bowel Sounds Assessment and Plan (1) Malignant pleural effusion Assessment & Plan: Status post pleurx cath insertion. Plan cultures Continue antibiotics Status: Acute (2) Ascites, malignant Status: Acute (3) Ovarian cancer Status: Chronic (4) Shortness of breath Status: Acute
--- NOTE | 2017-03-16 22:19 | CP.PCM.PN ---
Subjective - Date & Time of Evaluation Date of Evaluation: 03/16/17 Time of Evaluation: 10:11 - Subjective Subjective: Patient seen and examined. Spikes fever Chest x-ray with persistent left hydropneumothorax, b/l pleural effusion pt is coughing, wheezing and c/o chest congestion pt is also evaluated by pulmonary and started on antibiotics Objective - Vital Signs/Intake and Output Vital Signs (last 24 hours): Temp Pulse Resp BP Pulse Ox 102.0 F H 109 H 20 180/97 H 98 03/16/17 18:49 03/16/17 15:45 03/16/17 15:26 03/16/17 15:26 03/16/17 15:26 Intake and Output: 03/16/17 03/17/17 18:59 06:59 Intake Total 800 Output Total 112 Balance 688 - Medications Medications: Current Medications Acetaminophen (Tylenol 325mg Tab) 650 mg PO Q6 PRN PRN Reason: Fever >100.4 F Last Admin: 03/16/17 18:49 Dose: 650 mg Docusate Sodium (Colace) 100 mg PO BID [facility] Last Admin: 03/16/17 17:08 Dose: 100 mg Enoxaparin Sodium (Lovenox) 40 mg SC DAILY [facility] Last Admin: 03/16/17 10:36 Dose: 40 mg Famotidine (Pepcid) 20 mg PO DAILY [facility] Last Admin: 03/16/17 10:36 Dose: 20 mg Ferrous Sulfate (Feosol) 325 mg PO TID [facility] Last Admin: 03/16/17 17:08 Dose: 325 mg Cefepime HCl 1 gm/ Dextrose 50 mls @ 100 mls/hr IVPB Q12H [facility] Last Admin: 03/16/17 21:46 Dose: 100 mls/hr Vancomycin HCl 1,000 mg/ (Sodium Chloride) 250 mls @ 166.6 mls/hr IVPB Q12H [facility] Last Admin: 03/16/17 12:17 Dose: 166.6 mls/hr Losartan Potassium (Cozaar) 50 mg PO DAILY [facility] Last Admin: 03/16/17 10:37 Dose: 50 mg Metoprolol Tartrate (Lopressor) 50 mg PO BID [facility] Last Admin: 03/16/17 17:08 Dose: 50 mg Morphine Sulfate (Morphine) 2 mg IVP Q4 PRN PRN Reason: Pain, moderate (4-7) Last Admin: 03/07/17 18:42 Dose: 2 mg Ondansetron HCl (Zofran Inj) 4 mg IVP Q4 PRN PRN Reason: Nausea/Vomiting Promethazine HCl (Phenergan Syrup) 12.5 mg PO Q6 PRN PRN Reason: cough Last Admin: 03/16/17 17:13 Dose: 12.5 mg Rosuvastatin Calcium (Crestor) 10 mg PO HS [facility] Last Admin: 03/16/17 21:32 Dose: 10 mg - Labs Labs: 03/16/17 13:06 03/16/17 13:06 PT 13.3 SECONDS (9.7-12.2) H 02/25/17 18:17 INR 1.2 02/25/17 18:17 APTT 31 SECONDS (21-34) D 02/25/17 18:17 - Constitutional Appears: No Acute Distress, Chronically Ill - Head Exam Head Exam: ATRAUMATIC, NORMAL INSPECTION, NORMOCEPHALIC - Eye Exam Eye Exam: EOMI, Normal appearance, PERRL Pupil Exam: NORMAL ACCOMODATION, PERRL - Respiratory Exam Respiratory Exam: Decreased Breath Sounds, Rhonchi, Wheezes - Cardiovascular Exam Cardiovascular Exam: REGULAR RHYTHM, +S1, +S2. absent: Murmur - GI/Abdominal Exam GI & Abdominal Exam: Soft, Normal Bowel Sounds. absent: Tenderness Assessment and Plan (1) Ascites, malignant Status: Acute (2) Diabetes mellitus Status: Chronic (3) Hypertension Status: Chronic (4) Ovarian cancer Status: Chronic (5) Pleural effusion due to another disorder Status: Acute (6) Shortness of breath Status: Acute
[2017-03-17] MEDS: Enoxaparin 40 mg Syringe SC SCH (09:22)
[2017-03-17] MEDS ORDERED: Metoprolol 1 mg/ml Inj IVP ONE (09:37)
--- NOTE | 2017-03-17 09:40 | RAD ---
HISTORY: left chest tube COMPARISON: 03/15/2017 FINDINGS: LUNGS: Lines and tubes stable position. Persistent moderate loculated left hydro pneumothorax and small loculated right pleural effusion. Adjacent prominent consolidative changes in the left mid to lower lung zone as well as at the right lung base. Biapical pleural thickening with upper lobe granulomatous changes. Venous congestion. PLEURA: As above. CARDIOVASCULAR: Cardiomegaly. Tortuous aorta. OSSEOUS STRUCTURES: No significant abnormalities. VISUALIZED UPPER ABDOMEN: Normal. OTHER FINDINGS: None. IMPRESSION: No significant interval change.
[2017-03-17] MEDS ORDERED: Digoxin 500 mcg/2ml (0.5 mg/2ml) Inj IVP ONE (09:45)
[2017-03-17 10:12] LABS: VENOUS BLOOD GAS BASE EXCESS 2.8 mmol/L (0.0-2.0); VENOUS BLOOD GAS PCO2 47 mmHg (40-60); VENOUS BLOOD PH 7.39 (7.32-7.43)
--- NOTE | 2017-03-17 10:25 | CP.PCM.PN ---
<Jaime Chris - Last Filed: 03/17/17 21:38> Subjective - Date & Time of Evaluation Date of Evaluation: 03/17/17 Time of Evaluation: 09:45 - Subjective Subjective: Sub: Pt. with pmh of Lung Cancer, and recent pneumothorax with chest tube had a rapid response called for elevated HR >200. Pt. was asymptomatic. BP was 125/ 86. IV lasix, cardizem, and lopressor were given and HR dropped to the 120's. Pt 's events solutions consultant is Dr. Zuniga was consulted. Obj: Pt. remained asymptomatic during the entire rapid without any complaints of chest pain for difficulty breathing A/P: Consult cardio: Dr. Zuniga CXR CTA to r/o PE EKG - Non-specific T-wave changes 116bpm CBC/CMP VBG shock panel EMILIA x3 PO Cardizem 30mg q6 prn HOLD For SBP<110 IV Cardizem TID Objective - Vital Signs/Intake and Output Vital Signs (last 24 hours): Temp Pulse Resp BP Pulse Ox 98.8 F 98 H 20 125/66 100 03/17/17 08:57 03/17/17 07:25 03/17/17 07:25 03/17/17 10:06 03/17/17 07:25 Intake and Output: 03/17/17 03/17/17 06:59 18:59 Intake Total 300 Output Total 68 Balance 232 - Medications Medications: Current Medications Acetaminophen (Tylenol 325mg Tab) 650 mg PO Q6 PRN PRN Reason: Fever >100.4 F Last Admin: 03/17/17 07:57 Dose: 650 mg Diltiazem HCl (Cardizem) 30 mg PO Q6 PRN PRN Reason: Other Diltiazem HCl (Cardizem) 5 mg IVP TID PRN PRN Reason: Other Docusate Sodium (Colace) 100 mg PO BID [facility] Last Admin: 03/17/17 09:22 Dose: 100 mg Enoxaparin Sodium (Lovenox) 40 mg SC DAILY [facility] Last Admin: 03/17/17 09:22 Dose: 40 mg Famotidine (Pepcid) 20 mg PO DAILY [facility] Last Admin: 03/17/17 09:22 Dose: 20 mg Ferrous Sulfate (Feosol) 325 mg PO TID [facility] Last Admin: 03/17/17 09:22 Dose: 325 mg Cefepime HCl 1 gm/ Dextrose 50 mls @ 100 mls/hr IVPB Q12H [facility] Last Admin: 03/17/17 10:05 Dose: 100 mls/hr Vancomycin HCl 1,000 mg/ (Sodium Chloride) 250 mls @ 166.6 mls/hr IVPB Q12H [facility] Last Admin: 03/16/17 22:34 Dose: 166.6 mls/hr Losartan Potassium (Cozaar) 100 mg PO DAILY [facility] Last Admin: 03/17/17 09:22 Dose: 100 mg Metoprolol Tartrate (Lopressor) 50 mg PO BID [facility] Last Admin: 03/17/17 09:22 Dose: 50 mg Morphine Sulfate (Morphine) 2 mg IVP Q4 PRN PRN Reason: Pain, moderate (4-7) Last Admin: 03/07/17 18:42 Dose: 2 mg Ondansetron HCl (Zofran Inj) 4 mg IVP Q4 PRN PRN Reason: Nausea/Vomiting Promethazine HCl (Phenergan Syrup) 12.5 mg PO Q6 PRN PRN Reason: cough Last Admin: 03/16/17 17:13 Dose: 12.5 mg Rosuvastatin Calcium (Crestor) 10 mg PO HS [facility] Last Admin: 03/16/17 21:32 Dose: 10 mg - Labs Labs: 03/16/17 13:06 03/16/17 13:06 PT 13.3 SECONDS (9.7-12.2) H 02/25/17 18:17 INR 1.2 02/25/17 18:17 APTT 31 SECONDS (21-34) D 02/25/17 18:17 <Ruddy Correa H - Last Filed: 03/18/17 08:01> Objective - Vital Signs/Intake and Output Vital Signs (last 24 hours): Temp Pulse Resp BP Pulse Ox 98.7 F 110 H 22 169/74 H 96 03/18/17 07:35 03/18/17 07:35 03/18/17 07:35 03/18/17 07:35 03/18/17 07:35 Intake and Output: 03/18/17 03/18/17 06:59 18:59 Intake Total 960 Output Total 20 Balance 940 - Medications Medications: Current Medications Acetaminophen (Tylenol 325mg Tab) 650 mg PO Q6 PRN PRN Reason: Fever >100.4 F Last Admin: 03/17/17 07:57 Dose: 650 mg Diltiazem HCl (Cardizem) 5 mg IVP TID PRN PRN Reason: Other Last Admin: 03/18/17 00:41 Dose: 5 mg Diltiazem HCl (Cardizem) 30 mg PO Q6 [facility] Last Admin: 03/18/17 06:00 Dose: Not Given Diltiazem HCl (Cardizem) 10 mg IVP ONCE PRN PRN Reason: HR > 140 Docusate Sodium (Colace) 100 mg PO BID [facility] Last Admin: 03/17/17 18:04 Dose: 100 mg Enoxaparin Sodium (Lovenox) 40 mg SC DAILY [facility] Last Admin: 03/17/17 09:22 Dose: 40 mg Famotidine (Pepcid) 20 mg PO DAILY [facility] Last Admin: 03/17/17 09:22 Dose: 20 mg Ferrous Sulfate (Feosol) 325 mg PO TID [facility] Last Admin: 03/17/17 18:04 Dose: 325 mg Cefepime HCl 1 gm/ Dextrose 50 mls @ 100 mls/hr IVPB Q12H [facility] Last Admin: 03/17/17 21:30 Dose: 100 mls/hr Vancomycin HCl 1,000 mg/ (Sodium Chloride) 250 mls @ 166.6 mls/hr IVPB Q12H [facility] Last Admin: 03/17/17 22:00 Dose: 166.6 mls/hr Losartan Potassium (Cozaar) 100 mg PO DAILY [facility] Last Admin: 03/17/17 09:22 Dose: 100 mg Metoprolol Tartrate (Lopressor) 50 mg PO BID [facility] Last Admin: 03/17/17 18:04 Dose: 50 mg Morphine Sulfate (Morphine) 2 mg IVP Q4 PRN PRN Reason: Pain, moderate (4-7) Last Admin: 03/07/17 18:42 Dose: 2 mg Ondansetron HCl (Zofran Inj) 4 mg IVP Q4 PRN PRN Reason: Nausea/Vomiting Promethazine HCl (Phenergan Syrup) 12.5 mg PO Q6 PRN PRN Reason: cough Last Admin: 03/16/17 17:13 Dose: 12.5 mg Rosuvastatin Calcium (Crestor) 10 mg PO HS [facility] Last Admin: 03/17/17 21:46 Dose: 10 mg - Labs Labs: 03/17/17 11:29 03/17/17 11:29 PT 13.3 SECONDS (9.7-12.2) H 02/25/17 18:17 INR 1.2 02/25/17 18:17 APTT 31 SECONDS (21-34) D 02/25/17 18:17 Attending/Attestation - Attestation I have personally seen and examined this patient.: Yes I have fully participated in the care of the patient.: Yes I have reviewed all pertinent clinical information, including history, physical exam and plan: Yes Notes (Text): 03/18/17 07:59 Medical hospitalist: Patient was seen during the rapid response. When I came into the room of my colleagues in medical residents were already present as well. We saw that her heart rate was in the high 190s into the 200 range. The patient was asymptomatic. She denied having chest pain denied having palpitations denied having shortness of breath from my discussion with the medical staff as well as the RNs in the room, the patient is status post chest tube placement due to concern of recent lung malignancy. She received a one-time dose of IV Lopressor, the chest tube was placed on to suctioning. We rechecked immediately lab work as well as recheck x-ray. We also gave her a one-time dose of Lasix after we reviewed the chest x-ray portable films that showed that it appeared that the left side of her long near the chest tube had a increasing pulmonary vascular congestion The patient did not want a Douglass catheter I spoke with the patient's primary care physician, and I also later spoke with cardiology as well. Ruddy Correa
--- NOTE | 2017-03-17 10:52 | CP.PCM.PN ---
Subjective - Date & Time of Evaluation Date of Evaluation: 03/17/17 Time of Evaluation: 10:48 - Subjective Subjective: Surgery: Dr. Mishra Pt seen and examined on morning rounds. Was resting comfortably in bed w. no complaints. Later in day [employer] was called for A-Fib RVR. Pt will go to ICU for work up of VT/PE. Objective - Vital Signs/Intake and Output Vital Signs (last 24 hours): Temp Pulse Resp BP Pulse Ox 98.8 F 98 H 20 125/66 100 03/17/17 08:57 03/17/17 07:25 03/17/17 07:25 03/17/17 10:06 03/17/17 07:25 Intake and Output: 03/17/17 03/17/17 06:59 18:59 Intake Total 300 Output Total 68 Balance 232 - Medications Medications: Current Medications Acetaminophen (Tylenol 325mg Tab) 650 mg PO Q6 PRN PRN Reason: Fever >100.4 F Last Admin: 03/17/17 07:57 Dose: 650 mg Diltiazem HCl (Cardizem) 30 mg PO Q6 PRN PRN Reason: Other Diltiazem HCl (Cardizem) 5 mg IVP TID PRN PRN Reason: Other Docusate Sodium (Colace) 100 mg PO BID [facility] Last Admin: 03/17/17 09:22 Dose: 100 mg Enoxaparin Sodium (Lovenox) 40 mg SC DAILY [facility] Last Admin: 03/17/17 09:22 Dose: 40 mg Famotidine (Pepcid) 20 mg PO DAILY [facility] Last Admin: 03/17/17 09:22 Dose: 20 mg Ferrous Sulfate (Feosol) 325 mg PO TID [facility] Last Admin: 03/17/17 09:22 Dose: 325 mg Cefepime HCl 1 gm/ Dextrose 50 mls @ 100 mls/hr IVPB Q12H [facility] Last Admin: 03/17/17 10:05 Dose: 100 mls/hr Vancomycin HCl 1,000 mg/ (Sodium Chloride) 250 mls @ 166.6 mls/hr IVPB Q12H [facility] Last Admin: 03/16/17 22:34 Dose: 166.6 mls/hr Losartan Potassium (Cozaar) 100 mg PO DAILY [facility] Last Admin: 03/17/17 09:22 Dose: 100 mg Metoprolol Tartrate (Lopressor) 50 mg PO BID [facility] Last Admin: 03/17/17 09:22 Dose: 50 mg Morphine Sulfate (Morphine) 2 mg IVP Q4 PRN PRN Reason: Pain, moderate (4-7) Last Admin: 03/07/17 18:42 Dose: 2 mg Ondansetron HCl (Zofran Inj) 4 mg IVP Q4 PRN PRN Reason: Nausea/Vomiting Promethazine HCl (Phenergan Syrup) 12.5 mg PO Q6 PRN PRN Reason: cough Last Admin: 03/16/17 17:13 Dose: 12.5 mg Rosuvastatin Calcium (Crestor) 10 mg PO HS [facility] Last Admin: 03/16/17 21:32 Dose: 10 mg - Labs Labs: 03/16/17 13:06 03/16/17 13:06 PT 13.3 SECONDS (9.7-12.2) H 02/25/17 18:17 INR 1.2 02/25/17 18:17 APTT 31 SECONDS (21-34) D 02/25/17 18:17 - Constitutional Appears: Non-toxic, No Acute Distress - Head Exam Head Exam: ATRAUMATIC, NORMOCEPHALIC - Eye Exam Eye Exam: EOMI - ENT Exam ENT Exam: Mucous Membranes Moist - Neck Exam Neck Exam: Full ROM - Respiratory Exam Respiratory Exam: NORMAL BREATHING PATTERN Additional comments: L side CT in place, dressing C/D/I - GI/Abdominal Exam GI & Abdominal Exam: Soft. absent: Distended, Firm, Guarding, Rigid, Tenderness - Neurological Exam Neurological Exam: Alert, Awake Assessment and Plan - Assessment and Plan (Free Text) Assessment: 71F with recurrent pleural effusion s/p Left VATS converted to thoracotomy, evacuation of pleural fluid, debridement of left lung cavity, decortication, insertion of chest tubes and PleurX catheter POD#15 -Will place CT back to suction due to [employer] -CT: 180cc/24 hr serosang, 0cc/12hr -AM CXR, awaiting final read, small PTX appears to be at base -will continue to follow -d/w attenidng Zemaitis PGY2
--- NOTE | 2017-03-17 11:29 | RAD ---
HISTORY: repeat COMPARISON: Chest x-ray performed 03/17/17 TECHNIQUE: Chest, one view. FINDINGS: Right-sided MediPort extends expected location of the SVC. Left-sided chest tube. Surgical shelley, left chest wall. LUNGS: Persistent moderate loculated left hydro pneumothorax and small loculated right pleural effusion. Adjacent prominent consolidative changes in the left mid to lower lung zone as well as at the right lung base. Biapical pleural thickening with upper lobe granulomatous changes. Mild pulmonary venous congestion. CARDIOVASCULAR: Cardiomegaly. Tortuous aorta. Atherosclerotic calcifications of the aorta. OSSEOUS STRUCTURES: Osseous demineralization. Degenerative changes. VISUALIZED UPPER ABDOMEN: Unremarkable. OTHER FINDINGS: None. IMPRESSION: No significant interval change.
[2017-03-17 11:36] LABS: BASO % 0.6 % (0.0-2.0); EOS % 0.3 % (0.0-4.0); HEMATOCRIT 30.1 % (34.0-47.0); LYMPH % 19.9 % (20.0-40.0); MEAN CELL VOLUME 82.1 fL (81.0-99.0); MEAN CORPUSCULAR HGB CONC 31.7 g/dL (33.0-37.0); MEAN PLATELET VOLUME 7.7 fL (7.2-11.7); MONO # 1.3 K/uL (0.0-0.8); MONO % 26.5 % (0.0-10.0); NRBC % 0.1 % (0.0-2.0); PLATELET COUNT 463 K/uL (130-400); RED CELL DISTRIBUTION WIDTH 16.5 % (11.5-14.5)
[2017-03-17 11:46] LABS: CHLORIDE 98 mmol/L (98-107); SODIUM 135 mmol/L (132-148)
[2017-03-17 11:48] LABS: GFR AFRICAN-AMERICAN > 60
[2017-03-17 11:49] LABS: ALB/GLOB RATIO 0.9 (1.0-2.1); ALKALINE PHOSPHATASE 73 U/L (38-126); ALT/SGPT 27 U/L (9-52); AST/SGOT 21 U/L (14-36); BILIRUBIN,TOTAL 0.6 mg/dL (0.2-1.3); BLOOD UREA NITROGEN 13 mg/dL (7-17); CALCIUM 9.2 mg/dl (8.6-10.4); CARBON DIOXIDE 28 mmol/L (22-30); GLUCOSE,RANDOM 82 mg/dL (65-105); TOTAL PROTEIN 6.3 g/dL (6.3-8.3)
[2017-03-17] MEDS ORDERED: Iodixanol 320 MG/ML 100 ML BOTTLE IV ONE (12:24)
[2017-03-17 12:50] LABS: BASOPHIL 1 % (0-2); NEUTROPHIL 48 % (50-75); TOTAL CELLS COUNTED 100
--- NOTE | 2017-03-17 13:43 | CT ---
CT chest with IV contrast Indication: Worsening x-ray, tachypnea Technique: Contiguous axial images were obtained through the chest with intravenous contrast enhancement. Sagittal and coronal reconstructions were generated and reviewed. This CT exam was performed using 1 or more of the falling dose reduction techniques: Automated exposure control, adjustment of the MAA and/or kV according to patient size, and/or use of iterative reconstruction technique. IV Contrast: 100 mL Visipaque Radiation dose (DLP): 273.38 MGy-cm. Comparison: Chest x-ray performed 03/17/17, CT chest without contrast performed 02/26/17 Findings: Visualized portions of the inferior thyroid gland appear unremarkable. The mediastinal and hilar vascular structures appear within normal limits. The heart appears within normal limits of size. No large central or segmental pulmonary embolus evident. Two left-sided chest tubes. Moderate loculated left hydro pneumothorax. Moderate-sized right loculated pleural effusion. Bibasilar consolidations. Limited visualization of the upper abdomen demonstrates subdiaphragmatic right localized fluid collection anterior to the liver, loculated ascites versus abscess. Partially imaged small fluid collection is also noted within the right upper quadrant medial to the left hepatic lobe as well as anterior to the spleen. No acute osseous abnormality is detected. Impression: Two left-sided chest tubes. Moderate loculated left hydro pneumothorax. Moderate-sized right loculated pleural effusion. Bibasilar consolidations. Limited visualization of the upper abdomen demonstrates subdiaphragmatic right localized fluid collection anterior to the liver, loculated ascites versus abscess. Partially imaged small fluid collections also noted within the right upper quadrant medial to the left hepatic lobe as well as anterior to the spleen.
--- NOTE | 2017-03-17 14:37 | CP.PCM.PN ---
Subjective - Date & Time of Evaluation Date of Evaluation: 03/17/17 Time of Evaluation: 14:34 - Subjective Subjective: Pt s/e. chest wall discomfort. cxr-no pneumo. chest tubes-90/90 sersanguinous-no air leak. Ct-No PE. Residual space problem. Will consider removing chest tube tomorrow. Objective - Vital Signs/Intake and Output Vital Signs (last 24 hours): Temp Pulse Resp BP Pulse Ox 98.8 F 97 H 20 125/66 100 03/17/17 08:57 03/17/17 09:00 03/17/17 07:25 03/17/17 10:06 03/17/17 07:25 Intake and Output: 03/17/17 03/17/17 06:59 18:59 Intake Total 300 Output Total 68 Balance 232 - Medications Medications: Current Medications Acetaminophen (Tylenol 325mg Tab) 650 mg PO Q6 PRN PRN Reason: Fever >100.4 F Last Admin: 03/17/17 07:57 Dose: 650 mg Diltiazem HCl (Cardizem) 5 mg IVP TID PRN PRN Reason: Other Diltiazem HCl (Cardizem) 30 mg PO Q6 [facility] Docusate Sodium (Colace) 100 mg PO BID [facility] Last Admin: 03/17/17 09:22 Dose: 100 mg Enoxaparin Sodium (Lovenox) 40 mg SC DAILY [facility] Last Admin: 03/17/17 09:22 Dose: 40 mg Famotidine (Pepcid) 20 mg PO DAILY [facility] Last Admin: 03/17/17 09:22 Dose: 20 mg Ferrous Sulfate (Feosol) 325 mg PO TID [facility] Last Admin: 03/17/17 13:57 Dose: 325 mg Cefepime HCl 1 gm/ Dextrose 50 mls @ 100 mls/hr IVPB Q12H [facility] Last Admin: 03/17/17 10:05 Dose: 100 mls/hr Vancomycin HCl 1,000 mg/ (Sodium Chloride) 250 mls @ 166.6 mls/hr IVPB Q12H [facility] Last Admin: 03/17/17 11:14 Dose: 166.6 mls/hr Losartan Potassium (Cozaar) 100 mg PO DAILY [facility] Last Admin: 03/17/17 09:22 Dose: 100 mg Metoprolol Tartrate (Lopressor) 50 mg PO BID [facility] Last Admin: 03/17/17 09:22 Dose: 50 mg Morphine Sulfate (Morphine) 2 mg IVP Q4 PRN PRN Reason: Pain, moderate (4-7) Last Admin: 03/07/17 18:42 Dose: 2 mg Ondansetron HCl (Zofran Inj) 4 mg IVP Q4 PRN PRN Reason: Nausea/Vomiting Promethazine HCl (Phenergan Syrup) 12.5 mg PO Q6 PRN PRN Reason: cough Last Admin: 03/16/17 17:13 Dose: 12.5 mg Rosuvastatin Calcium (Crestor) 10 mg PO HS [facility] Last Admin: 03/16/17 21:32 Dose: 10 mg - Labs Labs: 03/17/17 11:29 03/17/17 11:29 PT 13.3 SECONDS (9.7-12.2) H 02/25/17 18:17 INR 1.2 02/25/17 18:17 APTT 31 SECONDS (21-34) D 02/25/17 18:17
--- NOTE | 2017-03-17 15:50 | CP.PCM.CON ---
History of Present Illness - History of Present Illness History of Present Illness: Palliative consult Requested by Zuly CHARLES Reason: goals of care discussion Patient is a 71 yo female admitted from home with SOB and coughing up white sputum. The CT chest was significant for B/L pleural effusion. Patient is S/P Left chest tube insertion with Doctor Tad, on . Today, patient went to rapid A fib with HR near 200. After the SHIFT COORDINATOR attention, the HR came bellow 100. PMH: ovarian CA diagnosed about 2 years ago, on chemo Tx, recurent ascites with paracentesis Soc. Hx: lives alone, , ex visits Fam. Hx: unknown Review of Systems - Constitutional Constitutional: Weakness - EENT Eyes: absent: As Per HPI, Blind Spots, Blurred Vision, Change in Vision, Decreased Night Vision, Diplopia, Discharge, Dry Eye, Exophthalmos, Floaters, Irritation, Itchy Eyes, Loss of Peripheral Vision, Pain, Photophobia, Requires Corrective Lenses, Sees Flashes, Spots in Vision, Tunnel Vision, Other Visual Disturbances, Loss of Vision, Other Ears: absent: As Per HPI, Decreased Hearing, Ear Discharge, Ear Pain, Tinnitus, Abnormal Hearing, Disequilibrium, Dizziness, Other Nose/Mouth/Throat: absent: As Per HPI, Epistaxis, Nasal Congestion, Nasal Discharge, Nasal Obstruction, Nasal Trauma, Nose Pain, Post Nasal Drip, Sinus Pain, Sinus Pressure, Bleeding Gums, Change in Voice, Dental Pain, Dry Mouth, Dysphagia, Halitosis, Hoarsness, Lip Swelling, Mouth Lesions, Mouth Pain, Odynophagia, Sore Throat, Throat Swelling, Tongue Swelling, Facial Pain, Neck Pain, Neck Mass, Other - Breasts Breasts: absent: As Per HPI, Change in Shape, Mass, Pain, Nipple Discharge, Nipple Inversion, Skin Changes, Swelling, Other - Cardiovascular Cardiovascular: Dyspnea, Dyspnea on Exertion, Palpitations, Rapid Heart Rate - Respiratory Respiratory: Dyspnea, Dyspnea on Exertion, Excessive Mucous Production Additional comments: Left chest tube - Gastrointestinal Gastrointestinal: Nausea - Genitourinary Genitourinary: absent: As Per HPI, Change in Urinary Stream, Difficulty Urinating, Dysuria, Flank Pain, Hematuria, Pyuria, Nocturia, Urinary Incontinence, Urinary Frequency, Urinary Hesitance, Urinary Urgency, Voiding Freq/Small Amts, Freq UTI, Hx Renal/Bladder Calculi, Hx /Renal Surgery, Bladder Distension, Other - Reproductive: Female Reproductive:Female: Post Menopausal - Menstruation Menstruation: Post Menopausal - Musculoskeletal Musculoskeletal: Muscle Weakness - Integumentary Integumentary: absent: As Per HPI, Acne, Alopecia, Bleeding Lesions, Change in Hair, Change in Nails, Change in Pigmentation, Changing Lesions, Dry Skin, Erythema, Furuncle, Hirsutism, Lesions, New Lesions, Non-Healing Lesions, Photosensitivity, Pruritus, Rash, Skin Pain, Skin Ulcer, Sores, Striae, Swelling , Unusual Bruising, Wounds, Jaundice, Other - Neurological Neurological: Weakness - Psychiatric Psychiatric: absent: As Per HPI, Abnormal Sleep Pattern, Anhedonia, Anxiety, Auditory Hallucinations, Behavioral Changes, Change in Appetite, Change in Libido, Confusion, Depression, Difficulty Concentrating, Hallucinations, Homicidal Ideation, Hopelessness, Irritability, Memory Loss, Mood Swings, Panic Attacks, Paranoia, Suicidal Ideation, Visual Hallucinations, Tactile Hallucinations, Other - Endocrine Endocrine: Fatigue - Hematologic/Lymphatic Hematologic: absent: As Per HPI, Easy Bleeding, Easy Bruising, Lymphadenopathy, Other Past Patient History - Infectious Disease Hx of Infectious Diseases: None - Past Medical History & Family History Past Medical History?: Yes - Past Social History Smoking Status: Former Smoker - CARDIAC Hx Hypercholesterolemia: Yes Hx Hypertension: Yes - PULMONARY Hx Asthma: Yes - NEUROLOGICAL Hx Seizures: Yes (UP TIL AGE 14YRS.) - HEENT Hx HEENT Problems: Yes Hx Cataracts: Yes (LEFT) - ENDOCRINE/METABOLIC Hx Diabetes Mellitus Type 2: Yes - HEMATOLOGICAL/ONCOLOGICAL Hx Anemia: Yes - MUSCULOSKELETAL/RHEUMATOLOGICAL Hx Arthritis: Yes (GENERALIZED) Hx Rheumatoid Arthritis: Yes - GASTROINTESTINAL Hx Crohn's Disease: No Hx Diverticulitis: No Hx Gall Bladder Disease: No Hx Gastritis: No Hx Pancreatitis: No - GENITOURINARY/GYNECOLOGICAL Hx Sexually Transmitted Disorders: No - PSYCHIATRIC Hx Substance Use: No - SURGICAL HISTORY Hx Appendectomy: No Hx Carotid Endarterectomy: No Hx Cholecystectomy: No Hx Coronary Artery Bypass Graft: No Hx Tonsillectomy: No - ANESTHESIA Hx Anesthesia: Yes Hx Anesthesia Reactions: No Hx Malignant Hyperthermia: No Meds Home Medications: Home Medication List Medication Instructions Recorded Confirmed Type Apixaban [Eliquis] 5 mg PO BID #5 tablet 03/14/17 Rx Allergies/Adverse Reactions: Allergies Allergy/AdvReac Type Severity Reaction Status Date / Time No Known Allergies Allergy Verified 12/17/16 18:57 - Medications Medications: Current Medications Acetaminophen (Tylenol 325mg Tab) 650 mg PO Q6 PRN PRN Reason: Fever >100.4 F Last Admin: 03/17/17 07:57 Dose: 650 mg Diltiazem HCl (Cardizem) 5 mg IVP TID PRN PRN Reason: Other Last Admin: 03/17/17 14:38 Dose: 5 mg Diltiazem HCl (Cardizem) 30 mg PO Q6 [facility] Docusate Sodium (Colace) 100 mg PO BID [facility] Last Admin: 03/17/17 09:22 Dose: 100 mg Enoxaparin Sodium (Lovenox) 40 mg SC DAILY [facility] Last Admin: 03/17/17 09:22 Dose: 40 mg Famotidine (Pepcid) 20 mg PO DAILY [facility] Last Admin: 03/17/17 09:22 Dose: 20 mg Ferrous Sulfate (Feosol) 325 mg PO TID [facility] Last Admin: 03/17/17 13:57 Dose: 325 mg Cefepime HCl 1 gm/ Dextrose 50 mls @ 100 mls/hr IVPB Q12H [facility] Last Admin: 03/17/17 10:05 Dose: 100 mls/hr Vancomycin HCl 1,000 mg/ (Sodium Chloride) 250 mls @ 166.6 mls/hr IVPB Q12H [facility] Last Admin: 03/17/17 11:14 Dose: 166.6 mls/hr Losartan Potassium (Cozaar) 100 mg PO DAILY [facility] Last Admin: 03/17/17 09:22 Dose: 100 mg Metoprolol Tartrate (Lopressor) 50 mg PO BID [facility] Last Admin: 03/17/17 09:22 Dose: 50 mg Morphine Sulfate (Morphine) 2 mg IVP Q4 PRN PRN Reason: Pain, moderate (4-7) Last Admin: 03/07/17 18:42 Dose: 2 mg Ondansetron HCl (Zofran Inj) 4 mg IVP Q4 PRN PRN Reason: Nausea/Vomiting Promethazine HCl (Phenergan Syrup) 12.5 mg PO Q6 PRN PRN Reason: cough Last Admin: 03/16/17 17:13 Dose: 12.5 mg Rosuvastatin Calcium (Crestor) 10 mg PO HS [facility] Last Admin: 03/16/17 21:32 Dose: 10 mg Physical Exam - Constitutional Appears: Chronically Ill - Head Exam Head Exam: ATRAUMATIC, NORMAL INSPECTION, NORMOCEPHALIC - Eye Exam Eye Exam: EOMI, Normal appearance, PERRL Pupil Exam: NORMAL ACCOMODATION, PERRL - ENT Exam ENT Exam: Mucous Membranes Dry, Normal Exam - Neck Exam Neck exam: Positive for: Normal Inspection - Respiratory Exam Respiratory Exam: Decreased Breath Sounds Additional comments: dyspnea at rest - Cardiovascular Exam Cardiovascular Exam: Tachycardia, REGULAR RHYTHM - GI/Abdominal Exam GI & Abdominal Exam: Normal Bowel Sounds, Soft - Rectal Exam Rectal Exam: Deferred - Extremities Exam Extremities exam: Positive for: normal inspection - Back Exam Back exam: NORMAL INSPECTION - Neurological Exam Neurological exam: Alert, Oriented x3 - Psychiatric Exam Psychiatric exam: Normal Affect, Normal Mood - Skin Skin Exam: Dry, Intact, Normal Color, Warm Results - Vital Signs Recent Vital Signs: Last Vital Signs Temp 99.2 F 03/17/17 14:39 Pulse 129 H 03/17/17 14:39 Resp 20 03/17/17 07:25 BP 129/63 03/17/17 14:39 Pulse Ox 100 03/17/17 07:25 - Labs Result Diagrams: 03/17/17 11:29 03/17/17 11:29 Labs: Laboratory Results - last 24 hr 03/17/17 03/17/17 03/17/17 10:08 11:29 11:29 WBC 5.0 RBC 3.67 L Hgb 9.5 L Hct 30.1 L MCV 82.1 MCH 26.0 L MCHC 31.7 L RDW 16.5 H Plt Count 463 H MPV 7.7 Neut % (Auto) 52.7 Lymph % (Auto) 19.9 L [place] % (Auto) 26.5 H Eos % (Auto) 0.3 Baso % (Auto) 0.6 Neut # 2.6 Lymph # 1.0 [place] # 1.3 H Eos # 0.0 Baso # 0.0 Neutrophils % (Manual) 48 L Band Neutrophils % 11 H* Lymphocytes % (Manual) 20 Monocytes % (Manual) 20 H Basophils % (Manual) 1 Platelet Estimate Normal Hypochromasia (manual) Slight Poikilocytosis (manual Slight Anisocytosis (manual) Slight Target Cells Slight pO2 32 VBG pH 7.39 VBG pCO2 47 VBG HCO3 26.1 VBG Total CO2 29.9 H VBG O2 Sat (Calc) 59.6 VBG Base Excess 2.8 H VBG Potassium 3.9 Sodium 136.0 135 Chloride 106.0 98 Glucose 81 Lactate 1.1 Potassium 4.0 Carbon Dioxide 28 Anion Gap 14 BUN 13 Creatinine 0.8 Est GFR ( Amer) > 60 Est GFR (Non-Af Amer) > 60 Random Glucose 82 Calcium 9.2 Total Bilirubin 0.6 AST 21 ALT 27 Alkaline Phosphatase 73 Total Creatine Kinase 25 L CK-MB (Mass) 0.28 Troponin I, Quant < 0.0120 Total Protein 6.3 Albumin 3.0 L Globulin 3.3 Albumin/Globulin Ratio 0.9 L Venous Blood Potassium 3.9 Assessment & Plan - Assessment and Plan (Free Text) Assessment: Palliative consult Code status Full Code. No advance directive on chart. PPS 20%. I reviewed medical records, all diagnostic studies, examined and interviewed patient in the bed.Goals of care discussed. Patient is alert oriented X 3 , looking chronically ill. Patient is S/P rapid Afib today with HR of 200. Patient denied any sensation prior, during or after the episode of a Fib. Patient is resting in bed with dyspnea at rest. Dyspnea worsens with talking. Left chest tube in place. Patient denies pain to insertion site. Patient states she is not SOB all the time, just occasionally. Patient also admits not being able to ambulate. I murray my concerns regarding patient's safety if was left home alone. Patient agreed and suggested that nursing home aide could be helpful. I suggested more information regarding the home care and its limited help. Patient;s ex was at bed side, and very attentive to the discussion. Patient looked annoyed by his presence and his participation in discussion. Patient also looked very tired, after the incident of rapid response today. We agreed to meet again tomorrow. I also spoke to Latonia, patient's daughter, who is fully aware of her mother's serious condition and stated that patient had told her in the past that she would not want to be kept alive on life support if the meaningful recovery was not expected. Impression * This is a very sick woman with ovarian cancer on chemo Tx * Patient is S/P left chest tube on 03/02/2017. Doctor Mishra plans on removing tube in am * Dyspnea at rest * Generalized weakness * Mostly bed ridden * Code status is not defined * Patient is not able to participate in ADLs due to condition and discharge home will not be safe Suggestion * Promote rest to preserve energy * Assist with ADLs * O2 via NC * DNR/DNI would be appropriate Code status for this very sick patient. I will revisit patient in am for Code status discussion. Thank you for consulting Palliative care.
--- NOTE | 2017-03-17 16:51 | CP.PCM.PN ---
Subjective - Date & Time of Evaluation Date of Evaluation: 03/17/17 Time of Evaluation: 14:25 - Subjective Subjective: Patient seen and examined. Still complaining of slight cough and pain in her chest tube insertion site Still draining serosanguineous fluid minimal amount with a leak Chest x-ray showed no pneumothorax Plan is to remove chest tube in a.m. Objective - Vital Signs/Intake and Output Vital Signs (last 24 hours): Temp Pulse Resp BP Pulse Ox 98.9 F 99 H 20 131/78 97 03/17/17 15:40 03/17/17 15:40 03/17/17 15:40 03/17/17 15:40 03/17/17 15:40 Intake and Output: 03/17/17 03/17/17 06:59 18:59 Intake Total 300 800 Output Total 68 120 Balance 232 680 - Medications Medications: Current Medications Acetaminophen (Tylenol 325mg Tab) 650 mg PO Q6 PRN PRN Reason: Fever >100.4 F Last Admin: 03/17/17 07:57 Dose: 650 mg Diltiazem HCl (Cardizem) 5 mg IVP TID PRN PRN Reason: Other Last Admin: 03/17/17 14:38 Dose: 5 mg Diltiazem HCl (Cardizem) 30 mg PO Q6 [facility] Docusate Sodium (Colace) 100 mg PO BID [facility] Last Admin: 03/17/17 09:22 Dose: 100 mg Enoxaparin Sodium (Lovenox) 40 mg SC DAILY [facility] Last Admin: 03/17/17 09:22 Dose: 40 mg Famotidine (Pepcid) 20 mg PO DAILY [facility] Last Admin: 03/17/17 09:22 Dose: 20 mg Ferrous Sulfate (Feosol) 325 mg PO TID [facility] Last Admin: 03/17/17 13:57 Dose: 325 mg Cefepime HCl 1 gm/ Dextrose 50 mls @ 100 mls/hr IVPB Q12H [facility] Last Admin: 03/17/17 10:05 Dose: 100 mls/hr Vancomycin HCl 1,000 mg/ (Sodium Chloride) 250 mls @ 166.6 mls/hr IVPB Q12H [facility] Last Admin: 03/17/17 11:14 Dose: 166.6 mls/hr Losartan Potassium (Cozaar) 100 mg PO DAILY [facility] Last Admin: 03/17/17 09:22 Dose: 100 mg Metoprolol Tartrate (Lopressor) 50 mg PO BID [facility] Last Admin: 03/17/17 09:22 Dose: 50 mg Morphine Sulfate (Morphine) 2 mg IVP Q4 PRN PRN Reason: Pain, moderate (4-7) Last Admin: 03/07/17 18:42 Dose: 2 mg Ondansetron HCl (Zofran Inj) 4 mg IVP Q4 PRN PRN Reason: Nausea/Vomiting Promethazine HCl (Phenergan Syrup) 12.5 mg PO Q6 PRN PRN Reason: cough Last Admin: 03/16/17 17:13 Dose: 12.5 mg Rosuvastatin Calcium (Crestor) 10 mg PO HS [facility] Last Admin: 03/16/17 21:32 Dose: 10 mg - Labs Labs: 03/17/17 11:29 03/17/17 11:29 PT 13.3 SECONDS (9.7-12.2) H 02/25/17 18:17 INR 1.2 02/25/17 18:17 APTT 31 SECONDS (21-34) D 02/25/17 18:17 - Head Exam Head Exam: ATRAUMATIC, NORMOCEPHALIC - ENT Exam ENT Exam: Mucous Membranes Moist - Neck Exam Neck Exam: Normal Inspection - Respiratory Exam Respiratory Exam: Decreased Breath Sounds - GI/Abdominal Exam GI & Abdominal Exam: Soft, Normal Bowel Sounds Assessment and Plan (1) Malignant pleural effusion Status: Acute (2) Ascites, malignant Status: Acute (3) Ovarian cancer Status: Chronic (4) Shortness of breath Status: Acute
[2017-03-18] MEDS ORDERED: Digoxin 250 mcg (0.25 mg) Tab PO STA (02:10)
[2017-03-18 02:25] VITALS: PULSE 151
--- NOTE | 2017-03-18 02:31 | CP.PCM.PN ---
<FarzanamarkRuddy - Last Filed: 03/18/17 02:21> Subjective - Date & Time of Evaluation Date of Evaluation: 03/18/17 Time of Evaluation: 02:03 - Subjective Subjective: COLLEGE RECRUITER called at 2:00 due to tachycardia, with sustained heart rate in 150's - 160' s, after nurse administered Cardizem 30mg PO at 12:00 and Cardizem 5mg IVP at 12 :41. Pt. with pmh of Lung Cancer, and recent pneumothorax with chest tube. COLLEGE RECRUITER response also called yesterday at 10am due to HR >200. Patient appeared comfortable upon entering room, no chest pain or discomfort expressed. However, patient did appear mildly Tachypneic. Chest tubes are in place in order to help decompress the lungs. Prior Chest x-ray with persistent left hydropneumothorax, b/l pleural effusion. Patient was not in any acute distress. She had no acute complaints at this time. Administered Cardizem 10mg IVP and Digoxin 0.5mg PO. Also ordered BIPAP at 10/5 40% in order decrease work of breathing. Objective - Vital Signs/Intake and Output Vital Signs (last 24 hours): Temp Pulse Resp BP Pulse Ox 98.9 F 104 H 20 135/76 96 03/17/17 23:25 03/17/17 23:25 03/17/17 23:25 03/17/17 23:25 03/17/17 23:25 Intake and Output: 03/17/17 03/18/17 18:59 06:59 Intake Total 800 840 Output Total 120 Balance 680 840 - Medications Medications: Current Medications Acetaminophen (Tylenol 325mg Tab) 650 mg PO Q6 PRN PRN Reason: Fever >100.4 F Last Admin: 03/17/17 07:57 Dose: 650 mg Diltiazem HCl (Cardizem) 5 mg IVP TID PRN PRN Reason: Other Last Admin: 03/18/17 00:41 Dose: 5 mg Diltiazem HCl (Cardizem) 30 mg PO Q6 [facility] Last Admin: 03/18/17 00:00 Dose: 30 mg Docusate Sodium (Colace) 100 mg PO BID [facility] Last Admin: 03/17/17 18:04 Dose: 100 mg Enoxaparin Sodium (Lovenox) 40 mg SC DAILY [facility] Last Admin: 03/17/17 09:22 Dose: 40 mg Famotidine (Pepcid) 20 mg PO DAILY [facility] Last Admin: 03/17/17 09:22 Dose: 20 mg Ferrous Sulfate (Feosol) 325 mg PO TID [facility] Last Admin: 03/17/17 18:04 Dose: 325 mg Cefepime HCl 1 gm/ Dextrose 50 mls @ 100 mls/hr IVPB Q12H [facility] Last Admin: 03/17/17 21:30 Dose: 100 mls/hr Vancomycin HCl 1,000 mg/ (Sodium Chloride) 250 mls @ 166.6 mls/hr IVPB Q12H [facility] Last Admin: 03/17/17 22:00 Dose: 166.6 mls/hr Losartan Potassium (Cozaar) 100 mg PO DAILY [facility] Last Admin: 03/17/17 09:22 Dose: 100 mg Metoprolol Tartrate (Lopressor) 50 mg PO BID [facility] Last Admin: 03/17/17 18:04 Dose: 50 mg Morphine Sulfate (Morphine) 2 mg IVP Q4 PRN PRN Reason: Pain, moderate (4-7) Last Admin: 03/07/17 18:42 Dose: 2 mg Ondansetron HCl (Zofran Inj) 4 mg IVP Q4 PRN PRN Reason: Nausea/Vomiting Promethazine HCl (Phenergan Syrup) 12.5 mg PO Q6 PRN PRN Reason: cough Last Admin: 03/16/17 17:13 Dose: 12.5 mg Rosuvastatin Calcium (Crestor) 10 mg PO HS [facility] Last Admin: 03/17/17 21:46 Dose: 10 mg - Labs Labs: 03/17/17 11:29 03/17/17 11:29 PT 13.3 SECONDS (9.7-12.2) H 02/25/17 18:17 INR 1.2 02/25/17 18:17 APTT 31 SECONDS (21-34) D 02/25/17 18:17 - Additional Findings Additional findings: - Constitutional Appears: Non-toxic, No Acute Distress - Head Exam Head Exam: ATRAUMATIC, NORMOCEPHALIC - Eye Exam Eye Exam: EOMI - ENT Exam ENT Exam: Mucous Membranes Moist - Neck Exam Neck Exam: Full ROM - Respiratory Exam Respiratory Exam: Tachypnea (mild), Decreased breath sounds. Additional comments: -L side CT in place, dressing C/D/I - GI/Abdominal Exam GI & Abdominal Exam: Soft. absent: Distended, Firm, Guarding, Rigid, Tenderness - Neurological Exam Neurological Exam: Alert, Awake <Keswani,Marcus P - Last Filed: 03/23/17 21:52> Objective - Vital Signs/Intake and Output Vital Signs (last 24 hours): Temp Pulse Resp BP Pulse Ox 98 F 79 20 150/83 96 03/23/17 15:58 03/23/17 17:00 03/23/17 15:58 03/23/17 15:58 03/23/17 15:58 Intake and Output: 03/23/17 03/24/17 18:59 06:59 Intake Total 350 Output Total 10 Balance 340 - Medications Medications: Current Medications Acetaminophen (Tylenol 325mg Tab) 650 mg PO Q6 PRN PRN Reason: Fever >100.4 F Last Admin: 03/17/17 07:57 Dose: 650 mg Albuterol/Ipratropium (Duoneb 3 Mg/0.5 Mg (3 Ml) Ud) 3 ml INH RQ6 [facility] Last Admin: 03/23/17 19:40 Dose: 3 ml Diltiazem HCl (Cardizem) 5 mg IVP TID PRN PRN Reason: Other Last Admin: 03/20/17 09:45 Dose: 5 mg Diltiazem HCl (Cardizem) 10 mg IVP ONCE PRN PRN Reason: HR > 140 Last Admin: 03/19/17 00:40 Dose: 10 mg Diltiazem HCl (Cardizem) 60 mg PO QID [facility] Last Admin: 03/23/17 17:38 Dose: 60 mg Docusate Sodium (Colace) 100 mg PO BID [facility] Last Admin: 03/23/17 17:37 Dose: 100 mg Enoxaparin Sodium (Lovenox) 40 mg SC Q12 [facility] Last Admin: 03/23/17 09:55 Dose: 40 mg Famotidine (Pepcid) 20 mg PO DAILY [facility] Last Admin: 03/23/17 09:55 Dose: 20 mg Ferrous Sulfate (Feosol) 325 mg PO TID [facility] Last Admin: 03/23/17 17:37 Dose: 325 mg Cefepime HCl 1 gm/ Dextrose 50 mls @ 100 mls/hr IVPB Q12H [facility] Last Admin: 03/23/17 10:00 Dose: 100 mls/hr Losartan Potassium (Cozaar) 100 mg PO DAILY [facility] Last Admin: 03/23/17 09:55 Dose: 100 mg Metoprolol Tartrate (Lopressor) 50 mg PO BID [facility] Last Admin: 03/23/17 17:38 Dose: 50 mg Morphine Sulfate (Morphine) 2 mg IVP Q4 PRN PRN Reason: Pain, moderate (4-7) Last Admin: 03/21/17 03:14 Dose: 2 mg Ondansetron HCl (Zofran Inj) 4 mg IVP Q4 PRN PRN Reason: Nausea/Vomiting Promethazine HCl (Phenergan Syrup) 12.5 mg PO Q6 PRN PRN Reason: cough Last Admin: 03/21/17 00:22 Dose: 12.5 mg Rosuvastatin Calcium (Crestor) 10 mg PO HS [facility] Last Admin: 03/22/17 21:13 Dose: 10 mg - Labs Labs: 03/23/17 08:07 03/23/17 08:07 PT 13.3 SECONDS (9.7-12.2) H 02/25/17 18:17 INR 1.2 02/25/17 18:17 APTT 31 SECONDS (21-34) D 02/25/17 18:17 Attending/Attestation - Attestation I have personally seen and examined this patient.: Yes I have fully participated in the care of the patient.: Yes I have reviewed all pertinent clinical information, including history, physical exam and plan: Yes
--- NOTE | 2017-03-18 08:30 | CP.PCM.PN ---
Subjective - Date & Time of Evaluation Date of Evaluation: 03/18/17 Time of Evaluation: 07:00 - Subjective Subjective: Surgical Progress Note for Dr. Mishra Pt S&E. Nursing reports an episode of tachycardia and tachypnea at 2 am last night. Pt was in NAD. HR and RR resolved with cardazem and digoxin. Today pt states she has no pain, but that she has a cough since last night and she is having some trouble breathing. When chest tube is removed from under her back and suction is checked, pt states it is easier to breathe. Nursing is instructed to make sure tube is not kinked and suction is tightly attached. Pt denies fever, chills, pain or nausea. Objective - Vital Signs/Intake and Output Vital Signs (last 24 hours): Temp Pulse Resp BP Pulse Ox 98.7 F 110 H 22 169/74 H 96 03/18/17 07:35 03/18/17 07:35 03/18/17 07:35 03/18/17 07:35 03/18/17 07:35 Intake and Output: 03/18/17 03/18/17 06:59 18:59 Intake Total 960 Output Total 20 Balance 940 - Medications Medications: Current Medications Acetaminophen (Tylenol 325mg Tab) 650 mg PO Q6 PRN PRN Reason: Fever >100.4 F Last Admin: 03/17/17 07:57 Dose: 650 mg Diltiazem HCl (Cardizem) 5 mg IVP TID PRN PRN Reason: Other Last Admin: 03/18/17 00:41 Dose: 5 mg Diltiazem HCl (Cardizem) 30 mg PO Q6 [facility] Last Admin: 03/18/17 06:00 Dose: Not Given Diltiazem HCl (Cardizem) 10 mg IVP ONCE PRN PRN Reason: HR > 140 Docusate Sodium (Colace) 100 mg PO BID [facility] Last Admin: 03/17/17 18:04 Dose: 100 mg Enoxaparin Sodium (Lovenox) 40 mg SC DAILY [facility] Last Admin: 03/17/17 09:22 Dose: 40 mg Famotidine (Pepcid) 20 mg PO DAILY [facility] Last Admin: 03/17/17 09:22 Dose: 20 mg Ferrous Sulfate (Feosol) 325 mg PO TID [facility] Last Admin: 03/17/17 18:04 Dose: 325 mg Cefepime HCl 1 gm/ Dextrose 50 mls @ 100 mls/hr IVPB Q12H [facility] Last Admin: 03/17/17 21:30 Dose: 100 mls/hr Vancomycin HCl 1,000 mg/ (Sodium Chloride) 250 mls @ 166.6 mls/hr IVPB Q12H [facility] Last Admin: 03/17/17 22:00 Dose: 166.6 mls/hr Losartan Potassium (Cozaar) 100 mg PO DAILY [facility] Last Admin: 03/17/17 09:22 Dose: 100 mg Metoprolol Tartrate (Lopressor) 50 mg PO BID [facility] Last Admin: 03/17/17 18:04 Dose: 50 mg Morphine Sulfate (Morphine) 2 mg IVP Q4 PRN PRN Reason: Pain, moderate (4-7) Last Admin: 03/07/17 18:42 Dose: 2 mg Ondansetron HCl (Zofran Inj) 4 mg IVP Q4 PRN PRN Reason: Nausea/Vomiting Promethazine HCl (Phenergan Syrup) 12.5 mg PO Q6 PRN PRN Reason: cough Last Admin: 03/16/17 17:13 Dose: 12.5 mg Rosuvastatin Calcium (Crestor) 10 mg PO HS [facility] Last Admin: 03/17/17 21:46 Dose: 10 mg - Labs Labs: 03/17/17 11:29 03/17/17 11:29 PT 13.3 SECONDS (9.7-12.2) H 02/25/17 18:17 INR 1.2 02/25/17 18:17 APTT 31 SECONDS (21-34) D 02/25/17 18:17 - Constitutional Appears: Non-toxic, No Acute Distress - Head Exam Head Exam: ATRAUMATIC, NORMOCEPHALIC - Eye Exam Eye Exam: EOMI. absent: Scleral icterus - Respiratory Exam Respiratory Exam: absent: Wheezes, Respiratory Distress Additional comments: Left chest tube in place on suction with 120cc/24 hours, air leak still present - Cardiovascular Exam Cardiovascular Exam: Tachycardia. absent: JVD - Neurological Exam Neurological Exam: Alert, Awake - Skin Skin Exam: Dry, Warm Additional comments: CT dressing is clean and dry Assessment and Plan - Assessment and Plan (Free Text) Assessment: Assessment: 71F with recurrent pleural effusion s/p Left VATS converted to thoracotomy, evacuation of pleural fluid, debridement of left lung cavity, decortication, insertion of chest tubes and PleurX catheter POD#16 Plan: - Continue chest tube to suction - Left chest tube in place on suction with 120cc/24 hours, air leak still present - AM CXR, awaiting final read - Continue daily CXR - Dressing changed this AM - Will continue to follow - Continue breathing treatments per medicine - Discussed plan with Dr. Tad Cruz PGY-2
--- NOTE | 2017-03-18 09:12 | RAD ---
HISTORY: left chest tube COMPARISON: 03/17/2017 FINDINGS: LUNGS: Lines and tubes in stable position. Moderate loculated left-sided pleural effusion. Small loculated right pleural effusion. Ill-defined consolidative changes throughout the left mid to lower lung zone as well as the right lung base. Right midlung atelectasis. Moderate venous congestion. PLEURA: As above. CARDIOVASCULAR: Cardiomegaly. OSSEOUS STRUCTURES: Degenerative changes in the spine and shoulders. VISUALIZED UPPER ABDOMEN: Normal. OTHER FINDINGS: None. IMPRESSION: No significant interval change.
[2017-03-18] MEDS: Enoxaparin 40 mg Syringe SC SCH (10:28)
--- NOTE | 2017-03-18 10:53 | CARD ---
APPROVED REPORT EKG Measurement Heart [id number] MN [id number] [id number] <Conclusion> a.fib with rvr Nonspecific T wave abnormality Abnormal ECG
--- NOTE | 2017-03-18 12:30 | CP.PCM.PN ---
Subjective - Date & Time of Evaluation Date of Evaluation: 03/18/17 Time of Evaluation: 12:30 - Subjective Subjective: Pt s/e. Objective - Vital Signs/Intake and Output Vital Signs (last 24 hours): Temp Pulse Resp BP Pulse Ox 98.7 F 110 H 22 169/74 H 96 03/18/17 07:35 03/18/17 07:35 03/18/17 07:35 03/18/17 07:35 03/18/17 07:35 Intake and Output: 03/18/17 03/18/17 06:59 18:59 Intake Total 960 Output Total 20 Balance 940 - Medications Medications: Current Medications Acetaminophen (Tylenol 325mg Tab) 650 mg PO Q6 PRN PRN Reason: Fever >100.4 F Last Admin: 03/17/17 07:57 Dose: 650 mg Diltiazem HCl (Cardizem) 5 mg IVP TID PRN PRN Reason: Other Last Admin: 03/18/17 00:41 Dose: 5 mg Diltiazem HCl (Cardizem) 30 mg PO Q6 [facility] Last Admin: 03/18/17 12:05 Dose: 30 mg Diltiazem HCl (Cardizem) 10 mg IVP ONCE PRN PRN Reason: HR > 140 Docusate Sodium (Colace) 100 mg PO BID [facility] Last Admin: 03/18/17 10:28 Dose: 100 mg Enoxaparin Sodium (Lovenox) 40 mg SC DAILY [facility] Last Admin: 03/18/17 10:28 Dose: 40 mg Famotidine (Pepcid) 20 mg PO DAILY [facility] Last Admin: 03/18/17 10:28 Dose: 20 mg Ferrous Sulfate (Feosol) 325 mg PO TID [facility] Last Admin: 03/18/17 10:28 Dose: 325 mg Cefepime HCl 1 gm/ Dextrose 50 mls @ 100 mls/hr IVPB Q12H [facility] Last Admin: 03/18/17 10:27 Dose: 100 mls/hr Vancomycin HCl 1,000 mg/ (Sodium Chloride) 250 mls @ 166.6 mls/hr IVPB Q12H [facility] Last Admin: 03/18/17 11:58 Dose: 166.6 mls/hr Losartan Potassium (Cozaar) 100 mg PO DAILY [facility] Last Admin: 03/18/17 10:28 Dose: 100 mg Metoprolol Tartrate (Lopressor) 50 mg PO BID [facility] Last Admin: 03/18/17 10:28 Dose: 50 mg Morphine Sulfate (Morphine) 2 mg IVP Q4 PRN PRN Reason: Pain, moderate (4-7) Last Admin: 03/07/17 18:42 Dose: 2 mg Ondansetron HCl (Zofran Inj) 4 mg IVP Q4 PRN PRN Reason: Nausea/Vomiting Promethazine HCl (Phenergan Syrup) 12.5 mg PO Q6 PRN PRN Reason: cough Last Admin: 03/16/17 17:13 Dose: 12.5 mg Rosuvastatin Calcium (Crestor) 10 mg PO HS [facility] Last Admin: 03/17/17 21:46 Dose: 10 mg - Labs Labs: 03/17/17 11:29 03/17/17 11:29 PT 13.3 SECONDS (9.7-12.2) H 02/25/17 18:17 INR 1.2 02/25/17 18:17 APTT 31 SECONDS (21-34) D 02/25/17 18:17
--- NOTE | 2017-03-18 13:39 | CP.PCM.PN ---
Subjective - Date & Time of Evaluation Date of Evaluation: 03/18/17 Time of Evaluation: 13:36 - Subjective Subjective: Patient complains of sacral pain from sitting in the chair. patient assisted back to bed with assistance of two. Objective - Vital Signs/Intake and Output Vital Signs (last 24 hours): Temp Pulse Resp BP Pulse Ox 98.7 F 105 H 22 169/74 H 96 03/18/17 07:35 03/18/17 09:15 03/18/17 07:35 03/18/17 07:35 03/18/17 07:35 Intake and Output: 03/18/17 03/18/17 06:59 18:59 Intake Total 960 Output Total 20 Balance 940 - Medications Medications: Current Medications Acetaminophen (Tylenol 325mg Tab) 650 mg PO Q6 PRN PRN Reason: Fever >100.4 F Last Admin: 03/17/17 07:57 Dose: 650 mg Diltiazem HCl (Cardizem) 5 mg IVP TID PRN PRN Reason: Other Last Admin: 03/18/17 00:41 Dose: 5 mg Diltiazem HCl (Cardizem) 30 mg PO Q6 [facility] Last Admin: 03/18/17 12:05 Dose: 30 mg Diltiazem HCl (Cardizem) 10 mg IVP ONCE PRN PRN Reason: HR > 140 Docusate Sodium (Colace) 100 mg PO BID [facility] Last Admin: 03/18/17 10:28 Dose: 100 mg Enoxaparin Sodium (Lovenox) 40 mg SC DAILY [facility] Last Admin: 03/18/17 10:28 Dose: 40 mg Famotidine (Pepcid) 20 mg PO DAILY [facility] Last Admin: 03/18/17 10:28 Dose: 20 mg Ferrous Sulfate (Feosol) 325 mg PO TID [facility] Last Admin: 03/18/17 10:28 Dose: 325 mg Cefepime HCl 1 gm/ Dextrose 50 mls @ 100 mls/hr IVPB Q12H [facility] Last Admin: 03/18/17 10:27 Dose: 100 mls/hr Vancomycin HCl 1,000 mg/ (Sodium Chloride) 250 mls @ 166.6 mls/hr IVPB Q12H [facility] Last Admin: 03/18/17 11:58 Dose: 166.6 mls/hr Losartan Potassium (Cozaar) 100 mg PO DAILY [facility] Last Admin: 03/18/17 10:28 Dose: 100 mg Metoprolol Tartrate (Lopressor) 50 mg PO BID [facility] Last Admin: 03/18/17 10:28 Dose: 50 mg Morphine Sulfate (Morphine) 2 mg IVP Q4 PRN PRN Reason: Pain, moderate (4-7) Last Admin: 03/07/17 18:42 Dose: 2 mg Ondansetron HCl (Zofran Inj) 4 mg IVP Q4 PRN PRN Reason: Nausea/Vomiting Promethazine HCl (Phenergan Syrup) 12.5 mg PO Q6 PRN PRN Reason: cough Last Admin: 03/16/17 17:13 Dose: 12.5 mg Rosuvastatin Calcium (Crestor) 10 mg PO [facility] Last Admin: 03/17/17 21:46 Dose: 10 mg - Labs Labs: 03/17/17 11:29 03/17/17 11:29 PT 13.3 SECONDS (9.7-12.2) H 02/25/17 18:17 INR 1.2 02/25/17 18:17 APTT 31 SECONDS (21-34) D 02/25/17 18:17 - Constitutional Appears: Chronically Ill - Head Exam Head Exam: ATRAUMATIC, NORMAL INSPECTION, NORMOCEPHALIC - Eye Exam Eye Exam: EOMI, Normal appearance, PERRL Pupil Exam: NORMAL ACCOMODATION, PERRL - ENT Exam ENT Exam: Mucous Membranes Moist, Normal Exam - Neck Exam Neck Exam: Full ROM - Respiratory Exam Respiratory Exam: Decreased Breath Sounds, Prolonged Expiratory Phase Additional comments: Left chest tube to suction - Cardiovascular Exam Cardiovascular Exam: Tachycardia, +S1, +S2 - GI/Abdominal Exam GI & Abdominal Exam: Soft, Normal Bowel Sounds - Rectal Exam Rectal Exam: Deferred - Extremities Exam Extremities Exam: Full ROM, Normal Capillary Refill, Normal Inspection - Back Exam Back Exam: NORMAL INSPECTION - Neurological Exam Neurological Exam: Alert, Oriented x3 Neuro motor strength exam: Left Upper Extremity: 2/1, Right Upper Extremity: 2/1 , Left Lower Extremity: 2/1, Right Lower Extremity: 2/1 - Psychiatric Exam Psychiatric exam: Normal Affect, Normal Mood - Skin Skin Exam: Dry, Normal Color Assessment and Plan - Assessment and Plan (Free Text) Assessment: Patient was examined sitting up in the chair. patient looks chronically ill, no acute distress. Patient had another [employer] response last night around 2 am. Again, patient denied symptoms.Lung sounds are diminished, there is still some dyspnea at rest. Left chest tube drains serous drainage. Patient denied pain at the chest tube side. Patient asked me what was causing her breathing this way and if it was a cancer. Before answering the question I elicited patient's knowledge about it and how much she would wanted to know. Patient said she has not talked to the Doctor about it, but feels it was cancer. I reviewed the Cytology of lung fluids report suggesting adenocarcinoma. Patient took it well. Further patient offered that she still had a hope and was dedicated to fight cancer. I supported her attitude. Patient admitted wanting to go home and her daughter's plan to move in with her. Patient feels happy about it, as she does no t want to go to [facility]. I fell that discussing the End of life care wishes would be too much for the patient to handle at this time. She already had her suspicion about lung cancer confirmed. I feel that patient need time to process this information before we move forward and discuss the Code status. Impression * This is a very fragile lady determined to fight her disease * There is dyspnea at rest * Left CT * Limited mobility due to generalized weakness Suggestion * Promote comfort * Assist with ADLs * Apply all interventions to sustain life * Promote rest * Limit time in chair up to 1 hr per shift or as tolerated by the patient.
--- NOTE | 2017-03-18 15:10 | CP.PCM.PN ---
Subjective - Date & Time of Evaluation Date of Evaluation: 03/18/17 Time of Evaluation: 12:35 - Subjective Subjective: Patient seen and examined. Lying comfortably in no acute distress but in the morning patient had shortness of breath and cough. Chest tube in place draining minimal fluid Afebrile Objective - Vital Signs/Intake and Output Vital Signs (last 24 hours): Temp Pulse Resp BP Pulse Ox 98.7 F 105 H 22 169/74 H 96 03/18/17 07:35 03/18/17 09:15 03/18/17 07:35 03/18/17 07:35 03/18/17 07:35 Intake and Output: 03/18/17 03/18/17 06:59 18:59 Intake Total 960 800 Output Total 20 Balance 940 800 - Medications Medications: Current Medications Acetaminophen (Tylenol 325mg Tab) 650 mg PO Q6 PRN PRN Reason: Fever >100.4 F Last Admin: 03/17/17 07:57 Dose: 650 mg Diltiazem HCl (Cardizem) 5 mg IVP TID PRN PRN Reason: Other Last Admin: 03/18/17 00:41 Dose: 5 mg Diltiazem HCl (Cardizem) 30 mg PO Q6 [facility] Last Admin: 03/18/17 12:05 Dose: 30 mg Diltiazem HCl (Cardizem) 10 mg IVP ONCE PRN PRN Reason: HR > 140 Docusate Sodium (Colace) 100 mg PO BID [facility] Last Admin: 03/18/17 10:28 Dose: 100 mg Enoxaparin Sodium (Lovenox) 40 mg SC DAILY [facility] Last Admin: 03/18/17 10:28 Dose: 40 mg Famotidine (Pepcid) 20 mg PO DAILY [facility] Last Admin: 03/18/17 10:28 Dose: 20 mg Ferrous Sulfate (Feosol) 325 mg PO TID [facility] Last Admin: 03/18/17 14:01 Dose: 325 mg Cefepime HCl 1 gm/ Dextrose 50 mls @ 100 mls/hr IVPB Q12H [facility] Last Admin: 03/18/17 10:27 Dose: 100 mls/hr Vancomycin HCl 1,000 mg/ (Sodium Chloride) 250 mls @ 166.6 mls/hr IVPB Q12H [facility] Last Admin: 03/18/17 11:58 Dose: 166.6 mls/hr Losartan Potassium (Cozaar) 100 mg PO DAILY [facility] Last Admin: 03/18/17 10:28 Dose: 100 mg Metoprolol Tartrate (Lopressor) 50 mg PO BID [facility] Last Admin: 03/18/17 10:28 Dose: 50 mg Morphine Sulfate (Morphine) 2 mg IVP Q4 PRN PRN Reason: Pain, moderate (4-7) Last Admin: 03/07/17 18:42 Dose: 2 mg Ondansetron HCl (Zofran Inj) 4 mg IVP Q4 PRN PRN Reason: Nausea/Vomiting Promethazine HCl (Phenergan Syrup) 12.5 mg PO Q6 PRN PRN Reason: cough Last Admin: 03/16/17 17:13 Dose: 12.5 mg Rosuvastatin Calcium (Crestor) 10 mg PO HS [facility] Last Admin: 03/17/17 21:46 Dose: 10 mg - Labs Labs: 03/17/17 11:29 03/17/17 11:29 PT 13.3 SECONDS (9.7-12.2) H 02/25/17 18:17 INR 1.2 02/25/17 18:17 APTT 31 SECONDS (21-34) D 02/25/17 18:17 - Head Exam Head Exam: ATRAUMATIC, NORMOCEPHALIC - ENT Exam ENT Exam: Mucous Membranes Moist - Neck Exam Neck Exam: Normal Inspection - Respiratory Exam Respiratory Exam: Decreased Breath Sounds - Cardiovascular Exam Cardiovascular Exam: REGULAR RHYTHM - GI/Abdominal Exam GI & Abdominal Exam: Soft, Normal Bowel Sounds Assessment and Plan (1) Malignant pleural effusion Assessment & Plan: Status post chest tube insertion with minimal drainage Plan of shortness of breath On antibiotics Chest tube management per thoracic Status: Acute (2) Ascites, malignant Status: Acute (3) Ovarian cancer Status: Chronic (4) Shortness of breath Status: Acute
--- NOTE | 2017-03-18 15:13 | PN ---
DATE: 03/18/2017 The patient denies any chest pain or dizziness. She feels a little chilly and I got her a blanket to put over her shoulder. She denies retrosternal chest pain. PHYSICAL EXAMINATION: VITAL SIGNS: Blood pressure 169/74, her latest heart rate is 105, temperature 98.7, respirations 22. HEENT: Pale conjunctivae. CHEST: Absent breath sounds over both bases. HEART: S1, S2 regular. EXTREMITIES: Significant muscle wasting. Official report chest CT scan done yesterday, impression is 2 left-sided chest tubes. Moderate locul ated left hydropneumothorax. Moderate size right loculated pleural effusion. Bibasilar consolidatio n. ASSESSMENT: 1. Metastatic ovarian carcinoma. 2. Atrial fibrillation. 3. Bilateral pleural effusion. 4. Anemia. 5. History of recently diagnosed pulmonary embolism in December of this year. RECOMMENDATIONS: Continue Cardizem at 30 mg q. 6 hours. Continue IV cefepime at 1 gram daily, Cozaa r 100 mg daily, Crestor 10 mg at bedtime, Lopressor 50 mg twice a day, subcutaneous Lovenox at 40 mg daily, IV vancomycin at 1 gram twice a day. Therapeutic subcutaneous Lovenox will be discussed with both the primary physician as well as fast food delivery driver. Morgan Zuniga MD cc: [id number] TT: 03/18/2017 15:13:35 Confirmation # [id number] Dictation # [id number] desi
--- NOTE | 2017-03-18 16:42 | CP.PCM.PN ---
Subjective - Date & Time of Evaluation Date of Evaluation: 03/17/17 Time of Evaluation: 10:14 - Subjective Subjective: Patient seen and examined. Still complaining of slight cough and pain in her chest tube insertion site Still draining serosanguineous fluid minimal amount with a leak Chest x-ray showed no pneumothorax Plan is to remove chest tube in a.m. Objective - Vital Signs/Intake and Output Vital Signs (last 24 hours): Temp Pulse Resp BP Pulse Ox 98.9 F 93 H 22 141/65 95 03/18/17 16:00 03/18/17 16:00 03/18/17 16:00 03/18/17 16:00 03/18/17 16:00 Intake and Output: 03/18/17 03/18/17 06:59 18:59 Intake Total 960 800 Output Total 20 80 Balance 940 720 - Medications Medications: Current Medications Acetaminophen (Tylenol 325mg Tab) 650 mg PO Q6 PRN PRN Reason: Fever >100.4 F Last Admin: 03/17/17 07:57 Dose: 650 mg Diltiazem HCl (Cardizem) 5 mg IVP TID PRN PRN Reason: Other Last Admin: 03/18/17 00:41 Dose: 5 mg Diltiazem HCl (Cardizem) 30 mg PO Q6 [facility] Last Admin: 03/18/17 12:05 Dose: 30 mg Diltiazem HCl (Cardizem) 10 mg IVP ONCE PRN PRN Reason: HR > 140 Docusate Sodium (Colace) 100 mg PO BID [facility] Last Admin: 03/18/17 10:28 Dose: 100 mg Enoxaparin Sodium (Lovenox) 40 mg SC DAILY [facility] Last Admin: 03/18/17 10:28 Dose: 40 mg Famotidine (Pepcid) 20 mg PO DAILY [facility] Last Admin: 03/18/17 10:28 Dose: 20 mg Ferrous Sulfate (Feosol) 325 mg PO TID [facility] Last Admin: 03/18/17 14:01 Dose: 325 mg Cefepime HCl 1 gm/ Dextrose 50 mls @ 100 mls/hr IVPB Q12H [facility] Last Admin: 03/18/17 10:27 Dose: 100 mls/hr Vancomycin HCl 1,000 mg/ (Sodium Chloride) 250 mls @ 166.6 mls/hr IVPB Q12H [facility] Last Admin: 03/18/17 11:58 Dose: 166.6 mls/hr Losartan Potassium (Cozaar) 100 mg PO DAILY [facility] Last Admin: 03/18/17 10:28 Dose: 100 mg Metoprolol Tartrate (Lopressor) 50 mg PO BID [facility] Last Admin: 03/18/17 10:28 Dose: 50 mg Morphine Sulfate (Morphine) 2 mg IVP Q4 PRN PRN Reason: Pain, moderate (4-7) Last Admin: 03/07/17 18:42 Dose: 2 mg Ondansetron HCl (Zofran Inj) 4 mg IVP Q4 PRN PRN Reason: Nausea/Vomiting Promethazine HCl (Phenergan Syrup) 12.5 mg PO Q6 PRN PRN Reason: cough Last Admin: 03/16/17 17:13 Dose: 12.5 mg Rosuvastatin Calcium (Crestor) 10 mg PO HS [facility] Last Admin: 03/17/17 21:46 Dose: 10 mg - Labs Labs: 03/17/17 11:29 03/17/17 11:29 PT 13.3 SECONDS (9.7-12.2) H 02/25/17 18:17 INR 1.2 02/25/17 18:17 APTT 31 SECONDS (21-34) D 02/25/17 18:17 - Constitutional Appears: Confused, Chronically Ill - Eye Exam Eye Exam: EOMI, Normal appearance, PERRL Pupil Exam: NORMAL ACCOMODATION, PERRL - Respiratory Exam Respiratory Exam: Decreased Breath Sounds, Rhonchi - Cardiovascular Exam Cardiovascular Exam: REGULAR RHYTHM, +S1, +S2. absent: Murmur - GI/Abdominal Exam GI & Abdominal Exam: Soft, Normal Bowel Sounds. absent: Tenderness Assessment and Plan (1) Ascites, malignant Status: Acute (2) Diabetes mellitus Status: Chronic (3) Hypertension Status: Chronic (4) Ovarian cancer Status: Chronic (5) Pleural effusion due to another disorder Status: Acute (6) Shortness of breath Status: Acute
--- NOTE | 2017-03-18 16:45 | CP.PCM.PN ---
Subjective - Date & Time of Evaluation Date of Evaluation: 03/18/17 Time of Evaluation: 10:14 - Subjective Subjective: Patient seen and examined. Lying comfortably in no acute distress but in the morning patient had shortness of breath and cough. Chest tube in place draining minimal fluid Afebrile Objective - Vital Signs/Intake and Output Vital Signs (last 24 hours): Temp Pulse Resp BP Pulse Ox 98.9 F 93 H 22 141/65 95 03/18/17 16:00 03/18/17 16:00 03/18/17 16:00 03/18/17 16:00 03/18/17 16:00 Intake and Output: 03/18/17 03/18/17 06:59 18:59 Intake Total 960 800 Output Total 20 80 Balance 940 720 - Medications Medications: Current Medications Acetaminophen (Tylenol 325mg Tab) 650 mg PO Q6 PRN PRN Reason: Fever >100.4 F Last Admin: 03/17/17 07:57 Dose: 650 mg Diltiazem HCl (Cardizem) 5 mg IVP TID PRN PRN Reason: Other Last Admin: 03/18/17 00:41 Dose: 5 mg Diltiazem HCl (Cardizem) 30 mg PO Q6 [facility] Last Admin: 03/18/17 12:05 Dose: 30 mg Diltiazem HCl (Cardizem) 10 mg IVP ONCE PRN PRN Reason: HR > 140 Docusate Sodium (Colace) 100 mg PO BID [facility] Last Admin: 03/18/17 10:28 Dose: 100 mg Enoxaparin Sodium (Lovenox) 40 mg SC DAILY [facility] Last Admin: 03/18/17 10:28 Dose: 40 mg Famotidine (Pepcid) 20 mg PO DAILY [facility] Last Admin: 03/18/17 10:28 Dose: 20 mg Ferrous Sulfate (Feosol) 325 mg PO TID [facility] Last Admin: 03/18/17 14:01 Dose: 325 mg Cefepime HCl 1 gm/ Dextrose 50 mls @ 100 mls/hr IVPB Q12H [facility] Last Admin: 03/18/17 10:27 Dose: 100 mls/hr Vancomycin HCl 1,000 mg/ (Sodium Chloride) 250 mls @ 166.6 mls/hr IVPB Q12H [facility] Last Admin: 03/18/17 11:58 Dose: 166.6 mls/hr Losartan Potassium (Cozaar) 100 mg PO DAILY [facility] Last Admin: 03/18/17 10:28 Dose: 100 mg Metoprolol Tartrate (Lopressor) 50 mg PO BID [facility] Last Admin: 03/18/17 10:28 Dose: 50 mg Morphine Sulfate (Morphine) 2 mg IVP Q4 PRN PRN Reason: Pain, moderate (4-7) Last Admin: 03/07/17 18:42 Dose: 2 mg Ondansetron HCl (Zofran Inj) 4 mg IVP Q4 PRN PRN Reason: Nausea/Vomiting Promethazine HCl (Phenergan Syrup) 12.5 mg PO Q6 PRN PRN Reason: cough Last Admin: 03/16/17 17:13 Dose: 12.5 mg Rosuvastatin Calcium (Crestor) 10 mg PO HS [facility] Last Admin: 03/17/17 21:46 Dose: 10 mg - Labs Labs: 03/17/17 11:29 03/17/17 11:29 PT 13.3 SECONDS (9.7-12.2) H 02/25/17 18:17 INR 1.2 02/25/17 18:17 APTT 31 SECONDS (21-34) D 02/25/17 18:17 - Constitutional Appears: No Acute Distress - Head Exam Head Exam: ATRAUMATIC, NORMAL INSPECTION, NORMOCEPHALIC - Eye Exam Eye Exam: EOMI, Normal appearance, PERRL Pupil Exam: NORMAL ACCOMODATION, PERRL - Respiratory Exam Respiratory Exam: Decreased Breath Sounds, Rales, Rhonchi - Cardiovascular Exam Cardiovascular Exam: REGULAR RHYTHM, +S1, +S2. absent: Murmur - GI/Abdominal Exam GI & Abdominal Exam: Soft, Normal Bowel Sounds. absent: Tenderness Assessment and Plan (1) Ascites, malignant Status: Acute (2) Diabetes mellitus Status: Chronic (3) Hypertension Status: Chronic (4) Ovarian cancer Status: Chronic (5) Pleural effusion due to another disorder Status: Acute (6) Shortness of breath Status: Acute
--- NOTE | 2017-03-18 21:44 | CP.PCM.CON ---
History of Present Illness - History of Present Illness History of Present Illness: INFECTIOUS DISEASE CONSULT; HPI; 71-year-old Afro-[place]ese female with history of hypertension and metastatic ovarian cancer diagnosed 2015, on chemotherapy and recently changed by oncologist 2 WEEKS PRIOR TO ADMISSION who was admitted on 02/25/17 with worsening ascites and shortness of breath and found to have bilateral loculated pleural effusions. Patient has history of multiple re-accumulations off her ascites and pleural effusions and had VATS of the left lung that got converted to thoracotomy with evacuation of 1.1 L pleural fluid and debridement. Patient presently still has a left chest tube in place,placed on 03/02/17. Patient also has history of PE in the past on her admission of December 2016. Patient has been on broad-spectrum antibiotics including Rocephin initially and later changed to cefepime 1 g every 12 hourly and vancomycin 1000 mg IV every [address] ANGIO chest 03/17/17 with IV contrast still shows 2 left-sided chest tubes with moderate loculated left hydropneumothorax and moderate right loculated pleural effusions with bibasilar consolidations. Patient also has upper subdiaphragmatic right-sided localized fluid collection anterior to the liver and localized ascites VS abscess. Pleural fluid cultures off 03/02/17 showed no growth. Infectious disease consultation requested by PMD because off 11% bandemia and persistent bilateral consolidations throughout left and right lower lung base. Patient admits to cough and scanty expectoration. Denies any fever or chills. Denies any hemoptysis except for pain at the site of the chest tube. Patient also has a Port-A-Cath right anterior chest placed about 3 years ago at the time of the diagnosis of ovarian cancer. ALLERGIES; NKA. Past medical history: HTN, ovarian cancer Past surgical history: Portacath, cytoreductive [employer] surgery Family history: Denies hematologic and oncologic problems Social history: Denies tobacco, alcohol, and illicit drug use. Review of Systems - Constitutional Constitutional: absent: Chills, Fever - EENT Nose/Mouth/Throat: absent: Mouth Lesions, Odynophagia, Sore Throat - Cardiovascular Cardiovascular: Dyspnea on Exertion (LEFT CHEST TUBE IN PLACE WITH MINIMAL SEROSANGUINEOUS DRAINAGE.) - Respiratory Respiratory: Cough, Dyspnea on Exertion, Chest Congestion, Pain with Coughing - Gastrointestinal Gastrointestinal: absent: Diarrhea, Nausea, Vomiting (POSITIVE ASCITES.) - Integumentary Integumentary: absent: Rash, Skin Ulcer - Hematologic/Lymphatic Hematologic: As Per HPI. absent: Easy Bruising, Lymphadenopathy Past Patient History - Infectious Disease Hx of Infectious Diseases: None - Past Medical History & Family History Past Medical History?: Yes - Past Social History Smoking Status: Former Smoker - CARDIAC Hx Hypercholesterolemia: Yes Hx Hypertension: Yes - PULMONARY Hx Asthma: Yes - NEUROLOGICAL Hx Seizures: Yes (UP TIL AGE 14YRS.) - HEENT Hx HEENT Problems: Yes Hx Cataracts: Yes (LEFT) - ENDOCRINE/METABOLIC Hx Diabetes Mellitus Type 2: Yes - HEMATOLOGICAL/ONCOLOGICAL Hx Anemia: Yes - MUSCULOSKELETAL/RHEUMATOLOGICAL Hx Arthritis: Yes (GENERALIZED) Hx Rheumatoid Arthritis: Yes - GASTROINTESTINAL Hx Crohn's Disease: No Hx Diverticulitis: No Hx Gall Bladder Disease: No Hx Gastritis: No Hx Pancreatitis: No - GENITOURINARY/GYNECOLOGICAL Hx Sexually Transmitted Disorders: No - PSYCHIATRIC Hx Substance Use: No - SURGICAL HISTORY Hx Appendectomy: No Hx Carotid Endarterectomy: No Hx Cholecystectomy: No Hx Coronary Artery Bypass Graft: No Hx Tonsillectomy: No - ANESTHESIA Hx Anesthesia: Yes Hx Anesthesia Reactions: No Hx Malignant Hyperthermia: No Meds Home Medications: Home Medication List Medication Instructions Recorded Confirmed Type Apixaban [Eliquis] 5 mg PO BID #5 tablet 03/14/17 Rx Allergies/Adverse Reactions: Allergies Allergy/AdvReac Type Severity Reaction Status Date / Time No Known Allergies Allergy Verified 12/17/16 18:57 - Medications Medications: Current Medications Acetaminophen (Tylenol 325mg Tab) 650 mg PO Q6 PRN PRN Reason: Fever >100.4 F Last Admin: 03/17/17 07:57 Dose: 650 mg Diltiazem HCl (Cardizem) 5 mg IVP TID PRN PRN Reason: Other Last Admin: 03/18/17 00:41 Dose: 5 mg Diltiazem HCl (Cardizem) 30 mg PO Q6 [facility] Last Admin: 03/18/17 18:07 Dose: 30 mg Diltiazem HCl (Cardizem) 10 mg IVP ONCE PRN PRN Reason: HR > 140 Docusate Sodium (Colace) 100 mg PO BID [facility] Last Admin: 03/18/17 18:07 Dose: 100 mg Enoxaparin Sodium (Lovenox) 40 mg SC DAILY [facility] Last Admin: 03/18/17 10:28 Dose: 40 mg Famotidine (Pepcid) 20 mg PO DAILY [facility] Last Admin: 03/18/17 10:28 Dose: 20 mg Ferrous Sulfate (Feosol) 325 mg PO TID [facility] Last Admin: 03/18/17 18:07 Dose: 325 mg Cefepime HCl 1 gm/ Dextrose 50 mls @ 100 mls/hr IVPB Q12H [facility] Last Admin: 03/18/17 10:27 Dose: 100 mls/hr Vancomycin HCl 1,000 mg/ (Sodium Chloride) 250 mls @ 166.6 mls/hr IVPB Q12H [facility] Last Admin: 03/18/17 11:58 Dose: 166.6 mls/hr Losartan Potassium (Cozaar) 100 mg PO DAILY [facility] Last Admin: 03/18/17 10:28 Dose: 100 mg Metoprolol Tartrate (Lopressor) 50 mg PO BID [facility] Last Admin: 03/18/17 18:07 Dose: 50 mg Morphine Sulfate (Morphine) 2 mg IVP Q4 PRN PRN Reason: Pain, moderate (4-7) Last Admin: 03/07/17 18:42 Dose: 2 mg Ondansetron HCl (Zofran Inj) 4 mg IVP Q4 PRN PRN Reason: Nausea/Vomiting Promethazine HCl (Phenergan Syrup) 12.5 mg PO Q6 PRN PRN Reason: cough Last Admin: 03/16/17 17:13 Dose: 12.5 mg Rosuvastatin Calcium (Crestor) 10 mg PO HS [facility] Last Admin: 03/17/17 21:46 Dose: 10 mg Physical Exam - Constitutional Appears: No Acute Distress, Cachectic, Chronically Ill - Head Exam Head Exam: NORMAL INSPECTION - Eye Exam Eye Exam: EOMI, PERRL. absent: Scleral icterus - ENT Exam ENT Exam: Normal Oropharynx - Neck Exam Neck exam: Positive for: Normal Inspection - Respiratory Exam Respiratory Exam: Chest Wall Tenderness, Rales, Rhonchi (BILATERALLY. dIMINISHED BREATH SOUNDS AT THE LEFT BASE.) - Cardiovascular Exam Cardiovascular Exam: Tachycardia, REGULAR RHYTHM, +S1, +S2 - GI/Abdominal Exam GI & Abdominal Exam: Diminished Bowel Sounds, Soft. absent: Normal Bowel Sounds (ASCITES.) - Extremities Exam Extremities exam: Positive for: pedal pulses present. Negative for: calf tenderness, pedal edema - Neurological Exam Neurological exam: Alert, CN II-XII Intact, Oriented x3, Reflexes Normal - Psychiatric Exam Psychiatric exam: Normal Mood - Skin Skin Exam: Normal Color, Warm Results - Vital Signs Recent Vital Signs: Last Vital Signs Temp 98.9 F 03/18/17 16:00 Pulse 103 H 03/18/17 18:08 Resp 22 03/18/17 18:08 BP 156/75 H 03/18/17 18:08 Pulse Ox 95 03/18/17 16:00 - Labs Result Diagrams: 03/17/17 11:29 03/17/17 11:29 Labs: Laboratory Results - last 24 hr 03/17/17 03/17/17 22:39 22:39 Total Creatine Kinase 23 L CK-MB (Mass) 0.25 Troponin I, Quant < 0.0120 Vancomycin Trough 11.2 H - Imaging and Cardiology Chest x-ray Status: Report reviewed by me (03/18/17 chest x-ray lines and tubes stable. Moderate loculated left-sided pleural effusion. Small loculated right effusion. Ill defined consolidative changes throughout left as well as right lung with moderate venous congestion.) Assessment & Plan (1) Bilateral pneumonia Assessment and Plan: SPUTUM gRAM STAIN AND CULTURE BLOOD CULTURE X 2 SETS FOR FUNGUS ESR,CRP AM CONTINUE IV MAXIPINE 1 G EVERY 12 HOURLY 03/16/17 CONTINUE IV VANCOMYCIN 1 G EVERY 12 HOURLY 03/16/17 PATIENT HAS A LEFT CHEST TUBE IN PLACE SINCE 03/02/17. LOCAL CARE CHEST TUBE SITE. 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 Status: Acute (2) Malignant pleural effusion Assessment and Plan: S/P VATS AND DRAINAGE 03/02/17. Status: Acute (3) Ascites, malignant Status: Acute (4) Ovarian cancer Assessment and Plan: ONCOLOGY ON BOARD. S/P CHEMOTHERAPY /AND CYTOREDUCTIVE SURGERY. Status: Chronic (5) Anemia Status: Chronic (6) Diabetes mellitus Status: Chronic (7) Hypertension Status: Chronic
[2017-03-19 07:56] LABS: BASO % 0.7 % (0.0-2.0); EOS % 0.2 % (0.0-4.0); HEMATOCRIT 26.1 % (34.0-47.0); LYMPH # 0.8 K/uL (1.0-4.3); LYMPH % 16.9 % (20.0-40.0); MEAN CELL VOLUME 81.2 fL (81.0-99.0); MEAN CORPUSCULAR HEMOGLOBIN 25.9 pg (27.0-31.0); MEAN CORPUSCULAR HGB CONC 31.9 g/dL (33.0-37.0); MEAN PLATELET VOLUME 7.6 fL (7.2-11.7); MONO # 1.7 K/uL (0.0-0.8); MONO % 34.4 % (0.0-10.0); NRBC % 0.2 % (0.0-2.0); PLATELET COUNT 462 K/uL (130-400); WHITE BLOOD COUNT 4.9 K/uL (4.8-10.8)
[2017-03-19 08:00] LABS: CHLORIDE 98 mmol/L (98-107)
[2017-03-19 08:01] LABS: SODIUM 134 mmol/L (132-148)
[2017-03-19 08:03] LABS: GFR AFRICAN-AMERICAN > 60
[2017-03-19 08:04] LABS: BLOOD UREA NITROGEN 12 mg/dL (7-17); CALCIUM 8.9 mg/dl (8.6-10.4); CARBON DIOXIDE 29 mmol/L (22-30); GLUCOSE,RANDOM 115 mg/dL (65-105)
--- NOTE | 2017-03-19 09:26 | RAD ---
HISTORY: left chest tube COMPARISON: 03/18/2017 FINDINGS: LUNGS: Lines and tubes stable position. Moderate loculated left and small to moderate loculated right pleural effusions. Consolidative opacities in the left mid to lower lung zone as well as at the right lung base. Bilateral hilar prominence. PLEURA: As above. CARDIOVASCULAR: Normal. OSSEOUS STRUCTURES: No significant abnormalities. VISUALIZED UPPER ABDOMEN: Normal. OTHER FINDINGS: None. IMPRESSION: No significant interval change.
[2017-03-19 09:35] LABS: EOSINOPHIL 1 % (0-4); NEUTROPHIL 55 % (50-75); TOTAL CELLS COUNTED 100
[2017-03-19 09:37] LABS: LARGE PLATELETS PRESENT
[2017-03-19] MEDS: Enoxaparin 40 mg Syringe SC SCH (10:36)
--- NOTE | 2017-03-19 14:10 | CP.PCM.PN ---
Subjective - Date & Time of Evaluation Date of Evaluation: 03/19/17 Time of Evaluation: 14:09 - Subjective Subjective: Afebrile. wbc-4.9. chest tubes-140cc/y cxr-min effusion left- Consider d/c chest tube before discharging home. Objective - Vital Signs/Intake and Output Vital Signs (last 24 hours): Temp Pulse Resp BP Pulse Ox 98.3 F 105 H 18 155/74 H 96 03/19/17 07:40 03/19/17 07:40 03/19/17 07:40 03/19/17 07:40 03/19/17 07:40 Intake and Output: 03/19/17 03/19/17 06:59 18:59 Intake Total 910 Output Total 50 Balance 860 - Medications Medications: Current Medications Acetaminophen (Tylenol 325mg Tab) 650 mg PO Q6 PRN PRN Reason: Fever >100.4 F Last Admin: 03/17/17 07:57 Dose: 650 mg Diltiazem HCl (Cardizem) 5 mg IVP TID PRN PRN Reason: Other Last Admin: 03/18/17 00:41 Dose: 5 mg Diltiazem HCl (Cardizem) 30 mg PO Q6 [facility] Last Admin: 03/19/17 05:41 Dose: 30 mg Diltiazem HCl (Cardizem) 10 mg IVP ONCE PRN PRN Reason: HR > 140 Last Admin: 03/19/17 00:40 Dose: 10 mg Docusate Sodium (Colace) 100 mg PO BID [facility] Last Admin: 03/19/17 10:37 Dose: 100 mg Enoxaparin Sodium (Lovenox) 40 mg SC DAILY [facility] Last Admin: 03/19/17 10:36 Dose: 40 mg Famotidine (Pepcid) 20 mg PO DAILY [facility] Last Admin: 03/19/17 10:37 Dose: 20 mg Ferrous Sulfate (Feosol) 325 mg PO TID [facility] Last Admin: 03/19/17 10:37 Dose: 325 mg Cefepime HCl 1 gm/ Dextrose 50 mls @ 100 mls/hr IVPB Q12H [facility] Last Admin: 03/19/17 10:49 Dose: 100 mls/hr Vancomycin HCl 1,000 mg/ (Sodium Chloride) 250 mls @ 166.6 mls/hr IVPB Q12H [facility] Last Admin: 03/19/17 13:10 Dose: 166.6 mls/hr Losartan Potassium (Cozaar) 100 mg PO DAILY [facility] Last Admin: 03/19/17 10:37 Dose: 100 mg Metoprolol Tartrate (Lopressor) 50 mg PO BID [facility] Last Admin: 03/19/17 10:37 Dose: 50 mg Morphine Sulfate (Morphine) 2 mg IVP Q4 PRN PRN Reason: Pain, moderate (4-7) Last Admin: 03/07/17 18:42 Dose: 2 mg Ondansetron HCl (Zofran Inj) 4 mg IVP Q4 PRN PRN Reason: Nausea/Vomiting Promethazine HCl (Phenergan Syrup) 12.5 mg PO Q6 PRN PRN Reason: cough Last Admin: 03/16/17 17:13 Dose: 12.5 mg Rosuvastatin Calcium (Crestor) 10 mg PO HS [facility] Last Admin: 03/18/17 22:02 Dose: 10 mg - Labs Labs: 03/19/17 07:42 03/19/17 07:42 PT 13.3 SECONDS (9.7-12.2) H 02/25/17 18:17 INR 1.2 02/25/17 18:17 APTT 31 SECONDS (21-34) D 02/25/17 18:17
--- NOTE | 2017-03-19 16:12 | PN ---
DATE: 03/19/2017 The patient denies any chest pain or palpitations. Last night, she was reported to be in rapid atria l fibrillation. Currently, she is in atrial tachycardia in the 90s on the monitor. PHYSICAL EXAMINATION: VITAL SIGNS: Blood pressure 155/74, heart rate 105, temperature 98.3, respirations 18. HEENT: Pale conjunctivae. CHEST: Absent breath sounds over the bases. HEART: S1, S2 irregular. EXTREMITIES: Significant muscle wasting. LABORATORIES: Hemoglobin and hematocrit 8.3 and 26.1, white count 4.9, platelet count 262,000. Saida rubio's SMA-7 is within normal limits except for a glucose of 115. Today's chest x-ray report, no significant interval changes. ASSESSMENT: 1. Paroxysmal atrial tachycardia as well as questionable runs of paroxysmal atrial fibrillation. 2. Metastatic ovarian cancer. 3. Bilateral pleural effusion. 4. History of recent pulmonary embolism. 5. Anemia. RECOMMENDATIONS: Increase Cardizem to 60 mg q. 8 hours. Continue IV cefepime. Continue Cozaar at 1 00 mg once a day, Crestor at 10 mg once a day, Lopressor at 50 mg twice a day, subcutaneous Lovenox a t 40 mg daily, vancomycin 1 gram intravenously q. 12 hours. Decision of full anticoagulation will be left to the medical and surgical team if no further plans for thoracotomy tube placement are needed for the right-sided pleural effusion. Morgan Zuniga MD cc: [id number] TT: 03/19/2017 16:11:45 Confirmation # [id number] Dictation # [id number]
--- NOTE | 2017-03-19 22:42 | CP.PCM.PN ---
Subjective - Date & Time of Evaluation Date of Evaluation: 03/19/17 Time of Evaluation: 22:42 - Subjective Subjective: afebrile, Feels weak. appetite poor Left chest tube in place draining minimal serosanguineous drainage. S/P VATS AND DRAINAGE 03/02/17. Objective - Vital Signs/Intake and Output Vital Signs (last 24 hours): Temp Pulse Resp BP Pulse Ox 98.0 F 98 H 20 149/67 99 03/19/17 15:08 03/19/17 22:24 03/19/17 22:24 03/19/17 22:24 03/19/17 15:08 Intake and Output: 03/19/17 03/20/17 18:59 06:59 Intake Total 240 670 Output Total 30 70 Balance 210 600 - Medications Medications: Current Medications Acetaminophen (Tylenol 325mg Tab) 650 mg PO Q6 PRN PRN Reason: Fever >100.4 F Last Admin: 03/17/17 07:57 Dose: 650 mg Diltiazem HCl (Cardizem) 5 mg IVP TID PRN PRN Reason: Other Last Admin: 03/18/17 00:41 Dose: 5 mg Diltiazem HCl (Cardizem) 10 mg IVP ONCE PRN PRN Reason: HR > 140 Last Admin: 03/19/17 00:40 Dose: 10 mg Diltiazem HCl (Cardizem) 60 mg PO QID [facility] Last Admin: 03/19/17 22:22 Dose: 60 mg Docusate Sodium (Colace) 100 mg PO BID [facility] Last Admin: 03/19/17 17:52 Dose: 100 mg Enoxaparin Sodium (Lovenox) 40 mg SC DAILY [facility] Last Admin: 03/19/17 10:36 Dose: 40 mg Famotidine (Pepcid) 20 mg PO DAILY [facility] Last Admin: 03/19/17 10:37 Dose: 20 mg Ferrous Sulfate (Feosol) 325 mg PO TID [facility] Last Admin: 03/19/17 17:52 Dose: 325 mg Cefepime HCl 1 gm/ Dextrose 50 mls @ 100 mls/hr IVPB Q12H [facility] Last Admin: 03/19/17 22:22 Dose: 100 mls/hr Vancomycin HCl 1,000 mg/ (Sodium Chloride) 250 mls @ 166.6 mls/hr IVPB Q12H [facility] Last Admin: 03/19/17 22:22 Dose: 166.6 mls/hr Losartan Potassium (Cozaar) 100 mg PO DAILY [facility] Last Admin: 03/19/17 10:37 Dose: 100 mg Metoprolol Tartrate (Lopressor) 50 mg PO BID [facility] Last Admin: 03/19/17 17:52 Dose: 50 mg Morphine Sulfate (Morphine) 2 mg IVP Q4 PRN PRN Reason: Pain, moderate (4-7) Last Admin: 03/07/17 18:42 Dose: 2 mg Ondansetron HCl (Zofran Inj) 4 mg IVP Q4 PRN PRN Reason: Nausea/Vomiting Promethazine HCl (Phenergan Syrup) 12.5 mg PO Q6 PRN PRN Reason: cough Last Admin: 03/16/17 17:13 Dose: 12.5 mg Rosuvastatin Calcium (Crestor) 10 mg PO HS [facility] Last Admin: 03/19/17 22:21 Dose: 10 mg - Labs Labs: 03/19/17 07:42 03/19/17 07:42 PT 13.3 SECONDS (9.7-12.2) H 02/25/17 18:17 INR 1.2 02/25/17 18:17 APTT 31 SECONDS (21-34) D 02/25/17 18:17 - Constitutional Appears: No Acute Distress, Cachectic, Chronically Ill - Eye Exam Eye Exam: EOMI, PERRL. absent: Scleral icterus - ENT Exam ENT Exam: Normal Oropharynx - Neck Exam Neck Exam: Normal Inspection - Respiratory Exam Respiratory Exam: Rhonchi (left chest tube in place.). absent: Respiratory Distress - Cardiovascular Exam Cardiovascular Exam: REGULAR RHYTHM, +S1, +S2 - GI/Abdominal Exam GI & Abdominal Exam: Soft, Diminished Bowel Sounds (ascites present.) - Extremities Exam Extremities Exam: absent: Calf Tenderness, Pedal Edema, Tenderness - Neurological Exam Neurological Exam: Awake, CN II-XII Intact, Oriented x3 - Psychiatric Exam Psychiatric exam: Normal Affect - Skin Skin Exam: Normal Color, Warm Assessment and Plan (1) Bilateral pneumonia Assessment & Plan: SPUTUM gRAM STAIN AND CULTURE-p BLOOD CULTURE X 2 SETS FOR FUNGUS CONTINUE IV MAXIPINE 1 G EVERY 12 HOURLY 03/16/17 CONTINUE IV VANCOMYCIN 1 G EVERY 12 HOURLY 5/1/17 PATIENT HAS A LEFT CHEST TUBE IN PLACE SINCE 03/02/17. LOCAL CARE CHEST TUBE SITE. CASE DISCUSSED WITH STAFF. Status: Acute (2) Malignant pleural effusion Assessment & Plan: pleural fluid 03/02/17 negative growth to date. Pleural fluid 03/02/17 no anaerobic growth. pleural fluid 03/02/17 no AFB smears, mycobacterial culture pending. Status: Acute (3) Ascites, malignant Status: Acute (4) Ovarian cancer Status: Chronic (5) Anemia Status: Chronic (6) Diabetes mellitus Status: Chronic (7) Hypertension Status: Chronic
--- NOTE | 2017-03-20 00:05 | CP.PCM.PN ---
Subjective - Date & Time of Evaluation Date of Evaluation: 03/19/17 Time of Evaluation: 10:19 - Subjective Subjective: Pt denies any pain, she feels weak, she is on left sided chest tube, suctoning daughter at bedside, i talked to her and explained the terminal nature of pt illness, she understands Objective - Vital Signs/Intake and Output Vital Signs (last 24 hours): Temp Pulse Resp BP Pulse Ox 98.0 F 98 H 20 149/67 99 03/19/17 15:08 03/19/17 22:24 03/19/17 22:24 03/19/17 22:24 03/19/17 15:08 Intake and Output: 03/19/17 03/20/17 18:59 06:59 Intake Total 240 670 Output Total 30 70 Balance 210 600 - Medications Medications: Current Medications Acetaminophen (Tylenol 325mg Tab) 650 mg PO Q6 PRN PRN Reason: Fever >100.4 F Last Admin: 03/17/17 07:57 Dose: 650 mg Diltiazem HCl (Cardizem) 5 mg IVP TID PRN PRN Reason: Other Last Admin: 03/18/17 00:41 Dose: 5 mg Diltiazem HCl (Cardizem) 10 mg IVP ONCE PRN PRN Reason: HR > 140 Last Admin: 03/19/17 00:40 Dose: 10 mg Diltiazem HCl (Cardizem) 60 mg PO QID [facility] Last Admin: 03/19/17 22:22 Dose: 60 mg Docusate Sodium (Colace) 100 mg PO BID [facility] Last Admin: 03/19/17 17:52 Dose: 100 mg Enoxaparin Sodium (Lovenox) 40 mg SC DAILY [facility] Last Admin: 03/19/17 10:36 Dose: 40 mg Famotidine (Pepcid) 20 mg PO DAILY [facility] Last Admin: 03/19/17 10:37 Dose: 20 mg Ferrous Sulfate (Feosol) 325 mg PO TID [facility] Last Admin: 03/19/17 17:52 Dose: 325 mg Cefepime HCl 1 gm/ Dextrose 50 mls @ 100 mls/hr IVPB Q12H [facility] Last Admin: 03/19/17 22:22 Dose: 100 mls/hr Vancomycin HCl 1,000 mg/ (Sodium Chloride) 250 mls @ 166.6 mls/hr IVPB Q12H [facility] Last Admin: 03/19/17 22:22 Dose: 166.6 mls/hr Losartan Potassium (Cozaar) 100 mg PO DAILY [facility] Last Admin: 03/19/17 10:37 Dose: 100 mg Metoprolol Tartrate (Lopressor) 50 mg PO BID [facility] Last Admin: 03/19/17 17:52 Dose: 50 mg Morphine Sulfate (Morphine) 2 mg IVP Q4 PRN PRN Reason: Pain, moderate (4-7) Last Admin: 03/07/17 18:42 Dose: 2 mg Ondansetron HCl (Zofran Inj) 4 mg IVP Q4 PRN PRN Reason: Nausea/Vomiting Promethazine HCl (Phenergan Syrup) 12.5 mg PO Q6 PRN PRN Reason: cough Last Admin: 03/16/17 17:13 Dose: 12.5 mg Rosuvastatin Calcium (Crestor) 10 mg PO HS [facility] Last Admin: 03/19/17 22:21 Dose: 10 mg - Labs Labs: 03/19/17 07:42 03/19/17 07:42 PT 13.3 SECONDS (9.7-12.2) H 02/25/17 18:17 INR 1.2 02/25/17 18:17 APTT 31 SECONDS (21-34) D 02/25/17 18:17 - Constitutional Appears: Cachectic, Chronically Ill - Eye Exam Eye Exam: EOMI, Normal appearance, PERRL Pupil Exam: NORMAL ACCOMODATION, PERRL - ENT Exam ENT Exam: Mucous Membranes Moist, Normal Exam - Respiratory Exam Respiratory Exam: Decreased Breath Sounds, Rales, Rhonchi - Cardiovascular Exam Cardiovascular Exam: REGULAR RHYTHM, +S1, +S2. absent: Murmur - GI/Abdominal Exam GI & Abdominal Exam: Soft, Normal Bowel Sounds. absent: Tenderness Assessment and Plan (1) Ascites, malignant Status: Acute (2) Diabetes mellitus Status: Chronic (3) Hypertension Status: Chronic (4) Ovarian cancer Status: Chronic (5) Pleural effusion due to another disorder Status: Acute (6) Shortness of breath Status: Acute
[2017-03-20] MEDS: Promethazine 12.5 mg/10 ml Syrup PO PRN (03:44)
--- NOTE | 2017-03-20 07:16 | CON ---
DATE: 03/17/2017 REASON FOR CONSULTATION: Tachycardia. HISTORY OF PRESENT ILLNESS: The patient is a 71-year-old -[place] female who has a history o f metastatic ovarian cancer on chemotherapy, presented because of ascites and bilateral pleural effus ion. She underwent a left thoracostomy tube placement. The patient required rapid response today be cause of tachycardia. The monitor revealed atrial tachycardia at rate approaching, at times, 180 shanita ts per minute. At the time, the patient denied any palpitation or dizziness. The patient on admissi on had a CAT scan of the chest which was consistent with bilateral dependent consolidations, patchy g round glass nodular density involving bilateral upper lobes. Bilateral pleural effusions, left great er than right. Left-sided effusion and consolidation exerts mass effect on the left heart border. L oculated ascites partially imaged adjacent to the liver, which exerts mass effect on the adjacent hep atic parenchyma. The patient, in December of this year, had a venous Doppler of the lower extremity t hat was negative for DVT after she was diagnosed with acute pulmonary embolus with a relatively large central clot burden in the right lower lobe on 12/17. The patient was placed on Eliquis at that time. SOCIAL HISTORY: The patient former smoker. MEDICATIONS: Cardizem was started today at 30 mg p.o. q.6 hours, cefepime 1 gram intravenous twice a day, Cozaar 100 mg once a day, Crestor 10 mg once a day, Lopressor 50 mg twice a day, morphine sulfa te 2 mg intravenously q.4 hours p.r.n., Zofran 4 mg intravenously q.4 hours p.r.n., vancomycin 1 gram intravenously twice a day. REVIEW OF SYSTEMS: The patient denies any hemoptysis. The patient has low-grade fever. The patient is experiencing significant loss of weight and poor appetite. PHYSICAL EXAMINATION: GENERAL: The patient is an elderly female who is mildly short of breath, but does not appear to be i n acute distress. VITAL SIGNS: Blood pressure 125/66. ____ earlier was 100.8, currently 98.8. Respiration 20, ____ 9 8. HEENT: Pale conjunctivae. CHEST: Absent breath sounds over both bases. HEART: S1, S2 regular. ABDOMEN: Soft. EXTREMITIES: Significant muscle wasting. No pedal edema. LABORATORY DATA: Hemoglobin and hematocrit 9.5 and 30.1, white count 5.0, platelet count 463,000. T sanchez's SMA-7 is within normal limit. One set of troponin is negative. Hepatitis profile done on was negative. An EKG revealed atrial tachycardia at rate of 100. EKG revealed multifocal at rial tachycardia at rate of 116 per minute. Chest x-ray revealed bilateral pleural effusion with rig ht-sided chest tube. Echocardiograph study performed in December of this year revealed mild left eduardo tricular systolic dysfunction, pleural effusion was seen, no pericardial effusion, ejection fraction estimated at 49%. ASSESSMENT: 1. ____ multifocal atrial tachycardia. 2. Metastatic ____ carcinoma. 3. Bilateral pleural effusion and ascites. 4. Significant anemia. 5. Mildly depressed left ventricular systolic function. 6. Acute pulmonary embolus diagnosed in December of this year. RECOMMENDATIONS: Case was discussed at length with Dr. Correa, who conducted the rapid response. The patient can be maintained on Cardizem at 30 mg q.6 hours, Cozaar at 100 mg once a day, Crestor at 10 mg once a day, Lopressor at 50 mg twice a day, and Lovenox at 40 mg once a day beside IV vancomycin a t 1 gram twice a day. Consider resuming Eliquis for the patient's recent diagnosed pulmonary embolus if the patient is cleared from the surgical and medical point of view. Morgan Zuniga MD cc: [id number] TT: 03/17/2017 14:05:06 Confirmation # [id number] Dictation # [id number]
--- NOTE | 2017-03-20 10:03 | CP.PCM.PN ---
Subjective - Date & Time of Evaluation Date of Evaluation: 03/20/17 Time of Evaluation: 08:45 - Subjective Subjective: patient seen and examined. Chest tube in place draining minimal fluid Sitting comfortably in no respiratory distress Objective - Vital Signs/Intake and Output Vital Signs (last 24 hours): Temp Pulse Resp BP Pulse Ox 99.3 F 88 22 110/76 96 03/20/17 07:40 03/20/17 07:40 03/20/17 07:40 03/20/17 09:50 03/20/17 07:40 Intake and Output: 03/20/17 03/20/17 06:59 18:59 Intake Total 910 Output Total 170 Balance 740 - Medications Medications: Current Medications Acetaminophen (Tylenol 325mg Tab) 650 mg PO Q6 PRN PRN Reason: Fever >100.4 F Last Admin: 03/17/17 07:57 Dose: 650 mg Diltiazem HCl (Cardizem) 5 mg IVP TID PRN PRN Reason: Other Last Admin: 03/20/17 09:45 Dose: 5 mg Diltiazem HCl (Cardizem) 10 mg IVP ONCE PRN PRN Reason: HR > 140 Last Admin: 03/19/17 00:40 Dose: 10 mg Diltiazem HCl (Cardizem) 60 mg PO QID [facility] Last Admin: 03/19/17 22:22 Dose: 60 mg Docusate Sodium (Colace) 100 mg PO BID [facility] Last Admin: 03/19/17 17:52 Dose: 100 mg Enoxaparin Sodium (Lovenox) 40 mg SC DAILY [facility] Last Admin: 03/19/17 10:36 Dose: 40 mg Famotidine (Pepcid) 20 mg PO DAILY [facility] Last Admin: 03/19/17 10:37 Dose: 20 mg Ferrous Sulfate (Feosol) 325 mg PO TID [facility] Last Admin: 03/19/17 17:52 Dose: 325 mg Cefepime HCl 1 gm/ Dextrose 50 mls @ 100 mls/hr IVPB Q12H [facility] Last Admin: 03/20/17 09:50 Dose: 100 mls/hr Vancomycin HCl 1,000 mg/ (Sodium Chloride) 250 mls @ 166.6 mls/hr IVPB Q12H [facility] Last Admin: 03/19/17 22:22 Dose: 166.6 mls/hr Losartan Potassium (Cozaar) 100 mg PO DAILY [facility] Last Admin: 03/19/17 10:37 Dose: 100 mg Metoprolol Tartrate (Lopressor) 50 mg PO BID [facility] Last Admin: 03/19/17 17:52 Dose: 50 mg Morphine Sulfate (Morphine) 2 mg IVP Q4 PRN PRN Reason: Pain, moderate (4-7) Last Admin: 03/07/17 18:42 Dose: 2 mg Ondansetron HCl (Zofran Inj) 4 mg IVP Q4 PRN PRN Reason: Nausea/Vomiting Promethazine HCl (Phenergan Syrup) 12.5 mg PO Q6 PRN PRN Reason: cough Last Admin: 03/20/17 03:44 Dose: 12.5 mg Rosuvastatin Calcium (Crestor) 10 mg PO HS [facility] Last Admin: 03/19/17 22:21 Dose: 10 mg - Labs Labs: 03/19/17 07:42 03/19/17 07:42 PT 13.3 SECONDS (9.7-12.2) H 02/25/17 18:17 INR 1.2 02/25/17 18:17 APTT 31 SECONDS (21-34) D 02/25/17 18:17 - Head Exam Head Exam: ATRAUMATIC, NORMOCEPHALIC - Eye Exam Eye Exam: Normal appearance - ENT Exam ENT Exam: Mucous Membranes Moist - Neck Exam Neck Exam: Normal Inspection - Respiratory Exam Respiratory Exam: Decreased Breath Sounds - Cardiovascular Exam Cardiovascular Exam: REGULAR RHYTHM - GI/Abdominal Exam GI & Abdominal Exam: Soft, Normal Bowel Sounds - Extremities Exam Extremities Exam: Pedal Edema - Neurological Exam Neurological Exam: Alert, Oriented x3 Assessment and Plan (1) Malignant pleural effusion Assessment & Plan: status post chest tube insertion draining minimal fluid and the plan is to discontinue it before discharge by thoracic Continue antibiotics for now Status: Acute (2) Ascites, malignant Status: Acute (3) Ovarian cancer Status: Chronic (4) Shortness of breath Status: Acute
[2017-03-20] MEDS: Enoxaparin 40 mg Syringe SC SCH ×2 (10:55→16:01)
--- NOTE | 2017-03-20 11:24 | RAD ---
HISTORY: Follow-up. Portable study 07:45. COMPARISON: No prior. FINDINGS: LUNGS: Stable consolidative changes bilaterally. PLEURA: Stable pleural disease/ partially loculated left pleural effusion. Chest tube in stable position. CARDIOVASCULAR: No significant interval change compared to the prior examination(s). Venous access catheter in stable, satisfactory position. OSSEOUS STRUCTURES: No significant abnormalities. VISUALIZED UPPER ABDOMEN: Normal. OTHER FINDINGS: None. IMPRESSION: No significant interval change compared to the prior examination(s).
--- NOTE | 2017-03-20 13:19 | CP.PCM.PN ---
Subjective - Date & Time of Evaluation Date of Evaluation: 03/20/17 Time of Evaluation: 13:17 - Subjective Subjective: Afebrile. wbc-4.9 hct-26. cxr-unchanged. chest tube-160cc/y continue chest tube until ready for d/c home. Objective - Vital Signs/Intake and Output Vital Signs (last 24 hours): Temp Pulse Resp BP Pulse Ox 99.3 F 88 22 110/76 96 03/20/17 07:40 03/20/17 07:40 03/20/17 07:40 03/20/17 09:50 03/20/17 07:40 Intake and Output: 03/20/17 03/20/17 06:59 18:59 Intake Total 910 Output Total 170 Balance 740 - Medications Medications: Current Medications Acetaminophen (Tylenol 325mg Tab) 650 mg PO Q6 PRN PRN Reason: Fever >100.4 F Last Admin: 03/17/17 07:57 Dose: 650 mg Diltiazem HCl (Cardizem) 5 mg IVP TID PRN PRN Reason: Other Last Admin: 03/20/17 09:45 Dose: 5 mg Diltiazem HCl (Cardizem) 10 mg IVP ONCE PRN PRN Reason: HR > 140 Last Admin: 03/19/17 00:40 Dose: 10 mg Diltiazem HCl (Cardizem) 60 mg PO QID [facility] Last Admin: 03/20/17 10:55 Dose: 60 mg Docusate Sodium (Colace) 100 mg PO BID [facility] Last Admin: 03/20/17 10:56 Dose: 100 mg Enoxaparin Sodium (Lovenox) 40 mg SC DAILY [facility] Last Admin: 03/20/17 10:55 Dose: 40 mg Famotidine (Pepcid) 20 mg PO DAILY [facility] Last Admin: 03/20/17 10:55 Dose: 20 mg Ferrous Sulfate (Feosol) 325 mg PO TID [facility] Last Admin: 03/20/17 10:55 Dose: 325 mg Cefepime HCl 1 gm/ Dextrose 50 mls @ 100 mls/hr IVPB Q12H [facility] Last Admin: 03/20/17 09:50 Dose: 100 mls/hr Vancomycin HCl 1,000 mg/ (Sodium Chloride) 250 mls @ 166.6 mls/hr IVPB Q12H [facility] Last Admin: 03/20/17 10:54 Dose: 166.6 mls/hr Losartan Potassium (Cozaar) 100 mg PO DAILY [facility] Last Admin: 03/20/17 10:55 Dose: 100 mg Metoprolol Tartrate (Lopressor) 50 mg PO BID [facility] Last Admin: 03/20/17 11:11 Dose: 50 mg Morphine Sulfate (Morphine) 2 mg IVP Q4 PRN PRN Reason: Pain, moderate (4-7) Last Admin: 03/07/17 18:42 Dose: 2 mg Ondansetron HCl (Zofran Inj) 4 mg IVP Q4 PRN PRN Reason: Nausea/Vomiting Promethazine HCl (Phenergan Syrup) 12.5 mg PO Q6 PRN PRN Reason: cough Last Admin: 03/20/17 03:44 Dose: 12.5 mg Rosuvastatin Calcium (Crestor) 10 mg PO HS [facility] Last Admin: 03/19/17 22:21 Dose: 10 mg - Labs Labs: 03/19/17 07:42 03/19/17 07:42 PT 13.3 SECONDS (9.7-12.2) H 02/25/17 18:17 INR 1.2 02/25/17 18:17 APTT 31 SECONDS (21-34) D 02/25/17 18:17
--- NOTE | 2017-03-20 13:53 | CP.PCM.PN ---
Subjective - Date & Time of Evaluation Date of Evaluation: 03/20/17 Time of Evaluation: 13:53 - Subjective Subjective: afebrile, SITTING UP ON THE SIDE OF THE BED Left chest tube in place draining minimal serosanguineous drainage. DAUGHTER AT BEDSIDE. LABS REVIEWED. BLOOD CULTURES 03/19/17-VE GROWTH FOR 24 HOURS. uRINE CULTURES 51 NEGATIVE GROWTH. pLEURAL FLUID 03/02/17 NEGATIVE GROWTH. wbc 4.9 h&h 8.3/26.1. PLT 462. 5 CREATININE 0.7/URINE 12. ESR 135 CRP >15.0 CXR 03/20; STABLE CONSOLIDATIVE CHANGES. sTABLE PLEURAL DISEASE pARTIALLY LOCULATED LEFT PLEURAL EFFUSION. lEFT CHEST TUBE STABLE.. nO INTERVAL CHANGE. Objective - Vital Signs/Intake and Output Vital Signs (last 24 hours): Temp Pulse Resp BP Pulse Ox 99.3 F 88 22 110/76 96 03/20/17 07:40 03/20/17 07:40 03/20/17 07:40 03/20/17 09:50 03/20/17 07:40 Intake and Output: 03/20/17 03/20/17 06:59 18:59 Intake Total 910 Output Total 170 Balance 740 - Medications Medications: Current Medications Acetaminophen (Tylenol 325mg Tab) 650 mg PO Q6 PRN PRN Reason: Fever >100.4 F Last Admin: 03/17/17 07:57 Dose: 650 mg Diltiazem HCl (Cardizem) 5 mg IVP TID PRN PRN Reason: Other Last Admin: 03/20/17 09:45 Dose: 5 mg Diltiazem HCl (Cardizem) 10 mg IVP ONCE PRN PRN Reason: HR > 140 Last Admin: 03/19/17 00:40 Dose: 10 mg Diltiazem HCl (Cardizem) 60 mg PO QID [facility] Last Admin: 03/20/17 10:55 Dose: 60 mg Docusate Sodium (Colace) 100 mg PO BID [facility] Last Admin: 03/20/17 10:56 Dose: 100 mg Enoxaparin Sodium (Lovenox) 40 mg SC DAILY [facility] Last Admin: 03/20/17 10:55 Dose: 40 mg Famotidine (Pepcid) 20 mg PO DAILY [facility] Last Admin: 03/20/17 10:55 Dose: 20 mg Ferrous Sulfate (Feosol) 325 mg PO TID [facility] Last Admin: 03/20/17 10:55 Dose: 325 mg Cefepime HCl 1 gm/ Dextrose 50 mls @ 100 mls/hr IVPB Q12H [facility] Last Admin: 03/20/17 09:50 Dose: 100 mls/hr Vancomycin HCl 1,000 mg/ (Sodium Chloride) 250 mls @ 166.6 mls/hr IVPB Q12H [facility] Last Admin: 03/20/17 10:54 Dose: 166.6 mls/hr Losartan Potassium (Cozaar) 100 mg PO DAILY [facility] Last Admin: 03/20/17 10:55 Dose: 100 mg Metoprolol Tartrate (Lopressor) 50 mg PO BID [facility] Last Admin: 03/20/17 11:11 Dose: 50 mg Morphine Sulfate (Morphine) 2 mg IVP Q4 PRN PRN Reason: Pain, moderate (4-7) Last Admin: 03/07/17 18:42 Dose: 2 mg Ondansetron HCl (Zofran Inj) 4 mg IVP Q4 PRN PRN Reason: Nausea/Vomiting Promethazine HCl (Phenergan Syrup) 12.5 mg PO Q6 PRN PRN Reason: cough Last Admin: 03/20/17 03:44 Dose: 12.5 mg Rosuvastatin Calcium (Crestor) 10 mg PO HS [facility] Last Admin: 03/19/17 22:21 Dose: 10 mg - Labs Labs: 03/19/17 07:42 03/19/17 07:42 PT 13.3 SECONDS (9.7-12.2) H 02/25/17 18:17 INR 1.2 02/25/17 18:17 APTT 31 SECONDS (21-34) D 02/25/17 18:17 - Constitutional Appears: No Acute Distress, Cachectic, Chronically Ill - Eye Exam Eye Exam: EOMI, PERRL. absent: Scleral icterus - ENT Exam ENT Exam: Normal Oropharynx - Respiratory Exam Respiratory Exam: Decreased Breath Sounds - Cardiovascular Exam Cardiovascular Exam: REGULAR RHYTHM, +S1, +S2 - GI/Abdominal Exam GI & Abdominal Exam: Soft, Normal Bowel Sounds (POSITIVE ASCITES.) - Neurological Exam Neurological Exam: Alert, Awake - Psychiatric Exam Psychiatric exam: Normal Mood - Skin Skin Exam: Normal Color, Warm Assessment and Plan (1) Bilateral pneumonia Assessment & Plan: CONTINUE IV MAXIPINE 1 G EVERY 12 HOURLY 03/16/17-DAY 5 CONTINUE iv mAXIPIME FOR TOTAL OF 14 DAYS. DC IV VANCOMYCIN. PATIENT HAS A LEFT CHEST TUBE IN PLACE SINCE 03/02/17. LOCAL CARE CHEST TUBE SITE. CASE DISCUSSED WITH STAFF. Status: Acute (2) Malignant pleural effusion Status: Acute (3) Ascites, malignant Status: Acute (4) Ovarian cancer Status: Chronic (5) Anemia Status: Chronic (6) Diabetes mellitus Status: Chronic (7) Hypertension Status: Chronic
--- NOTE | 2017-03-20 14:42 | PN ---
DATE: 03/20/2017 The patient denies any chest pain or palpitation. PHYSICAL EXAMINATION: VITAL SIGNS: Blood pressure 110/76, heart rate 88, temperature 98.3, respirations 22. HEENT: Pale conjunctivae. CHEST: Absent breath sounds over both bases. HEART: S1, S2 regular. ABDOMEN: Soft. EXTREMITIES: Significant muscle wasting. LABORATORIES: Today's C-reactive protein is more than 15. Today's chest x-ray official report: No significant interval changes compared to prior examination. ASSESSMENT: 1. Metastatic ovarian carcinoma. 2. Bilateral pleural effusion. 3. Paroxysmal atrial tachycardia as well as paroxysmal atrial fibrillation. 4. History of recent pulmonary embolism diagnosed in December of this year. 5. Anemia. RECOMMENDATIONS: Continue Cardizem at 60 mg q.i.d., cefepime at 1 gram twice a day, Cozaar at 100 mg once a day, Crestor at 10 mg once a day, Lopressor at 50 mg twice a day, vancomycin at 1 gram twice a day. I will start Lovenox at 40 mg subcutaneously daily until the patient is cleared for therapeut ic regimen of Lovenox therapy. Morgan Zuniga MD cc: [id number] TT: 03/20/2017 14:42:32 Confirmation # [id number] Dictation # [id number] en
--- NOTE | 2017-03-20 22:48 | CP.PCM.PN ---
Subjective - Date & Time of Evaluation Date of Evaluation: 03/20/17 Time of Evaluation: 10:20 - Subjective Subjective: Pt seen & examined, afebrile, on cefepime, vancomycin, she is coughing alot, denies any chest pain Chest tube in place draining minimal fluid Objective - Vital Signs/Intake and Output Vital Signs (last 24 hours): Temp Pulse Resp BP Pulse Ox 97.4 F L 91 H 20 141/86 95 03/20/17 16:00 03/20/17 22:21 03/20/17 22:21 03/20/17 22:21 03/20/17 16:00 Intake and Output: 03/20/17 03/21/17 18:59 06:59 Intake Total 670 Output Total 370 Balance 300 - Medications Medications: Current Medications Acetaminophen (Tylenol 325mg Tab) 650 mg PO Q6 PRN PRN Reason: Fever >100.4 F Last Admin: 03/17/17 07:57 Dose: 650 mg Diltiazem HCl (Cardizem) 5 mg IVP TID PRN PRN Reason: Other Last Admin: 03/20/17 09:45 Dose: 5 mg Diltiazem HCl (Cardizem) 10 mg IVP ONCE PRN PRN Reason: HR > 140 Last Admin: 03/19/17 00:40 Dose: 10 mg Diltiazem HCl (Cardizem) 60 mg PO QID [facility] Last Admin: 03/20/17 22:19 Dose: 60 mg Docusate Sodium (Colace) 100 mg PO BID [facility] Last Admin: 03/20/17 17:38 Dose: 100 mg Enoxaparin Sodium (Lovenox) 40 mg SC DAILY [facility] Last Admin: 03/20/17 16:01 Dose: 40 mg Famotidine (Pepcid) 20 mg PO DAILY [facility] Last Admin: 03/20/17 10:55 Dose: 20 mg Ferrous Sulfate (Feosol) 325 mg PO TID [facility] Last Admin: 03/20/17 17:38 Dose: 325 mg Cefepime HCl 1 gm/ Dextrose 50 mls @ 100 mls/hr IVPB Q12H [facility] Last Admin: 03/20/17 22:20 Dose: 100 mls/hr Vancomycin HCl 1,000 mg/ (Sodium Chloride) 250 mls @ 166.6 mls/hr IVPB Q12H [facility] Last Admin: 03/20/17 22:20 Dose: 166.6 mls/hr Losartan Potassium (Cozaar) 100 mg PO DAILY [facility] Last Admin: 03/20/17 10:55 Dose: 100 mg Metoprolol Tartrate (Lopressor) 50 mg PO BID [facility] Last Admin: 03/20/17 17:38 Dose: 50 mg Morphine Sulfate (Morphine) 2 mg IVP Q4 PRN PRN Reason: Pain, moderate (4-7) Last Admin: 03/07/17 18:42 Dose: 2 mg Ondansetron HCl (Zofran Inj) 4 mg IVP Q4 PRN PRN Reason: Nausea/Vomiting Promethazine HCl (Phenergan Syrup) 12.5 mg PO Q6 PRN PRN Reason: cough Last Admin: 03/20/17 03:44 Dose: 12.5 mg Rosuvastatin Calcium (Crestor) 10 mg PO HS [facility] Last Admin: 03/20/17 22:19 Dose: 10 mg - Labs Labs: 03/19/17 07:42 03/19/17 07:42 PT 13.3 SECONDS (9.7-12.2) H 02/25/17 18:17 INR 1.2 02/25/17 18:17 APTT 31 SECONDS (21-34) D 02/25/17 18:17 - Constitutional Appears: No Acute Distress, Chronically Ill - Head Exam Head Exam: ATRAUMATIC, NORMAL INSPECTION, NORMOCEPHALIC - Eye Exam Eye Exam: EOMI, Normal appearance, PERRL Pupil Exam: NORMAL ACCOMODATION, PERRL - Respiratory Exam Respiratory Exam: Decreased Breath Sounds, Rales, Rhonchi - Cardiovascular Exam Cardiovascular Exam: REGULAR RHYTHM, +S1, +S2. absent: Murmur - GI/Abdominal Exam GI & Abdominal Exam: Soft, Normal Bowel Sounds. absent: Tenderness Assessment and Plan (1) Ascites, malignant Assessment & Plan: recurrent resistant to treatment Status: Acute (2) Diabetes mellitus Status: Chronic (3) Hypertension Status: Chronic (4) Ovarian cancer Status: Chronic (5) Pleural effusion due to another disorder Assessment & Plan: recurrent, resistant to treatment Status: Acute (6) Shortness of breath Status: Acute
[2017-03-21] MEDS: Promethazine 12.5 mg/10 ml Syrup PO PRN (00:22)
[2017-03-21] MEDS ORDERED: Albuterol-Ipratrop 3 mg / 0.5 (3 ml) UD INH STA (00:49)
--- NOTE | 2017-03-21 08:59 | CP.PCM.PN ---
Subjective - Date & Time of Evaluation Date of Evaluation: 03/21/17 Time of Evaluation: 07:00 - Subjective Subjective: THORACIC SURGERY PROGRESS NOTE FOR DR. BUCKLEY Patient seen and examined at bedside. Overnight, she had some SOB on NC and was given stat nebulizer treatment which relieved her symptoms. Currently, she states that she does not have any CP or SOB. Objective - Vital Signs/Intake and Output Vital Signs (last 24 hours): Temp Pulse Resp BP Pulse Ox 97.4 F L 86 22 158/90 H 99 03/21/17 08:35 03/21/17 08:35 03/21/17 08:35 03/21/17 08:35 03/21/17 08:35 Intake and Output: 03/21/17 03/21/17 06:59 18:59 Intake Total 910 Output Total 440 Balance 470 - Medications Medications: Current Medications Acetaminophen (Tylenol 325mg Tab) 650 mg PO Q6 PRN PRN Reason: Fever >100.4 F Last Admin: 03/17/17 07:57 Dose: 650 mg Diltiazem HCl (Cardizem) 5 mg IVP TID PRN PRN Reason: Other Last Admin: 03/20/17 09:45 Dose: 5 mg Diltiazem HCl (Cardizem) 10 mg IVP ONCE PRN PRN Reason: HR > 140 Last Admin: 03/19/17 00:40 Dose: 10 mg Diltiazem HCl (Cardizem) 60 mg PO QID [facility] Last Admin: 03/20/17 22:19 Dose: 60 mg Docusate Sodium (Colace) 100 mg PO BID [facility] Last Admin: 03/20/17 17:38 Dose: 100 mg Enoxaparin Sodium (Lovenox) 40 mg SC DAILY [facility] Last Admin: 03/20/17 16:01 Dose: 40 mg Famotidine (Pepcid) 20 mg PO DAILY [facility] Last Admin: 03/20/17 10:55 Dose: 20 mg Ferrous Sulfate (Feosol) 325 mg PO TID [facility] Last Admin: 03/20/17 17:38 Dose: 325 mg Cefepime HCl 1 gm/ Dextrose 50 mls @ 100 mls/hr IVPB Q12H [facility] Last Admin: 03/20/17 22:20 Dose: 100 mls/hr Losartan Potassium (Cozaar) 100 mg PO DAILY [facility] Last Admin: 03/20/17 10:55 Dose: 100 mg Metoprolol Tartrate (Lopressor) 50 mg PO BID [facility] Last Admin: 03/20/17 17:38 Dose: 50 mg Morphine Sulfate (Morphine) 2 mg IVP Q4 PRN PRN Reason: Pain, moderate (4-7) Last Admin: 03/21/17 03:14 Dose: 2 mg Ondansetron HCl (Zofran Inj) 4 mg IVP Q4 PRN PRN Reason: Nausea/Vomiting Promethazine HCl (Phenergan Syrup) 12.5 mg PO Q6 PRN PRN Reason: cough Last Admin: 03/21/17 00:22 Dose: 12.5 mg Rosuvastatin Calcium (Crestor) 10 mg PO HS [facility] Last Admin: 03/20/17 22:19 Dose: 10 mg - Labs Labs: 03/19/17 07:42 03/19/17 07:42 PT 13.3 SECONDS (9.7-12.2) H 02/25/17 18:17 INR 1.2 02/25/17 18:17 APTT 31 SECONDS (21-34) D 02/25/17 18:17 - Constitutional Appears: Non-toxic, No Acute Distress, Chronically Ill - Respiratory Exam Respiratory Exam: NORMAL BREATHING PATTERN. absent: Respiratory Distress Additional comments: Left Chest tube in place on suction: 150cc serosanguinous output over past 24 hours (small air leak still present) Dressing clean/dry/intact - Cardiovascular Exam Cardiovascular Exam: +S1, +S2 - Neurological Exam Neurological Exam: Alert, Awake - Psychiatric Exam Psychiatric exam: Normal Affect, Normal Mood - Skin Skin Exam: Dry, Normal Color, Warm Additional comments: When shelley were removed, tiny amount of pus seen Assessment and Plan - Assessment and Plan (Free Text) Assessment: 71yo F with recurrent pleural effusion s/p Left VATS converted to thoracotomy, evacuation of pleural fluid, debridement of left lung cavity, decortication, insertion of chest tubes and PleurX catheter POD#19 - Afebrile, VSS - 38F removed 03/10 - Left Chest tube in place on suction: 150cc serosanguinous output over past 24 hours (small air leak still present) - [place] removed this AM - Continue daily CXRs - Placed chest tube to water seal - Possible DC chest tube Thursday after confirming satisfactory function of PleurX catheter - Discussed plan with Dr. Tad Cruz PGY-2
[2017-03-21] MEDS: Enoxaparin 40 mg Syringe SC SCH ×2 (10:07→21:00)
--- NOTE | 2017-03-21 12:40 | PN ---
DATE: 03/21/2017 SUBJECTIVE: The patient denies any palpitations. She is currently in sinus rhythm. She is mildly s hort of breath. PHYSICAL EXAMINATION: VITAL SIGNS: Blood pressure 158/90, heart rate 86, temperature 97.4, respirations 22. HEENT: Pale conjunctivae. CHEST: Absent breath sounds over both bases. HEART: S1, S2 regular. EXTREMITIES: Trace pedal edema. ASSESSMENT: 1. Metastatic ovarian carcinoma. 2. Bilateral pleural effusion. 3. Paroxysmal tachycardia as well as paroxysmal atrial fibrillation. 4. Anemia. 5. History of recent pulmonary embolism. RECOMMENDATIONS: Continue current Cardizem at 50 mg t.i.d., Cozaar 100 mg once a day, Crestor 10 mg once a day, Lopressor 50 mg once a day, increase Lovenox to 40 mg subcutaneous twice a day. Morgan Zuniga MD cc: [id number] TT: 03/21/2017 12:39:18 Confirmation # [id number] Dictation # [id number] desi
--- NOTE | 2017-03-21 12:59 | RAD ---
HISTORY: Follow-up left chest tube. Portable study 08:14. COMPARISON: Multiple serial examinations preceding the most recent study: March 20, 2017. 07:45. FINDINGS: LUNGS: Extensive bilateral multifocal infiltrates are stable. PLEURA: No significant interval change compared to the prior examination(s). . This includes left pleural effusion and position of chest tube in the left pleural space. CARDIOVASCULAR: No significant interval change compared to the prior examination(s). Venous access catheter in stable, satisfactory position. OSSEOUS STRUCTURES: No significant abnormalities. VISUALIZED UPPER ABDOMEN: Normal. OTHER FINDINGS: None. IMPRESSION: No significant interval change compared to the prior examination(s). . Stable partially loculated left pleural effusion. Stable position of chest tube in the left pleural space.
[2017-03-21] MEDS: Albuterol-Ipratrop 3 mg / 0.5 (3 ml) UD INH SCH (20:00)
--- NOTE | 2017-03-21 20:37 | CP.PCM.PN ---
Subjective - Date & Time of Evaluation Date of Evaluation: 03/21/17 Time of Evaluation: 20:37 - Subjective Subjective: INTERMITTENT SHORTNESS OF BREATH ON 2L O2 VIA NASAL CANNULA OXYGEN PULSE OX 95% FEELS WEAK /AND TIRED LEFT CHEST TUBE IN PLACE DRAINING SCANTY SEROUS SANGUINOUS FLUID 90CC FLUID SEEN BY SURGICAL TEAM AND NOTED. Objective - Vital Signs/Intake and Output Vital Signs (last 24 hours): Temp Pulse Resp BP Pulse Ox 99.1 F 88 18 157/81 H 97 03/21/17 16:36 03/21/17 16:58 03/21/17 16:36 03/21/17 16:36 03/21/17 16:36 Intake and Output: 03/21/17 03/22/17 18:59 06:59 Intake Total 200 Output Total 10 Balance 190 - Medications Medications: Current Medications Acetaminophen (Tylenol 325mg Tab) 650 mg PO Q6 PRN PRN Reason: Fever >100.4 F Last Admin: 03/17/17 07:57 Dose: 650 mg Albuterol/Ipratropium (Duoneb 3 Mg/0.5 Mg (3 Ml) Ud) 3 ml INH RQ6 [facility] Last Admin: 03/21/17 20:00 Dose: 3 ml Diltiazem HCl (Cardizem) 5 mg IVP TID PRN PRN Reason: Other Last Admin: 03/20/17 09:45 Dose: 5 mg Diltiazem HCl (Cardizem) 10 mg IVP ONCE PRN PRN Reason: HR > 140 Last Admin: 03/19/17 00:40 Dose: 10 mg Diltiazem HCl (Cardizem) 60 mg PO QID [facility] Last Admin: 03/21/17 18:43 Dose: 60 mg Docusate Sodium (Colace) 100 mg PO BID [facility] Last Admin: 03/21/17 18:43 Dose: 100 mg Enoxaparin Sodium (Lovenox) 40 mg SC Q12 [facility] Famotidine (Pepcid) 20 mg PO DAILY [facility] Last Admin: 03/21/17 10:08 Dose: 20 mg Ferrous Sulfate (Feosol) 325 mg PO TID [facility] Last Admin: 03/21/17 18:43 Dose: 325 mg Losartan Potassium (Cozaar) 100 mg PO DAILY [facility] Last Admin: 03/21/17 10:06 Dose: 100 mg Metoprolol Tartrate (Lopressor) 50 mg PO BID [facility] Last Admin: 03/21/17 18:43 Dose: 50 mg Morphine Sulfate (Morphine) 2 mg IVP Q4 PRN PRN Reason: Pain, moderate (4-7) Last Admin: 03/21/17 03:14 Dose: 2 mg Ondansetron HCl (Zofran Inj) 4 mg IVP Q4 PRN PRN Reason: Nausea/Vomiting Promethazine HCl (Phenergan Syrup) 12.5 mg PO Q6 PRN PRN Reason: cough Last Admin: 03/21/17 00:22 Dose: 12.5 mg Rosuvastatin Calcium (Crestor) 10 mg PO HS [facility] Last Admin: 03/20/17 22:19 Dose: 10 mg - Labs Labs: 03/19/17 07:42 03/19/17 07:42 PT 13.3 SECONDS (9.7-12.2) H 02/25/17 18:17 INR 1.2 02/25/17 18:17 APTT 31 SECONDS (21-34) D 02/25/17 18:17 - Constitutional Appears: No Acute Distress, Cachectic, Chronically Ill - Head Exam Head Exam: NORMAL INSPECTION - Eye Exam Eye Exam: EOMI, PERRL - ENT Exam ENT Exam: Normal Oropharynx - Neck Exam Neck Exam: Normal Inspection - Respiratory Exam Respiratory Exam: Decreased Breath Sounds (LEFT BASE.), Rhonchi - Cardiovascular Exam Cardiovascular Exam: REGULAR RHYTHM, +S1, +S2 - GI/Abdominal Exam GI & Abdominal Exam: Soft, Normal Bowel Sounds (POSITIVE ASCITES.) - Extremities Exam Extremities Exam: absent: Calf Tenderness, Pedal Edema - Neurological Exam Neurological Exam: Alert, Awake, CN II-XII Intact, Oriented x3 - Psychiatric Exam Psychiatric exam: Normal Mood - Skin Skin Exam: Normal Color, Warm Assessment and Plan (1) Bilateral pneumonia Assessment & Plan: CONTINUE IV MAXIPINE 1 G EVERY 12 HOURLY 03/16/17-DAY 6 CONTINUE iv mAXIPIME FOR TOTAL OF 14 DAYS. OFF IV VANCOMYCIN. PATIENT HAS A LEFT CHEST TUBE IN PLACE SINCE 03/02/17. LOCAL CARE CHEST TUBE SITE. CASE DISCUSSED WITH STAFF. Status: Acute (2) Malignant pleural effusion Assessment & Plan: LEFT CHEST TUBE IN PLACE. DRAINING SEROSANGUINEOUS FLUID Status: Acute (3) Ascites, malignant Status: Acute (4) Ovarian cancer Status: Chronic (5) Anemia Status: Chronic (6) Diabetes mellitus Status: Chronic (7) Hypertension Status: Chronic
--- NOTE | 2017-03-21 20:59 | CP.PCM.PN ---
Subjective - Date & Time of Evaluation Date of Evaluation: 03/21/17 Time of Evaluation: 18:00 - Subjective Subjective: Feels weak, family at bedside. I had an at length discussion with the patients and daughter. We discussed code status and hospice care. They verbalized they will discuss code status with the pt and other members of the family. They indicated they were not ready for hospice yet. Objective - Vital Signs/Intake and Output Vital Signs (last 24 hours): Temp Pulse Resp BP Pulse Ox 99.1 F 88 18 157/81 H 97 03/21/17 16:36 03/21/17 16:58 03/21/17 16:36 03/21/17 16:36 03/21/17 16:36 Intake and Output: 03/21/17 03/22/17 18:59 06:59 Intake Total 200 Output Total 10 Balance 190 - Medications Medications: Current Medications Acetaminophen (Tylenol 325mg Tab) 650 mg PO Q6 PRN PRN Reason: Fever >100.4 F Last Admin: 03/17/17 07:57 Dose: 650 mg Albuterol/Ipratropium (Duoneb 3 Mg/0.5 Mg (3 Ml) Ud) 3 ml INH RQ6 [facility] Last Admin: 03/21/17 20:00 Dose: 3 ml Diltiazem HCl (Cardizem) 5 mg IVP TID PRN PRN Reason: Other Last Admin: 03/20/17 09:45 Dose: 5 mg Diltiazem HCl (Cardizem) 10 mg IVP ONCE PRN PRN Reason: HR > 140 Last Admin: 03/19/17 00:40 Dose: 10 mg Diltiazem HCl (Cardizem) 60 mg PO QID [facility] Last Admin: 03/21/17 18:43 Dose: 60 mg Docusate Sodium (Colace) 100 mg PO BID [facility] Last Admin: 03/21/17 18:43 Dose: 100 mg Enoxaparin Sodium (Lovenox) 40 mg SC Q12 [facility] Famotidine (Pepcid) 20 mg PO DAILY [facility] Last Admin: 03/21/17 10:08 Dose: 20 mg Ferrous Sulfate (Feosol) 325 mg PO TID [facility] Last Admin: 03/21/17 18:43 Dose: 325 mg Losartan Potassium (Cozaar) 100 mg PO DAILY [facility] Last Admin: 03/21/17 10:06 Dose: 100 mg Metoprolol Tartrate (Lopressor) 50 mg PO BID [facility] Last Admin: 03/21/17 18:43 Dose: 50 mg Morphine Sulfate (Morphine) 2 mg IVP Q4 PRN PRN Reason: Pain, moderate (4-7) Last Admin: 03/21/17 03:14 Dose: 2 mg Ondansetron HCl (Zofran Inj) 4 mg IVP Q4 PRN PRN Reason: Nausea/Vomiting Promethazine HCl (Phenergan Syrup) 12.5 mg PO Q6 PRN PRN Reason: cough Last Admin: 03/21/17 00:22 Dose: 12.5 mg Rosuvastatin Calcium (Crestor) 10 mg PO HS [facility] Last Admin: 03/20/17 22:19 Dose: 10 mg - Labs Labs: 03/19/17 07:42 03/19/17 07:42 PT 13.3 SECONDS (9.7-12.2) H 02/25/17 18:17 INR 1.2 02/25/17 18:17 APTT 31 SECONDS (21-34) D 02/25/17 18:17 - Constitutional Appears: Cachectic - ENT Exam ENT Exam: Mucous Membranes Dry - Respiratory Exam Respiratory Exam: Decreased Breath Sounds - Cardiovascular Exam Cardiovascular Exam: +S1, +S2 - GI/Abdominal Exam GI & Abdominal Exam: Normal Bowel Sounds Assessment and Plan (1) Pleural effusion due to another disorder Status: Acute (2) Anemia Status: Chronic (3) Pulmonary embolism Status: Acute (4) Ovarian cancer Status: Chronic
[2017-03-22] MEDS: Albuterol-Ipratrop 3 mg / 0.5 (3 ml) UD INH SCH ×4 (01:09→19:56)
--- NOTE | 2017-03-22 07:43 | CP.PCM.PN ---
Subjective - Date & Time of Evaluation Date of Evaluation: 03/21/17 Time of Evaluation: 10:21 - Subjective Subjective: Pt seen & examined, is coughing, not short of breath, she is weak and lethargic , left sided chest tube draining, pt remains on antibiotics, clinincally unchanged, Feels weak, family at bedside. family is not ready for hospice yet. Objective - Vital Signs/Intake and Output Vital Signs (last 24 hours): Temp Pulse Resp BP Pulse Ox 99.3 F 90 20 162/80 H 95 03/21/17 23:25 03/22/17 00:58 03/21/17 23:25 03/21/17 23:25 03/21/17 23:25 Intake and Output: 03/22/17 03/22/17 06:59 18:59 Output Total 385 Balance -385 - Medications Medications: Current Medications Acetaminophen (Tylenol 325mg Tab) 650 mg PO Q6 PRN PRN Reason: Fever >100.4 F Last Admin: 03/17/17 07:57 Dose: 650 mg Albuterol/Ipratropium (Duoneb 3 Mg/0.5 Mg (3 Ml) Ud) 3 ml INH RQ6 [facility] Last Admin: 03/22/17 01:09 Dose: 3 ml Diltiazem HCl (Cardizem) 5 mg IVP TID PRN PRN Reason: Other Last Admin: 03/20/17 09:45 Dose: 5 mg Diltiazem HCl (Cardizem) 10 mg IVP ONCE PRN PRN Reason: HR > 140 Last Admin: 03/19/17 00:40 Dose: 10 mg Diltiazem HCl (Cardizem) 60 mg PO QID [facility] Last Admin: 03/21/17 21:01 Dose: 60 mg Docusate Sodium (Colace) 100 mg PO BID [facility] Last Admin: 03/21/17 18:43 Dose: 100 mg Enoxaparin Sodium (Lovenox) 40 mg SC Q12 [facility] Last Admin: 03/21/17 21:00 Dose: 40 mg Famotidine (Pepcid) 20 mg PO DAILY [facility] Last Admin: 03/21/17 10:08 Dose: 20 mg Ferrous Sulfate (Feosol) 325 mg PO TID [facility] Last Admin: 03/21/17 18:43 Dose: 325 mg Losartan Potassium (Cozaar) 100 mg PO DAILY [facility] Last Admin: 03/21/17 10:06 Dose: 100 mg Metoprolol Tartrate (Lopressor) 50 mg PO BID [facility] Last Admin: 03/21/17 18:43 Dose: 50 mg Morphine Sulfate (Morphine) 2 mg IVP Q4 PRN PRN Reason: Pain, moderate (4-7) Last Admin: 03/21/17 03:14 Dose: 2 mg Ondansetron HCl (Zofran Inj) 4 mg IVP Q4 PRN PRN Reason: Nausea/Vomiting Promethazine HCl (Phenergan Syrup) 12.5 mg PO Q6 PRN PRN Reason: cough Last Admin: 03/21/17 00:22 Dose: 12.5 mg Rosuvastatin Calcium (Crestor) 10 mg PO [facility] Last Admin: 03/21/17 21:02 Dose: 10 mg - Labs Labs: 03/19/17 07:42 03/19/17 07:42 PT 13.3 SECONDS (9.7-12.2) H 02/25/17 18:17 INR 1.2 02/25/17 18:17 APTT 31 SECONDS (21-34) D 02/25/17 18:17 - Constitutional Appears: Cachectic, Chronically Ill - Head Exam Head Exam: ATRAUMATIC, NORMAL INSPECTION, NORMOCEPHALIC - Eye Exam Eye Exam: EOMI, Normal appearance, PERRL Pupil Exam: NORMAL ACCOMODATION, PERRL - ENT Exam ENT Exam: Mucous Membranes Dry - Respiratory Exam Respiratory Exam: Decreased Breath Sounds, Rales, Rhonchi - Cardiovascular Exam Cardiovascular Exam: REGULAR RHYTHM, +S1, +S2. absent: Murmur Assessment and Plan (1) Ascites, malignant Status: Acute (2) Diabetes mellitus Status: Chronic (3) Hypertension Status: Chronic (4) Ovarian cancer Status: Chronic (5) Pleural effusion due to another disorder Status: Acute (6) Shortness of breath Status: Acute
--- NOTE | 2017-03-22 08:09 | CP.PCM.PN ---
Subjective - Date & Time of Evaluation Date of Evaluation: 03/22/17 Time of Evaluation: 10:24 - Subjective Subjective: Pt seen & examined, i s weak, lethargic, remains on chest tube draining Objective - Vital Signs/Intake and Output Vital Signs (last 24 hours): Temp Pulse Resp BP Pulse Ox 99.3 F 90 20 162/80 H 95 03/21/17 23:25 03/22/17 00:58 03/21/17 23:25 03/21/17 23:25 03/21/17 23:25 Intake and Output: 03/22/17 03/22/17 06:59 18:59 Output Total 385 Balance -385 - Medications Medications: Current Medications Acetaminophen (Tylenol 325mg Tab) 650 mg PO Q6 PRN PRN Reason: Fever >100.4 F Last Admin: 03/17/17 07:57 Dose: 650 mg Albuterol/Ipratropium (Duoneb 3 Mg/0.5 Mg (3 Ml) Ud) 3 ml INH RQ6 [facility] Last Admin: 03/22/17 01:09 Dose: 3 ml Diltiazem HCl (Cardizem) 5 mg IVP TID PRN PRN Reason: Other Last Admin: 03/20/17 09:45 Dose: 5 mg Diltiazem HCl (Cardizem) 10 mg IVP ONCE PRN PRN Reason: HR > 140 Last Admin: 03/19/17 00:40 Dose: 10 mg Diltiazem HCl (Cardizem) 60 mg PO QID [facility] Last Admin: 03/21/17 21:01 Dose: 60 mg Docusate Sodium (Colace) 100 mg PO BID [facility] Last Admin: 03/21/17 18:43 Dose: 100 mg Enoxaparin Sodium (Lovenox) 40 mg SC Q12 [facility] Last Admin: 03/21/17 21:00 Dose: 40 mg Famotidine (Pepcid) 20 mg PO DAILY [facility] Last Admin: 03/21/17 10:08 Dose: 20 mg Ferrous Sulfate (Feosol) 325 mg PO TID [facility] Last Admin: 03/21/17 18:43 Dose: 325 mg Losartan Potassium (Cozaar) 100 mg PO DAILY [facility] Last Admin: 03/21/17 10:06 Dose: 100 mg Metoprolol Tartrate (Lopressor) 50 mg PO BID [facility] Last Admin: 03/21/17 18:43 Dose: 50 mg Morphine Sulfate (Morphine) 2 mg IVP Q4 PRN PRN Reason: Pain, moderate (4-7) Last Admin: 03/21/17 03:14 Dose: 2 mg Ondansetron HCl (Zofran Inj) 4 mg IVP Q4 PRN PRN Reason: Nausea/Vomiting Promethazine HCl (Phenergan Syrup) 12.5 mg PO Q6 PRN PRN Reason: cough Last Admin: 03/21/17 00:22 Dose: 12.5 mg Rosuvastatin Calcium (Crestor) 10 mg PO HS [facility] Last Admin: 03/21/17 21:02 Dose: 10 mg - Labs Labs: 03/19/17 07:42 03/19/17 07:42 PT 13.3 SECONDS (9.7-12.2) H 02/25/17 18:17 INR 1.2 02/25/17 18:17 APTT 31 SECONDS (21-34) D 02/25/17 18:17 - Constitutional Appears: Cachectic, Chronically Ill - Head Exam Head Exam: ATRAUMATIC, NORMAL INSPECTION, NORMOCEPHALIC - Eye Exam Eye Exam: EOMI, Normal appearance, PERRL Pupil Exam: NORMAL ACCOMODATION, PERRL - Respiratory Exam Respiratory Exam: Decreased Breath Sounds, Rales, Rhonchi - Cardiovascular Exam Cardiovascular Exam: REGULAR RHYTHM, +S1, +S2. absent: Murmur - GI/Abdominal Exam GI & Abdominal Exam: Soft, Normal Bowel Sounds. absent: Tenderness Assessment and Plan (1) Ascites, malignant Status: Acute (2) Diabetes mellitus Status: Chronic (3) Hypertension Status: Chronic (4) Ovarian cancer Status: Chronic (5) Pleural effusion due to another disorder Status: Acute (6) Shortness of breath Status: Acute
[2017-03-22 08:40] LABS: BASO % 0.6 % (0.0-2.0); EOS % 0.3 % (0.0-4.0); HEMATOCRIT 25.9 % (34.0-47.0); LYMPH # 1.6 K/uL (1.0-4.3); MEAN CELL VOLUME 81.1 fL (81.0-99.0); MEAN CORPUSCULAR HEMOGLOBIN 25.3 pg (27.0-31.0); MEAN CORPUSCULAR HGB CONC 31.2 g/dL (33.0-37.0); MEAN PLATELET VOLUME 7.3 fL (7.2-11.7); MONO # 2.2 K/uL (0.0-0.8); NRBC % 0.4 % (0.0-2.0); PLATELET COUNT 492 K/uL (130-400); RED CELL DISTRIBUTION WIDTH 16.7 % (11.5-14.5); WHITE BLOOD COUNT 6.8 K/uL (4.8-10.8)
[2017-03-22 08:49] LABS: CHLORIDE 97 mmol/L (98-107); POTASSIUM 3.9 mmol/L (3.6-5.2); SODIUM 141 mmol/L (132-148)
[2017-03-22 08:51] LABS: GFR AFRICAN-AMERICAN > 60
[2017-03-22 08:52] LABS: ALB/GLOB RATIO 0.9 (1.0-2.1); ALKALINE PHOSPHATASE 78 U/L (38-126); ALT/SGPT 21 U/L (9-52); AST/SGOT 18 U/L (14-36); BILIRUBIN,TOTAL 0.4 mg/dL (0.2-1.3); BLOOD UREA NITROGEN 9 mg/dL (7-17); CARBON DIOXIDE 31 mmol/L (22-30); GLUCOSE,RANDOM 97 mg/dL (65-105); TOTAL PROTEIN 5.9 g/dL (6.3-8.3)
[2017-03-22 09:41] LABS: NEUTROPHIL 50 % (50-75); REACTIVE LYMPHOCYTES 1 % (0-0); TOTAL CELLS COUNTED 100
[2017-03-22 09:43] LABS: LARGE PLATELETS PRESENT
--- NOTE | 2017-03-22 10:06 | CP.PCM.PN ---
Subjective - Date & Time of Evaluation Date of Evaluation: 03/22/17 Time of Evaluation: 08:00 - Subjective Subjective: Patient seen and examined. Sitting comfortably in no acute distress the chest tube in place draining fluid Slept well last night Complaining of slight cough Fair appetite Objective - Vital Signs/Intake and Output Vital Signs (last 24 hours): Temp Pulse Resp BP Pulse Ox 98.3 F 88 20 141/80 100 03/22/17 07:00 03/22/17 07:00 03/22/17 07:00 03/22/17 07:00 03/22/17 07:00 Intake and Output: 03/22/17 03/22/17 06:59 18:59 Output Total 385 Balance -385 - Medications Medications: Current Medications Acetaminophen (Tylenol 325mg Tab) 650 mg PO Q6 PRN PRN Reason: Fever >100.4 F Last Admin: 03/17/17 07:57 Dose: 650 mg Albuterol/Ipratropium (Duoneb 3 Mg/0.5 Mg (3 Ml) Ud) 3 ml INH RQ6 [facility] Last Admin: 03/22/17 08:15 Dose: 3 ml Diltiazem HCl (Cardizem) 5 mg IVP TID PRN PRN Reason: Other Last Admin: 03/20/17 09:45 Dose: 5 mg Diltiazem HCl (Cardizem) 10 mg IVP ONCE PRN PRN Reason: HR > 140 Last Admin: 03/19/17 00:40 Dose: 10 mg Diltiazem HCl (Cardizem) 60 mg PO QID [facility] Last Admin: 03/21/17 21:01 Dose: 60 mg Docusate Sodium (Colace) 100 mg PO BID [facility] Last Admin: 03/21/17 18:43 Dose: 100 mg Enoxaparin Sodium (Lovenox) 40 mg SC Q12 [facility] Last Admin: 03/21/17 21:00 Dose: 40 mg Famotidine (Pepcid) 20 mg PO DAILY [facility] Last Admin: 03/21/17 10:08 Dose: 20 mg Ferrous Sulfate (Feosol) 325 mg PO TID [facility] Last Admin: 03/21/17 18:43 Dose: 325 mg Losartan Potassium (Cozaar) 100 mg PO DAILY [facility] Last Admin: 03/21/17 10:06 Dose: 100 mg Metoprolol Tartrate (Lopressor) 50 mg PO BID [facility] Last Admin: 03/21/17 18:43 Dose: 50 mg Morphine Sulfate (Morphine) 2 mg IVP Q4 PRN PRN Reason: Pain, moderate (4-7) Last Admin: 03/21/17 03:14 Dose: 2 mg Ondansetron HCl (Zofran Inj) 4 mg IVP Q4 PRN PRN Reason: Nausea/Vomiting Promethazine HCl (Phenergan Syrup) 12.5 mg PO Q6 PRN PRN Reason: cough Last Admin: 03/21/17 00:22 Dose: 12.5 mg Rosuvastatin Calcium (Crestor) 10 mg PO HS [facility] Last Admin: 03/21/17 21:02 Dose: 10 mg - Labs Labs: 03/22/17 08:26 03/22/17 08:26 PT 13.3 SECONDS (9.7-12.2) H 02/25/17 18:17 INR 1.2 02/25/17 18:17 APTT 31 SECONDS (21-34) D 02/25/17 18:17 - Head Exam Head Exam: ATRAUMATIC, NORMOCEPHALIC - Eye Exam Eye Exam: Normal appearance - ENT Exam ENT Exam: Mucous Membranes Moist - Respiratory Exam Respiratory Exam: Clear to Ausculation Bilateral - Cardiovascular Exam Cardiovascular Exam: REGULAR RHYTHM - GI/Abdominal Exam GI & Abdominal Exam: Soft, Normal Bowel Sounds - Extremities Exam Extremities Exam: Normal Inspection Assessment and Plan (1) Malignant pleural effusion Assessment & Plan: chest tube in place still draining minimal fluid Continue antibiotics Continue nebulizer treatment Status: Acute (2) Ascites, malignant Status: Acute (3) Ovarian cancer Status: Chronic (4) Shortness of breath Status: Acute
[2017-03-22] MEDS: Enoxaparin 40 mg Syringe SC SCH ×2 (11:15→21:13)
--- NOTE | 2017-03-22 13:48 | RAD ---
HISTORY: Left chest tube. Portable study 08:05. COMPARISON: Multiple serial examinations preceding the most recent study: March 21, 2017. FINDINGS: LUNGS: Stable bilateral infiltrates. PLEURA: Stable bilateral pleural effusions. Solitary chest tube in the left pleural space unchanged. CARDIOVASCULAR: Pulmonary vascular congestion, stable. Venous access catheter in stable, satisfactory position. OSSEOUS STRUCTURES: No significant abnormalities. VISUALIZED UPPER ABDOMEN: Normal. OTHER FINDINGS: None. IMPRESSION: No significant interval change compared to the prior examination(s).
--- NOTE | 2017-03-22 14:32 | CP.PCM.PN ---
Subjective - Date & Time of Evaluation Date of Evaluation: 03/22/17 Time of Evaluation: 09:00 - Subjective Subjective: THORACIC SURGERY PROGRESS NOTE FOR DR. BUCKLEY Patient seen and examined at bedside. She denies SOB or CP. Chest tube in place on water seal. Objective - Vital Signs/Intake and Output Vital Signs (last 24 hours): Temp Pulse Resp BP Pulse Ox 98.3 F 88 20 141/80 100 03/22/17 07:00 03/22/17 07:00 03/22/17 07:00 03/22/17 07:00 03/22/17 07:00 Intake and Output: 03/22/17 03/22/17 06:59 18:59 Output Total 385 Balance -385 - Medications Medications: Current Medications Acetaminophen (Tylenol 325mg Tab) 650 mg PO Q6 PRN PRN Reason: Fever >100.4 F Last Admin: 03/17/17 07:57 Dose: 650 mg Albuterol/Ipratropium (Duoneb 3 Mg/0.5 Mg (3 Ml) Ud) 3 ml INH RQ6 [facility] Last Admin: 03/22/17 14:30 Dose: 3 ml Diltiazem HCl (Cardizem) 5 mg IVP TID PRN PRN Reason: Other Last Admin: 03/20/17 09:45 Dose: 5 mg Diltiazem HCl (Cardizem) 10 mg IVP ONCE PRN PRN Reason: HR > 140 Last Admin: 03/19/17 00:40 Dose: 10 mg Diltiazem HCl (Cardizem) 60 mg PO QID [facility] Last Admin: 03/22/17 13:56 Dose: 60 mg Docusate Sodium (Colace) 100 mg PO BID [facility] Last Admin: 03/22/17 11:14 Dose: 100 mg Enoxaparin Sodium (Lovenox) 40 mg SC Q12 [facility] Last Admin: 03/22/17 11:15 Dose: 40 mg Famotidine (Pepcid) 20 mg PO DAILY [facility] Last Admin: 03/22/17 11:14 Dose: 20 mg Ferrous Sulfate (Feosol) 325 mg PO TID [facility] Last Admin: 03/22/17 13:56 Dose: 325 mg Losartan Potassium (Cozaar) 100 mg PO DAILY [facility] Last Admin: 03/22/17 11:14 Dose: 100 mg Metoprolol Tartrate (Lopressor) 50 mg PO BID [facility] Last Admin: 03/22/17 12:59 Dose: 50 mg Morphine Sulfate (Morphine) 2 mg IVP Q4 PRN PRN Reason: Pain, moderate (4-7) Last Admin: 03/21/17 03:14 Dose: 2 mg Ondansetron HCl (Zofran Inj) 4 mg IVP Q4 PRN PRN Reason: Nausea/Vomiting Promethazine HCl (Phenergan Syrup) 12.5 mg PO Q6 PRN PRN Reason: cough Last Admin: 03/21/17 00:22 Dose: 12.5 mg Rosuvastatin Calcium (Crestor) 10 mg PO HS [facility] Last Admin: 03/21/17 21:02 Dose: 10 mg - Labs Labs: 03/22/17 08:26 03/22/17 08:26 PT 13.3 SECONDS (9.7-12.2) H 02/25/17 18:17 INR 1.2 02/25/17 18:17 APTT 31 SECONDS (21-34) D 02/25/17 18:17 - Constitutional Appears: Non-toxic, No Acute Distress, Chronically Ill - Respiratory Exam Respiratory Exam: NORMAL BREATHING PATTERN. absent: Respiratory Distress Additional comments: Left Chest tube in place on water seal: 160cc yellow cloudy output over past 24 hours (small air leak still present) Dressing clean/dry/intact - Cardiovascular Exam Cardiovascular Exam: +S1, +S2 - Neurological Exam Neurological Exam: Alert, Awake - Psychiatric Exam Psychiatric exam: Normal Affect, Normal Mood - Skin Skin Exam: Dry, Normal Color, Warm Assessment and Plan - Assessment and Plan (Free Text) Assessment: 71yo F with recurrent pleural effusion s/p Left VATS converted to thoracotomy, evacuation of pleural fluid, debridement of left lung cavity, decortication, insertion of chest tubes and PleurX catheter POD#20 - Afebrile, VSS - 38F removed 03/10 - Left Chest tube in place on water seal: 160cc cloudy yellow output over past 24 hours (small air leak still present) - Continue daily CXRs - CXR this AM: stable bilat pleural effusions, no significant change from yesterday - Will do gram stain and C&S for pleural fluid - Discussed plan with Dr. Tad Cruz PGY-2
--- NOTE | 2017-03-22 16:22 | CP.PCM.PN ---
Subjective - Date & Time of Evaluation Date of Evaluation: 03/22/17 Time of Evaluation: 16:19 - Subjective Subjective: Pt s/e. No sob. chest xray: unchanged. chest [id number]? change in color. a/p: gram stain, c and s for chest tube drainage. Consider d/c chest tube provided negative c and s. Objective - Vital Signs/Intake and Output Vital Signs (last 24 hours): Temp Pulse Resp BP Pulse Ox 98.3 F 88 20 141/80 100 03/22/17 07:00 03/22/17 07:00 03/22/17 07:00 03/22/17 07:00 03/22/17 07:00 Intake and Output: 03/22/17 03/22/17 06:59 18:59 Output Total 385 Balance -385 - Medications Medications: Current Medications Acetaminophen (Tylenol 325mg Tab) 650 mg PO Q6 PRN PRN Reason: Fever >100.4 F Last Admin: 03/17/17 07:57 Dose: 650 mg Albuterol/Ipratropium (Duoneb 3 Mg/0.5 Mg (3 Ml) Ud) 3 ml INH RQ6 [facility] Last Admin: 03/22/17 14:30 Dose: 3 ml Diltiazem HCl (Cardizem) 5 mg IVP TID PRN PRN Reason: Other Last Admin: 03/20/17 09:45 Dose: 5 mg Diltiazem HCl (Cardizem) 10 mg IVP ONCE PRN PRN Reason: HR > 140 Last Admin: 03/19/17 00:40 Dose: 10 mg Diltiazem HCl (Cardizem) 60 mg PO QID [facility] Last Admin: 03/22/17 13:56 Dose: 60 mg Docusate Sodium (Colace) 100 mg PO BID [facility] Last Admin: 03/22/17 11:14 Dose: 100 mg Enoxaparin Sodium (Lovenox) 40 mg SC Q12 [facility] Last Admin: 03/22/17 11:15 Dose: 40 mg Famotidine (Pepcid) 20 mg PO DAILY [facility] Last Admin: 03/22/17 11:14 Dose: 20 mg Ferrous Sulfate (Feosol) 325 mg PO TID [facility] Last Admin: 03/22/17 13:56 Dose: 325 mg Losartan Potassium (Cozaar) 100 mg PO DAILY [facility] Last Admin: 03/22/17 11:14 Dose: 100 mg Metoprolol Tartrate (Lopressor) 50 mg PO BID [facility] Last Admin: 03/22/17 12:59 Dose: 50 mg Morphine Sulfate (Morphine) 2 mg IVP Q4 PRN PRN Reason: Pain, moderate (4-7) Last Admin: 03/21/17 03:14 Dose: 2 mg Ondansetron HCl (Zofran Inj) 4 mg IVP Q4 PRN PRN Reason: Nausea/Vomiting Promethazine HCl (Phenergan Syrup) 12.5 mg PO Q6 PRN PRN Reason: cough Last Admin: 03/21/17 00:22 Dose: 12.5 mg Rosuvastatin Calcium (Crestor) 10 mg PO HS [facility] Last Admin: 03/21/17 21:02 Dose: 10 mg - Labs Labs: 03/22/17 08:26 03/22/17 08:26 PT 13.3 SECONDS (9.7-12.2) H 02/25/17 18:17 INR 1.2 02/25/17 18:17 APTT 31 SECONDS (21-34) D 02/25/17 18:17
--- NOTE | 2017-03-22 19:02 | CP.PCM.PN ---
Subjective - Date & Time of Evaluation Date of Evaluation: 03/22/17 Time of Evaluation: 17:00 - Subjective Subjective: Seen sitting up eat lunch, family at bedside Objective - Vital Signs/Intake and Output Vital Signs (last 24 hours): Temp Pulse Resp BP Pulse Ox 98.5 F 88 20 145/69 95 03/22/17 17:54 03/22/17 17:54 03/22/17 17:54 03/22/17 17:54 03/22/17 17:54 - Medications Medications: Current Medications Acetaminophen (Tylenol 325mg Tab) 650 mg PO Q6 PRN PRN Reason: Fever >100.4 F Last Admin: 03/17/17 07:57 Dose: 650 mg Albuterol/Ipratropium (Duoneb 3 Mg/0.5 Mg (3 Ml) Ud) 3 ml INH RQ6 [facility] Last Admin: 03/22/17 14:30 Dose: 3 ml Diltiazem HCl (Cardizem) 5 mg IVP TID PRN PRN Reason: Other Last Admin: 03/20/17 09:45 Dose: 5 mg Diltiazem HCl (Cardizem) 10 mg IVP ONCE PRN PRN Reason: HR > 140 Last Admin: 03/19/17 00:40 Dose: 10 mg Diltiazem HCl (Cardizem) 60 mg PO QID [facility] Last Admin: 03/22/17 17:50 Dose: 60 mg Docusate Sodium (Colace) 100 mg PO BID [facility] Last Admin: 03/22/17 17:50 Dose: 100 mg Enoxaparin Sodium (Lovenox) 40 mg SC Q12 [facility] Last Admin: 03/22/17 11:15 Dose: 40 mg Famotidine (Pepcid) 20 mg PO DAILY [facility] Last Admin: 03/22/17 11:14 Dose: 20 mg Ferrous Sulfate (Feosol) 325 mg PO TID [facility] Last Admin: 03/22/17 17:51 Dose: 325 mg Losartan Potassium (Cozaar) 100 mg PO DAILY [facility] Last Admin: 03/22/17 11:14 Dose: 100 mg Metoprolol Tartrate (Lopressor) 50 mg PO BID [facility] Last Admin: 03/22/17 17:51 Dose: 50 mg Morphine Sulfate (Morphine) 2 mg IVP Q4 PRN PRN Reason: Pain, moderate (4-7) Last Admin: 03/21/17 03:14 Dose: 2 mg Ondansetron HCl (Zofran Inj) 4 mg IVP Q4 PRN PRN Reason: Nausea/Vomiting Promethazine HCl (Phenergan Syrup) 12.5 mg PO Q6 PRN PRN Reason: cough Last Admin: 03/21/17 00:22 Dose: 12.5 mg Rosuvastatin Calcium (Crestor) 10 mg PO HS [facility] Last Admin: 03/21/17 21:02 Dose: 10 mg - Labs Labs: 03/22/17 08:26 03/22/17 08:26 PT 13.3 SECONDS (9.7-12.2) H 02/25/17 18:17 INR 1.2 02/25/17 18:17 APTT 31 SECONDS (21-34) D 02/25/17 18:17 - Constitutional Appears: Cachectic - Head Exam Head Exam: ATRAUMATIC - Eye Exam Eye Exam: Normal appearance - ENT Exam ENT Exam: Mucous Membranes Dry - Respiratory Exam Respiratory Exam: Decreased Breath Sounds - Cardiovascular Exam Cardiovascular Exam: +S1, +S2 - GI/Abdominal Exam GI & Abdominal Exam: Normal Bowel Sounds - Extremities Exam Extremities Exam: Pedal Edema Assessment and Plan (1) Pleural effusion due to another disorder Assessment & Plan: malignant effussion with chest tube Status: Acute (2) Anemia Assessment & Plan: chronic disease Status: Chronic (3) Pulmonary embolism Assessment & Plan: on therapeutic lovenox Status: Acute (4) Ovarian cancer Assessment & Plan: supportive care family and 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
[2017-03-23] MEDS: Albuterol-Ipratrop 3 mg / 0.5 (3 ml) UD INH SCH ×4 (01:31→19:40)
--- NOTE | 2017-03-23 07:15 | PN ---
DATE: 03/22/2017 SUBJECTIVE: The patient is experiencing productive cough. She is in sinus rhythm . At times t he patient develops sinus tachycardia and she still has chest tube drainage on the left side. PHYSICAL EXAMINATION: VITAL SIGNS: Blood pressure 141/ , heart rate 88, temperature 98.3, respirations 20. HEENT: Pale conjunctivae. CHEST: Bilateral rhonchi and absent breath sounds over the bases. HEART: S1, S2 regular. EXTREMITIES: No edema. LABORATORIES: Hemoglobin and hematocrit 8.1 and 25.9, white count and platelet count is 6.8 and 492. Today's SMA-7: Sodium 141, potassium 3.9, chloride 97, CO2 of 31, glucose 97, BUN 9, creatinine 0. 7. Today's chest x-ray report, no significant interval change compared to the prior examination. ASSESSMENT: 1. Bilateral pleural effusion. 2. Recently diagnosed pulmonary embolism. 3. Metastatic ovarian carcinoma. 4. Anemia. 5. Paroxysmal atrial tachycardia as well as paroxysmal atrial fibrillation. RECOMMENDATIONS: Continue Cardizem at 60 mg q.i.d., Cozaar at 100 mg once a day, Crestor 10 mg once a day, Lopressor at 50 mg twice a day, subcutaneous Lovenox at 40 mg subcutaneously twice a day, whic h is slightly below the recommended therapeutic dose because of the chest tube placement. Morgan Zuniga MD cc: [id number] TT: 03/22/2017 15:32:46 Confirmation # [id number] Dictation # [id number]
[2017-03-23 08:17] LABS: BASO % 0.6 % (0.0-2.0); EOS % 0.4 % (0.0-4.0); HEMATOCRIT 25.2 % (34.0-47.0); LYMPH # 1.8 K/uL (1.0-4.3); LYMPH % 24.5 % (20.0-40.0); MEAN CELL VOLUME 81.2 fL (81.0-99.0); MEAN CORPUSCULAR HEMOGLOBIN 25.8 pg (27.0-31.0); MEAN CORPUSCULAR HGB CONC 31.7 g/dL (33.0-37.0); MEAN PLATELET VOLUME 7.3 fL (7.2-11.7); MONO % 27.1 % (0.0-10.0); NRBC % 0.6 % (0.0-2.0); PLATELET COUNT 552 K/uL (130-400); RED CELL DISTRIBUTION WIDTH 16.5 % (11.5-14.5); WHITE BLOOD COUNT 7.3 K/uL (4.8-10.8)
--- NOTE | 2017-03-23 08:18 | CP.PCM.PN ---
Subjective - Date & Time of Evaluation Date of Evaluation: 03/23/17 Time of Evaluation: 08:15 - Subjective Subjective: PGY1 progress note for Dr. Mishra: Patient seen and examined. Patient states she feels okay, denies SOB/ CP. Objective - Vital Signs/Intake and Output Vital Signs (last 24 hours): Temp Pulse Resp BP Pulse Ox 98.3 F 93 H 22 150/84 95 03/23/17 07:20 03/23/17 07:20 03/23/17 07:20 03/23/17 07:20 03/23/17 07:20 Intake and Output: 03/23/17 03/23/17 06:59 18:59 Output Total 60 Balance -60 - Medications Medications: Current Medications Acetaminophen (Tylenol 325mg Tab) 650 mg PO Q6 PRN PRN Reason: Fever >100.4 F Last Admin: 03/17/17 07:57 Dose: 650 mg Albuterol/Ipratropium (Duoneb 3 Mg/0.5 Mg (3 Ml) Ud) 3 ml INH RQ6 [facility] Last Admin: 03/23/17 07:58 Dose: 3 ml Diltiazem HCl (Cardizem) 5 mg IVP TID PRN PRN Reason: Other Last Admin: 03/20/17 09:45 Dose: 5 mg Diltiazem HCl (Cardizem) 10 mg IVP ONCE PRN PRN Reason: HR > 140 Last Admin: 03/19/17 00:40 Dose: 10 mg Diltiazem HCl (Cardizem) 60 mg PO QID [facility] Last Admin: 03/22/17 21:13 Dose: 60 mg Docusate Sodium (Colace) 100 mg PO BID [facility] Last Admin: 03/22/17 17:50 Dose: 100 mg Enoxaparin Sodium (Lovenox) 40 mg SC Q12 [facility] Last Admin: 03/22/17 21:13 Dose: 40 mg Famotidine (Pepcid) 20 mg PO DAILY [facility] Last Admin: 03/22/17 11:14 Dose: 20 mg Ferrous Sulfate (Feosol) 325 mg PO TID [facility] Last Admin: 03/22/17 17:51 Dose: 325 mg Cefepime HCl 1 gm/ Dextrose 50 mls @ 100 mls/hr IVPB Q12H [facility] Last Admin: 03/22/17 22:50 Dose: 100 mls/hr Losartan Potassium (Cozaar) 100 mg PO DAILY [facility] Last Admin: 03/22/17 11:14 Dose: 100 mg Metoprolol Tartrate (Lopressor) 50 mg PO BID [facility] Last Admin: 03/22/17 17:51 Dose: 50 mg Morphine Sulfate (Morphine) 2 mg IVP Q4 PRN PRN Reason: Pain, moderate (4-7) Last Admin: 03/21/17 03:14 Dose: 2 mg Ondansetron HCl (Zofran Inj) 4 mg IVP Q4 PRN PRN Reason: Nausea/Vomiting Promethazine HCl (Phenergan Syrup) 12.5 mg PO Q6 PRN PRN Reason: cough Last Admin: 03/21/17 00:22 Dose: 12.5 mg Rosuvastatin Calcium (Crestor) 10 mg PO HS [facility] Last Admin: 03/22/17 21:13 Dose: 10 mg - Labs Labs: 03/22/17 08:26 03/22/17 08:26 PT 13.3 SECONDS (9.7-12.2) H 02/25/17 18:17 INR 1.2 02/25/17 18:17 APTT 31 SECONDS (21-34) D 02/25/17 18:17 - Constitutional Appears: No Acute Distress, Chronically Ill - Eye Exam Eye Exam: EOMI - Respiratory Exam Respiratory Exam: NORMAL BREATHING PATTERN Additional comments: left chest tube in place, no output overnight dressing changed today - Neurological Exam Neurological Exam: Alert, Awake - Psychiatric Exam Psychiatric exam: Normal Affect, Normal Mood - Skin Skin Exam: Warm Assessment and Plan - Assessment and Plan (Free Text) Assessment: 71yo F with recurrent pleural effusion s/p Left VATS converted to thoracotomy, evacuation of pleural fluid, debridement of left lung cavity, decortication, insertion of chest tubes and PleurX catheter POD#21 - Afebrile, VSS - Left Chest tube in place on water seal: small air leak still present - no output from CT overnight - Continue daily CXRs - CXR this AM pending - Will foollw up gram stain and C&S for pleural fluid - further recs per Dr. Mishra
--- NOTE | 2017-03-23 08:46 | RAD ---
HISTORY: left chest tube COMPARISON: 03/22/2017 FINDINGS: LUNGS: Bilateral interstitial infiltrates. PLEURA: Large bilateral pleural effusions. CARDIOVASCULAR: Normal. OSSEOUS STRUCTURES: No significant abnormalities. VISUALIZED UPPER ABDOMEN: Normal. OTHER FINDINGS: None. IMPRESSION: No interval change.
[2017-03-23 08:57] LABS: CHLORIDE 98 mmol/L (98-107); POTASSIUM 3.4 mmol/L (3.6-5.2); SODIUM 141 mmol/L (132-148)
[2017-03-23 08:59] LABS: ALB/GLOB RATIO 0.9 (1.0-2.1); ALKALINE PHOSPHATASE 90 U/L (38-126); AST/SGOT 19 U/L (14-36); BILIRUBIN,TOTAL 0.4 mg/dL (0.2-1.3); CARBON DIOXIDE 31 mmol/L (22-30); GFR AFRICAN-AMERICAN > 60; TOTAL PROTEIN 6.1 g/dL (6.3-8.3)
[2017-03-23 09:00] LABS: ALT/SGPT 19 U/L (9-52); BLOOD UREA NITROGEN 8 mg/dL (7-17); CALCIUM 8.8 mg/dl (8.6-10.4); GLUCOSE,RANDOM 106 mg/dL (65-105)
[2017-03-23] MEDS: Enoxaparin 40 mg Syringe SC SCH ×2 (09:55→22:22)
[2017-03-23 10:12] LABS: EOSINOPHIL 2 % (0-4); NEUTROPHIL 45 % (50-75); TOTAL CELLS COUNTED 100
[2017-03-23] MEDS ORDERED: Potassium Chloride 20 mEq ER Tab PO ONE (12:30)
--- NOTE | 2017-03-23 12:47 | PN ---
DATE: 03/23/2017 SUBJECTIVE: The patient denies any palpitations. She is mildly short of breath. Still has the left side chest tube ____. PHYSICAL EXAMINATION: VITAL SIGNS: Blood pressure 150/84, heart rate 93, temperature 98.3, respirations 22. HEENT: Pale conjunctivae. CHEST: Bibasilar coarse crepitations. HEART: S1, S2 regular. EXTREMITIES: No edema. LABORATORIES: Hemoglobin and hematocrit 8 and 25.2, white count 7.3, platelet count 552,000. Today' s potassium is 3.4. BUN and creatinine are 8 and 0.7. Glucose 106. ASSESSMENT: 1. Recently diagnosed pulmonary embolus. 2. Paroxysmal atrial tachycardia and paroxysmal atrial fibrillation. 3. Metastatic ovarian carcinoma. 4. Hypokalemia. RECOMMENDATIONS: Continue Cardizem at 60 mg q.i.d., Cozaar at 100 mg once a day, Crestor at 10 mg on ce a day, Lovenox at 40 mg subcutaneous twice a day, Lopressor at 50 mg twice a day. I will administ er K-Dur 20 mEq orally today. Morgan Zuniga MD cc: [id number] TT: 03/23/2017 12:46:37 Confirmation # [id number] Dictation # [id number]
--- NOTE | 2017-03-23 13:31 | CP.PCM.PN ---
Subjective - Date & Time of Evaluation Date of Evaluation: 03/23/17 Time of Evaluation: 13:29 - Subjective Subjective: afebrile Left chest tube in place draining serosanguineous fluid comfortable Denies shortness of breath or chest pain .On cultures negative to date Pleural fluid 03/22/17 culture pending Pleural fluid 03/02/17 mycobacterial culture negative for AFB for 2 weeks .WBC 7.3. Patient on IV cefepime 1 g every 12 hourly. Objective - Vital Signs/Intake and Output Vital Signs (last 24 hours): Temp Pulse Resp BP Pulse Ox 98.3 F 93 H 22 150/84 95 03/23/17 07:20 03/23/17 07:20 03/23/17 07:20 03/23/17 07:20 03/23/17 07:20 Intake and Output: 03/23/17 03/23/17 06:59 18:59 Output Total 60 Balance -60 - Medications Medications: Current Medications Acetaminophen (Tylenol 325mg Tab) 650 mg PO Q6 PRN PRN Reason: Fever >100.4 F Last Admin: 03/17/17 07:57 Dose: 650 mg Albuterol/Ipratropium (Duoneb 3 Mg/0.5 Mg (3 Ml) Ud) 3 ml INH RQ6 [facility] Last Admin: 03/23/17 07:58 Dose: 3 ml Diltiazem HCl (Cardizem) 5 mg IVP TID PRN PRN Reason: Other Last Admin: 03/20/17 09:45 Dose: 5 mg Diltiazem HCl (Cardizem) 10 mg IVP ONCE PRN PRN Reason: HR > 140 Last Admin: 03/19/17 00:40 Dose: 10 mg Diltiazem HCl (Cardizem) 60 mg PO QID [facility] Last Admin: 03/23/17 13:20 Dose: 60 mg Docusate Sodium (Colace) 100 mg PO BID [facility] Last Admin: 03/23/17 09:55 Dose: 100 mg Enoxaparin Sodium (Lovenox) 40 mg SC Q12 [facility] Last Admin: 03/23/17 09:55 Dose: 40 mg Famotidine (Pepcid) 20 mg PO DAILY [facility] Last Admin: 03/23/17 09:55 Dose: 20 mg Ferrous Sulfate (Feosol) 325 mg PO TID [facility] Last Admin: 03/23/17 13:20 Dose: 325 mg Cefepime HCl 1 gm/ Dextrose 50 mls @ 100 mls/hr IVPB Q12H [facility] Last Admin: 03/23/17 10:00 Dose: 100 mls/hr Losartan Potassium (Cozaar) 100 mg PO DAILY [facility] Last Admin: 03/23/17 09:55 Dose: 100 mg Metoprolol Tartrate (Lopressor) 50 mg PO BID [facility] Last Admin: 03/23/17 13:28 Dose: 50 mg Morphine Sulfate (Morphine) 2 mg IVP Q4 PRN PRN Reason: Pain, moderate (4-7) Last Admin: 03/21/17 03:14 Dose: 2 mg Ondansetron HCl (Zofran Inj) 4 mg IVP Q4 PRN PRN Reason: Nausea/Vomiting Promethazine HCl (Phenergan Syrup) 12.5 mg PO Q6 PRN PRN Reason: cough Last Admin: 03/21/17 00:22 Dose: 12.5 mg Rosuvastatin Calcium (Crestor) 10 mg PO HS [facility] Last Admin: 03/22/17 21:13 Dose: 10 mg - Labs Labs: 03/23/17 08:07 03/23/17 08:07 PT 13.3 SECONDS (9.7-12.2) H 02/25/17 18:17 INR 1.2 02/25/17 18:17 APTT 31 SECONDS (21-34) D 02/25/17 18:17 - Constitutional Appears: No Acute Distress, Cachectic, Chronically Ill - Head Exam Head Exam: NORMAL INSPECTION - Eye Exam Eye Exam: EOMI, PERRL. absent: Scleral icterus - ENT Exam ENT Exam: Normal Oropharynx - Neck Exam Neck Exam: Normal Inspection - Respiratory Exam Respiratory Exam: Decreased Breath Sounds (left side with left chest tube in place.). absent: Respiratory Distress - Cardiovascular Exam Cardiovascular Exam: REGULAR RHYTHM, +S1, +S2 - GI/Abdominal Exam GI & Abdominal Exam: Soft, Normal Bowel Sounds - Extremities Exam Extremities Exam: absent: Calf Tenderness - Neurological Exam Neurological Exam: Awake - Psychiatric Exam Psychiatric exam: Normal Mood - Skin Skin Exam: Normal Color, Warm Assessment and Plan (1) Bilateral pneumonia Assessment & Plan: CONTINUE IV MAXIPINE 1 G EVERY 12 HOURLY 03/16/17-DAY 6 CONTINUE iv mAXIPIME FOR TOTAL OF 14 DAYS Status: Acute (2) Malignant pleural effusion Assessment & Plan: s/p left chest tube in place. f/u pleural fl.c/s 03/22/17 -P Status: Acute (3) Ascites, malignant Status: Acute (4) Ovarian cancer Status: Chronic (5) Anemia Status: Chronic (6) Diabetes mellitus Status: Chronic (7) Hypertension Status: Chronic
--- NOTE | 2017-03-23 14:32 | CP.PCM.PN ---
Subjective - Date & Time of Evaluation Date of Evaluation: 03/23/17 Time of Evaluation: 14:30 - Subjective Subjective: pt s/e. Afebrile. [id number] [id number] Chest tube -no air leak. will consider removing ct tomorrow provided c and s of fluid is negative. Objective - Vital Signs/Intake and Output Vital Signs (last 24 hours): Temp Pulse Resp BP Pulse Ox 98.3 F 92 H 22 150/84 95 03/23/17 07:20 03/23/17 12:50 03/23/17 07:20 03/23/17 07:20 03/23/17 07:20 Intake and Output: 03/23/17 03/23/17 06:59 18:59 Output Total 60 Balance -60 - Medications Medications: Current Medications Acetaminophen (Tylenol 325mg Tab) 650 mg PO Q6 PRN PRN Reason: Fever >100.4 F Last Admin: 03/17/17 07:57 Dose: 650 mg Albuterol/Ipratropium (Duoneb 3 Mg/0.5 Mg (3 Ml) Ud) 3 ml INH RQ6 [facility] Last Admin: 03/23/17 13:41 Dose: 3 ml Diltiazem HCl (Cardizem) 5 mg IVP TID PRN PRN Reason: Other Last Admin: 03/20/17 09:45 Dose: 5 mg Diltiazem HCl (Cardizem) 10 mg IVP ONCE PRN PRN Reason: HR > 140 Last Admin: 03/19/17 00:40 Dose: 10 mg Diltiazem HCl (Cardizem) 60 mg PO QID [facility] Last Admin: 03/23/17 13:20 Dose: 60 mg Docusate Sodium (Colace) 100 mg PO BID [facility] Last Admin: 03/23/17 09:55 Dose: 100 mg Enoxaparin Sodium (Lovenox) 40 mg SC Q12 [facility] Last Admin: 03/23/17 09:55 Dose: 40 mg Famotidine (Pepcid) 20 mg PO DAILY [facility] Last Admin: 03/23/17 09:55 Dose: 20 mg Ferrous Sulfate (Feosol) 325 mg PO TID [facility] Last Admin: 03/23/17 13:20 Dose: 325 mg Cefepime HCl 1 gm/ Dextrose 50 mls @ 100 mls/hr IVPB Q12H [facility] Last Admin: 03/23/17 10:00 Dose: 100 mls/hr Losartan Potassium (Cozaar) 100 mg PO DAILY [facility] Last Admin: 03/23/17 09:55 Dose: 100 mg Metoprolol Tartrate (Lopressor) 50 mg PO BID [facility] Last Admin: 03/23/17 13:28 Dose: 50 mg Morphine Sulfate (Morphine) 2 mg IVP Q4 PRN PRN Reason: Pain, moderate (4-7) Last Admin: 03/21/17 03:14 Dose: 2 mg Ondansetron HCl (Zofran Inj) 4 mg IVP Q4 PRN PRN Reason: Nausea/Vomiting Promethazine HCl (Phenergan Syrup) 12.5 mg PO Q6 PRN PRN Reason: cough Last Admin: 03/21/17 00:22 Dose: 12.5 mg Rosuvastatin Calcium (Crestor) 10 mg PO HS [facility] Last Admin: 03/22/17 21:13 Dose: 10 mg - Labs Labs: 03/23/17 08:07 03/23/17 08:07 PT 13.3 SECONDS (9.7-12.2) H 02/25/17 18:17 INR 1.2 02/25/17 18:17 APTT 31 SECONDS (21-34) D 02/25/17 18:17
--- NOTE | 2017-03-23 15:19 | CP.PCM.PN ---
Objective - Vital Signs/Intake and Output Vital Signs (last 24 hours): Temp Pulse Resp BP Pulse Ox 98.3 F 92 H 22 150/84 95 03/23/17 07:20 03/23/17 12:50 03/23/17 07:20 03/23/17 07:20 03/23/17 07:20 Intake and Output: 03/23/17 03/23/17 06:59 18:59 Intake Total 350 Output Total 60 10 Balance -60 340 - Medications Medications: Current Medications Acetaminophen (Tylenol 325mg Tab) 650 mg PO Q6 PRN PRN Reason: Fever >100.4 F Last Admin: 03/17/17 07:57 Dose: 650 mg Albuterol/Ipratropium (Duoneb 3 Mg/0.5 Mg (3 Ml) Ud) 3 ml INH RQ6 [facility] Last Admin: 03/23/17 13:41 Dose: 3 ml Diltiazem HCl (Cardizem) 5 mg IVP TID PRN PRN Reason: Other Last Admin: 03/20/17 09:45 Dose: 5 mg Diltiazem HCl (Cardizem) 10 mg IVP ONCE PRN PRN Reason: HR > 140 Last Admin: 03/19/17 00:40 Dose: 10 mg Diltiazem HCl (Cardizem) 60 mg PO QID [facility] Last Admin: 03/23/17 13:20 Dose: 60 mg Docusate Sodium (Colace) 100 mg PO BID [facility] Last Admin: 03/23/17 09:55 Dose: 100 mg Enoxaparin Sodium (Lovenox) 40 mg SC Q12 [facility] Last Admin: 03/23/17 09:55 Dose: 40 mg Famotidine (Pepcid) 20 mg PO DAILY [facility] Last Admin: 03/23/17 09:55 Dose: 20 mg Ferrous Sulfate (Feosol) 325 mg PO TID [facility] Last Admin: 03/23/17 13:20 Dose: 325 mg Cefepime HCl 1 gm/ Dextrose 50 mls @ 100 mls/hr IVPB Q12H [facility] Last Admin: 03/23/17 10:00 Dose: 100 mls/hr Losartan Potassium (Cozaar) 100 mg PO DAILY [facility] Last Admin: 03/23/17 09:55 Dose: 100 mg Metoprolol Tartrate (Lopressor) 50 mg PO BID [facility] Last Admin: 03/23/17 13:28 Dose: 50 mg Morphine Sulfate (Morphine) 2 mg IVP Q4 PRN PRN Reason: Pain, moderate (4-7) Last Admin: 03/21/17 03:14 Dose: 2 mg Ondansetron HCl (Zofran Inj) 4 mg IVP Q4 PRN PRN Reason: Nausea/Vomiting Promethazine HCl (Phenergan Syrup) 12.5 mg PO Q6 PRN PRN Reason: cough Last Admin: 03/21/17 00:22 Dose: 12.5 mg Rosuvastatin Calcium (Crestor) 10 mg PO HS [facility] Last Admin: 03/22/17 21:13 Dose: 10 mg - Labs Labs: 03/23/17 08:07 03/23/17 08:07 PT 13.3 SECONDS (9.7-12.2) H 02/25/17 18:17 INR 1.2 02/25/17 18:17 APTT 31 SECONDS (21-34) D 02/25/17 18:17 Assessment and Plan (1) Malignant pleural effusion Status: Acute (2) Ascites, malignant Status: Acute (3) Ovarian cancer Status: Chronic (4) Shortness of breath Status: Acute
[2017-03-23 15:59] VITALS: RESP 20
--- NOTE | 2017-03-23 20:53 | CP.PCM.PN ---
Subjective - Date & Time of Evaluation Date of Evaluation: 03/23/17 Time of Evaluation: 18:30 - Subjective Subjective: No complaints. Objective - Vital Signs/Intake and Output Vital Signs (last 24 hours): Temp Pulse Resp BP Pulse Ox 98 F 79 20 150/83 96 03/23/17 15:58 03/23/17 17:00 03/23/17 15:58 03/23/17 15:58 03/23/17 15:58 Intake and Output: 03/23/17 03/24/17 18:59 06:59 Intake Total 350 Output Total 10 Balance 340 - Medications Medications: Current Medications Acetaminophen (Tylenol 325mg Tab) 650 mg PO Q6 PRN PRN Reason: Fever >100.4 F Last Admin: 03/17/17 07:57 Dose: 650 mg Albuterol/Ipratropium (Duoneb 3 Mg/0.5 Mg (3 Ml) Ud) 3 ml INH RQ6 [facility] Last Admin: 03/23/17 19:40 Dose: 3 ml Diltiazem HCl (Cardizem) 5 mg IVP TID PRN PRN Reason: Other Last Admin: 03/20/17 09:45 Dose: 5 mg Diltiazem HCl (Cardizem) 10 mg IVP ONCE PRN PRN Reason: HR > 140 Last Admin: 03/19/17 00:40 Dose: 10 mg Diltiazem HCl (Cardizem) 60 mg PO QID [facility] Last Admin: 03/23/17 17:38 Dose: 60 mg Docusate Sodium (Colace) 100 mg PO BID [facility] Last Admin: 03/23/17 17:37 Dose: 100 mg Enoxaparin Sodium (Lovenox) 40 mg SC Q12 [facility] Last Admin: 03/23/17 09:55 Dose: 40 mg Famotidine (Pepcid) 20 mg PO DAILY [facility] Last Admin: 03/23/17 09:55 Dose: 20 mg Ferrous Sulfate (Feosol) 325 mg PO TID [facility] Last Admin: 03/23/17 17:37 Dose: 325 mg Cefepime HCl 1 gm/ Dextrose 50 mls @ 100 mls/hr IVPB Q12H [facility] Last Admin: 03/23/17 10:00 Dose: 100 mls/hr Losartan Potassium (Cozaar) 100 mg PO DAILY [facility] Last Admin: 03/23/17 09:55 Dose: 100 mg Metoprolol Tartrate (Lopressor) 50 mg PO BID [facility] Last Admin: 03/23/17 17:38 Dose: 50 mg Morphine Sulfate (Morphine) 2 mg IVP Q4 PRN PRN Reason: Pain, moderate (4-7) Last Admin: 03/21/17 03:14 Dose: 2 mg Ondansetron HCl (Zofran Inj) 4 mg IVP Q4 PRN PRN Reason: Nausea/Vomiting Promethazine HCl (Phenergan Syrup) 12.5 mg PO Q6 PRN PRN Reason: cough Last Admin: 03/21/17 00:22 Dose: 12.5 mg Rosuvastatin Calcium (Crestor) 10 mg PO HS [facility] Last Admin: 03/22/17 21:13 Dose: 10 mg - Labs Labs: 03/23/17 08:07 03/23/17 08:07 PT 13.3 SECONDS (9.7-12.2) H 02/25/17 18:17 INR 1.2 02/25/17 18:17 APTT 31 SECONDS (21-34) D 02/25/17 18:17 - Head Exam Head Exam: ATRAUMATIC - Eye Exam Eye Exam: Normal appearance - ENT Exam ENT Exam: Mucous Membranes Dry - Respiratory Exam Respiratory Exam: Decreased Breath Sounds - Cardiovascular Exam Cardiovascular Exam: +S1, +S2 - GI/Abdominal Exam GI & Abdominal Exam: Normal Bowel Sounds - Extremities Exam Extremities Exam: Normal Inspection Assessment and Plan (1) Pleural effusion due to another disorder Assessment & Plan: malignant effusion chest tube in place Status: Acute (2) Anemia Assessment & Plan: chronic disease transfusion support PRN Status: Chronic (3) Pulmonary embolism Assessment & Plan: on anticoagulation Status: Acute (4) Ovarian cancer Assessment & Plan: supportive care family and 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
--- NOTE | 2017-03-23 22:58 | CP.PCM.PN ---
Subjective - Date & Time of Evaluation Date of Evaluation: 03/23/17 Time of Evaluation: 10:25 - Subjective Subjective: Pt seen & examined, on antibiotics, chest tube on suction Afebrile. [id number] Chest tube -no air leak. will consider removing ct tomorrow provided c and s of fluid is negative. Objective - Vital Signs/Intake and Output Vital Signs (last 24 hours): Temp Pulse Resp BP Pulse Ox 98 F 75 20 149/85 96 03/23/17 15:58 03/23/17 22:23 03/23/17 22:23 03/23/17 22:23 03/23/17 15:58 Intake and Output: 03/23/17 03/24/17 18:59 06:59 Intake Total 350 370 Output Total 10 480 Balance 340 -110 - Medications Medications: Current Medications Acetaminophen (Tylenol 325mg Tab) 650 mg PO Q6 PRN PRN Reason: Fever >100.4 F Last Admin: 03/17/17 07:57 Dose: 650 mg Albuterol/Ipratropium (Duoneb 3 Mg/0.5 Mg (3 Ml) Ud) 3 ml INH RQ6 [facility] Last Admin: 03/23/17 19:40 Dose: 3 ml Diltiazem HCl (Cardizem) 5 mg IVP TID PRN PRN Reason: Other Last Admin: 03/20/17 09:45 Dose: 5 mg Diltiazem HCl (Cardizem) 10 mg IVP ONCE PRN PRN Reason: HR > 140 Last Admin: 03/19/17 00:40 Dose: 10 mg Diltiazem HCl (Cardizem) 60 mg PO QID [facility] Last Admin: 03/23/17 22:23 Dose: 60 mg Docusate Sodium (Colace) 100 mg PO BID [facility] Last Admin: 03/23/17 17:37 Dose: 100 mg Enoxaparin Sodium (Lovenox) 40 mg SC Q12 [facility] Last Admin: 03/23/17 22:22 Dose: 40 mg Famotidine (Pepcid) 20 mg PO DAILY [facility] Last Admin: 03/23/17 09:55 Dose: 20 mg Ferrous Sulfate (Feosol) 325 mg PO TID [facility] Last Admin: 03/23/17 17:37 Dose: 325 mg Cefepime HCl 1 gm/ Dextrose 50 mls @ 100 mls/hr IVPB Q12H [facility] Last Admin: 03/23/17 22:23 Dose: 100 mls/hr Losartan Potassium (Cozaar) 100 mg PO DAILY [facility] Last Admin: 03/23/17 09:55 Dose: 100 mg Metoprolol Tartrate (Lopressor) 50 mg PO BID [facility] Last Admin: 03/23/17 17:38 Dose: 50 mg Morphine Sulfate (Morphine) 2 mg IVP Q4 PRN PRN Reason: Pain, moderate (4-7) Last Admin: 03/21/17 03:14 Dose: 2 mg Ondansetron HCl (Zofran Inj) 4 mg IVP Q4 PRN PRN Reason: Nausea/Vomiting Promethazine HCl (Phenergan Syrup) 12.5 mg PO Q6 PRN PRN Reason: cough Last Admin: 03/21/17 00:22 Dose: 12.5 mg Rosuvastatin Calcium (Crestor) 10 mg PO HS [facility] Last Admin: 03/23/17 22:23 Dose: 10 mg - Labs Labs: 03/23/17 08:07 03/23/17 08:07 PT 13.3 SECONDS (9.7-12.2) H 02/25/17 18:17 INR 1.2 02/25/17 18:17 APTT 31 SECONDS (21-34) D 02/25/17 18:17 - Constitutional Appears: No Acute Distress - Head Exam Head Exam: ATRAUMATIC, NORMAL INSPECTION, NORMOCEPHALIC - Eye Exam Eye Exam: EOMI, Normal appearance, PERRL Pupil Exam: NORMAL ACCOMODATION, PERRL - Respiratory Exam Respiratory Exam: Decreased Breath Sounds, Rales, Rhonchi - Cardiovascular Exam Cardiovascular Exam: +S1, +S2 Additional comments: S3 positive - GI/Abdominal Exam GI & Abdominal Exam: Soft, Normal Bowel Sounds. absent: Tenderness Assessment and Plan (1) Ascites, malignant Status: Acute (2) Diabetes mellitus Status: Chronic (3) Hypertension Status: Chronic (4) Ovarian cancer Status: Chronic (5) Pleural effusion due to another disorder Status: Acute (6) Shortness of breath Status: Acute
[2017-03-24] MEDS: Albuterol-Ipratrop 3 mg / 0.5 (3 ml) UD INH SCH ×4 (01:05→19:36)
--- NOTE | 2017-03-24 07:49 | CARD ---
APPROVED REPORT EKG Measurement Heart [id number] <Conclusion> Atrial fibrillation with rapid ventricular response Minimal voltage criteria for LVH, may be normal variant Nonspecific T wave abnormality Abnormal ECG
[2017-03-24] MEDS: Enoxaparin 40 mg Syringe SC SCH ×2 (09:15→21:47)
--- NOTE | 2017-03-24 09:30 | RAD ---
HISTORY: left chest tube COMPARISON: 03/23/2017 FINDINGS: LUNGS: Lines and tubes in stable position. Persistent moderate loculated left sided pleural effusion and/or hydro pneumothorax. Persistent small to moderate loculated right pleural effusion. Prominent consolidative changes in the left mid to lower lung zone and right hilar region. Venous congestion. Biapical pleural thickening. PLEURA: As above. CARDIOVASCULAR: Normal. OSSEOUS STRUCTURES: No significant abnormalities. VISUALIZED UPPER ABDOMEN: Normal. OTHER FINDINGS: None. IMPRESSION: No significant interval change.
--- NOTE | 2017-03-24 12:21 | CP.PCM.PN ---
<Tarun Mishra - Last Filed: 03/24/17 12:22> Subjective - Date & Time of Evaluation Date of Evaluation: 03/24/17 Time of Evaluation: 12:20 - Subjective Subjective: Pt s/e. Clinically stable. cxr- no pneumo. chest tube-110cc/y c and s no growth after 24 hours. a/p: d/c chest tube today. Objective - Vital Signs/Intake and Output Vital Signs (last 24 hours): Temp Pulse Resp BP Pulse Ox 99.2 F 95 H 20 157/84 H 95 03/24/17 01:56 03/24/17 10:51 03/24/17 01:56 03/24/17 09:15 03/24/17 01:56 Intake and Output: 03/24/17 03/24/17 06:59 18:59 Intake Total 370 Output Total 590 Balance -220 - Medications Medications: Current Medications Acetaminophen (Tylenol 325mg Tab) 650 mg PO Q6 PRN PRN Reason: Fever >100.4 F Last Admin: 03/17/17 07:57 Dose: 650 mg Albuterol/Ipratropium (Duoneb 3 Mg/0.5 Mg (3 Ml) Ud) 3 ml INH RQ6 [facility] Last Admin: 03/24/17 07:57 Dose: 3 ml Diltiazem HCl (Cardizem) 5 mg IVP TID PRN PRN Reason: Other Last Admin: 03/20/17 09:45 Dose: 5 mg Diltiazem HCl (Cardizem) 10 mg IVP ONCE PRN PRN Reason: HR > 140 Last Admin: 03/19/17 00:40 Dose: 10 mg Diltiazem HCl (Cardizem) 60 mg PO QID [facility] Last Admin: 03/24/17 09:15 Dose: 60 mg Docusate Sodium (Colace) 100 mg PO BID [facility] Last Admin: 03/24/17 09:15 Dose: 100 mg Enoxaparin Sodium (Lovenox) 40 mg SC Q12 [facility] Last Admin: 03/24/17 09:15 Dose: 40 mg Famotidine (Pepcid) 20 mg PO DAILY [facility] Last Admin: 03/24/17 09:16 Dose: 20 mg Ferrous Sulfate (Feosol) 325 mg PO TID [facility] Last Admin: 03/24/17 09:15 Dose: 325 mg Cefepime HCl 1 gm/ Dextrose 50 mls @ 100 mls/hr IVPB Q12H [facility] Last Admin: 03/24/17 08:32 Dose: 100 mls/hr Losartan Potassium (Cozaar) 100 mg PO DAILY [facility] Last Admin: 03/24/17 09:16 Dose: 100 mg Metoprolol Tartrate (Lopressor) 50 mg PO BID [facility] Last Admin: 03/24/17 09:16 Dose: 50 mg Morphine Sulfate (Morphine) 2 mg IVP Q4 PRN PRN Reason: Pain, moderate (4-7) Last Admin: 03/21/17 03:14 Dose: 2 mg Ondansetron HCl (Zofran Inj) 4 mg IVP Q4 PRN PRN Reason: Nausea/Vomiting Promethazine HCl (Phenergan Syrup) 12.5 mg PO Q6 PRN PRN Reason: cough Last Admin: 03/21/17 00:22 Dose: 12.5 mg Rosuvastatin Calcium (Crestor) 10 mg PO HS [facility] Last Admin: 03/23/17 22:23 Dose: 10 mg - Labs Labs: 03/23/17 08:07 03/23/17 08:07 PT 13.3 SECONDS (9.7-12.2) H 02/25/17 18:17 INR 1.2 02/25/17 18:17 APTT 31 SECONDS (21-34) D 02/25/17 18:17 <Eboni Cruz - Last Filed: 03/24/17 14:17> Subjective - Subjective Subjective: Left PleurX catheter hooked up to PleurX bulb with appropriate drainage output. Left chest tube removed. Chest X-ray ordered for 5:00PM Objective - Vital Signs/Intake and Output Vital Signs (last 24 hours): Temp Pulse Resp BP Pulse Ox 99.2 F 95 H 20 147/80 95 03/24/17 01:56 03/24/17 10:51 03/24/17 01:56 03/24/17 13:30 03/24/17 01:56 Intake and Output: 03/24/17 03/24/17 06:59 18:59 Intake Total 370 Output Total 590 Balance -220 - Medications Medications: Current Medications Acetaminophen (Tylenol 325mg Tab) 650 mg PO Q6 PRN PRN Reason: Fever >100.4 F Last Admin: 03/17/17 07:57 Dose: 650 mg Albuterol/Ipratropium (Duoneb 3 Mg/0.5 Mg (3 Ml) Ud) 3 ml INH RQ6 [facility] Last Admin: 03/24/17 07:57 Dose: 3 ml Diltiazem HCl (Cardizem) 5 mg IVP TID PRN PRN Reason: Other Last Admin: 03/20/17 09:45 Dose: 5 mg Diltiazem HCl (Cardizem) 10 mg IVP ONCE PRN PRN Reason: HR > 140 Last Admin: 03/19/17 00:40 Dose: 10 mg Diltiazem HCl (Cardizem) 60 mg PO QID [facility] Last Admin: 03/24/17 13:34 Dose: 60 mg Docusate Sodium (Colace) 100 mg PO BID [facility] Last Admin: 03/24/17 09:15 Dose: 100 mg Enoxaparin Sodium (Lovenox) 40 mg SC Q12 [facility] Last Admin: 03/24/17 09:15 Dose: 40 mg Famotidine (Pepcid) 20 mg PO DAILY [facility] Last Admin: 03/24/17 09:16 Dose: 20 mg Ferrous Sulfate (Feosol) 325 mg PO TID [facility] Last Admin: 03/24/17 13:34 Dose: 325 mg Cefepime HCl 1 gm/ Dextrose 50 mls @ 100 mls/hr IVPB Q12H [facility] Last Admin: 03/24/17 08:32 Dose: 100 mls/hr Losartan Potassium (Cozaar) 100 mg PO DAILY [facility] Last Admin: 03/24/17 09:16 Dose: 100 mg Metoprolol Tartrate (Lopressor) 50 mg PO BID [facility] Last Admin: 03/24/17 09:16 Dose: 50 mg Morphine Sulfate (Morphine) 2 mg IVP Q4 PRN PRN Reason: Pain, moderate (4-7) Last Admin: 03/21/17 03:14 Dose: 2 mg Ondansetron HCl (Zofran Inj) 4 mg IVP Q4 PRN PRN Reason: Nausea/Vomiting Promethazine HCl (Phenergan Syrup) 12.5 mg PO Q6 PRN PRN Reason: cough Last Admin: 03/21/17 00:22 Dose: 12.5 mg Rosuvastatin Calcium (Crestor) 10 mg PO [facility] Last Admin: 03/23/17 22:23 Dose: 10 mg - Labs Labs: 03/23/17 08:07 03/23/17 08:07 PT 13.3 SECONDS (9.7-12.2) H 02/25/17 18:17 INR 1.2 02/25/17 18:17 APTT 31 SECONDS (21-34) D 02/25/17 18:17
--- NOTE | 2017-03-24 17:07 | CP.PCM.PN ---
Subjective - Date & Time of Evaluation Date of Evaluation: 03/24/17 Time of Evaluation: 17:00 - Subjective Subjective: No complaints For LTAC placement outpatient f/u in 1-2 weeks with me chemo on hold for debility Objective - Vital Signs/Intake and Output Vital Signs (last 24 hours): Temp Pulse Resp BP Pulse Ox 98.2 F 78 20 138/86 95 03/24/17 15:20 03/24/17 15:20 03/24/17 15:20 03/24/17 15:20 03/24/17 15:20 Intake and Output: 03/24/17 03/24/17 06:59 18:59 Intake Total 370 290 Output Total 590 Balance -220 290 - Medications Medications: Current Medications Acetaminophen (Tylenol 325mg Tab) 650 mg PO Q6 PRN PRN Reason: Fever >100.4 F Last Admin: 03/17/17 07:57 Dose: 650 mg Albuterol/Ipratropium (Duoneb 3 Mg/0.5 Mg (3 Ml) Ud) 3 ml INH RQ6 [facility] Last Admin: 03/24/17 14:43 Dose: 3 ml Diltiazem HCl (Cardizem) 5 mg IVP TID PRN PRN Reason: Other Last Admin: 03/20/17 09:45 Dose: 5 mg Diltiazem HCl (Cardizem) 10 mg IVP ONCE PRN PRN Reason: HR > 140 Last Admin: 03/19/17 00:40 Dose: 10 mg Diltiazem HCl (Cardizem) 60 mg PO QID [facility] Last Admin: 03/24/17 13:34 Dose: 60 mg Docusate Sodium (Colace) 100 mg PO BID [facility] Last Admin: 03/24/17 09:15 Dose: 100 mg Enoxaparin Sodium (Lovenox) 40 mg SC Q12 [facility] Last Admin: 03/24/17 09:15 Dose: 40 mg Famotidine (Pepcid) 20 mg PO DAILY [facility] Last Admin: 03/24/17 09:16 Dose: 20 mg Ferrous Sulfate (Feosol) 325 mg PO TID [facility] Last Admin: 03/24/17 13:34 Dose: 325 mg Furosemide (Lasix) 20 mg IVP ONCE ONE Stop: 03/25/17 20:01 Cefepime HCl 1 gm/ Dextrose 50 mls @ 100 mls/hr IVPB Q12H [facility] Last Admin: 03/24/17 08:32 Dose: 100 mls/hr Losartan Potassium (Cozaar) 100 mg PO DAILY [facility] Last Admin: 03/24/17 09:16 Dose: 100 mg Metoprolol Tartrate (Lopressor) 50 mg PO BID [facility] Last Admin: 03/24/17 09:16 Dose: 50 mg Morphine Sulfate (Morphine) 2 mg IVP Q4 PRN PRN Reason: Pain, moderate (4-7) Last Admin: 03/21/17 03:14 Dose: 2 mg Ondansetron HCl (Zofran Inj) 4 mg IVP Q4 PRN PRN Reason: Nausea/Vomiting Potassium Chloride (K-Dur 20 Meq Er Tab) 20 meq PO DAILY [facility] Stop: 03/26/17 18:01 Promethazine HCl (Phenergan Syrup) 12.5 mg PO Q6 PRN PRN Reason: cough Last Admin: 03/21/17 00:22 Dose: 12.5 mg Rosuvastatin Calcium (Crestor) 10 mg PO HS [facility] Last Admin: 03/23/17 22:23 Dose: 10 mg - Labs Labs: 03/23/17 08:07 03/23/17 08:07 PT 13.3 SECONDS (9.7-12.2) H 02/25/17 18:17 INR 1.2 02/25/17 18:17 APTT 31 SECONDS (21-34) D 02/25/17 18:17 - Head Exam Head Exam: ATRAUMATIC - Eye Exam Eye Exam: Normal appearance - ENT Exam ENT Exam: Mucous Membranes Dry - Respiratory Exam Respiratory Exam: Decreased Breath Sounds - Cardiovascular Exam Cardiovascular Exam: +S1, +S2 - GI/Abdominal Exam GI & Abdominal Exam: Normal Bowel Sounds - Extremities Exam Extremities Exam: Pedal Edema Assessment and Plan (1) Pleural effusion due to another disorder Status: Acute (2) Anemia Status: Chronic (3) Pulmonary embolism Status: Acute (4) Ovarian cancer Status: Chronic
[2017-03-24] MEDS: Potassium Chloride 20 mEq ER Tab PO SCH (17:39)
--- NOTE | 2017-03-24 17:49 | CP.PCM.PN ---
Subjective - Date & Time of Evaluation Date of Evaluation: 03/24/17 Time of Evaluation: 07:30 - Subjective Subjective: Patient seen and examined. Sitting comfortably in no acute distress with chest tube in place draining minimal fluid Plan is to discontinue chest tube today Continue antibiotics Objective - Vital Signs/Intake and Output Vital Signs (last 24 hours): Temp Pulse Resp BP Pulse Ox 98.2 F 78 20 138/86 95 03/24/17 15:20 03/24/17 15:20 03/24/17 15:20 03/24/17 15:20 03/24/17 15:20 Intake and Output: 03/24/17 03/24/17 06:59 18:59 Intake Total 370 290 Output Total 590 Balance -220 290 - Medications Medications: Current Medications Acetaminophen (Tylenol 325mg Tab) 650 mg PO Q6 PRN PRN Reason: Fever >100.4 F Last Admin: 03/17/17 07:57 Dose: 650 mg Albuterol/Ipratropium (Duoneb 3 Mg/0.5 Mg (3 Ml) Ud) 3 ml INH RQ6 [facility] Last Admin: 03/24/17 14:43 Dose: 3 ml Diltiazem HCl (Cardizem) 5 mg IVP TID PRN PRN Reason: Other Last Admin: 03/20/17 09:45 Dose: 5 mg Diltiazem HCl (Cardizem) 10 mg IVP ONCE PRN PRN Reason: HR > 140 Last Admin: 03/19/17 00:40 Dose: 10 mg Diltiazem HCl (Cardizem) 60 mg PO QID [facility] Last Admin: 03/24/17 17:39 Dose: 60 mg Docusate Sodium (Colace) 100 mg PO BID [facility] Last Admin: 03/24/17 17:39 Dose: 100 mg Enoxaparin Sodium (Lovenox) 40 mg SC Q12 [facility] Last Admin: 03/24/17 09:15 Dose: 40 mg Famotidine (Pepcid) 20 mg PO DAILY [facility] Last Admin: 03/24/17 09:16 Dose: 20 mg Ferrous Sulfate (Feosol) 325 mg PO TID [facility] Last Admin: 03/24/17 17:38 Dose: 325 mg Furosemide (Lasix) 20 mg IVP ONCE ONE Stop: 03/25/17 20:01 Cefepime HCl 1 gm/ Dextrose 50 mls @ 100 mls/hr IVPB Q12H [facility] Last Admin: 03/24/17 08:32 Dose: 100 mls/hr Losartan Potassium (Cozaar) 100 mg PO DAILY [facility] Last Admin: 03/24/17 09:16 Dose: 100 mg Metoprolol Tartrate (Lopressor) 50 mg PO BID [facility] Last Admin: 03/24/17 17:39 Dose: 50 mg Morphine Sulfate (Morphine) 2 mg IVP Q4 PRN PRN Reason: Pain, moderate (4-7) Last Admin: 03/21/17 03:14 Dose: 2 mg Ondansetron HCl (Zofran Inj) 4 mg IVP Q4 PRN PRN Reason: Nausea/Vomiting Potassium Chloride (K-Dur 20 Meq Er Tab) 20 meq PO DAILY [facility] Stop: 03/26/17 18:01 Last Admin: 03/24/17 17:39 Dose: 20 meq Promethazine HCl (Phenergan Syrup) 12.5 mg PO Q6 PRN PRN Reason: cough Last Admin: 03/21/17 00:22 Dose: 12.5 mg Rosuvastatin Calcium (Crestor) 10 mg PO [facility] Last Admin: 03/23/17 22:23 Dose: 10 mg - Labs Labs: 03/23/17 08:07 03/23/17 08:07 PT 13.3 SECONDS (9.7-12.2) H 02/25/17 18:17 INR 1.2 02/25/17 18:17 APTT 31 SECONDS (21-34) D 02/25/17 18:17 - Head Exam Head Exam: ATRAUMATIC, NORMOCEPHALIC - Eye Exam Eye Exam: Normal appearance - ENT Exam ENT Exam: Mucous Membranes Moist - Neck Exam Neck Exam: Normal Inspection - Respiratory Exam Respiratory Exam: Decreased Breath Sounds - Cardiovascular Exam Cardiovascular Exam: REGULAR RHYTHM Assessment and Plan (1) Malignant pleural effusion Status: Acute (2) Ascites, malignant Status: Acute (3) Ovarian cancer Status: Chronic (4) Shortness of breath Status: Acute
--- NOTE | 2017-03-24 18:25 | RAD ---
HISTORY: s/p left chest tube removal (PleurX cath remains) COMPARISON: March 24, 2017. 08:20. FINDINGS: LUNGS: Stable multifocal bilateral consolidative changes. PLEURA: Status post chest tubes removal left pleural space. No pneumothorax. Stable loculated pleural effusions. CARDIOVASCULAR: No significant interval change compared to the prior examination(s). Venous access catheter in stable, satisfactory position. OSSEOUS STRUCTURES: No significant abnormalities. VISUALIZED UPPER ABDOMEN: Normal. OTHER FINDINGS: None. IMPRESSION: No adverse findings following removal of 2 chest tubes in the left pleural space. Otherwise no interval changes compared to prior studies.
--- NOTE | 2017-03-24 23:22 | CP.PCM.PN ---
Subjective - Date & Time of Evaluation Date of Evaluation: 03/24/17 Time of Evaluation: 23:22 - Subjective Subjective: Patient seen and examined. Sitting comfortably in no acute distress with chest tube in place draining minimal fluid Plan is to discontinue chest tube today Continue antibiotics Objective - Vital Signs/Intake and Output Vital Signs (last 24 hours): Temp Pulse Resp BP Pulse Ox 98.9 F 83 20 155/73 H 95 03/24/17 22:24 03/24/17 22:24 03/24/17 22:24 03/24/17 22:27 03/24/17 15:20 Intake and Output: 03/24/17 03/25/17 18:59 06:59 Intake Total 290 325 Balance 290 325 - Medications Medications: Current Medications Acetaminophen (Tylenol 325mg Tab) 650 mg PO Q6 PRN PRN Reason: Fever >100.4 F Last Admin: 03/17/17 07:57 Dose: 650 mg Albuterol/Ipratropium (Duoneb 3 Mg/0.5 Mg (3 Ml) Ud) 3 ml INH RQ6 [facility] Last Admin: 03/24/17 19:36 Dose: 3 ml Diltiazem HCl (Cardizem) 5 mg IVP TID PRN PRN Reason: Other Last Admin: 03/20/17 09:45 Dose: 5 mg Diltiazem HCl (Cardizem) 10 mg IVP ONCE PRN PRN Reason: HR > 140 Last Admin: 03/19/17 00:40 Dose: 10 mg Diltiazem HCl (Cardizem) 60 mg PO QID [facility] Last Admin: 03/24/17 21:47 Dose: 60 mg Docusate Sodium (Colace) 100 mg PO BID [facility] Last Admin: 03/24/17 17:39 Dose: 100 mg Enoxaparin Sodium (Lovenox) 40 mg SC Q12 [facility] Last Admin: 03/24/17 21:47 Dose: 40 mg Famotidine (Pepcid) 20 mg PO DAILY [facility] Last Admin: 03/24/17 09:16 Dose: 20 mg Ferrous Sulfate (Feosol) 325 mg PO TID [facility] Last Admin: 03/24/17 17:38 Dose: 325 mg Cefepime HCl 1 gm/ Dextrose 50 mls @ 100 mls/hr IVPB Q12H [facility] Last Admin: 03/24/17 22:26 Dose: 100 mls/hr Losartan Potassium (Cozaar) 100 mg PO DAILY [facility] Last Admin: 03/24/17 09:16 Dose: 100 mg Metoprolol Tartrate (Lopressor) 50 mg PO BID [facility] Last Admin: 03/24/17 17:39 Dose: 50 mg Morphine Sulfate (Morphine) 2 mg IVP Q4 PRN PRN Reason: Pain, moderate (4-7) Last Admin: 03/21/17 03:14 Dose: 2 mg Ondansetron HCl (Zofran Inj) 4 mg IVP Q4 PRN PRN Reason: Nausea/Vomiting Potassium Chloride (K-Dur 20 Meq Er Tab) 20 meq PO DAILY [facility] Stop: 03/26/17 18:01 Last Admin: 03/24/17 17:39 Dose: 20 meq Promethazine HCl (Phenergan Syrup) 12.5 mg PO Q6 PRN PRN Reason: cough Last Admin: 03/21/17 00:22 Dose: 12.5 mg Rosuvastatin Calcium (Crestor) 10 mg PO [facility] Last Admin: 03/24/17 21:47 Dose: 10 mg - Labs Labs: 03/23/17 08:07 03/23/17 08:07 PT 13.3 SECONDS (9.7-12.2) H 02/25/17 18:17 INR 1.2 02/25/17 18:17 APTT 31 SECONDS (21-34) D 02/25/17 18:17 - Constitutional Appears: No Acute Distress, Cachectic, Chronically Ill - Head Exam Head Exam: NORMAL INSPECTION - Eye Exam Eye Exam: EOMI, PERRL - ENT Exam ENT Exam: Normal Oropharynx - Neck Exam Neck Exam: Normal Inspection - Respiratory Exam Respiratory Exam: Rhonchi (DIMINISHED BREATH SOUNDS AT THE LEFT BASE. LEFT CHEST TUBE IN PLACE.) - Cardiovascular Exam Cardiovascular Exam: REGULAR RHYTHM, +S1, +S2 - GI/Abdominal Exam GI & Abdominal Exam: Soft (ASCITES PRESENT.), Normal Bowel Sounds - Extremities Exam Extremities Exam: absent: Calf Tenderness, Pedal Edema - Neurological Exam Neurological Exam: Awake, CN II-XII Intact, Oriented x3 - Psychiatric Exam Psychiatric exam: Normal Mood - Skin Skin Exam: Normal Color, Warm Assessment and Plan (1) Bilateral pneumonia Assessment & Plan: CONTINUE IV MAXIPINE 1 G EVERY 12 HOURLY 03/16/17-DAY 9 CONTINUE iv mAXIPIME FOR TOTAL OF 14 DAYS AWAITING CHEST TUBE TO BE REMOVED PER SURGERY. Status: Acute (2) Malignant pleural effusion Assessment & Plan: s/p left chest tube in place. Pleural fluid 03/22/17 culture -ve growth to date. . Status: Acute (3) Ascites, malignant Status: Acute (4) Ovarian cancer Status: Chronic (5) Anemia Status: Chronic (6) Diabetes mellitus Status: Chronic (7) Hypertension Status: Chronic
[2017-03-25] MEDS: Albuterol-Ipratrop 3 mg / 0.5 (3 ml) UD INH SCH ×4 (02:32→19:42)
[2017-03-25 07:20] LABS: BASO # 0.1 K/uL (0.0-0.2); BASO % 0.7 % (0.0-2.0); EOS # 0.1 K/uL (0.0-0.7); EOS % 0.7 % (0.0-4.0); HEMATOCRIT 29.8 % (34.0-47.0); LYMPH # 1.9 K/uL (1.0-4.3); LYMPH % 23.2 % (20.0-40.0); MEAN CELL VOLUME 81.6 fL (81.0-99.0); MEAN CORPUSCULAR HGB CONC 31.8 g/dL (33.0-37.0); MONO # 1.2 K/uL (0.0-0.8); MONO % 14.8 % (0.0-10.0); NRBC % 0.6 % (0.0-2.0); RED CELL DISTRIBUTION WIDTH 16.7 % (11.5-14.5); WHITE BLOOD COUNT 8.2 K/uL (4.8-10.8)
[2017-03-25 07:45] LABS: CHLORIDE 98 mmol/L (98-107); POTASSIUM 3.6 mmol/L (3.6-5.2); SODIUM 136 mmol/L (132-148)
[2017-03-25 07:48] LABS: BLOOD UREA NITROGEN 8 mg/dL (7-17); CARBON DIOXIDE 32 mmol/L (22-30); GFR AFRICAN-AMERICAN > 60
[2017-03-25 07:49] LABS: CALCIUM 9.2 mg/dl (8.6-10.4); GLUCOSE,RANDOM 91 mg/dL (65-105)
--- NOTE | 2017-03-25 08:51 | PN ---
DATE: 03/24/2017 The patient appears weak but she denies any chest pain or shortness of breath. She slept comfortably last night. Currently in sinus rhythm on the monitor with frequent APCs. PHYSICAL EXAMINATION: VITAL SIGNS: Blood pressure 157/84, heart rate 95, temperature 99.2, respirations 20. HEENT: Pale conjunctivae. CHEST: Right basal coarse crepitations. HEART: S1, S2 regular. EXTREMITIES: No pedal edema. LABORATORIES: There are no lab results posted for today. ASSESSMENT: 1. Paroxysmal atrial tachycardia. 2. Paroxysmal atrial fibrillation. 3. Metastatic ovarian carcinoma. 4. Bilateral pleural effusion status post left-sided chest tube placement. 5. History of recent pulmonary embolus. RECOMMENDATIONS: Continue subcutaneous Lovenox at 40 mg twice a day, Lopressor at 50 mg twice a day, Crestor at 10 mg once a day, Cozaar at 100 mg once a day, IV cefepime at 1 gram twice a day and Card izem 60 mg q.i.d. Morgan Zuniga MD cc: [id number] TT: 03/24/2017 13:19:24 Confirmation # [id number] Dictation # [id number]
[2017-03-25] MEDS: Potassium Chloride 20 mEq ER Tab PO SCH (09:08)
[2017-03-25] MEDS: Enoxaparin 40 mg Syringe SC SCH ×2 (09:10→22:32)
--- NOTE | 2017-03-25 10:33 | RAD ---
HISTORY: left chest tube COMPARISON: Comparison is made to the previous study dated 03/24/2017 FINDINGS: LUNGS: No significant interval change in the lungs noted since the previous exam. PLEURA: Blunting of both costophrenic angles are again seen. CARDIOVASCULAR: Normal. OSSEOUS STRUCTURES: No significant abnormalities. VISUALIZED UPPER ABDOMEN: Normal. OTHER FINDINGS: Right-sided Infusaport is seen in place. There is a drainage catheter overlying the left lower chest. IMPRESSION: No significant interval change since the previous exam.
--- NOTE | 2017-03-25 11:00 | CP.PCM.PN ---
Subjective - Date & Time of Evaluation Date of Evaluation: 03/25/17 Time of Evaluation: 10:58 - Subjective Subjective: Pt s/e. Pleurec connected to drainage bulb continuously. cxr-No penumo. Will cap catheter and drain fluid prn(twice a week). Objective - Vital Signs/Intake and Output Vital Signs (last 24 hours): Temp Pulse Resp BP Pulse Ox 98.0 F 93 H 20 173/93 H 97 03/25/17 08:58 03/25/17 08:58 03/25/17 08:58 03/25/17 08:58 03/25/17 08:58 Intake and Output: 03/25/17 03/25/17 06:59 18:59 Intake Total 1070 Output Total 1075 Balance -5 - Medications Medications: Current Medications Acetaminophen (Tylenol 325mg Tab) 650 mg PO Q6 PRN PRN Reason: Fever >100.4 F Last Admin: 03/17/17 07:57 Dose: 650 mg Albuterol/Ipratropium (Duoneb 3 Mg/0.5 Mg (3 Ml) Ud) 3 ml INH RQ6 [facility] Last Admin: 03/25/17 07:53 Dose: 3 ml Diltiazem HCl (Cardizem) 5 mg IVP TID PRN PRN Reason: Other Last Admin: 03/20/17 09:45 Dose: 5 mg Diltiazem HCl (Cardizem) 10 mg IVP ONCE PRN PRN Reason: HR > 140 Last Admin: 03/19/17 00:40 Dose: 10 mg Diltiazem HCl (Cardizem) 60 mg PO QID [facility] Last Admin: 03/25/17 09:08 Dose: 60 mg Docusate Sodium (Colace) 100 mg PO BID [facility] Last Admin: 03/25/17 09:08 Dose: 100 mg Enoxaparin Sodium (Lovenox) 40 mg SC Q12 [facility] Last Admin: 03/25/17 09:10 Dose: 40 mg Famotidine (Pepcid) 20 mg PO DAILY [facility] Last Admin: 03/25/17 09:08 Dose: 20 mg Ferrous Sulfate (Feosol) 325 mg PO TID [facility] Last Admin: 03/25/17 09:09 Dose: 325 mg Cefepime HCl 1 gm/ Dextrose 50 mls @ 100 mls/hr IVPB Q12H [facility] Last Admin: 03/25/17 09:10 Dose: 100 mls/hr Losartan Potassium (Cozaar) 100 mg PO DAILY [facility] Last Admin: 03/25/17 09:09 Dose: 100 mg Metoprolol Tartrate (Lopressor) 50 mg PO BID [facility] Last Admin: 03/25/17 10:05 Dose: 50 mg Morphine Sulfate (Morphine) 2 mg IVP Q4 PRN PRN Reason: Pain, moderate (4-7) Last Admin: 03/21/17 03:14 Dose: 2 mg Ondansetron HCl (Zofran Inj) 4 mg IVP Q4 PRN PRN Reason: Nausea/Vomiting Potassium Chloride (K-Dur 20 Meq Er Tab) 20 meq PO DAILY [facility] Stop: 03/26/17 18:01 Last Admin: 03/25/17 09:08 Dose: 20 meq Promethazine HCl (Phenergan Syrup) 12.5 mg PO Q6 PRN PRN Reason: cough Last Admin: 03/21/17 00:22 Dose: 12.5 mg Rosuvastatin Calcium (Crestor) 10 mg PO HS [facility] Last Admin: 03/24/17 21:47 Dose: 10 mg - Labs Labs: 03/25/17 07:05 03/25/17 07:05 PT 13.3 SECONDS (9.7-12.2) H 02/25/17 18:17 INR 1.2 02/25/17 18:17 APTT 31 SECONDS (21-34) D 02/25/17 18:17
--- NOTE | 2017-03-25 11:17 | CP.PCM.PN ---
Subjective - Date & Time of Evaluation Date of Evaluation: 03/25/17 Time of Evaluation: 11:00 - Subjective Subjective: No complaints For LTAC placement outpatient f/u in 1-2 weeks with me chemo on hold for debility Objective - Vital Signs/Intake and Output Vital Signs (last 24 hours): Temp Pulse Resp BP Pulse Ox 98.0 F 93 H 20 173/93 H 97 03/25/17 08:58 03/25/17 08:58 03/25/17 08:58 03/25/17 08:58 03/25/17 08:58 Intake and Output: 03/25/17 03/25/17 06:59 18:59 Intake Total 1070 Output Total 1075 Balance -5 - Medications Medications: Current Medications Acetaminophen (Tylenol 325mg Tab) 650 mg PO Q6 PRN PRN Reason: Fever >100.4 F Last Admin: 03/17/17 07:57 Dose: 650 mg Albuterol/Ipratropium (Duoneb 3 Mg/0.5 Mg (3 Ml) Ud) 3 ml INH RQ6 [facility] Last Admin: 03/25/17 07:53 Dose: 3 ml Diltiazem HCl (Cardizem) 5 mg IVP TID PRN PRN Reason: Other Last Admin: 03/20/17 09:45 Dose: 5 mg Diltiazem HCl (Cardizem) 10 mg IVP ONCE PRN PRN Reason: HR > 140 Last Admin: 03/19/17 00:40 Dose: 10 mg Diltiazem HCl (Cardizem) 60 mg PO QID [facility] Last Admin: 03/25/17 09:08 Dose: 60 mg Docusate Sodium (Colace) 100 mg PO BID [facility] Last Admin: 03/25/17 09:08 Dose: 100 mg Enoxaparin Sodium (Lovenox) 40 mg SC Q12 [facility] Last Admin: 03/25/17 09:10 Dose: 40 mg Famotidine (Pepcid) 20 mg PO DAILY [facility] Last Admin: 03/25/17 09:08 Dose: 20 mg Ferrous Sulfate (Feosol) 325 mg PO TID [facility] Last Admin: 03/25/17 09:09 Dose: 325 mg Cefepime HCl 1 gm/ Dextrose 50 mls @ 100 mls/hr IVPB Q12H [facility] Last Admin: 03/25/17 09:10 Dose: 100 mls/hr Losartan Potassium (Cozaar) 100 mg PO DAILY [facility] Last Admin: 03/25/17 09:09 Dose: 100 mg Metoprolol Tartrate (Lopressor) 50 mg PO BID [facility] Last Admin: 03/25/17 10:05 Dose: 50 mg Morphine Sulfate (Morphine) 2 mg IVP Q4 PRN PRN Reason: Pain, moderate (4-7) Last Admin: 03/21/17 03:14 Dose: 2 mg Ondansetron HCl (Zofran Inj) 4 mg IVP Q4 PRN PRN Reason: Nausea/Vomiting Potassium Chloride (K-Dur 20 Meq Er Tab) 20 meq PO DAILY [facility] Stop: 03/26/17 18:01 Last Admin: 03/25/17 09:08 Dose: 20 meq Promethazine HCl (Phenergan Syrup) 12.5 mg PO Q6 PRN PRN Reason: cough Last Admin: 03/21/17 00:22 Dose: 12.5 mg Rosuvastatin Calcium (Crestor) 10 mg PO [facility] Last Admin: 03/24/17 21:47 Dose: 10 mg - Labs Labs: 03/25/17 07:05 03/25/17 07:05 PT 13.3 SECONDS (9.7-12.2) H 02/25/17 18:17 INR 1.2 02/25/17 18:17 APTT 31 SECONDS (21-34) D 02/25/17 18:17 - Constitutional Appears: Cachectic - Head Exam Head Exam: ATRAUMATIC - Eye Exam Eye Exam: Normal appearance - ENT Exam ENT Exam: Mucous Membranes Dry - Respiratory Exam Respiratory Exam: Decreased Breath Sounds - Cardiovascular Exam Cardiovascular Exam: +S1, +S2 - GI/Abdominal Exam GI & Abdominal Exam: Normal Bowel Sounds Assessment and Plan (1) Pleural effusion due to another disorder Assessment & Plan: malignant catheter drainage Status: Acute (2) Anemia Assessment & Plan: chronic disease PRBC transfusion support Status: Chronic (3) Pulmonary embolism Assessment & Plan: on therapeutic lovenox Status: Acute (4) Ovarian cancer Assessment & Plan: supportive care chemo on hold for debility code status and hospice discussion had with pt and family; they want to think about it Status: Chronic
--- NOTE | 2017-03-25 12:21 | CP.PCM.PN ---
Subjective - Date & Time of Evaluation Date of Evaluation: 03/24/17 Time of Evaluation: 10:27 - Subjective Subjective: Patient seen and examined. Sitting comfortably in no acute distress with chest tube in place draining minimal fluid Plan is to discontinue chest tube today Continue antibiotics Objective - Vital Signs/Intake and Output Vital Signs (last 24 hours): Temp Pulse Resp BP Pulse Ox 98.0 F 93 H 20 173/93 H 97 03/25/17 08:58 03/25/17 08:58 03/25/17 08:58 03/25/17 08:58 03/25/17 08:58 Intake and Output: 03/25/17 03/25/17 06:59 18:59 Intake Total 1070 Output Total 1075 Balance -5 - Medications Medications: Current Medications Acetaminophen (Tylenol 325mg Tab) 650 mg PO Q6 PRN PRN Reason: Fever >100.4 F Last Admin: 03/17/17 07:57 Dose: 650 mg Albuterol/Ipratropium (Duoneb 3 Mg/0.5 Mg (3 Ml) Ud) 3 ml INH RQ6 [facility] Last Admin: 03/25/17 07:53 Dose: 3 ml Diltiazem HCl (Cardizem) 5 mg IVP TID PRN PRN Reason: Other Last Admin: 03/20/17 09:45 Dose: 5 mg Diltiazem HCl (Cardizem) 10 mg IVP ONCE PRN PRN Reason: HR > 140 Last Admin: 03/19/17 00:40 Dose: 10 mg Diltiazem HCl (Cardizem) 60 mg PO QID [facility] Last Admin: 03/25/17 09:08 Dose: 60 mg Docusate Sodium (Colace) 100 mg PO BID [facility] Last Admin: 03/25/17 09:08 Dose: 100 mg Enoxaparin Sodium (Lovenox) 40 mg SC Q12 [facility] Last Admin: 03/25/17 09:10 Dose: 40 mg Famotidine (Pepcid) 20 mg PO DAILY [facility] Last Admin: 03/25/17 09:08 Dose: 20 mg Ferrous Sulfate (Feosol) 325 mg PO TID [facility] Last Admin: 03/25/17 09:09 Dose: 325 mg Cefepime HCl 1 gm/ Dextrose 50 mls @ 100 mls/hr IVPB Q12H [facility] Last Admin: 03/25/17 09:10 Dose: 100 mls/hr Losartan Potassium (Cozaar) 100 mg PO DAILY [facility] Last Admin: 03/25/17 09:09 Dose: 100 mg Metoprolol Tartrate (Lopressor) 50 mg PO BID [facility] Last Admin: 03/25/17 10:05 Dose: 50 mg Morphine Sulfate (Morphine) 2 mg IVP Q4 PRN PRN Reason: Pain, moderate (4-7) Last Admin: 03/21/17 03:14 Dose: 2 mg Ondansetron HCl (Zofran Inj) 4 mg IVP Q4 PRN PRN Reason: Nausea/Vomiting Potassium Chloride (K-Dur 20 Meq Er Tab) 20 meq PO DAILY [facility] Stop: 03/26/17 18:01 Last Admin: 03/25/17 09:08 Dose: 20 meq Promethazine HCl (Phenergan Syrup) 12.5 mg PO Q6 PRN PRN Reason: cough Last Admin: 03/21/17 00:22 Dose: 12.5 mg Rosuvastatin Calcium (Crestor) 10 mg PO HS [facility] Last Admin: 03/24/17 21:47 Dose: 10 mg - Labs Labs: 03/25/17 07:05 03/25/17 07:05 PT 13.3 SECONDS (9.7-12.2) H 02/25/17 18:17 INR 1.2 02/25/17 18:17 APTT 31 SECONDS (21-34) D 02/25/17 18:17 - Constitutional Appears: No Acute Distress - Head Exam Head Exam: ATRAUMATIC, NORMAL INSPECTION, NORMOCEPHALIC - Eye Exam Eye Exam: EOMI, Normal appearance, PERRL Pupil Exam: NORMAL ACCOMODATION, PERRL - Respiratory Exam Respiratory Exam: Clear to Ausculation Bilateral, NORMAL BREATHING PATTERN - Cardiovascular Exam Cardiovascular Exam: REGULAR RHYTHM, +S1, +S2. absent: Murmur - GI/Abdominal Exam GI & Abdominal Exam: Soft, Normal Bowel Sounds. absent: Tenderness - Neurological Exam Neurological Exam: Alert, Awake, CN II-XII Intact, Normal Gait, Oriented x3 Assessment and Plan (1) Ascites, malignant Status: Acute (2) Diabetes mellitus Status: Chronic (3) Hypertension Status: Chronic (4) Ovarian cancer Status: Chronic (5) Pleural effusion due to another disorder Status: Acute (6) Shortness of breath Status: Acute
--- NOTE | 2017-03-25 13:03 | CP.PCM.PN ---
Subjective - Date & Time of Evaluation Date of Evaluation: 03/25/17 Time of Evaluation: 10:30 - Subjective Subjective: Pt seen and examined, remains on antibiotics, No complaints For LTAC placement outpatient f/u in 1-2 weeks with me chemo on hold for debility Objective - Vital Signs/Intake and Output Vital Signs (last 24 hours): Temp Pulse Resp BP Pulse Ox 98.0 F 93 H 20 173/93 H 97 03/25/17 08:58 03/25/17 08:58 03/25/17 08:58 03/25/17 08:58 03/25/17 08:58 Intake and Output: 03/25/17 03/25/17 06:59 18:59 Intake Total 1070 Output Total 1075 Balance -5 - Medications Medications: Current Medications Acetaminophen (Tylenol 325mg Tab) 650 mg PO Q6 PRN PRN Reason: Fever >100.4 F Last Admin: 03/17/17 07:57 Dose: 650 mg Albuterol/Ipratropium (Duoneb 3 Mg/0.5 Mg (3 Ml) Ud) 3 ml INH RQ6 [facility] Last Admin: 03/25/17 07:53 Dose: 3 ml Diltiazem HCl (Cardizem) 5 mg IVP TID PRN PRN Reason: Other Last Admin: 03/20/17 09:45 Dose: 5 mg Diltiazem HCl (Cardizem) 10 mg IVP ONCE PRN PRN Reason: HR > 140 Last Admin: 03/19/17 00:40 Dose: 10 mg Diltiazem HCl (Cardizem) 60 mg PO QID [facility] Last Admin: 03/25/17 09:08 Dose: 60 mg Docusate Sodium (Colace) 100 mg PO BID [facility] Last Admin: 03/25/17 09:08 Dose: 100 mg Enoxaparin Sodium (Lovenox) 40 mg SC Q12 [facility] Last Admin: 03/25/17 09:10 Dose: 40 mg Famotidine (Pepcid) 20 mg PO DAILY [facility] Last Admin: 03/25/17 09:08 Dose: 20 mg Ferrous Sulfate (Feosol) 325 mg PO TID [facility] Last Admin: 03/25/17 09:09 Dose: 325 mg Cefepime HCl 1 gm/ Dextrose 50 mls @ 100 mls/hr IVPB Q12H [facility] Last Admin: 03/25/17 09:10 Dose: 100 mls/hr Losartan Potassium (Cozaar) 100 mg PO DAILY [facility] Last Admin: 03/25/17 09:09 Dose: 100 mg Metoprolol Tartrate (Lopressor) 50 mg PO BID [facility] Last Admin: 03/25/17 10:05 Dose: 50 mg Morphine Sulfate (Morphine) 2 mg IVP Q4 PRN PRN Reason: Pain, moderate (4-7) Last Admin: 03/21/17 03:14 Dose: 2 mg Ondansetron HCl (Zofran Inj) 4 mg IVP Q4 PRN PRN Reason: Nausea/Vomiting Potassium Chloride (K-Dur 20 Meq Er Tab) 20 meq PO DAILY [facility] Stop: 03/26/17 18:01 Last Admin: 03/25/17 09:08 Dose: 20 meq Promethazine HCl (Phenergan Syrup) 12.5 mg PO Q6 PRN PRN Reason: cough Last Admin: 03/21/17 00:22 Dose: 12.5 mg Rosuvastatin Calcium (Crestor) 10 mg PO HS [facility] Last Admin: 03/24/17 21:47 Dose: 10 mg - Labs Labs: 03/25/17 07:05 03/25/17 07:05 PT 13.3 SECONDS (9.7-12.2) H 02/25/17 18:17 INR 1.2 02/25/17 18:17 APTT 31 SECONDS (21-34) D 02/25/17 18:17 - Constitutional Appears: No Acute Distress - Head Exam Head Exam: ATRAUMATIC, NORMAL INSPECTION, NORMOCEPHALIC - Eye Exam Eye Exam: EOMI, Normal appearance, PERRL Pupil Exam: NORMAL ACCOMODATION, PERRL - Respiratory Exam Respiratory Exam: Clear to Ausculation Bilateral, NORMAL BREATHING PATTERN - Cardiovascular Exam Cardiovascular Exam: REGULAR RHYTHM, +S1, +S2. absent: Murmur - GI/Abdominal Exam GI & Abdominal Exam: Soft, Normal Bowel Sounds. absent: Tenderness Assessment and Plan (1) Ascites, malignant Status: Acute (2) Diabetes mellitus Status: Chronic (3) Hypertension Status: Chronic (4) Ovarian cancer Status: Chronic (5) Pleural effusion due to another disorder Status: Acute (6) Shortness of breath Status: Acute
--- NOTE | 2017-03-25 13:40 | CP.PCM.PN ---
Subjective - Date & Time of Evaluation Date of Evaluation: 03/25/17 Time of Evaluation: 13:40 - Subjective Subjective: AFEBRILE S/P PLEUREC CONNECTED TO A DRAINAGE BULB DRAINING SEROPURULENT DRAINAGE. PER SURGERY CATHETER CAPPED AND DRAINING FLUID WHEN NECESSARY ( TWICE A WEEK ) sPUTUM CULTURE 03/23/17- [facility]. pLEURAL FLUID 03/22/17 GRAM-POSITIVE COCCI. lABS NOTED CXR 03/24, 03/25 REVIEWED. Bilateral multifocal consolidative changes.s/p 2 chest tubes removal left pleural space Stable bilateral pleural effusions. cREATININE 0.7/bun 8 wbc 03/25/17 8.0, h&h 9.5 pLATELETS 522. Objective - Vital Signs/Intake and Output Vital Signs (last 24 hours): Temp Pulse Resp BP Pulse Ox 98.0 F 93 H 20 173/93 H 97 03/25/17 08:58 03/25/17 08:58 03/25/17 08:58 03/25/17 08:58 03/25/17 08:58 Intake and Output: 03/25/17 03/25/17 06:59 18:59 Intake Total 1070 Output Total 1075 Balance -5 - Medications Medications: Current Medications Acetaminophen (Tylenol 325mg Tab) 650 mg PO Q6 PRN PRN Reason: Fever >100.4 F Last Admin: 03/17/17 07:57 Dose: 650 mg Albuterol/Ipratropium (Duoneb 3 Mg/0.5 Mg (3 Ml) Ud) 3 ml INH RQ6 [facility] Last Admin: 03/25/17 13:32 Dose: Not Given Diltiazem HCl (Cardizem) 5 mg IVP TID PRN PRN Reason: Other Last Admin: 03/20/17 09:45 Dose: 5 mg Diltiazem HCl (Cardizem) 10 mg IVP ONCE PRN PRN Reason: HR > 140 Last Admin: 03/19/17 00:40 Dose: 10 mg Diltiazem HCl (Cardizem) 60 mg PO QID [facility] Last Admin: 03/25/17 13:08 Dose: 60 mg Docusate Sodium (Colace) 100 mg PO BID [facility] Last Admin: 03/25/17 09:08 Dose: 100 mg Enoxaparin Sodium (Lovenox) 40 mg SC Q12 [facility] Last Admin: 03/25/17 09:10 Dose: 40 mg Famotidine (Pepcid) 20 mg PO DAILY [facility] Last Admin: 03/25/17 09:08 Dose: 20 mg Ferrous Sulfate (Feosol) 325 mg PO TID [facility] Last Admin: 03/25/17 13:08 Dose: 325 mg Cefepime HCl 1 gm/ Dextrose 50 mls @ 100 mls/hr IVPB Q12H [facility] Last Admin: 03/25/17 09:10 Dose: 100 mls/hr Losartan Potassium (Cozaar) 100 mg PO DAILY [facility] Last Admin: 03/25/17 09:09 Dose: 100 mg Metoprolol Tartrate (Lopressor) 50 mg PO BID [facility] Last Admin: 03/25/17 10:05 Dose: 50 mg Morphine Sulfate (Morphine) 2 mg IVP Q4 PRN PRN Reason: Pain, moderate (4-7) Last Admin: 03/21/17 03:14 Dose: 2 mg Ondansetron HCl (Zofran Inj) 4 mg IVP Q4 PRN PRN Reason: Nausea/Vomiting Potassium Chloride (K-Dur 20 Meq Er Tab) 20 meq PO DAILY [facility] Stop: 03/26/17 18:01 Last Admin: 03/25/17 09:08 Dose: 20 meq Promethazine HCl (Phenergan Syrup) 12.5 mg PO Q6 PRN PRN Reason: cough Last Admin: 03/21/17 00:22 Dose: 12.5 mg Rosuvastatin Calcium (Crestor) 10 mg PO HS [facility] Last Admin: 03/24/17 21:47 Dose: 10 mg - Labs Labs: 03/25/17 07:05 03/25/17 07:05 PT 13.3 SECONDS (9.7-12.2) H 02/25/17 18:17 INR 1.2 02/25/17 18:17 APTT 31 SECONDS (21-34) D 02/25/17 18:17 - Constitutional Appears: No Acute Distress, Cachectic, Chronically Ill - Head Exam Head Exam: NORMAL INSPECTION - Eye Exam Eye Exam: EOMI, PERRL - ENT Exam ENT Exam: Normal Oropharynx - Neck Exam Neck Exam: Normal Inspection - Respiratory Exam Respiratory Exam: Decreased Breath Sounds, Rhonchi (bilaterally) - Cardiovascular Exam Cardiovascular Exam: REGULAR RHYTHM, +S1, +S2 - GI/Abdominal Exam GI & Abdominal Exam: Soft, Normal Bowel Sounds (ascites present. Nontender) - Extremities Exam Extremities Exam: absent: Calf Tenderness, Pedal Edema - Neurological Exam Neurological Exam: Awake, CN II-XII Intact, Oriented x3 - Psychiatric Exam Psychiatric exam: Normal Mood - Skin Skin Exam: Normal Color, Warm Assessment and Plan (1) Bilateral pneumonia Assessment & Plan: patient on IV cefepime 1 g every 12 hourly.-Day 10. ( 03/16/17.) Add IV vancomycin 1 g every 12 hourly for positive cultures. Sputum and pleural fluid- Sputum positive for staph aureus-sensitivity pending. Pleural fluid positive for gram-positive cocci-pending identification. F/U VANCO LEVELS PRIOR TO THE FOURTH DOSE AND MAINTAIN BETWEEN 10 AND 20. Status: Acute (2) Malignant pleural effusion Status: Acute (3) Ascites, malignant Status: Acute (4) Ovarian cancer Status: Chronic (5) Anemia Status: Chronic (6) Diabetes mellitus Status: Chronic (7) Hypertension Status: Chronic
--- NOTE | 2017-03-25 17:50 | PN ---
DATE: 03/25/2017 HISTORY OF PRESENT ILLNESS: The patient denies chest pain. She is experiencing mild shortness of trevor ath. She denies any palpitations. The patient complains of productive cough, but no hemoptysis. PHYSICAL EXAMINATION: VITAL SIGNS: Blood pressure 159/83, heart rate 73, temperature 99, respirations 20. The patient is in sinus rhythm with frequent APCs on the monitor. HEENT: Pale conjunctivae. NECK: No JVD. CHEST: Bibasilar coarse crepitations. HEART: S1, S2 regular. EXTREMITIES: No edema. LABORATORIES: Today's hemoglobin and hematocrit 9.5 and 29.8, white count 8.2, platelet count 522,00 0. Today's SMA-7 is within normal limits except for carbon dioxide of 32. Today's chest x-ray revea led no significant interval change with blunting of both costophrenic angles. ASSESSMENT: 1. Paroxysmal atrial tachycardia, paroxysmal atrial fibrillation. 2. Recent pulmonary embolus. 3. Metastatic ovarian carcinoma. 4. Bilateral pleural effusion status post right chest tube placement, which is currently removed. 5. Anemia. RECOMMENDATIONS: Continue Cardizem 60 mg 4 times a day, IV cefepime 1 gram twice a day, Cozaar 100 m g once a day, Crestor 10 mg once a day, Lopressor 50 mg twice a day, K-Dur 20 mEq once a day, subcuta neous Lovenox at 40 mg twice a day, IV vancomycin 1 gram q. 12 hours, Zofran 4 mg intravenous q.4 jose vigil p.r.n. Morgan Zuniga MD cc: [id number] TT: 03/25/2017 17:49:37 Confirmation # [id number] Dictation # [id number] ln
[2017-03-25] MEDS: Vancomycin 1 gm/NS 200 ml 1 GM/200 ML BAG IVPB SCH (18:24)
[2017-03-26] MEDS: Albuterol-Ipratrop 3 mg / 0.5 (3 ml) UD INH SCH ×4 (01:20→20:29)
[2017-03-26] MEDS: Vancomycin 1 gm/NS 200 ml 1 GM/200 ML BAG IVPB SCH ×2 (04:02→18:23)
[2017-03-26] MEDS: Enoxaparin 40 mg Syringe SC SCH ×2 (09:43→21:05)
[2017-03-26] MEDS: Potassium Chloride 20 mEq ER Tab PO SCH (09:44)
--- NOTE | 2017-03-26 11:00 | RAD ---
HISTORY: left chest tube COMPARISON: 03/25/2017 FINDINGS: LUNGS: Lines and tubes stable position. Persistent moderate loculated left-sided pleural effusion with a mass like consolidative opacity in the lateral aspect of the left midlung zone and additional consolidation at the left lung base. Moderate loculated right pleural effusion with adjacent consolidative changes. Bilateral hilar prominence. PLEURA: As above. CARDIOVASCULAR: Cardiomegaly. Calcification at the aortic knob. OSSEOUS STRUCTURES: No significant abnormalities. VISUALIZED UPPER ABDOMEN: Normal. OTHER FINDINGS: None. IMPRESSION: Overall no significant interval change.
[2017-03-26] MEDS: diltiaZEM 300 mg/24 Hours CD Cap PO SCH (14:30)
--- NOTE | 2017-03-26 14:38 | PN ---
DATE: 03/26/2017 The patient seems comfortable. She still has poor appetite. No reported ventricular arrhythmia or a trial fibrillation. PHYSICAL EXAMINATION: VITAL SIGNS: Blood pressure /95, heart rate 90, temperature 98, respiration 20. HEENT: Pale conjunctivae. CHEST: Left basilar coarse crepitations. HEART: S1, S2 regular. EXTREMITIES: Significant muscle wasting. No pedal edema. LABORATORIES: No labs posted for today. ASSESSMENT: 1. Metastatic ovarian carcinoma. 2. Paroxysmal atrial tachycardia as well as paroxysmal atrial fibrillation. 3. Anemia. 4. Bilateral pleural effusion. 5. Uncontrolled hypertension. RECOMMENDATIONS: Continue current Cardizem CD 300 mg daily, IV cefepime 1 gram q. 12 hours, Cozaar 1 00 mg daily, K-Dur 20 mEq once a day, Lopressor 50 mg twice a day, subcutaneous Lovenox at 40 mg twic e a day. Morgan Zuniga MD cc: [id number] TT: 03/26/2017 14:37:47 Confirmation # [id number] Dictation # [id number] dn
--- NOTE | 2017-03-26 15:30 | CP.PCM.PN ---
Subjective - Date & Time of Evaluation Date of Evaluation: 03/26/17 Time of Evaluation: 08:00 - Subjective Subjective: THORACIC SURGERY PROGRESS NOTE FOR DR. BUCKLEY Patient seen and examined at bedside. She denies SOB or CP. Chest tube removed 2 days ago. PleurX catheter drains appropriately when connected to bulb. Objective - Vital Signs/Intake and Output Vital Signs (last 24 hours): Temp Pulse Resp BP Pulse Ox 98.0 F 90 20 180/95 H 99 03/26/17 09:08 03/26/17 09:08 03/26/17 09:08 03/26/17 09:08 03/26/17 09:08 Intake and Output: 03/26/17 03/26/17 06:59 18:59 Intake Total 320 Output Total 500 Balance -180 - Medications Medications: Current Medications Acetaminophen (Tylenol 325mg Tab) 650 mg PO Q6 PRN PRN Reason: Fever >100.4 F Last Admin: 03/17/17 07:57 Dose: 650 mg Albuterol/Ipratropium (Duoneb 3 Mg/0.5 Mg (3 Ml) Ud) 3 ml INH RQ6 [facility] Last Admin: 03/26/17 13:32 Dose: Not Given Diltiazem HCl (Cardizem) 5 mg IVP TID PRN PRN Reason: Other Last Admin: 03/20/17 09:45 Dose: 5 mg Diltiazem HCl (Cardizem) 10 mg IVP ONCE PRN PRN Reason: HR > 140 Last Admin: 03/19/17 00:40 Dose: 10 mg Diltiazem HCl (Cardizem Cd) 300 mg PO DAILY [facility] Last Admin: 03/26/17 14:30 Dose: 300 mg Docusate Sodium (Colace) 100 mg PO BID [facility] Last Admin: 03/26/17 09:43 Dose: 100 mg Enoxaparin Sodium (Lovenox) 40 mg SC Q12 [facility] Last Admin: 03/26/17 09:43 Dose: 40 mg Famotidine (Pepcid) 20 mg PO DAILY [facility] Last Admin: 03/26/17 10:03 Dose: 20 mg Ferrous Sulfate (Feosol) 325 mg PO TID [facility] Last Admin: 03/26/17 15:02 Dose: 325 mg Cefepime HCl 1 gm/ Dextrose 50 mls @ 100 mls/hr IVPB Q12H [facility] Last Admin: 03/26/17 09:42 Dose: 100 mls/hr Vancomycin/Sodium Chloride (Vancocin) 1 gm in 200 mls @ 133.333 mls/hr IVPB Q12H [facility] Last Admin: 03/26/17 04:02 Dose: 133.333 mls/hr Losartan Potassium (Cozaar) 100 mg PO DAILY [facility] Last Admin: 03/26/17 09:43 Dose: 100 mg Metoprolol Tartrate (Lopressor) 50 mg PO BID [facility] Last Admin: 03/26/17 10:03 Dose: 50 mg Morphine Sulfate (Morphine) 2 mg IVP Q4 PRN PRN Reason: Pain, moderate (4-7) Last Admin: 03/21/17 03:14 Dose: 2 mg Ondansetron HCl (Zofran Inj) 4 mg IVP Q4 PRN PRN Reason: Nausea/Vomiting Potassium Chloride (K-Dur 20 Meq Er Tab) 20 meq PO DAILY [facility] Stop: 03/26/17 18:01 Last Admin: 03/26/17 09:44 Dose: 20 meq Promethazine HCl (Phenergan Syrup) 12.5 mg PO Q6 PRN PRN Reason: cough Last Admin: 03/21/17 00:22 Dose: 12.5 mg Rosuvastatin Calcium (Crestor) 10 mg PO HS [facility] Last Admin: 03/25/17 22:31 Dose: 10 mg - Labs Labs: 03/25/17 07:05 03/25/17 07:05 PT 13.3 SECONDS (9.7-12.2) H 02/25/17 18:17 INR 1.2 02/25/17 18:17 APTT 31 SECONDS (21-34) D 02/25/17 18:17 - Constitutional Appears: Non-toxic, No Acute Distress, Chronically Ill - Head Exam Head Exam: ATRAUMATIC, NORMAL INSPECTION - Eye Exam Eye Exam: EOMI, Normal appearance - Respiratory Exam Respiratory Exam: NORMAL BREATHING PATTERN. absent: Respiratory Distress Additional comments: Dressing changed PleurX catheter in place - Cardiovascular Exam Cardiovascular Exam: +S1, +S2 - Neurological Exam Neurological Exam: Alert, Awake, Oriented x3 - Psychiatric Exam Psychiatric exam: Normal Affect, Normal Mood - Skin Skin Exam: Normal Color, Warm Assessment and Plan - Assessment and Plan (Free Text) Assessment: 71yo F with recurrent pleural effusion s/p Left VATS converted to thoracotomy, evacuation of pleural fluid, debridement of left lung cavity, decortication, insertion of chest tubes and PleurX catheter POD#24 - Afebrile, VSS - Both chest tubes have now been removed - Pleural fluid cx: light growth of Staph Aureus - Sputum cx: Staph Aureus as well - On Vancomycin and Cefepime - Dressing changed this AM - Will drain fluid from PleurX today and do repeat pleural fluid cx - Discussed plan with Dr. Tad Cruz PGY-2
--- NOTE | 2017-03-26 18:02 | CP.PCM.PN ---
Subjective - Date & Time of Evaluation Date of Evaluation: 03/26/17 Time of Evaluation: 08:45 - Subjective Subjective: Patient seen and examined. Sitting comfortably in no acute distress pleurx Catheter in place Objective - Vital Signs/Intake and Output Vital Signs (last 24 hours): Temp Pulse Resp BP Pulse Ox 98.2 F 83 20 160/84 H 98 03/26/17 16:28 03/26/17 16:28 03/26/17 16:28 03/26/17 16:28 03/26/17 16:28 Intake and Output: 03/26/17 03/26/17 06:59 18:59 Intake Total 320 Output Total 500 Balance -180 - Medications Medications: Current Medications Acetaminophen (Tylenol 325mg Tab) 650 mg PO Q6 PRN PRN Reason: Fever >100.4 F Last Admin: 03/17/17 07:57 Dose: 650 mg Albuterol/Ipratropium (Duoneb 3 Mg/0.5 Mg (3 Ml) Ud) 3 ml INH RQ6 [facility] Last Admin: 03/26/17 13:32 Dose: Not Given Diltiazem HCl (Cardizem) 5 mg IVP TID PRN PRN Reason: Other Last Admin: 03/20/17 09:45 Dose: 5 mg Diltiazem HCl (Cardizem) 10 mg IVP ONCE PRN PRN Reason: HR > 140 Last Admin: 03/19/17 00:40 Dose: 10 mg Diltiazem HCl (Cardizem Cd) 300 mg PO DAILY [facility] Last Admin: 03/26/17 14:30 Dose: 300 mg Docusate Sodium (Colace) 100 mg PO BID [facility] Last Admin: 03/26/17 09:43 Dose: 100 mg Enoxaparin Sodium (Lovenox) 40 mg SC Q12 [facility] Last Admin: 03/26/17 09:43 Dose: 40 mg Famotidine (Pepcid) 20 mg PO DAILY [facility] Last Admin: 03/26/17 10:03 Dose: 20 mg Ferrous Sulfate (Feosol) 325 mg PO TID [facility] Last Admin: 03/26/17 15:02 Dose: 325 mg Cefepime HCl 1 gm/ Dextrose 50 mls @ 100 mls/hr IVPB Q12H [facility] Last Admin: 03/26/17 09:42 Dose: 100 mls/hr Vancomycin/Sodium Chloride (Vancocin) 1 gm in 200 mls @ 133.333 mls/hr IVPB Q12H [facility] Last Admin: 03/26/17 04:02 Dose: 133.333 mls/hr Losartan Potassium (Cozaar) 100 mg PO DAILY [facility] Last Admin: 03/26/17 09:43 Dose: 100 mg Metoprolol Tartrate (Lopressor) 50 mg PO BID [facility] Last Admin: 03/26/17 10:03 Dose: 50 mg Morphine Sulfate (Morphine) 2 mg IVP Q4 PRN PRN Reason: Pain, moderate (4-7) Last Admin: 03/21/17 03:14 Dose: 2 mg Ondansetron HCl (Zofran Inj) 4 mg IVP Q4 PRN PRN Reason: Nausea/Vomiting Promethazine HCl (Phenergan Syrup) 12.5 mg PO Q6 PRN PRN Reason: cough Last Admin: 03/21/17 00:22 Dose: 12.5 mg Rosuvastatin Calcium (Crestor) 10 mg PO [facility] Last Admin: 03/25/17 22:31 Dose: 10 mg - Labs Labs: 03/25/17 07:05 03/25/17 07:05 PT 13.3 SECONDS (9.7-12.2) H 02/25/17 18:17 INR 1.2 02/25/17 18:17 APTT 31 SECONDS (21-34) D 02/25/17 18:17 - Head Exam Head Exam: ATRAUMATIC, NORMOCEPHALIC - Eye Exam Eye Exam: Normal appearance - ENT Exam ENT Exam: Mucous Membranes Moist - Neck Exam Neck Exam: Normal Inspection - Respiratory Exam Respiratory Exam: Decreased Breath Sounds - Cardiovascular Exam Cardiovascular Exam: REGULAR RHYTHM - GI/Abdominal Exam GI & Abdominal Exam: Soft, Normal Bowel Sounds Assessment and Plan (1) Malignant pleural effusion Assessment & Plan: Status post pleurx catheter insertion Awaiting for transfer to retirement Continue antibiotics per ID Status: Acute (2) Ascites, malignant Status: Acute (3) Ovarian cancer Status: Chronic (4) Shortness of breath Status: Acute
--- NOTE | 2017-03-26 23:13 | CP.PCM.PN ---
Subjective - Date & Time of Evaluation Date of Evaluation: 03/26/17 Time of Evaluation: 23:13 - Subjective Subjective: Patient seen and examined. SURGICAL TEAM IN PLACE PLEURX CATHETER BEING DRAINED WITH MILKY PURULENT DRAINAGE. PLEURAL FLUID +VE STAPH AUREUS SPUTUM CULTURE +VE STAPH AUREUS (MSSA) PATIENT STARTED ON iv VANCOMYCIN 1 G EVERY 12 HOURLY.03/25/17 CONTINUE iv CEFEPIME 1 G EVERY 12 HOURLY 03/16/17 Objective - Vital Signs/Intake and Output Vital Signs (last 24 hours): Temp Pulse Resp BP Pulse Ox 98.2 F 83 20 160/84 H 98 03/26/17 16:28 03/26/17 16:28 03/26/17 16:28 03/26/17 16:28 03/26/17 16:28 - Medications Medications: Current Medications Acetaminophen (Tylenol 325mg Tab) 650 mg PO Q6 PRN PRN Reason: Fever >100.4 F Last Admin: 03/17/17 07:57 Dose: 650 mg Albuterol/Ipratropium (Duoneb 3 Mg/0.5 Mg (3 Ml) Ud) 3 ml INH RQ6 [facility] Last Admin: 03/26/17 20:29 Dose: 3 ml Diltiazem HCl (Cardizem) 5 mg IVP TID PRN PRN Reason: Other Last Admin: 03/20/17 09:45 Dose: 5 mg Diltiazem HCl (Cardizem) 10 mg IVP ONCE PRN PRN Reason: HR > 140 Last Admin: 03/19/17 00:40 Dose: 10 mg Diltiazem HCl (Cardizem Cd) 300 mg PO DAILY [facility] Last Admin: 03/26/17 14:30 Dose: 300 mg Docusate Sodium (Colace) 100 mg PO BID [facility] Last Admin: 03/26/17 18:23 Dose: 100 mg Enoxaparin Sodium (Lovenox) 40 mg SC Q12 [facility] Last Admin: 03/26/17 21:05 Dose: 40 mg Famotidine (Pepcid) 20 mg PO DAILY [facility] Last Admin: 03/26/17 10:03 Dose: 20 mg Ferrous Sulfate (Feosol) 325 mg PO TID [facility] Last Admin: 03/26/17 18:23 Dose: 325 mg Cefepime HCl 1 gm/ Dextrose 50 mls @ 100 mls/hr IVPB Q12H [facility] Last Admin: 03/26/17 21:05 Dose: 100 mls/hr Vancomycin/Sodium Chloride (Vancocin) 1 gm in 200 mls @ 133.333 mls/hr IVPB Q12H [facility] Last Admin: 03/26/17 18:23 Dose: 133.333 mls/hr Losartan Potassium (Cozaar) 100 mg PO DAILY [facility] Last Admin: 03/26/17 09:43 Dose: 100 mg Metoprolol Tartrate (Lopressor) 50 mg PO BID [facility] Last Admin: 03/26/17 18:23 Dose: 50 mg Morphine Sulfate (Morphine) 2 mg IVP Q4 PRN PRN Reason: Pain, moderate (4-7) Last Admin: 03/21/17 03:14 Dose: 2 mg Ondansetron HCl (Zofran Inj) 4 mg IVP Q4 PRN PRN Reason: Nausea/Vomiting Promethazine HCl (Phenergan Syrup) 12.5 mg PO Q6 PRN PRN Reason: cough Last Admin: 03/21/17 00:22 Dose: 12.5 mg Rosuvastatin Calcium (Crestor) 10 mg PO HS [facility] Last Admin: 03/26/17 21:05 Dose: 10 mg - Labs Labs: 03/25/17 07:05 03/25/17 07:05 PT 13.3 SECONDS (9.7-12.2) H 02/25/17 18:17 INR 1.2 02/25/17 18:17 APTT 31 SECONDS (21-34) D 02/25/17 18:17 - Constitutional Appears: No Acute Distress, Cachectic, Chronically Ill - Head Exam Head Exam: NORMAL INSPECTION - Eye Exam Eye Exam: EOMI, PERRL. absent: Scleral icterus - ENT Exam ENT Exam: Normal Oropharynx - Neck Exam Neck Exam: Normal Inspection - Respiratory Exam Respiratory Exam: Rhonchi (BILATERALLY) - Cardiovascular Exam Cardiovascular Exam: REGULAR RHYTHM, +S1, +S2 - GI/Abdominal Exam GI & Abdominal Exam: Soft, Normal Bowel Sounds. absent: Tenderness (POSITIVE ASCITES) - Extremities Exam Extremities Exam: absent: Calf Tenderness, Pedal Edema - Neurological Exam Neurological Exam: Awake, CN II-XII Intact, Oriented x3 - Psychiatric Exam Psychiatric exam: Normal Mood - Skin Skin Exam: Normal Color, Warm Assessment and Plan (1) Bilateral pneumonia Status: Acute (2) Malignant pleural effusion Status: Acute (3) Ascites, malignant Status: Acute (4) Ovarian cancer Status: Chronic (5) Anemia Status: Chronic (6) Diabetes mellitus Status: Chronic (7) Hypertension Status: Chronic
[2017-03-27] MEDS: Albuterol-Ipratrop 3 mg / 0.5 (3 ml) UD INH SCH ×3 (01:04→13:31)
--- NOTE | 2017-03-27 01:31 | CP.PCM.PN ---
Subjective - Date & Time of Evaluation Date of Evaluation: 03/26/17 Time of Evaluation: 10:40 - Subjective Subjective: Pt reamins on chest tube and antibiotics for pnemonia Objective - Vital Signs/Intake and Output Vital Signs (last 24 hours): Temp Pulse Resp BP Pulse Ox 98.2 F 83 20 160/84 H 98 03/26/17 16:28 03/26/17 23:33 03/26/17 16:28 03/26/17 16:28 03/26/17 16:28 Intake and Output: 03/26/17 03/27/17 18:59 06:59 Intake Total 570 Output Total 500 Balance 70 - Medications Medications: Current Medications Acetaminophen (Tylenol 325mg Tab) 650 mg PO Q6 PRN PRN Reason: Fever >100.4 F Last Admin: 03/17/17 07:57 Dose: 650 mg Albuterol/Ipratropium (Duoneb 3 Mg/0.5 Mg (3 Ml) Ud) 3 ml INH RQ6 [facility] Last Admin: 03/27/17 01:04 Dose: 3 ml Diltiazem HCl (Cardizem) 5 mg IVP TID PRN PRN Reason: Other Last Admin: 03/20/17 09:45 Dose: 5 mg Diltiazem HCl (Cardizem) 10 mg IVP ONCE PRN PRN Reason: HR > 140 Last Admin: 03/19/17 00:40 Dose: 10 mg Diltiazem HCl (Cardizem Cd) 300 mg PO DAILY [facility] Last Admin: 03/26/17 14:30 Dose: 300 mg Docusate Sodium (Colace) 100 mg PO BID [facility] Last Admin: 03/26/17 18:23 Dose: 100 mg Enoxaparin Sodium (Lovenox) 40 mg SC Q12 [facility] Last Admin: 03/26/17 21:05 Dose: 40 mg Famotidine (Pepcid) 20 mg PO DAILY [facility] Last Admin: 03/26/17 10:03 Dose: 20 mg Ferrous Sulfate (Feosol) 325 mg PO TID [facility] Last Admin: 03/26/17 18:23 Dose: 325 mg Cefepime HCl 1 gm/ Dextrose 50 mls @ 100 mls/hr IVPB Q12H [facility] Last Admin: 03/26/17 21:05 Dose: 100 mls/hr Vancomycin/Sodium Chloride (Vancocin) 1 gm in 200 mls @ 133.333 mls/hr IVPB Q12H [facility] Last Admin: 03/26/17 18:23 Dose: 133.333 mls/hr Losartan Potassium (Cozaar) 100 mg PO DAILY [facility] Last Admin: 03/26/17 09:43 Dose: 100 mg Metoprolol Tartrate (Lopressor) 50 mg PO BID [facility] Last Admin: 03/26/17 18:23 Dose: 50 mg Morphine Sulfate (Morphine) 2 mg IVP Q4 PRN PRN Reason: Pain, moderate (4-7) Last Admin: 03/21/17 03:14 Dose: 2 mg Ondansetron HCl (Zofran Inj) 4 mg IVP Q4 PRN PRN Reason: Nausea/Vomiting Promethazine HCl (Phenergan Syrup) 12.5 mg PO Q6 PRN PRN Reason: cough Last Admin: 03/21/17 00:22 Dose: 12.5 mg Rosuvastatin Calcium (Crestor) 10 mg PO HS [facility] Last Admin: 03/26/17 21:05 Dose: 10 mg - Labs Labs: 03/25/17 07:05 03/25/17 07:05 PT 13.3 SECONDS (9.7-12.2) H 02/25/17 18:17 INR 1.2 02/25/17 18:17 APTT 31 SECONDS (21-34) D 02/25/17 18:17 - Constitutional Appears: No Acute Distress - Head Exam Head Exam: ATRAUMATIC, NORMAL INSPECTION, NORMOCEPHALIC - Eye Exam Eye Exam: EOMI, Normal appearance, PERRL Pupil Exam: NORMAL ACCOMODATION, PERRL - Respiratory Exam Respiratory Exam: Decreased Breath Sounds, Rales, Rhonchi - Cardiovascular Exam Cardiovascular Exam: REGULAR RHYTHM, +S1, +S2. absent: Murmur - GI/Abdominal Exam GI & Abdominal Exam: Soft, Normal Bowel Sounds. absent: Tenderness Assessment and Plan (1) Ascites, malignant Status: Acute (2) Diabetes mellitus Status: Chronic (3) Hypertension Status: Chronic (4) Ovarian cancer Status: Chronic (5) Pleural effusion due to another disorder Status: Acute (6) Shortness of breath Status: Acute - Assessment and Plan (Free Text) Plan: patient on IV cefepime 1 g every 12 hourly.-Day 10. ( 03/16/17.) Add IV vancomycin 1 g every 12 hourly for positive cultures. Sputum and pleural fluid- Sputum positive for staph aureus-sensitivity pending. Pleural fluid positive for gram-positive cocci-pending identification. F/U VANCO LEVELS PRIOR TO THE FOURTH DOSE AND MAINTAIN BETWEEN 10 AND 20. Status: Acute
[2017-03-27] MEDS: Vancomycin 1 gm/NS 200 ml 1 GM/200 ML BAG IVPB SCH ×2 (03:23→18:11)
[2017-03-27] MEDS: Enoxaparin 40 mg Syringe SC SCH (09:37)
[2017-03-27] MEDS: diltiaZEM 300 mg/24 Hours CD Cap PO SCH (09:38)
--- NOTE | 2017-03-27 11:34 | CP.PCM.PN ---
Subjective - Date & Time of Evaluation Date of Evaluation: 03/27/17 Time of Evaluation: 06:00 - Subjective Subjective: THORACIC SURGERY PROGRESS NOTE FOR DR. BUCKLEY Patient seen and examined at bedside. She denies SOB or CP. PleurX catheter was connected to bulb yesterday at drained 50cc cloudy yellow fluid. Repeat pleural fluid cx sent. Objective - Vital Signs/Intake and Output Vital Signs (last 24 hours): Temp Pulse Resp BP Pulse Ox 98.4 F 77 20 152/98 H 96 03/27/17 07:00 03/27/17 07:00 03/27/17 07:00 03/27/17 07:00 03/27/17 07:00 Intake and Output: 03/27/17 03/27/17 06:59 18:59 Intake Total 570 Output Total 500 Balance 70 - Medications Medications: Current Medications Acetaminophen (Tylenol 325mg Tab) 650 mg PO Q6 PRN PRN Reason: Fever >100.4 F Last Admin: 03/17/17 07:57 Dose: 650 mg Albuterol/Ipratropium (Duoneb 3 Mg/0.5 Mg (3 Ml) Ud) 3 ml INH RQ6 [facility] Last Admin: 03/27/17 08:05 Dose: 3 ml Diltiazem HCl (Cardizem) 5 mg IVP TID PRN PRN Reason: Other Last Admin: 03/20/17 09:45 Dose: 5 mg Diltiazem HCl (Cardizem) 10 mg IVP ONCE PRN PRN Reason: HR > 140 Last Admin: 03/19/17 00:40 Dose: 10 mg Diltiazem HCl (Cardizem Cd) 300 mg PO DAILY [facility] Last Admin: 03/27/17 09:38 Dose: 300 mg Docusate Sodium (Colace) 100 mg PO BID [facility] Last Admin: 03/27/17 09:44 Dose: 100 mg Enoxaparin Sodium (Lovenox) 60 mg SC Q12 [facility] Famotidine (Pepcid) 20 mg PO DAILY [facility] Last Admin: 03/27/17 09:37 Dose: 20 mg Ferrous Sulfate (Feosol) 325 mg PO TID [facility] Last Admin: 03/27/17 09:42 Dose: 325 mg Cefepime HCl 1 gm/ Dextrose 50 mls @ 100 mls/hr IVPB Q12H [facility] Last Admin: 03/27/17 08:00 Dose: 100 mls/hr Vancomycin/Sodium Chloride (Vancocin) 1 gm in 200 mls @ 133.333 mls/hr IVPB Q12H [facility] Last Admin: 03/27/17 03:23 Dose: 133.333 mls/hr Losartan Potassium (Cozaar) 100 mg PO DAILY [facility] Last Admin: 03/27/17 09:39 Dose: 100 mg Metoprolol Tartrate (Lopressor) 50 mg PO BID [facility] Last Admin: 03/27/17 09:44 Dose: 50 mg Morphine Sulfate (Morphine) 2 mg IVP Q4 PRN PRN Reason: Pain, moderate (4-7) Last Admin: 03/21/17 03:14 Dose: 2 mg Ondansetron HCl (Zofran Inj) 4 mg IVP Q4 PRN PRN Reason: Nausea/Vomiting Promethazine HCl (Phenergan Syrup) 12.5 mg PO Q6 PRN PRN Reason: cough Last Admin: 03/21/17 00:22 Dose: 12.5 mg Rosuvastatin Calcium (Crestor) 10 mg PO HS [facility] Last Admin: 03/26/17 21:05 Dose: 10 mg - Labs Labs: 03/25/17 07:05 03/25/17 07:05 PT 13.3 SECONDS (9.7-12.2) H 02/25/17 18:17 INR 1.2 02/25/17 18:17 APTT 31 SECONDS (21-34) D 02/25/17 18:17 - Constitutional Appears: Non-toxic, No Acute Distress, Chronically Ill - Respiratory Exam Respiratory Exam: NORMAL BREATHING PATTERN. absent: Respiratory Distress Additional comments: PleurX catheter dressing clean/dry/intact Dressing over previous 2 chest tube sites was wet with serous drainage - changed - Cardiovascular Exam Cardiovascular Exam: +S1, +S2 Assessment and Plan - Assessment and Plan (Free Text) Assessment: 71yo F with recurrent pleural effusion s/p Left VATS converted to thoracotomy, evacuation of pleural fluid, debridement of left lung cavity, decortication, insertion of chest tubes and PleurX catheter POD#25 - Afebrile, VSS - Both chest tubes have now been removed - Pleural fluid cx from 03/22: light growth of Staph Aureus - On Vancomycin and Cefepime - Pleural fluid was drained yesterday at bedside via PleurX catheter and 50cc cloudy yellow fluid was drained - Fluid sent for repeat pleural fluid cx - Pleural fluid cx from 03/26: gram stain neg, culture to follow - Drained another 50cc cloudy yellow fluid today (less thick than yesterday) via PleurX catheter - Dressing changed this AM and this afternoon - CXR reviewed with Dr. Buckley - Only PRN drainages necessary via PleurX catheter from now on - Discussed plan with Dr. Tad Cruz PGY-2
--- NOTE | 2017-03-27 13:04 | CP.PCM.PN ---
Subjective - Date & Time of Evaluation Date of Evaluation: 03/27/17 Time of Evaluation: 13:04 - Subjective Subjective: afebrile Pleurex cath drainge yielded 40cc of yellowish fluid-c and s done. Case discussed with thoracic surgery team. States will drain prn. chest x-ray stable unchanged. Pleural fluid/and sputum cultures +ve staph aureus-MSSA. CASE DISCUSSED WITH STAFF/[employer] ATTENDANT-MISS WITT DC IV CEFEPIME DC IV VANCOMYCIN PLAN START iv ROCEPHIN 2 G iv PIGGYBACK ONCE A DAY DAILY X 3 WKS. fOLLOW-UP REPEAT PLEURAL FLUID CULTURE AND SENSITIVITY SENT TODAY. fOLLOW-UP cbc WITH DIFFERENTIAL,/lftS, bmp WEEKLY. PATIENT WILL BE FOLLOWED BY PMD OPD. Objective - Vital Signs/Intake and Output Vital Signs (last 24 hours): Temp Pulse Resp BP Pulse Ox 98.4 F 77 20 152/98 H 96 03/27/17 07:00 03/27/17 07:00 03/27/17 07:00 03/27/17 07:00 03/27/17 07:00 Intake and Output: 03/27/17 03/27/17 06:59 18:59 Intake Total 570 Output Total 500 Balance 70 - Medications Medications: Current Medications Acetaminophen (Tylenol 325mg Tab) 650 mg PO Q6 PRN PRN Reason: Fever >100.4 F Last Admin: 03/17/17 07:57 Dose: 650 mg Albuterol/Ipratropium (Duoneb 3 Mg/0.5 Mg (3 Ml) Ud) 3 ml INH RQ6 [facility] Last Admin: 03/27/17 08:05 Dose: 3 ml Diltiazem HCl (Cardizem) 5 mg IVP TID PRN PRN Reason: Other Last Admin: 03/20/17 09:45 Dose: 5 mg Diltiazem HCl (Cardizem) 10 mg IVP ONCE PRN PRN Reason: HR > 140 Last Admin: 03/19/17 00:40 Dose: 10 mg Diltiazem HCl (Cardizem Cd) 300 mg PO DAILY [facility] Last Admin: 03/27/17 09:38 Dose: 300 mg Docusate Sodium (Colace) 100 mg PO BID [facility] Last Admin: 03/27/17 09:44 Dose: 100 mg Enoxaparin Sodium (Lovenox) 60 mg SC Q12 [facility] Famotidine (Pepcid) 20 mg PO DAILY [facility] Last Admin: 03/27/17 09:37 Dose: 20 mg Ferrous Sulfate (Feosol) 325 mg PO TID [facility] Last Admin: 03/27/17 09:42 Dose: 325 mg Cefepime HCl 1 gm/ Dextrose 50 mls @ 100 mls/hr IVPB Q12H [facility] Last Admin: 03/27/17 08:00 Dose: 100 mls/hr Vancomycin/Sodium Chloride (Vancocin) 1 gm in 200 mls @ 133.333 mls/hr IVPB Q12H [facility] Last Admin: 03/27/17 03:23 Dose: 133.333 mls/hr Losartan Potassium (Cozaar) 100 mg PO DAILY [facility] Last Admin: 03/27/17 09:39 Dose: 100 mg Metoprolol Tartrate (Lopressor) 50 mg PO BID [facility] Last Admin: 03/27/17 09:44 Dose: 50 mg Morphine Sulfate (Morphine) 2 mg IVP Q4 PRN PRN Reason: Pain, moderate (4-7) Last Admin: 03/21/17 03:14 Dose: 2 mg Ondansetron HCl (Zofran Inj) 4 mg IVP Q4 PRN PRN Reason: Nausea/Vomiting Promethazine HCl (Phenergan Syrup) 12.5 mg PO Q6 PRN PRN Reason: cough Last Admin: 03/21/17 00:22 Dose: 12.5 mg Rosuvastatin Calcium (Crestor) 10 mg PO HS [facility] Last Admin: 03/26/17 21:05 Dose: 10 mg - Labs Labs: 03/25/17 07:05 03/25/17 07:05 PT 13.3 SECONDS (9.7-12.2) H 02/25/17 18:17 INR 1.2 02/25/17 18:17 APTT 31 SECONDS (21-34) D 02/25/17 18:17 - Constitutional Appears: No Acute Distress, Cachectic, Chronically Ill - Eye Exam Eye Exam: EOMI, PERRL. absent: Scleral icterus - ENT Exam ENT Exam: Normal Oropharynx - Respiratory Exam Respiratory Exam: Decreased Breath Sounds (AT THE BASES), Rhonchi Additional comments: PLEURX CATHETER IN PLACE AND CLAMPED. TO BE DRAINED WHEN NECESSARY NEEDED. - Cardiovascular Exam Cardiovascular Exam: REGULAR RHYTHM, +S1, +S2 - GI/Abdominal Exam GI & Abdominal Exam: Soft, Normal Bowel Sounds (+VE ASCITES) Assessment and Plan (1) Bilateral pneumonia Status: Acute (2) Malignant pleural effusion Status: Acute (3) Ascites, malignant Status: Acute (4) Ovarian cancer Status: Chronic (5) Anemia Status: Chronic (6) Diabetes mellitus Status: Chronic (7) Hypertension Status: Chronic
--- NOTE | 2017-03-27 14:29 | RAD ---
HISTORY: effusions s/p PleurX catheter drainage yesterday COMPARISON: Comparison is made to the previous study dated 03/26/2017 FINDINGS: LUNGS: No significant interval change in the lungs noted since the previous exam. Re- demonstration of focal opacity at the peripheral lower left chest. PLEURA: Homogeneous opacity at the right lower chest likely represent pleural effusion. Blunting of the left costophrenic angle. CARDIOVASCULAR: Cardiac silhouette is mildly enlarged. OSSEOUS STRUCTURES: No significant abnormalities. VISUALIZED UPPER ABDOMEN: Normal. OTHER FINDINGS: Right-sided Infusaport seen in place. IMPRESSION: Overall no significant interval change since the previous exam.
--- NOTE | 2017-03-27 14:58 | CP.PCM.PN ---
Subjective - Date & Time of Evaluation Date of Evaluation: 03/27/17 Time of Evaluation: 14:56 - Subjective Subjective: Pleurex cath drainge yielded 40cc of yellowish fluid-c and s done. Will drain prn. cxr-satisfactory. Objective - Vital Signs/Intake and Output Vital Signs (last 24 hours): Temp Pulse Resp BP Pulse Ox 98.4 F 77 20 152/98 H 96 03/27/17 07:00 03/27/17 07:00 03/27/17 07:00 03/27/17 07:00 03/27/17 07:00 Intake and Output: 03/27/17 03/27/17 06:59 18:59 Intake Total 570 Output Total 500 50 Balance 70 -50 - Medications Medications: Current Medications Acetaminophen (Tylenol 325mg Tab) 650 mg PO Q6 PRN PRN Reason: Fever >100.4 F Last Admin: 03/17/17 07:57 Dose: 650 mg Albuterol/Ipratropium (Duoneb 3 Mg/0.5 Mg (3 Ml) Ud) 3 ml INH RQ6 [facility] Last Admin: 03/27/17 13:31 Dose: 3 ml Diltiazem HCl (Cardizem) 5 mg IVP TID PRN PRN Reason: Other Last Admin: 03/20/17 09:45 Dose: 5 mg Diltiazem HCl (Cardizem) 10 mg IVP ONCE PRN PRN Reason: HR > 140 Last Admin: 03/19/17 00:40 Dose: 10 mg Diltiazem HCl (Cardizem Cd) 300 mg PO DAILY [facility] Last Admin: 03/27/17 09:38 Dose: 300 mg Docusate Sodium (Colace) 100 mg PO BID [facility] Last Admin: 03/27/17 09:44 Dose: 100 mg Enoxaparin Sodium (Lovenox) 60 mg SC Q12 [facility] Famotidine (Pepcid) 20 mg PO DAILY [facility] Last Admin: 03/27/17 09:37 Dose: 20 mg Ferrous Sulfate (Feosol) 325 mg PO TID [facility] Last Admin: 03/27/17 13:36 Dose: 325 mg Cefepime HCl 1 gm/ Dextrose 50 mls @ 100 mls/hr IVPB Q12H [facility] Last Admin: 03/27/17 08:00 Dose: 100 mls/hr Vancomycin/Sodium Chloride (Vancocin) 1 gm in 200 mls @ 133.333 mls/hr IVPB Q12H [facility] Last Admin: 03/27/17 03:23 Dose: 133.333 mls/hr Losartan Potassium (Cozaar) 100 mg PO DAILY [facility] Last Admin: 03/27/17 09:39 Dose: 100 mg Metoprolol Tartrate (Lopressor) 50 mg PO BID [facility] Last Admin: 03/27/17 09:44 Dose: 50 mg Morphine Sulfate (Morphine) 2 mg IVP Q4 PRN PRN Reason: Pain, moderate (4-7) Last Admin: 03/21/17 03:14 Dose: 2 mg Ondansetron HCl (Zofran Inj) 4 mg IVP Q4 PRN PRN Reason: Nausea/Vomiting Promethazine HCl (Phenergan Syrup) 12.5 mg PO Q6 PRN PRN Reason: cough Last Admin: 03/21/17 00:22 Dose: 12.5 mg Rosuvastatin Calcium (Crestor) 10 mg PO HS [facility] Last Admin: 03/26/17 21:05 Dose: 10 mg - Labs Labs: 03/25/17 07:05 03/25/17 07:05 PT 13.3 SECONDS (9.7-12.2) H 02/25/17 18:17 INR 1.2 02/25/17 18:17 APTT 31 SECONDS (21-34) D 02/25/17 18:17
--- NOTE | 2017-03-27 16:31 | CP.PCM.PN ---
Subjective - Date & Time of Evaluation Date of Evaluation: 03/27/17 Time of Evaluation: 12:00 - Subjective Subjective: Pt seen an d examine d today , states feels better,mild sob on excertion, denies any chest pain,m sob , palpitations a febrile HR- stable chest tube discontinued and PleurX catheter in place , drained today by surgical team Objective - Vital Signs/Intake and Output Vital Signs (last 24 hours): Temp Pulse Resp BP Pulse Ox 98.4 F 77 20 152/98 H 96 03/27/17 07:00 03/27/17 07:00 03/27/17 07:00 03/27/17 07:00 03/27/17 07:00 Intake and Output: 03/27/17 03/27/17 06:59 18:59 Intake Total 570 Output Total 500 50 Balance 70 -50 - Medications Medications: Current Medications Acetaminophen (Tylenol 325mg Tab) 650 mg PO Q6 PRN PRN Reason: Fever >100.4 F Last Admin: 03/17/17 07:57 Dose: 650 mg Albuterol/Ipratropium (Duoneb 3 Mg/0.5 Mg (3 Ml) Ud) 3 ml INH RQ6 [facility] Last Admin: 03/27/17 13:31 Dose: 3 ml Diltiazem HCl (Cardizem) 5 mg IVP TID PRN PRN Reason: Other Last Admin: 03/20/17 09:45 Dose: 5 mg Diltiazem HCl (Cardizem) 10 mg IVP ONCE PRN PRN Reason: HR > 140 Last Admin: 03/19/17 00:40 Dose: 10 mg Diltiazem HCl (Cardizem Cd) 300 mg PO DAILY [facility] Last Admin: 03/27/17 09:38 Dose: 300 mg Docusate Sodium (Colace) 100 mg PO BID [facility] Last Admin: 03/27/17 09:44 Dose: 100 mg Enoxaparin Sodium (Lovenox) 60 mg SC Q12 [facility] Famotidine (Pepcid) 20 mg PO DAILY [facility] Last Admin: 03/27/17 09:37 Dose: 20 mg Ferrous Sulfate (Feosol) 325 mg PO TID [facility] Last Admin: 03/27/17 13:36 Dose: 325 mg Cefepime HCl 1 gm/ Dextrose 50 mls @ 100 mls/hr IVPB Q12H [facility] Last Admin: 03/27/17 08:00 Dose: 100 mls/hr Vancomycin/Sodium Chloride (Vancocin) 1 gm in 200 mls @ 133.333 mls/hr IVPB Q12H [facility] Last Admin: 03/27/17 03:23 Dose: 133.333 mls/hr Losartan Potassium (Cozaar) 100 mg PO DAILY [facility] Last Admin: 03/27/17 09:39 Dose: 100 mg Metoprolol Tartrate (Lopressor) 50 mg PO BID [facility] Last Admin: 03/27/17 09:44 Dose: 50 mg Morphine Sulfate (Morphine) 2 mg IVP Q4 PRN PRN Reason: Pain, moderate (4-7) Last Admin: 03/21/17 03:14 Dose: 2 mg Ondansetron HCl (Zofran Inj) 4 mg IVP Q4 PRN PRN Reason: Nausea/Vomiting Promethazine HCl (Phenergan Syrup) 12.5 mg PO Q6 PRN PRN Reason: cough Last Admin: 03/21/17 00:22 Dose: 12.5 mg Rosuvastatin Calcium (Crestor) 10 mg PO HS [facility] Last Admin: 03/26/17 21:05 Dose: 10 mg - Labs Labs: 03/25/17 07:05 03/25/17 07:05 PT 13.3 SECONDS (9.7-12.2) H 02/25/17 18:17 INR 1.2 02/25/17 18:17 APTT 31 SECONDS (21-34) D 02/25/17 18:17 - Constitutional Appears: Well, No Acute Distress - Respiratory Exam Respiratory Exam: Decreased Breath Sounds, Rhonchi, NORMAL BREATHING PATTERN - Cardiovascular Exam Cardiovascular Exam: REGULAR RHYTHM Assessment and Plan - Assessment and Plan (Free Text) Assessment: 71yo F with recurrent pleural effusion s/p Left VATS converted to thoracotomy, evacuation of pleural fluid, debridement of left lung cavity, decortication, insertion of chest tubes and PleurX catheter POD#25 seen by surgical team today and repeat cxr reviewed by team , recommends PRN drainages necessary via PleurX catheter from now on Pt accepted at [facility] for rehab and family in agreement D/W with Dr. Aranda, stable for discharge to [facility] today and Dr. Aranda will follow the patient at [facility] Discharge plan discussed with patient , who understands and agrees with plan
[2017-03-27 16:46] VITALS: BP 155/76; PULSE 72; TEMP 98.2; O2SAT 98
--- NOTE | 2017-03-27 16:50 | PN ---
DATE: 03/27/2017 SUBJECTIVE: The patient is experiencing a cough. No hemoptysis. No phlegm. She slept well last ni ght. She denies any nausea or vomiting. No reported ventricular arrhythmia. PHYSICAL EXAMINATION: VITAL SIGNS: Blood pressure 152/98, heart rate 77, temperature 98.4, respirations 20. HEENT: Pale conjunctivae. CHEST: Left basal rhonchi. HEART: S1, S2 regular. ABDOMEN: Soft. EXTREMITIES: Significant muscle wasting of both lower extremities. ASSESSMENT: 1. Bilateral pleural effusions. 2. Paroxysmal atrial tachycardia and paroxysmal atrial fibrillation. 3. Metastatic ovarian carcinoma. 4. Anemia. 5. History of recent pulmonary embolism. RECOMMENDATIONS: Continue therapeutic subcutaneous Lovenox, which was increased to 60 mg twice a day today. Continue Lopressor at 50 mg twice a day, ferrous sulfate 325 mg t.i.d., Crestor 10 mg once a day, Cozaar 100 mg twice a day, Cardizem-CD 300 mg orally daily. Case was discussed with the ER TECH. The patient can be transferred to subacute rehabilitation. Resumption of oral anticoagulation needs to be decided by the oncologist. Morgan Zuniga MD cc: [id number] TT: 03/27/2017 16:49:10 Confirmation # [id number] Dictation # [id number] desi
[2017-03-27] MEDS ORDERED: Enoxaparin 60 mg Syringe SC SCH (22:00)
--- NOTE | 2017-03-28 14:45 | CP.PCM.DIS ---
Provider - Provider Date of Admission: 02/25/17 19:07 Attending physician: Migue Aranda MD Time Spent in preparation of Discharge (in minutes): 30 Diagnosis - Discharge Diagnosis (1) Ascites, malignant Status: Acute (2) Diabetes mellitus Status: Chronic (3) Hypertension Status: Chronic (4) Ovarian cancer Status: Chronic (5) Pleural effusion due to another disorder Status: Acute (6) Shortness of breath Status: Acute Hospital Course - Lab Results Lab Results: Micro Results 03/26/17 16:37 Pleural Fluid Gram Stain - Final 03/26/17 16:37 Pleural Fluid Body Fluid Culture - Preliminary NO GROWTH AFTER 2 DAYS 03/22/17 19:07 Pleural Fluid Gram Stain - Final 03/22/17 19:07 Pleural Fluid Body Fluid Culture - Final Staphylococcus Aureus 03/02/17 08:29 Other: Please Indicate Mycobacterial Culture - Preliminary 03/23/17 11:52 Sputum Gram Stain - Final 03/23/17 11:52 Sputum Sputum Culture - Final Staphylococcus Aureus 03/19/17 07:42 Blood-Thru Central Line Blood Culture - Final NO GROWTH AFTER 5 DAYS 03/19/17 07:42 Blood-Thru Central Line Gram Stain - Final TEST NOT PERFORMED 03/19/17 07:23 Blood-Thru Central Line Blood Culture - Final NO GROWTH AFTER 5 DAYS 03/19/17 07:23 Blood-Thru Central Line Gram Stain - Final TEST NOT PERFORMED 03/16/17 Unknown Blood Blood Culture - Final NO GROWTH AFTER 5 DAYS 03/16/17 Unknown Blood Gram Stain - Final TEST NOT PERFORMED 03/16/17 13:08 Blood Blood Culture - Final NO GROWTH AFTER 5 DAYS 03/16/17 13:08 Blood Gram Stain - Final TEST NOT PERFORMED 03/16/17 Unknown Urine,Clean Catch Urine Culture - Final No Growth (<1,000 CFU/ML) 03/06/17 20:30 Nose MRSA Culture (Admit) - Final MRSA NOT DETECTED 03/02/17 Unknown Pleural Fluid Gram Stain - Final 03/02/17 Unknown Pleural Fluid Body Fluid Culture - Final No growth. 03/02/17 21:19 Naris MRSA Culture (Admit) - Final MRSA NOT DETECTED 03/02/17 18:00 Pleural Fluid Anaerobic Culture - Final NO ANAEROBES ISOLATED. Most Recent Lab Values WBC 8.2 K/uL (4.8-10.8) 03/25/17 07:05 RBC 3.65 Mil/uL (3.80-5.20) L 03/25/17 07:05 Hgb 9.5 g/dL (11.0-16.0) L 03/25/17 07:05 Hct 29.8 % (34.0-47.0) L 03/25/17 07:05 MCV 81.6 fL (81.0-99.0) 03/25/17 07:05 MCH 26.0 pg (27.0-31.0) L 03/25/17 07:05 MCHC 31.8 g/dL (33.0-37.0) L 03/25/17 07:05 RDW 16.7 % (11.5-14.5) H 03/25/17 07:05 Plt Count 522 K/uL (130-400) H 03/25/17 07:05 MPV 7.0 fL (7.2-11.7) L 03/25/17 07:05 Neut % (Auto) 60.6 % (50.0-75.0) 03/25/17 07:05 Lymph % (Auto) 23.2 % (20.0-40.0) 03/25/17 07:05 [place] % (Auto) 14.8 % (0.0-10.0) H 03/25/17 07:05 Eos % (Auto) 0.7 % (0.0-4.0) 03/25/17 07:05 Baso % (Auto) 0.7 % (0.0-2.0) 03/25/17 07:05 Neut # 5.0 K/uL (1.8-7.0) 03/25/17 07:05 Lymph # 1.9 K/uL (1.0-4.3) 03/25/17 07:05 [place] # 1.2 K/uL (0.0-0.8) H 03/25/17 07:05 Eos # 0.1 K/uL (0.0-0.7) 03/25/17 07:05 Baso # 0.1 K/uL (0.0-0.2) 03/25/17 07:05 Neutrophils % (Manual) 45 % (50-75) L 03/23/17 08:07 Band Neutrophils % 1 % (0-2) 03/22/17 08:26 Lymphocytes % (Manual) 33 % (20-40) 03/23/17 08:07 Reactive Lymphs % 1 % (0-0) H 03/22/17 08:26 Monocytes % (Manual) 20 % (0-10) H 03/23/17 08:07 Eosinophils % (Manual) 2 % (0-4) 03/23/17 08:07 Basophils % (Manual) 1 % (0-2) 03/17/17 11:29 Hypersegmented Polys Present 03/02/17 18:06 Smudge Cells Present 03/02/17 18:06 Toxic Granulation Present 03/22/17 08:26 Platelet Estimate Slightly decreased (NORMAL) L 03/23/17 08:07 Large Platelets Present 03/22/17 08:26 Polychromasia Slight 03/23/17 08:07 Hypochromasia (manual) Slight 03/23/17 08:07 Poikilocytosis (manual Slight 03/22/17 08:26 Anisocytosis (manual) Slight 03/23/17 08:07 Microcytosis (manual) Slight 03/02/17 18:06 Target Cells Slight 03/23/17 08:07 Ovalocytes Slight 03/22/17 08:26 Lucia Cells Slight 03/22/17 08:26 Schistocytes Slight 03/22/17 08:26 ESR 135 mm/hr (0-20) H 03/20/17 06:29 PT 13.3 SECONDS (9.7-12.2) H 02/25/17 18:17 INR 1.2 02/25/17 18:17 APTT 31 SECONDS (21-34) D 02/25/17 18:17 pO2 32 mm/Hg (30-55) 03/17/17 10:08 VBG pH 7.39 (7.32-7.43) 03/17/17 10:08 VBG pCO2 47 mmHg (40-60) 03/17/17 10:08 VBG HCO3 26.1 mmol/L 03/17/17 10:08 VBG Total CO2 29.9 mmol/L (22-28) H 03/17/17 10:08 VBG O2 Sat (Calc) 59.6 % (40-65) 03/17/17 10:08 VBG Base Excess 2.8 mmol/L (0.0-2.0) H 03/17/17 10:08 VBG Potassium 3.9 mmol/L (3.6-5.2) 03/17/17 10:08 Sodium 136.0 mmol/l (132-148) 03/17/17 10:08 Chloride 106.0 mmol/L (98-107) 03/17/17 10:08 Glucose 81 mg/dl (65-105) 03/17/17 10:08 Lactate 1.1 mmol/L (0.7-2.1) 03/17/17 10:08 Sodium 136 mmol/L (132-148) 03/25/17 07:05 Potassium 3.6 mmol/L (3.6-5.2) 03/25/17 07:05 Chloride 98 mmol/L (98-107) 03/25/17 07:05 Carbon Dioxide 32 mmol/L (22-30) H 03/25/17 07:05 Anion Gap 10 (10-20) 03/25/17 07:05 BUN 8 mg/dL (7-17) 03/25/17 07:05 Creatinine 0.7 MG/DL (0.7-1.2) 03/25/17 07:05 Est GFR ( Amer) > 60 03/25/17 07:05 Est GFR (Non-Af Amer) > 60 03/25/17 07:05 POC Glucose (mg/dL) 92 mg/dL (65-110) 03/12/17 06:26 Random Glucose 91 mg/dL (65-105) 03/25/17 07:05 Calcium 9.2 mg/dl (8.6-10.4) 03/25/17 07:05 Phosphorus 1.8 mg/dL (2.5-4.5) L 03/07/17 06:41 Magnesium 1.8 mg/dL (1.6-2.3) 03/07/17 06:41 Total Bilirubin 0.4 mg/dL (0.2-1.3) 03/23/17 08:07 AST 19 U/L (14-36) 03/23/17 08:07 ALT 19 U/L (9-52) 03/23/17 08:07 Alkaline Phosphatase 90 U/L (38-126) 03/23/17 08:07 Total Creatine Kinase 23 U/L (30-135) L 03/17/17 22:39 CK-MB (Mass) 0.25 ng/mL (0.0-3.38) 03/17/17 22:39 Troponin I, Quant < 0.0120 ng/mL (0.00-0.120) 03/17/17 22:39 C-React Prot High Sens > 15.00 mg/L (1.00-3.00) H 03/20/17 06:29 Total Protein 6.1 g/dL (6.3-8.3) L 03/23/17 08:07 Albumin 2.8 g/dL (3.5-5.0) L 03/23/17 08:07 Globulin 3.3 gm/dL (2.2-3.9) 03/23/17 08:07 Albumin/Globulin Ratio 0.9 (1.0-2.1) L 03/23/17 08:07 Venous Blood Potassium 3.9 mmol/L (3.6-5.2) 03/17/17 10:08 Fluid Source Pleural 03/02/17 17:15 Fluid Appearance Turbid (CLEAR) 03/02/17 17:15 Fluid WBC 9532.0 /mm3 (0.0-300.0) H 03/02/17 17:15 Fluid RBC 076816.0 /mm3 (0.0-0.0) H 03/02/17 17:15 Fluid Tot Cell Count 100 (0-0) H 03/02/17 17:15 Fluid Neutrophils 33.0 % (0-0) H 03/02/17 17:15 Fluid Lymphocytes 56.0 % (0-0) H 03/02/17 17:15 Fld Monocyte/Macrophag 11 % (0-0) H 03/02/17 17:15 Fluid Diff Path Review 03/02/17 17:15 Fluid Albumin 2.6 g/dL (()) 03/02/17 17:15 Fluid Comment 03/02/17 17:15 Pleural LDH 5994 U/L (()) 03/02/17 17:15 Pleural Glucose <10 mg/dL L 03/02/17 17:15 Pleural Amylase 116 U/L (()) 03/02/17 17:15 Vancomycin Trough 11.2 ug/mL (5.0-10.0) H 03/17/17 22:39 Digoxin 0.5 ng/mL (0.8-2.0) L 03/19/17 07:42 Hepatitis A IgM Ab Negative (NEGATIVE) 03/02/17 17:50 Hep Bs Antigen Negative (NEGATIVE) 03/02/17 17:50 Hep B Core IgM Ab Negative (NEGATIVE) 03/02/17 17:50 Hepatitis C Antibody Negative (NEGATIVE) 03/02/17 17:50 HIV 1&2 Antibody Screen Negative (NEGATIVE) 03/02/17 17:50 Blood Type O POSITIVE 03/24/17 16:33 Antibody Screen Negative 03/24/17 16:33 - Hospital Course Hospital Course: Pt seen an d examine d today , states feels better,mild sob on excertion, denies any chest pain,m sob , palpitations a febrile HR- stable chest tube discontinued and PleurX catheter in place , drained today by surgical team [facility] Discharge Exam - Head Exam Head Exam: NORMAL INSPECTION - Eye Exam Eye Exam: EOMI, Normal appearance, PERRL Pupil Exam: NORMAL ACCOMODATION, PERRL - Respiratory Exam Respiratory Exam: Decreased Breath Sounds, Rales - Cardiovascular Exam Cardiovascular Exam: REGULAR RHYTHM, +S1, +S2 - GI/Abdominal Exam GI & Abdominal Exam: Normal Bowel Sounds - Rectal Exam Rectal Exam: NORMAL INSPECTION Discharge Plan - Discharge Medications Prescriptions: Apixaban [Eliquis] 5 mg PO BID #5 tablet oxyCODONE/Acetaminophen [Percocet 5/325 mg Tab] 1 ea PO Q6 PRN #30 tab PRN Reason: Pain, Severe (8-10) cefTRIAXone [Rocephin] 2 gm IV DAILY #21 vial - Follow Up Plan Condition: GOOD Disposition: TRANSF TO SNF Instructions: Chest Tubes (DC), Complete Blenderized Diet (DC), Pleural Effusion (DC), Video Assisted Thoracoscopic Surgery (DC) Additional Instructions: PLEASE PLACE UNDER THE SERVICES OF DR. ARANDA WHILE AT [facility] -- CALL UPON ARRIVAL WITH BED ASSIGNMENT AND FOR ADMITTING ORDERS CONTINUE MEDS PER MED REC VITAL SIGN AND SAO2 CHECK EVERY SHIFT FALL PRECAUTIONS PER FACILITY PROTOCOL FOR FURTHER ORDERS, CALL DR ARANDA OFFICE Use 30 or 60cc syringe to drain Pneumostat valve and use green IV cap to clean access port before and after each drainage. Drain frequently as needed, as reservoir holds ~35cc. If reservoir is full and overflows, pneumothorax could occur. Draining will relieve this issue. Please admit patient to Dr. Manoj hanley Continue rocephin 2 gm IVBP daily x 3 weeks CMP , CBC , liver function q thursday Pleurex cath to drain as needed , Referrals: Tarun Mishra MD [Staff Provider] - Migue Aranda MD [Staff Provider] - Gautam ESTES,MD Bradly [Staff Provider] -
--- NOTE | 2017-04-17 11:34 | CARD ---
APPROVED REPORT EKG Measurement Heart [id number] <Conclusion> Normal sinus rhythm Nonspecific T wave abnormality Abnormal ECG
== END 2017-03-27 20:35 | DRG 981 ==
LOC: C.ER 16:17 → C.9E 19:07 → C.3T 20:10 → C.5T 03-01 19:44 → C.9I 03-02 20:54 → C.6T 03-06 18:21
PROVIDERS: ADMIT Internal Medicine; ATTEND Internal Medicine
PROC: 0W9G3ZX Drainage of Peritoneal Cavity, Percutaneous Approach, Diagnostic (ICD-10-PCS; 2017-02-26)
PROC: 0W9B40Z Drainage of Left Pleural Cavity with Drainage Device, Percutaneous Endoscopic Approach (ICD-10-PCS; 2017-03-02)
PROC: 0BDP4ZZ Extraction of Left Pleura, Percutaneous Endoscopic Approach (ICD-10-PCS; principal; 2017-03-02 11:54)
DX: C56.9 Malignant neoplasm of unspecified ovary (principal); J18.9 Pneumonia, unspecified organism; R18.0 Malignant ascites; J91.0 Malignant pleural effusion; D64.9 Anemia, unspecified; E11.9 Type 2 diabetes mellitus without complications; I48.0 Paroxysmal atrial fibrillation; I10 Essential (primary) hypertension; J45.909 Unspecified asthma, uncomplicated; E87.6 Hypokalemia; E78.00 Pure hypercholesterolemia, unspecified; Z68.22 Body mass index [BMI] 22.0-22.9, adult; Z87.891 Personal history of nicotine dependence; Z79.01 Long term (current) use of anticoagulants; Z92.21 Personal history of antineoplastic chemotherapy; E10.9 Type 1 diabetes mellitus without complications; Z79.4 Long term (current) use of insulin; Z86.711 Personal history of pulmonary embolism; R09.1 Pleurisy

== ENCOUNTER 2017-04-02 11:50 | Inpatient (IN) | payer MEDICARE, OTHER ==
[2017-04-02 20:33] LABS: INR 1.5
[2017-04-02 21:08] LABS: BLOOD UREA NITROGEN 14 mg/dL (7-17); CALCIUM 9.2 mg/dl (8.6-10.4); CARBON DIOXIDE 31 mmol/L (22-30); CHLORIDE 101 mmol/L (98-107); GFR AFRICAN-AMERICAN > 60; GLUCOSE,RANDOM 86 mg/dL (65-105); SODIUM 140 mmol/L (132-148)
[2017-04-02 21:39] LABS: BASO # 0.1 K/uL (0.0-0.2); BASO % 0.9 % (0.0-2.0); EOS # 0.1 K/uL (0.0-0.7); EOS % 0.7 % (0.0-4.0); HEMATOCRIT 35.5 % (34.0-47.0); LYMPH % 22.4 % (20.0-40.0); MEAN CORPUSCULAR HEMOGLOBIN 26.1 pg (27.0-31.0); MEAN CORPUSCULAR HGB CONC 31.4 g/dL (33.0-37.0); MONO % 11.2 % (0.0-10.0); NRBC % 0.2 % (0.0-2.0); RED CELL DISTRIBUTION WIDTH 17.5 % (11.5-14.5); WHITE BLOOD COUNT 8.9 K/uL (4.8-10.8)
[2017-04-03 00:47] VITALS: RESP 20
[2017-04-03 01:37] VITALS: BMI 23.3
[2017-04-03] MEDS ORDERED: Promethazine 12.5 mg/10 ml Syrup PO PRN (01:50)
[2017-04-03] MEDS ORDERED: Oxycodone/Acetaminophen 5/325 mg Tab PO PRN (01:53)
[2017-04-03] MEDS: Albuterol-Ipratrop 3 mg / 0.5 (3 ml) UD INH SCH ×3 (02:58→13:33)
[2017-04-03] MEDS ORDERED: cefTRIAXone IV 1 gm in Dextros 50 ML IVPB SCH (04:00)
--- NOTE | 2017-04-03 06:10 | CP.PCM.CON ---
History of Present Illness - History of Present Illness History of Present Illness: Surgery: Dr. Mishra CC: leakage from prior CT site Patient is a 71 y/o female who was sent from rehab // drainage from prior CT site. The drainage is yellow clear fluid. Patient has a pmhx of ovarian cancer and malignant pleural effusions. Patient recently underwent VATS/ thoracotomy with left chest tube and pleurex catheter insertion in February 2017. Patient was recently discharge from hospital about 1 week ago. She denies any SOB, f/c/n/v. She reports nursing draining pleurex catheter but she is unsure how frequently. She denies any pain at this time. 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 PSH: BSO, paracentesis, LCT w/ Talc, VATS w/ pleurex catheter insertion Review of Systems - Review of Systems All systems: reviewed and no additional remarkable complaints except Review of Systems: stated in HPI Past Patient History - Infectious Disease Hx of Infectious Diseases: None - Past Medical History & Family History Past Medical History?: Yes - Past Social History Smoking Status: Former Smoker - CARDIAC Hx Hypercholesterolemia: Yes Hx Hypertension: Yes - PULMONARY Hx Asthma: Yes - NEUROLOGICAL Hx Seizures: Yes (UP TIL AGE 14YRS.) - HEENT Hx HEENT Problems: Yes Hx Cataracts: Yes (LEFT) - ENDOCRINE/METABOLIC Hx Diabetes Mellitus Type 2: Yes - HEMATOLOGICAL/ONCOLOGICAL Hx Anemia: Yes - MUSCULOSKELETAL/RHEUMATOLOGICAL Hx Falls: No - GASTROINTESTINAL Hx Crohn's Disease: No Hx Diverticulitis: No Hx Gall Bladder Disease: No Hx Gastritis: No Hx Pancreatitis: No - GENITOURINARY/GYNECOLOGICAL Hx Sexually Transmitted Disorders: No - PSYCHIATRIC Hx Substance Use: No - SURGICAL HISTORY Hx Appendectomy: No Hx Carotid Endarterectomy: No Hx Cholecystectomy: No Hx Coronary Artery Bypass Graft: No Hx Tonsillectomy: No - ANESTHESIA Hx Anesthesia: Yes Hx Anesthesia Reactions: No Hx Malignant Hyperthermia: No Meds Allergies/Adverse Reactions: Allergies Allergy/AdvReac Type Severity Reaction Status Date / Time No Known Allergies Allergy Verified 12/17/16 18:57 - Medications Medications: Current Medications Albuterol/Ipratropium (Duoneb 3 Mg/0.5 Mg (3 Ml) Ud) 3 ml INH RQ6 ELLIE Last Admin: 04/03/17 02:58 Dose: Not Given Apixaban (Eliquis) 5 mg PO BID [facility] Diltiazem HCl (Cardizem Cd) 300 mg PO DAILY [facility] Docusate Sodium (Colace) 100 mg PO DAILY [facility] Famotidine (Pepcid) 20 mg PO DAILY [facility] Ferrous Sulfate (Feosol) 325 mg PO TID [facility] Hydroxyzine HCl (Atarax) 50 mg PO BID PRN PRN Reason: Itching / Pruritus Ceftriaxone Sodium (Rocephin Iv 1 Gm Duplex) 50 mls @ 100 mls/hr IVPB Q24H [facility] Last Admin: 04/03/17 04:05 Dose: 100 mls/hr Insulin Aspart (Novolog) 0 unit SC ACHS ELLIE PRN Reason: Protocol Losartan Potassium (Cozaar) 100 mg PO DAILY [facility] Metoprolol Tartrate (Lopressor) 50 mg PO BID [facility] Oxycodone/Acetaminophen (Percocet 5/325 Mg Tab) 1 tab PO Q6H PRN PRN Reason: Pain Stop: 04/06/17 01:54 Promethazine HCl (Phenergan Syrup) 12.5 mg PO Q6 PRN PRN Reason: Cough Rosuvastatin Calcium (Crestor) 10 mg PO HS [facility] Physical Exam - Constitutional Appears: Non-toxic, No Acute Distress, Cachectic, Chronically Ill - Head Exam Head Exam: ATRAUMATIC, NORMOCEPHALIC - Eye Exam Eye Exam: EOMI, Normal appearance - ENT Exam ENT Exam: Mucous Membranes Moist - Respiratory Exam Respiratory Exam: NORMAL BREATHING PATTERN. absent: Respiratory Distress Additional comments: pleurex catheter site clean and dry w/o sign of infection, left anterior lateral old CT site w/ suture closure, dressing w/ serous fluid mildly saturated - Cardiovascular Exam Cardiovascular Exam: REGULAR RHYTHM. absent: Tachycardia - GI/Abdominal Exam GI & Abdominal Exam: Soft. absent: Distended, Tenderness - Extremities Exam Extremities exam: Positive for: normal inspection. Negative for: calf tenderness - Neurological Exam Neurological exam: Alert, Oriented x3 - Psychiatric Exam Psychiatric exam: Normal Affect, Normal Mood - Skin Skin Exam: Dry, Normal Color, Warm Results - Vital Signs Recent Vital Signs: Last Vital Signs Temp 98.4 F 04/03/17 04:10 Pulse 85 04/03/17 04:16 Resp 20 04/03/17 04:10 BP 153/82 H 04/03/17 04:10 Pulse Ox 97 04/03/17 04:10 - Labs Result Diagrams: 04/02/17 15:45 04/02/17 15:45 Assessment & Plan - Assessment and Plan (Free Text) Assessment: 71 y/o female w/ drainage from old CT site s/p removal Plan: -patient has similar drainage prior to d/c -cont dressing changes -cont pleurex catheter drainage -further recs per Dr. Mishra, will discuss with him -no evidence of infection AKWhite PGY1
[2017-04-03] MEDS: (Novolog) Insulin Aspart, Recombinant 100 u/ml 10 ml vial SC SCH ×3 (08:07→17:30)
--- NOTE | 2017-04-03 08:59 | RAD ---
PROCEDURE: CHEST RADIOGRAPH, 1 VIEW HISTORY: LT SIDE EFFUSION COMPARISON: 03/27/2017 FINDINGS: LUNGS: Lines and tubes in stable position. Persistent moderate loculated bilateral pleural effusions. Persistent consolidative changes in the mid to lower lung zones bilaterally. Biapical pleural thickening. PLEURA: As above. CARDIOVASCULAR: Cardiomegaly. OSSEOUS STRUCTURES: Degenerative changes in the spine and shoulders. VISUALIZED UPPER ABDOMEN: Normal. OTHER FINDINGS: None. IMPRESSION: No significant interval change.
[2017-04-03] MEDS ORDERED: diltiaZEM 300 mg/24 Hours CD Cap PO SCH (10:00)
--- NOTE | 2017-04-03 12:12 | CP.PCM.HP ---
Present on Admission - Present on Admission Any Indicators Present on Admission: No Past Patient History - Infectious Disease Hx of Infectious Diseases: None - Past Medical History & Family History Past Medical History?: Yes - Past Social History Smoking Status: Former Smoker - CARDIAC Hx Hypercholesterolemia: Yes Hx Hypertension: Yes - PULMONARY Hx Asthma: Yes - NEUROLOGICAL Hx Seizures: Yes (UP TIL AGE 14YRS.) - HEENT Hx HEENT Problems: Yes Hx Cataracts: Yes (LEFT) - ENDOCRINE/METABOLIC Hx Diabetes Mellitus Type 2: Yes - HEMATOLOGICAL/ONCOLOGICAL Hx Anemia: Yes - MUSCULOSKELETAL/RHEUMATOLOGICAL Hx Falls: No - GASTROINTESTINAL Hx Crohn's Disease: No Hx Diverticulitis: No Hx Gall Bladder Disease: No Hx Gastritis: No Hx Pancreatitis: No - GENITOURINARY/GYNECOLOGICAL Hx Sexually Transmitted Disorders: No - PSYCHIATRIC Hx Substance Use: No - SURGICAL HISTORY Hx Appendectomy: No Hx Carotid Endarterectomy: No Hx Cholecystectomy: No Hx Coronary Artery Bypass Graft: No Hx Tonsillectomy: No - ANESTHESIA Hx Anesthesia: Yes Hx Anesthesia Reactions: No Hx Malignant Hyperthermia: No Meds Allergies/Adverse Reactions: Allergies Allergy/AdvReac Type Severity Reaction Status Date / Time No Known Allergies Allergy Verified 12/17/16 18:57 Results - Vital Signs Recent Vital Signs: Last Vital Signs Temp 98.1 F 04/03/17 11:17 Pulse 99 H 04/03/17 11:17 Resp 20 04/03/17 11:17 BP 158/96 H 04/03/17 11:17 Pulse Ox 95 04/03/17 11:17 - Labs Result Diagrams: 04/02/17 15:45 04/02/17 15:45
--- NOTE | 2017-04-03 13:41 | CP.PCM.PN ---
Subjective - Date & Time of Evaluation Date of Evaluation: 04/03/17 Time of Evaluation: 13:38 - Subjective Subjective: Pt s/e. Readmitted due to drainage from chest tube site. cxr-satisfactoryl two options: surgical closure vs. dressing change as needed until the fistula closes spontaneously. Pt opted for nonsurgical approach. to be transferred back to rehab center with wound care instructions. Objective - Vital Signs/Intake and Output Vital Signs (last 24 hours): Temp Pulse Resp BP Pulse Ox 98.1 F 99 H 20 158/96 H 95 04/03/17 11:17 04/03/17 11:17 04/03/17 11:17 04/03/17 11:17 04/03/17 11:17 Intake and Output: 04/03/17 04/03/17 06:59 18:59 Output Total 250 Balance -250 - Medications Medications: Current Medications Albuterol/Ipratropium (Duoneb 3 Mg/0.5 Mg (3 Ml) Ud) 3 ml INH RQ6 [facility] Last Admin: 04/03/17 13:33 Dose: Not Given Apixaban (Eliquis) 5 mg PO BID [facility] Last Admin: 04/03/17 11:19 Dose: 5 mg Diltiazem HCl (Cardizem Cd) 300 mg PO DAILY [facility] Last Admin: 04/03/17 11:19 Dose: 300 mg Docusate Sodium (Colace) 100 mg PO DAILY [facility] Last Admin: 04/03/17 11:18 Dose: 100 mg Famotidine (Pepcid) 20 mg PO DAILY [facility] Last Admin: 04/03/17 11:19 Dose: 20 mg Ferrous Sulfate (Feosol) 325 mg PO TID [facility] Last Admin: 04/03/17 11:18 Dose: 325 mg Hydroxyzine HCl (Atarax) 50 mg PO BID PRN PRN Reason: Itching / Pruritus Ceftriaxone Sodium (Rocephin Iv 1 Gm Duplex) 50 mls @ 100 mls/hr IVPB Q24H [facility] Last Admin: 04/03/17 04:05 Dose: 100 mls/hr Insulin Aspart (Novolog) 0 unit SC ACHS [facility] PRN Reason: Protocol Last Admin: 04/03/17 08:07 Dose: Not Given Losartan Potassium (Cozaar) 100 mg PO DAILY [facility] Last Admin: 05/19/17 11:19 Dose: 100 mg Metoprolol Tartrate (Lopressor) 50 mg PO BID [facility] Last Admin: 04/03/17 11:18 Dose: 50 mg Oxycodone/Acetaminophen (Percocet 5/325 Mg Tab) 1 tab PO Q6H PRN PRN Reason: Pain Stop: 04/06/17 01:54 Promethazine HCl (Phenergan Syrup) 12.5 mg PO Q6 PRN PRN Reason: Cough Rosuvastatin Calcium (Crestor) 10 mg PO HS ELLIE - Labs Labs: PT 16.8 SECONDS (9.7-12.2) H 04/02/17 15:45 INR 1.5 04/02/17 15:45 APTT 35 SECONDS (21-34) H 04/02/17 15:45
--- NOTE | 2017-04-03 15:59 | CP.PCM.PN ---
Subjective - Date & Time of Evaluation Date of Evaluation: 04/03/17 Time of Evaluation: 11:00 - Subjective Subjective: Pt seen and examined today , states feels better, denies any chest pain, sob, dizziness, palpitations Objective - Vital Signs/Intake and Output Vital Signs (last 24 hours): Temp Pulse Resp BP Pulse Ox 98.1 F 99 H 20 158/96 H 95 04/03/17 11:17 04/03/17 11:17 04/03/17 11:17 04/03/17 11:17 04/03/17 11:17 Intake and Output: 04/03/17 04/03/17 06:59 18:59 Output Total 250 Balance -250 - Medications Medications: Current Medications Albuterol/Ipratropium (Duoneb 3 Mg/0.5 Mg (3 Ml) Ud) 3 ml INH RQ6 [facility] Last Admin: 04/03/17 13:33 Dose: Not Given Apixaban (Eliquis) 5 mg PO BID [facility] Last Admin: 04/03/17 11:19 Dose: 5 mg Diltiazem HCl (Cardizem Cd) 300 mg PO DAILY [facility] Last Admin: 04/03/17 11:19 Dose: 300 mg Docusate Sodium (Colace) 100 mg PO DAILY [facility] Last Admin: 04/03/17 11:18 Dose: 100 mg Famotidine (Pepcid) 20 mg PO DAILY [facility] Last Admin: 04/03/17 11:19 Dose: 20 mg Ferrous Sulfate (Feosol) 325 mg PO TID [facility] Last Admin: 04/03/17 14:20 Dose: 325 mg Hydroxyzine HCl (Atarax) 50 mg PO BID PRN PRN Reason: Itching / Pruritus Ceftriaxone Sodium (Rocephin Iv 1 Gm Duplex) 50 mls @ 100 mls/hr IVPB Q24H [facility] Last Admin: 04/03/17 04:05 Dose: 100 mls/hr Insulin Aspart (Novolog) 0 unit SC ACHS [facility] PRN Reason: Protocol Last Admin: 04/03/17 12:30 Dose: Not Given Losartan Potassium (Cozaar) 100 mg PO DAILY [facility] Last Admin: 04/03/17 11:19 Dose: 100 mg Metoprolol Tartrate (Lopressor) 50 mg PO BID [facility] Last Admin: 04/03/17 11:18 Dose: 50 mg Oxycodone/Acetaminophen (Percocet 5/325 Mg Tab) 1 tab PO Q6H PRN PRN Reason: Pain Stop: 04/06/17 01:54 Promethazine HCl (Phenergan Syrup) 12.5 mg PO Q6 PRN PRN Reason: Cough Rosuvastatin Calcium (Crestor) 10 mg PO HS ELLIE - Labs Labs: PT 16.8 SECONDS (9.7-12.2) H 04/02/17 15:45 INR 1.5 04/02/17 15:45 APTT 35 SECONDS (21-34) H 04/02/17 15:45 Assessment and Plan - Assessment and Plan (Free Text) Assessment: 71 yr old female admitted due to drainage from chest tube site. cxr-satisfactoryl Dr. Mishra seen patient and iscussed options two options: surgical closure vs. dressing change as needed until the fistula closes spontaneously. Pt opted for nonsurgical approach. and patient cleared to be transferred back to rehab center with wound care instructions. D/W with Dr. Aranda , stable for discharge back to [facility] and Dr. Aranda will follow the patient at [facility] Discharge plan discussed with patiet , who understands and agree with plan
[2017-04-03 16:38] VITALS: BP 148/76; PULSE 96; TEMP 99.2; O2SAT 96
--- NOTE | 2017-04-03 17:11 | CP.PCM.CON ---
History of Present Illness - History of Present Illness History of Present Illness: Reason for consultation: Pleural effusion and leakage from chest tube insertion site 71 y/o female who was sent from rehab for drainage from prior CT site. The drainage is yellow clear fluid. Patient has a pmhx of ovarian cancer and malignant pleural effusions. Patient recently underwent VATS/ thoracotomy with left chest tube and pleurex catheter insertion in February 2017. Patient was recently discharge from hospital about 1 week ago. Denies shortness of breath, denies cough, denies fever or chills 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 PSH: BSO, paracentesis, LCT w/ Talc, VATS w/ pleurex catheter insertion Review of Systems - Review of Systems All systems: reviewed and no additional remarkable complaints except (Discharge from chest tube insertion site) Past Patient History - Infectious Disease Hx of Infectious Diseases: None - Past Medical History & Family History Past Medical History?: Yes - Past Social History Smoking Status: Former Smoker - CARDIAC Hx Hypercholesterolemia: Yes Hx Hypertension: Yes - PULMONARY Hx Asthma: Yes - NEUROLOGICAL Hx Seizures: Yes (UP TIL AGE 14YRS.) - HEENT Hx HEENT Problems: Yes Hx Cataracts: Yes (LEFT) - ENDOCRINE/METABOLIC Hx Diabetes Mellitus Type 2: Yes - HEMATOLOGICAL/ONCOLOGICAL Hx Anemia: Yes - MUSCULOSKELETAL/RHEUMATOLOGICAL Hx Falls: No - GASTROINTESTINAL Hx Crohn's Disease: No Hx Diverticulitis: No Hx Gall Bladder Disease: No Hx Gastritis: No Hx Pancreatitis: No - GENITOURINARY/GYNECOLOGICAL Hx Sexually Transmitted Disorders: No - PSYCHIATRIC Hx Substance Use: No - SURGICAL HISTORY Hx Appendectomy: No Hx Carotid Endarterectomy: No Hx Cholecystectomy: No Hx Coronary Artery Bypass Graft: No Hx Tonsillectomy: No - ANESTHESIA Hx Anesthesia: Yes Hx Anesthesia Reactions: No Hx Malignant Hyperthermia: No Meds Allergies/Adverse Reactions: Allergies Allergy/AdvReac Type Severity Reaction Status Date / Time No Known Allergies Allergy Verified 12/17/16 18:57 - Medications Medications: Current Medications Albuterol/Ipratropium (Duoneb 3 Mg/0.5 Mg (3 Ml) Ud) 3 ml INH RQ6 [facility] Last Admin: 04/03/17 13:33 Dose: Not Given Apixaban (Eliquis) 5 mg PO BID [facility] Last Admin: 04/03/17 11:19 Dose: 5 mg Diltiazem HCl (Cardizem Cd) 300 mg PO DAILY [facility] Last Admin: 04/03/17 11:19 Dose: 300 mg Docusate Sodium (Colace) 100 mg PO DAILY [facility] Last Admin: 04/03/17 11:18 Dose: 100 mg Famotidine (Pepcid) 20 mg PO DAILY [facility] Last Admin: 04/03/17 11:19 Dose: 20 mg Ferrous Sulfate (Feosol) 325 mg PO TID [facility] Last Admin: 04/03/17 14:20 Dose: 325 mg Hydroxyzine HCl (Atarax) 50 mg PO BID PRN PRN Reason: Itching / Pruritus Ceftriaxone Sodium (Rocephin Iv 1 Gm Duplex) 50 mls @ 100 mls/hr IVPB Q24H [facility] Last Admin: 04/03/17 04:05 Dose: 100 mls/hr Insulin Aspart (Novolog) 0 unit SC ACHS [facility] PRN Reason: Protocol Last Admin: 04/03/17 12:30 Dose: Not Given Losartan Potassium (Cozaar) 100 mg PO DAILY [facility] Last Admin: 04/03/17 11:19 Dose: 100 mg Metoprolol Tartrate (Lopressor) 50 mg PO BID [facility] Last Admin: 04/03/17 11:18 Dose: 50 mg Oxycodone/Acetaminophen (Percocet 5/325 Mg Tab) 1 tab PO Q6H PRN PRN Reason: Pain Stop: 04/06/17 01:54 Promethazine HCl (Phenergan Syrup) 12.5 mg PO Q6 PRN PRN Reason: Cough Rosuvastatin Calcium (Crestor) 10 mg PO [facility] Physical Exam - Head Exam Head Exam: ATRAUMATIC, NORMOCEPHALIC - Eye Exam Eye Exam: Normal appearance - ENT Exam ENT Exam: Mucous Membranes Moist - Respiratory Exam Respiratory Exam: Decreased Breath Sounds - Cardiovascular Exam Cardiovascular Exam: REGULAR RHYTHM - GI/Abdominal Exam GI & Abdominal Exam: Normal Bowel Sounds Results - Vital Signs Recent Vital Signs: Last Vital Signs Temp 99.2 F 04/03/17 15:00 Pulse 96 H 04/03/17 15:00 Resp 20 04/03/17 15:00 BP 148/76 04/03/17 15:00 Pulse Ox 96 04/03/17 15:00 - Labs Result Diagrams: 04/02/17 15:45 04/02/17 15:45 Assessment & Plan (1) Malignant pleural effusion Status: Acute Comment: Status post chest tube and later a Pleurx catheter insertion. Patient was seen by thoracic surgery and opted for nonsurgical intervention. [facility] be transferred [facility]
--- NOTE | 2017-04-04 21:36 | CP.PCM.DIS ---
Provider - Provider Date of Admission: 04/02/17 17:25 Attending physician: Migue Aranda MD Time Spent in preparation of Discharge (in minutes): 30 Hospital Course - Lab Results Lab Results: Most Recent Lab Values WBC 8.9 K/uL (4.8-10.8) 04/02/17 15:45 RBC 4.28 Mil/uL (3.80-5.20) 04/02/17 15:45 Hgb 11.1 g/dL (11.0-16.0) 04/02/17 15:45 Hct 35.5 % (34.0-47.0) 04/02/17 15:45 MCV 83.0 fL (81.0-99.0) 04/02/17 15:45 MCH 26.1 pg (27.0-31.0) L 04/02/17 15:45 MCHC 31.4 g/dL (33.0-37.0) L 04/02/17 15:45 RDW 17.5 % (11.5-14.5) H 04/02/17 15:45 Plt Count 362 K/uL (130-400) D 04/02/17 15:45 MPV 7.0 fL (7.2-11.7) L 04/02/17 15:45 Neut % (Auto) 64.8 % (50.0-75.0) 04/02/17 15:45 Lymph % (Auto) 22.4 % (20.0-40.0) 04/02/17 15:45 [place] % (Auto) 11.2 % (0.0-10.0) H 04/02/17 15:45 Eos % (Auto) 0.7 % (0.0-4.0) 04/02/17 15:45 Baso % (Auto) 0.9 % (0.0-2.0) 04/02/17 15:45 Neut # 5.8 K/uL (1.8-7.0) 04/02/17 15:45 Lymph # 2.0 K/uL (1.0-4.3) 04/02/17 15:45 [place] # 1.0 K/uL (0.0-0.8) H 04/02/17 15:45 Eos # 0.1 K/uL (0.0-0.7) 04/02/17 15:45 Baso # 0.1 K/uL (0.0-0.2) 04/02/17 15:45 PT 16.8 SECONDS (9.7-12.2) H 04/02/17 15:45 INR 1.5 04/02/17 15:45 APTT 35 SECONDS (21-34) H 04/02/17 15:45 Sodium 140 mmol/L (132-148) 04/02/17 15:45 Potassium 4.0 mmol/L (3.6-5.2) 04/02/17 15:45 Chloride 101 mmol/L (98-107) 04/02/17 15:45 Carbon Dioxide 31 mmol/L (22-30) H 04/02/17 15:45 Anion Gap 12 (10-20) 04/02/17 15:45 BUN 14 mg/dL (7-17) 04/02/17 15:45 Creatinine 0.7 MG/DL (0.7-1.2) 04/02/17 15:45 Est GFR ( Amer) > 60 04/02/17 15:45 Est GFR (Non-Af Amer) > 60 04/02/17 15:45 Random Glucose 86 mg/dL (65-105) 04/02/17 15:45 Calcium 9.2 mg/dl (8.6-10.4) 04/02/17 15:45 NT-Pro-B Natriuret Pep 546 pg/mL (0-900) 04/02/17 15:45 - Hospital Course Hospital Course: Pt seen and examined today , states feels better, denies any chest pain, sob, dizziness, palpitations Pt is for discharge home Discharge Exam - Head Exam Head Exam: ATRAUMATIC, NORMOCEPHALIC - Eye Exam Eye Exam: EOMI, Normal appearance, PERRL Pupil Exam: NORMAL ACCOMODATION, PERRL - ENT Exam ENT Exam: Mucous Membranes Moist - Respiratory Exam Respiratory Exam: Clear to PA & Lateral, Wheezes - Cardiovascular Exam Cardiovascular Exam: REGULAR RHYTHM, +S1, +S2 - GI/Abdominal Exam GI & Abdominal Exam: Normal Bowel Sounds - Rectal Exam Rectal Exam: Deferred Discharge Plan - Follow Up Plan Condition: GOOD Disposition: REHAB FACILITY/REHAB UNIT Instructions: Pleural Effusion (DC) Additional Instructions: Please admit patient under Dr. Aranda service - Call Dr. Aranda upon patient arrival to [facility] facility dressing changes daily to the chest tube site Pluer X drain as needed Referrals: Migue Aranda MD [Staff Provider] -
== END 2017-04-03 19:22 | DRG 920 ==
LOC: C.ER 11:50 → C.6T 17:25
PROVIDERS: ADMIT Internal Medicine; ATTEND Internal Medicine
DX: T85.638A Leakage of other specified internal prosthetic devices, implants and grafts, initial encounter (principal); C56.9 Malignant neoplasm of unspecified ovary; J91.0 Malignant pleural effusion; C78.2 Secondary malignant neoplasm of pleura; I48.91 Unspecified atrial fibrillation; I10 Essential (primary) hypertension; E78.5 Hyperlipidemia, unspecified; Z87.891 Personal history of nicotine dependence; E78.00 Pure hypercholesterolemia, unspecified; J45.909 Unspecified asthma, uncomplicated; Y83.8 Other surgical procedures as the cause of abnormal reaction of the patient, or of later complication, without mention of misadventure at the time of the procedure

== ENCOUNTER 2017-04-29 07:59 | Inpatient (IN) | payer MEDICARE, OTHER ==
[2017-04-29 08:22] VITALS: BMI 21.8
[2017-04-29 09:23] LABS: CHLORIDE 102 mmol/L (98-107); POTASSIUM 4.3 mmol/L (3.6-5.2); SODIUM 140 mmol/L (132-148)
[2017-04-29 09:25] LABS: AST/SGOT 23 U/L (14-36); BILIRUBIN,TOTAL 0.5 mg/dL (0.2-1.3); CARBON DIOXIDE 29 mmol/L (22-30); GFR AFRICAN-AMERICAN > 60
[2017-04-29 09:26] LABS: ALKALINE PHOSPHATASE 108 U/L (38-126); ALT/SGPT 18 U/L (9-52); BLOOD UREA NITROGEN 17 mg/dL (7-17); CALCIUM 9.8 mg/dl (8.6-10.4); GLUCOSE,RANDOM 132 mg/dL (65-105); TOTAL PROTEIN 7.1 g/dL (6.3-8.3)
--- NOTE | 2017-04-29 09:27 | C.PDOC ---
History Of Present Illness 71 y/o female presents to ED who for evaluation of SOB that began when she woke up around 3 AM. Pt states the SOB improved, but on arrival to ED SOB started again. Patient with history of ovarian cancer, malignant effusions. She denies chest pain, fever, abdominal pain, nausea/vomiting/diarrhea. Patient also c/o worsening lower extremity edema over the last 1 week. Time Seen by Provider: 04/29/17 08:10 Chief Complaint (Nursing): Shortness Of Breath History Per: Patient History/Exam Limitations: no limitations Current Symptoms Are (Timing): Still Present Severity: Moderate Associated Symptoms: Ankle/Leg Swelling. denies: Fever, Chest Pain, Dizziness, Anxiety Recent travel outside of the [place]: No Past Medical History Reviewed: Historical Data, Nursing Documentation, Vital Signs Vital Signs: Last Vital Signs Temp 97.7 F 05/01/17 07:35 Pulse 77 05/01/17 08:37 Resp 20 05/01/17 07:35 BP 146/78 05/01/17 07:35 Pulse Ox 99 05/01/17 07:35 - Medical History PMH: Anemia, Arthritis (GENERALIZED), Asthma, Diabetes, HTN, Hypercholesterolemia, Pulmonary Embolism, Rheumatoid Arthritis, Seizures (UP TIL AGE 14YRS.) Surgical History: Endoscopy - [facility] Procedures CLOSED ENDOSCOPIC BIOPSY OF LARGE INTESTINE (11/29/14) DRAINAGE OF L PLEURAL CAV WITH DRAIN DEV, PERC APPROACH (12/18/16) DRAINAGE OF L PLEURAL CAV WITH DRAIN DEV, PERC ENDO APPROACH (02/25/17) DRAINAGE OF PERITONEAL CAVITY, PERCUTANEOUS APPROACH, DIAGN (02/25/17) DX ULTRASOUND-DIGESTIVE (11/29/14) ENDOSC POLYPECTOMY OF LG INTEST (11/29/14) ESOPHAGOGASTRODUODENOSCOPY [EGD] W/CLOSED BIOPSY (11/29/14) EXTRACTION OF LEFT PLEURA, PERCUTANEOUS ENDOSCOPIC APPROACH (02/25/17) INFLUENZA VACCINATION (11/29/14) INJECT/INFUSE NEC (11/29/14) INSERTION OF TOTALLY IMPLANTABLE VASC ACCESS DEVIC (02/22/15) NEBULIZER THERAPY (11/29/14) OTH REMOVE BOTH OVARIES/TUBES (12/11/14) PERCUTANEOUS ABDOMINAL DRAINAGE (06/11/15) PERITONEAL BIOPSY (12/11/14) Family History: States: No Known Family Hx - Social History Hx Tobacco Use: No Hx Alcohol Use: No Hx Substance Use: No - Immunization History Hx Tetanus Toxoid Vaccination: Yes Hx Influenza Vaccination: Yes Hx Pneumococcal Vaccination: Yes Review Of Systems Except As Marked, All Systems Reviewed And Found Negative. Constitutional: Negative for: Fever, Chills Cardiovascular: Negative for: Chest Pain, Palpitations Respiratory: Positive for: Shortness of Breath. Negative for: Cough, Wheezing Gastrointestinal: Negative for: Nausea, Vomiting, Abdominal Pain, Diarrhea Skin: Negative for: Rash Physical Exam - Physical Exam Appears: Non-toxic, Other (uncomfortable, speaking in short sentences) Skin: Normal Color, Warm, Dry Head: Normacephalic Eye(s): bilateral: Normal Inspection Ear(s): Bilateral: Normal Oral Mucosa: Moist Throat: Normal, No Erythema, No Exudate Neck: Supple Cardiovascular: Rhythm Regular Respiratory: Decreased Breath Sounds (lungs decreased breath sounds at B/L bases (R>L)), No Accessory Muscle Use, Rales, No Rhonchi, No Stridor, No Wheezing Gastrointestinal/Abdominal: Bowel Sounds, Soft, No Tenderness, No Distention, No Guarding, No Rebound, Other (LUQ drain in place, no surrounding erythema/ discharge ) Back: Normal Inspection Extremity: Normal ROM, Pedal Edema (+2 pitting edema bilateral lower extremities ), Capillary Refill (< 2 sec all digits) Extremity: Bilateral: Normal ROM Pulses: Left Dorsalis Pedis: Normal, Right Dorsalis Pedis: Normal Neurological/Psych: Oriented x3 ED Course And Treatment - Laboratory Results Result Diagrams: 05/01/17 07:56 05/01/17 07:56 ECG: Interpreted By Me, Viewed By Me (NSR 83 bpm, normal axis, no acute ST/T wave changes) ECG Interpretation: Normal O2 Sat by Pulse Oximetry: 96 (RA) Pulse Ox Interpretation: Normal - Other Rad CHEST X-RAY X-Ray: Viewed By Me, Read By Radiologist Interpretation: IMPRESSION: No significant interval change in bilateral lower lobe pneumonia. Persistent small pleural effusions. - CT Scan/US CT Chest Other Rad Studies (CT/US): Read By Radiologist, Radiology Report Reviewed CT/US Interpretation: FINDINGS: PULMONARY ARTERIES: The visualized portions of the pulmonary trunk, right and left main, segmental and proximal subsegmental branches of the pulmonary arteries are relatively well opacified with extent suggest pulmonary embolus. Pulmonary trunk 2.57 cm in greatest dimension. AORTA: ascending thoracic aorta measures approximately 2.6 cm and descending thoracic aorta measures approximately 1.95 cm. LUNGS: Bilateral atelectatic changes predominately involving the lower lung zones. PLEURAL SPACES: Ascites possibly loculated is well. Large right-sided effusion with what apparent loculated components and right lower lobe atelectasis. Small left- sided effusion and left basilar atelectasis. . In situ drainage catheter in the left lung base the visualized along the inferior border. There is a small elliptical shaped radiopaque density in the left sided effusion at the lung bases of uncertain etiology possibly representing some peripheral calcification. HEART: Heart size is within range of normal. . Small pericardial effusion felt to be present. Mild left ventricular hypertrophy. . LYMPH NODES: There is evidence of mediastinal adenopathy as well as few small to medium size hilar lymph nodes. The central airway is midline and patent. There may be some wall thickening of the esophagus however the esophagus for the most part is poorly delineated. BONES, CHEST WALL: No acute compression fractures nor retropulsed fragments. Vertebral bodies minor multilevel degenerative spondylosis of the thoracic spine. There are no acute compression fractures no retropulsed fragments. OTHER FINDINGS: Visualized upper abdominal structures demonstrate what appears to represent a ascites possibly loculated components as well. Enlarged left-sided hilar lymph node. IMPRESSION : No evidence of acute central pulmonary embolus. . Large right-sided effusion with loculated components and atelectasis. Smaller probable loculated left-sided effusion with in situ drainage catheter. . . Abdominal ascites with possible loculated components. Mediastinal adenopathy. Few small bilateral hilar lymph nodes also felt present. See above discussion for additional findings and details. Progress Note: Blood work, EKG, CxR ordered and reviewed. - Physician Consult Information Physician Contacted: Migue Aranda Outcome Of Conversation: Discussed patient with Dr. aranda, he agrees with admission for large pleural effusion, ovarian CA, dyspnea with Dr. Mishra for CT surgery consult. Dr. Mishra spoken with and aware of consult - technical operations vice president also aware, will come and eval patient. Disposition - Disposition Disposition: HOSPITALIZED Disposition Time: 12:42 Condition: STABLE - Clinical Impression Clinical Impression: Malignant pleural effusion, Pleural effusion, Ovarian cancer, Dyspnea - Scribe Statement The provider has reviewed the documentation as recorded by the Garcia Steele Provider Attestation: All medical record entries made by the Garcia were at my direction and personally dictated by me. I have reviewed the chart and agree that the record accurately reflects my personal performance of the history, physical exam, medical decision making, and the department course for this patient. I have also personally directed, reviewed, and agree with the discharge instructions and disposition. Decision To Admit - Pt Status Changed To: Hospital Disposition Of: Inpatient - Admit Certification Admit to Inpatient:: After my assessment, the patient will require hospitalization for at least two midnights. This is because of the severity of symptoms shown, intensity of services needed, and/or the medical risk in this patient being treated as an outpatient. - InPatient: Physician Admission Certification: I certify that this patient requires 2 or more midnights of care for the following reason:: see notes - . Bed Request Type: Telemetry Admitting Physician: Migue Aranda Patient Diagnosis: Ovarian cancer, Pleural effusion, Malignant pleural effusion, Dyspnea
[2017-04-29 09:30] LABS: BASO % 0.4 % (0.0-2.0); EOS % 0.2 % (0.0-4.0); HEMATOCRIT 36.6 % (34.0-47.0); LYMPH # 1.1 K/uL (1.0-4.3); LYMPH % 12.2 % (20.0-40.0); MEAN CELL VOLUME 81.3 fL (81.0-99.0); MEAN CORPUSCULAR HEMOGLOBIN 24.9 pg (27.0-31.0); MEAN CORPUSCULAR HGB CONC 30.6 g/dL (33.0-37.0); MEAN PLATELET VOLUME 7.1 fL (7.2-11.7); MONO # 0.3 K/uL (0.0-0.8); RED CELL DISTRIBUTION WIDTH 16.6 % (11.5-14.5); WHITE BLOOD COUNT 8.7 K/uL (4.8-10.8)
[2017-04-29 09:32] LABS: INR 1.2
--- NOTE | 2017-04-29 09:53 | RAD ---
PROCEDURE: CHEST RADIOGRAPH, 1 VIEW HISTORY: Shortness of breath COMPARISON: 04/02/2017. FINDINGS: The right MediPort terminates at the cavoatrial junction LUNGS: There is confluent airspace disease in both lower lobes. PLEURA: Small pleural effusions. No pneumothorax. CARDIOVASCULAR: Normal. OSSEOUS STRUCTURES: No significant abnormalities. VISUALIZED UPPER ABDOMEN: Normal. OTHER FINDINGS: None. IMPRESSION: No significant interval change in bilateral lower lobe pneumonia. Persistent small pleural effusions.
[2017-04-29] MEDS ORDERED: Iodixanol 320 MG/ML 100 ML BOTTLE IV ONE (11:32)
--- NOTE | 2017-04-29 12:39 | CT ---
PROCEDURE: CT Chest with contrast (Pulmonary Angiogram) HISTORY: Shortness of breath ; rule out pulmonary embolus in a patient with a history of ovarian carcinoma. COMPARISON: Study comparison made with prior CT scan 03/17/2017. TECHNIQUE: Axial computed tomography images were obtained of the chest in the pulmonary arterial phase of enhancement. Coronal and sagittal reformatted images were created and reviewed. Intravenous contrast dose: 100 cc Visipaque 320 Radiation dose: Total exam DLP = 211.11 mGy-cm. This CT exam was performed using one or more of the following dose reduction techniques: Automated exposure control, adjustment of the mA and/or kV according to patient size, and/or use of iterative reconstruction technique. FINDINGS: PULMONARY ARTERIES: The visualized portions of the pulmonary trunk, right and left main, segmental and proximal subsegmental branches of the pulmonary arteries are relatively well opacified with extent suggest pulmonary embolus. Pulmonary trunk 2.57 cm in greatest dimension. AORTA: ascending thoracic aorta measures approximately 2.6 cm and descending thoracic aorta measures approximately 1.95 cm. LUNGS: Bilateral atelectatic changes predominately involving the lower lung zones. PLEURAL SPACES: Ascites possibly loculated is well. Large right-sided effusion with what apparent loculated components and right lower lobe atelectasis. Small left-sided effusion and left basilar atelectasis. . In situ drainage catheter in the left lung base the visualized along the inferior border. There is a small elliptical shaped radiopaque density in the left sided effusion at the lung bases of uncertain etiology possibly representing some peripheral calcification. HEART: Heart size is within range of normal. . Small pericardial effusion felt to be present. Mild left ventricular hypertrophy. . LYMPH NODES: There is evidence of mediastinal adenopathy as well as few small to medium size hilar lymph nodes. The central airway is midline and patent. There may be some wall thickening of the esophagus however the esophagus for the most part is poorly delineated. BONES, CHEST WALL: No acute compression fractures nor retropulsed fragments. Vertebral bodies minor multilevel degenerative spondylosis of the thoracic spine. There are no acute compression fractures no retropulsed fragments. OTHER FINDINGS: Visualized upper abdominal structures demonstrate what appears to represent a ascites possibly loculated components as well. Enlarged left-sided hilar lymph node IMPRESSION: No evidence of acute central pulmonary embolus. . Large right-sided effusion with loculated components and atelectasis. Smaller probable loculated left-sided effusion with in situ drainage catheter. . . Abdominal ascites with possible loculated components. Mediastinal adenopathy. Few small bilateral hilar lymph nodes also felt present. See above discussion for additional findings and details.
--- NOTE | 2017-04-29 16:29 | CP.PCM.CON ---
History of Present Illness - History of Present Illness History of Present Illness: Pt is a 71 y.o. F with PMHx of metastatic ovarian cancer, malignant ascites, and HTN presenting with acute worsening of shortness of breath. Patient reports SOB has been present since last d/c from but acutely worsened overnight at 3am. Patient reports SOB is intermittent and worsened w/ exertion. Patient can only ambulate 30ft before requiring rest. Patient further reports that rest alleviates her SOB. Patient also complains of headache and shoulder pain. PMHx - see above PSHx - hysterectomy w/ oopherectomy Allergies - denies Review of Systems - Constitutional Constitutional: Headache. absent: Chills, Fever - EENT Eyes: Change in Vision (reports block spots entering from the sides) - Cardiovascular Cardiovascular: absent: Chest Pain, Dyspnea on Exertion - Respiratory Respiratory: Cough, Dyspnea on Exertion, Wheezing - Gastrointestinal Gastrointestinal: Constipation, Nausea. absent: Diarrhea, Vomiting - Genitourinary Genitourinary: absent: Dysuria, Urinary Frequency - Musculoskeletal Musculoskeletal: absent: Joint Swelling, Muscle Cramps Additional comments: Left shoulder pain - Integumentary Integumentary: Non-Healing Lesions, Swelling - Neurological Neurological: absent: Numbness, Tingling - Endocrine Endocrine: absent: Excessive Sweating, Heat Intolorance, Palpitations Past Patient History - Infectious Disease Hx of Infectious Diseases: None - Past Medical History & Family History Past Medical History?: Yes - Past Social History Smoking Status: Former Smoker - CARDIAC Hx Hypercholesterolemia: Yes Hx Hypertension: Yes - PULMONARY Hx Asthma: Yes Hx Pulmonary Embolism: Yes - NEUROLOGICAL Hx Seizures: Yes (UP TIL AGE 14YRS.) - HEENT Hx HEENT Problems: Yes Hx Cataracts: Yes (LEFT) - ENDOCRINE/METABOLIC Hx Diabetes Mellitus Type 2: Yes - HEMATOLOGICAL/ONCOLOGICAL Hx Anemia: Yes - MUSCULOSKELETAL/RHEUMATOLOGICAL Hx Arthritis: Yes (GENERALIZED) Hx Rheumatoid Arthritis: Yes - GASTROINTESTINAL Hx Crohn's Disease: No Hx Diverticulitis: No Hx Gall Bladder Disease: No Hx Gastritis: No Hx Pancreatitis: No - GENITOURINARY/GYNECOLOGICAL Hx Sexually Transmitted Disorders: No - PSYCHIATRIC Hx Substance Use: No - SURGICAL HISTORY Hx Surgeries: Yes Hx Appendectomy: No Hx Carotid Endarterectomy: No Hx Cholecystectomy: No Hx Coronary Artery Bypass Graft: No Hx Hysterectomy: Yes Hx Tonsillectomy: No Other/Comment: Leonidas cath to right chest. - ANESTHESIA Hx Anesthesia: Yes Hx Anesthesia Reactions: No Hx Malignant Hyperthermia: No Meds Allergies/Adverse Reactions: Allergies Allergy/AdvReac Type Severity Reaction Status Date / Time No Known Allergies Allergy Verified 12/17/16 18:57 Physical Exam - Head Exam Head Exam: ATRAUMATIC, NORMOCEPHALIC - Eye Exam Eye Exam: Normal appearance - ENT Exam ENT Exam: Normal Exam - Respiratory Exam Respiratory Exam: Accessory Muscle Use Additional comments: paradoxical breathing, rapid shallow breathing, dullness to percussion in BL lung de luna - Cardiovascular Exam Cardiovascular Exam: Tachycardia - GI/Abdominal Exam GI & Abdominal Exam: Soft - Extremities Exam Extremities exam: Positive for: pedal edema - Neurological Exam Neurological exam: Alert, Oriented x3 - Skin Skin Exam: Dry Results - Vital Signs Recent Vital Signs: Last Vital Signs Temp 98.5 F 04/29/17 15:37 Pulse 90 04/29/17 15:37 Resp 28 H 04/29/17 15:37 BP 179/96 H 04/29/17 15:37 Pulse Ox 100 04/29/17 15:37 - Labs Result Diagrams: 04/29/17 09:19 04/29/17 08:35 Assessment & Plan - Assessment and Plan (Free Text) Assessment: Pt is a 71 y.o F with complaints of SOB on exertion Plan: No surgical intervention necessary pleural effusion is stable on comparison to previous imaging Would not recommend drainage, could worsen condition Prescribe home oxygen, recommend hospice/comfort care Please reconsult if necessary will remove left side shelley d/w Dr Tad Johnson, PGY2 - Date & Time Date: 04/29/17 Time: 16:51
[2017-04-29] MEDS: Albuterol-Ipratrop 3 mg / 0.5 (3 ml) UD INH SCH (21:58)
--- NOTE | 2017-04-29 23:31 | CP.PCM.HP ---
History of Present Illness - History of Present Illness History of Present Illness: CC: shortness of breath x 1 day HPi: Pt is a 71 y.o. F with PMHx of metastatic ovarian cancer, malignant ascites , and HTN who was currently in shelter facility in shelter, she went home with visiting nurse service today she developed acute worsening of shortness of breath. Patient reports SOB has been present since last d/c from but acutely worsened overnight at 3am. Patient reports SOB is intermittent and worsened w/ exertion. Patient can only ambulate 30ft before requiring rest. Patient further reports that rest alleviates her SOB. Patient also complains of headache and shoulder pain. PMHx - see above PSHx - hysterectomy w/ oopherectomy Allergies - denies Review of Systems - Review of Systems Systems not reviewed;Unavailable: Respiratory Distress - Constitutional Constitutional: Fatigue, Lethargy - EENT Eyes: absent: As Per HPI, Blind Spots, Blurred Vision, Change in Vision, Decreased Night Vision, Diplopia, Discharge, Dry Eye, Exophthalmos, Floaters, Irritation, Itchy Eyes, Loss of Peripheral Vision, Pain, Photophobia, Requires Corrective Lenses, Sees Flashes, Spots in Vision, Tunnel Vision, Other Visual Disturbances, Loss of Vision, Other Nose/Mouth/Throat: absent: As Per HPI, Epistaxis, Nasal Congestion, Nasal Discharge, Nasal Obstruction, Nasal Trauma, Nose Pain, Post Nasal Drip, Sinus Pain, Sinus Pressure, Bleeding Gums, Change in Voice, Dental Pain, Dry Mouth, Dysphagia, Halitosis, Hoarsness, Lip Swelling, Mouth Lesions, Mouth Pain, Odynophagia, Sore Throat, Throat Swelling, Tongue Swelling, Facial Pain, Neck Pain, Neck Mass, Other - Cardiovascular Cardiovascular: Dyspnea, Orthopnea - Respiratory Respiratory: Dyspnea. absent: As Per HPI, Cough, Hemoptysis, Dyspnea on Exertion, Wheezing, Snoring, Stridor, Pain on Inspiration, Chest Congestion, Excessive Mucous Production, Change in Mucous Color, Pain with Coughing, Other - Gastrointestinal Gastrointestinal: absent: As Per HPI, Abdominal Pain, Belching, Bloating, Change in Bowel Habits, Change in Stool Character, Coffee Ground Emesis, Constipation, Cramping, Diarrhea, Dyspepsia, Dysphagia, Early Satiety, Excessive Flatus, Fecal Incontinence, Heartburn, Hematemesis, Hematochezia, Loose Stools, Melena, Nausea, Odynophagia, Temesmus, Vomiting, Other - Genitourinary Genitourinary: absent: As Per HPI, Change in Urinary Stream, Difficulty Urinating, Dysuria, Flank Pain, Hematuria, Pyuria, Nocturia, Urinary Incontinence, Urinary Frequency, Urinary Hesitance, Urinary Urgency, Voiding Freq/Small Amts, Freq UTI, Hx Renal/Bladder Calculi, Hx /Renal Surgery, Bladder Distension, Other Past Patient History - Infectious Disease Hx of Infectious Diseases: None - Past Medical History & Family History Past Medical History?: Yes - Past Social History Smoking Status: Former Smoker - CARDIAC Hx Cardiac Disorders: Yes Hx Hypercholesterolemia: Yes Hx Hypertension: Yes - PULMONARY Hx Respiratory Disorders: Yes Hx Asthma: Yes Hx Pulmonary Embolism: Yes - NEUROLOGICAL Hx Neurological Disorder: Yes Hx Seizures: Yes (UP TIL AGE 14YRS.) - HEENT Hx HEENT Problems: Yes Hx Cataracts: Yes (LEFT) - RENAL Hx Chronic Kidney Disease: No - ENDOCRINE/METABOLIC Hx Endocrine Disorders: Yes Hx Diabetes Mellitus Type 2: Yes - HEMATOLOGICAL/ONCOLOGICAL Hx Blood Disorders: Yes Hx Anemia: Yes - INTEGUMENTARY Hx Dermatological Problems: No - MUSCULOSKELETAL/RHEUMATOLOGICAL Hx Musculoskeletal Disorders: Yes Hx Arthritis: Yes (GENERALIZED) Hx Falls: No Hx Rheumatoid Arthritis: Yes - GASTROINTESTINAL Hx Gastrointestinal Disorders: No Hx Crohn's Disease: No Hx Diverticulitis: No Hx Gall Bladder Disease: No Hx Gastritis: No Hx Pancreatitis: No - GENITOURINARY/GYNECOLOGICAL Hx Genitourinary Disorders: No Hx Sexually Transmitted Disorders: No - PSYCHIATRIC Hx Psychophysiologic Disorder: No Hx Substance Use: No - SURGICAL HISTORY Hx Surgeries: Yes Hx Hysterectomy: Yes Other/Comment: Leonidas cath to right chest. - ANESTHESIA Hx Anesthesia: Yes Hx Anesthesia Reactions: No Hx Malignant Hyperthermia: No Has any member of the family had a problem w/ anesthesia?: No Meds Allergies/Adverse Reactions: Allergies Allergy/AdvReac Type Severity Reaction Status Date / Time No Known Allergies Allergy Verified 12/17/16 18:57 Physical Exam - Constitutional Appears: Chronically Ill Additional comments: mild resp distress - Eye Exam Eye Exam: EOMI, Normal appearance, PERRL Pupil Exam: NORMAL ACCOMODATION, PERRL - Respiratory Exam Respiratory Exam: Decreased Breath Sounds, Rhonchi, NORMAL BREATHING PATTERN - Cardiovascular Exam Cardiovascular Exam: REGULAR RHYTHM - GI/Abdominal Exam GI & Abdominal Exam: Distended Additional comments: positive shifting dulness - Extremities Exam Extremities exam: Positive for: pedal edema Results - Vital Signs Recent Vital Signs: Last Vital Signs Temp 97.8 F 04/29/17 19:16 Pulse 100 H 04/29/17 19:16 Resp 20 04/29/17 19:16 BP 151/89 H 04/29/17 19:16 Pulse Ox 99 04/29/17 19:16 - Labs Result Diagrams: 04/29/17 09:19 04/29/17 08:35 Assessment & Plan (1) Ascites Status: Acute (2) Ascites, malignant Status: Acute (3) Malignant pleural effusion Status: Acute
[2017-04-30] MEDS: Albuterol-Ipratrop 3 mg / 0.5 (3 ml) UD INH SCH ×4 (01:04→20:10)
[2017-04-30] MEDS: diltiaZEM 300 mg/24 Hours CD Cap PO SCH (09:44)
--- NOTE | 2017-04-30 11:34 | CP.PCM.CON ---
History of Present Illness - History of Present Illness History of Present Illness: reason for consultation: shortness of breath 71-year-old female with past medical history of metastatic ovarian cancer, recurrent pleural effusion status post drainage catheter placement, malignant ascites, hypertension was transferred from care home for shortness of breath. Denies cough, denies fever chills, denies chest pain. CAT scan of the chest consistent with large right- sided pleural effusion and small effusion on the left side. Review of Systems - Review of Systems All systems: reviewed and no additional remarkable complaints except (shortness of breath) Past Patient History - Infectious Disease Hx of Infectious Diseases: None - Past Medical History & Family History Past Medical History?: Yes - Past Social History Smoking Status: Former Smoker - CARDIAC Hx Cardiac Disorders: Yes Hx Hypercholesterolemia: Yes Hx Hypertension: Yes - PULMONARY Hx Respiratory Disorders: Yes Hx Asthma: Yes Hx Pulmonary Embolism: Yes - NEUROLOGICAL Hx Neurological Disorder: Yes Hx Seizures: Yes (UP TIL AGE 14YRS.) - HEENT Hx HEENT Problems: Yes Hx Cataracts: Yes (LEFT) - RENAL Hx Chronic Kidney Disease: No - ENDOCRINE/METABOLIC Hx Endocrine Disorders: Yes Hx Diabetes Mellitus Type 2: Yes - HEMATOLOGICAL/ONCOLOGICAL Hx Blood Disorders: Yes Hx Anemia: Yes - INTEGUMENTARY Hx Dermatological Problems: No - MUSCULOSKELETAL/RHEUMATOLOGICAL Hx Musculoskeletal Disorders: Yes Hx Arthritis: Yes (GENERALIZED) Hx Falls: No Hx Rheumatoid Arthritis: Yes - GASTROINTESTINAL Hx Gastrointestinal Disorders: No Hx Crohn's Disease: No Hx Diverticulitis: No Hx Gall Bladder Disease: No Hx Gastritis: No Hx Pancreatitis: No - GENITOURINARY/GYNECOLOGICAL Hx Genitourinary Disorders: No Hx Sexually Transmitted Disorders: No - PSYCHIATRIC Hx Psychophysiologic Disorder: No Hx Substance Use: No - SURGICAL HISTORY Hx Surgeries: Yes Hx Hysterectomy: Yes Other/Comment: Leonidas cath to right chest. - ANESTHESIA Hx Anesthesia: Yes Hx Anesthesia Reactions: No Hx Malignant Hyperthermia: No Has any member of the family had a problem w/ anesthesia?: No Meds Allergies/Adverse Reactions: Allergies Allergy/AdvReac Type Severity Reaction Status Date / Time No Known Allergies Allergy Verified 12/17/16 18:57 - Medications Medications: Current Medications Acetaminophen (Tylenol 325mg Tab) 650 mg PO Q6 PRN PRN Reason: Pain, moderate (4-7) Albuterol/Ipratropium (Duoneb 3 Mg/0.5 Mg (3 Ml) Ud) 3 ml INH RQ6 [facility] Last Admin: 04/30/17 08:24 Dose: 3 ml Apixaban (Eliquis) 5 mg PO BID [facility] Last Admin: 04/30/17 09:43 Dose: 5 mg Diltiazem HCl (Cardizem Cd) 300 mg PO DAILY [facility] Last Admin: 04/30/17 09:44 Dose: 300 mg Docusate Sodium (Colace) 100 mg PO BID [facility] Last Admin: 04/30/17 09:44 Dose: 100 mg Famotidine (Pepcid) 20 mg PO DAILY [facility] Last Admin: 04/30/17 09:44 Dose: 20 mg Ferrous Sulfate (Feosol) 325 mg PO TID [facility] Last Admin: 04/30/17 09:44 Dose: 325 mg Ceftriaxone Sodium 1 gm/ (Sodium Chloride) 100 mls @ 100 mls/hr IVPB DAILY [facility] Last Admin: 04/30/17 09:44 Dose: 100 mls/hr Losartan Potassium (Cozaar) 100 mg PO DAILY [facility] Last Admin: 04/30/17 09:44 Dose: 100 mg Metoprolol Tartrate (Lopressor) 50 mg PO BID [facility] Last Admin: 04/30/17 09:44 Dose: 50 mg Rosuvastatin Calcium (Crestor) 10 mg PO HS [facility] Last Admin: 04/29/17 22:02 Dose: 10 mg Tramadol HCl (Ultram) 50 mg PO TID [facility] Last Admin: 04/30/17 09:45 Dose: 50 mg Physical Exam - Head Exam Head Exam: ATRAUMATIC, NORMOCEPHALIC - ENT Exam ENT Exam: Mucous Membranes Moist - Neck Exam Neck exam: Positive for: Normal Inspection - Respiratory Exam Respiratory Exam: Decreased Breath Sounds - Cardiovascular Exam Cardiovascular Exam: REGULAR RHYTHM - GI/Abdominal Exam GI & Abdominal Exam: Distended, Normal Bowel Sounds - Extremities Exam Extremities exam: Positive for: pedal edema - Neurological Exam Neurological exam: Alert, Oriented x3 Results - Vital Signs Recent Vital Signs: Last Vital Signs Temp 97.5 F L 04/30/17 09:16 Pulse 62 04/30/17 09:16 Resp 20 04/30/17 09:16 BP 112/58 L 04/30/17 09:16 Pulse Ox 96 04/30/17 09:16 - Labs Result Diagrams: 04/29/17 09:04/29/17 08:35 Assessment & Plan (1) Malignant pleural effusion Status: Acute Comment: CAT scan of the chest consistent with large right-sided pleural effusion. symptoms will improve with thoracentesis on the right side. IR consult (2) Ascites, malignant Status: Acute
--- NOTE | 2017-04-30 14:44 | CP.PCM.PN ---
Subjective - Date & Time of Evaluation Date of Evaluation: 04/30/17 Time of Evaluation: 14:37 - Subjective Subjective: Pt s/e. Min sob. Comparison of ct of chest (6-14 vs two months ago); Basically unchanged Pleurocutaneous fisulta healed. Pleurec cath functioning. I would not drain effusion right, as this could potentially complicate home care plans-and doubt will improve her clinically. a/p: Satisfactory recovery from decortication. d/c home with home care plan. Drain pleurx cath q one week provided drainage is less than 500cc/session. Objective - Vital Signs/Intake and Output Vital Signs (last 24 hours): Temp Pulse Resp BP Pulse Ox 97.5 F L 62 20 112/58 L 96 04/30/17 09:16 04/30/17 09:16 04/30/17 09:16 04/30/17 09:16 04/30/17 09:16 - Medications Medications: Current Medications Acetaminophen (Tylenol 325mg Tab) 650 mg PO Q6 PRN PRN Reason: Pain, moderate (4-7) Albuterol/Ipratropium (Duoneb 3 Mg/0.5 Mg (3 Ml) Ud) 3 ml INH RQ6 [facility] Last Admin: 04/30/17 13:42 Dose: 3 ml Apixaban (Eliquis) 5 mg PO BID [facility] Last Admin: 04/30/17 09:43 Dose: 5 mg Diltiazem HCl (Cardizem Cd) 300 mg PO DAILY [facility] Last Admin: 04/30/17 09:44 Dose: 300 mg Docusate Sodium (Colace) 100 mg PO BID [facility] Last Admin: 04/30/17 09:44 Dose: 100 mg Famotidine (Pepcid) 20 mg PO DAILY [facility] Last Admin: 04/30/17 09:44 Dose: 20 mg Ferrous Sulfate (Feosol) 325 mg PO TID [facility] Last Admin: 04/30/17 14:01 Dose: 325 mg Ceftriaxone Sodium 1 gm/ (Sodium Chloride) 100 mls @ 100 mls/hr IVPB DAILY [facility] Last Admin: 04/30/17 09:44 Dose: 100 mls/hr Losartan Potassium (Cozaar) 100 mg PO DAILY [facility] Last Admin: 04/30/17 09:44 Dose: 100 mg Metoprolol Tartrate (Lopressor) 50 mg PO BID [facility] Last Admin: 04/30/17 09:44 Dose: 50 mg Rosuvastatin Calcium (Crestor) 10 mg PO HS [facility] Last Admin: 04/29/17 22:02 Dose: 10 mg Tramadol HCl (Ultram) 50 mg PO TID [facility] Last Admin: 04/30/17 14:01 Dose: Not Given - Labs Labs: PT 13.2 SECONDS (9.7-12.2) H 04/29/17 09:33 INR 1.2 04/29/17 09:33 APTT 31 SECONDS (21-34) 04/29/17 09:33
--- NOTE | 2017-04-30 23:16 | CARD ---
APPROVED REPORT EKG Measurement Heart [id number] ME [id number] <Conclusion> Normal sinus rhythm Nonspecific T wave abnormality Abnormal ECG
--- NOTE | 2017-04-30 23:40 | CP.PCM.PN ---
Subjective - Date & Time of Evaluation Date of Evaluation: 04/30/17 Time of Evaluation: 09:10 - Subjective Subjective: patient seen and examined. Patient lying comfortably in no distress Status post thoracentesis 1200 cc off fluid removed from right lung complicated by small pneumothorax Patient states breathing much improved Objective - Vital Signs/Intake and Output Vital Signs (last 24 hours): Temp Pulse Resp BP Pulse Ox 98.1 F 83 20 162/83 H 100 04/30/17 15:00 04/30/17 18:14 04/30/17 18:14 04/30/17 18:14 04/30/17 15:00 Intake and Output: 04/30/17 05/01/17 18:59 06:59 Intake Total 320 Balance 320 - Medications Medications: Current Medications Acetaminophen (Tylenol 325mg Tab) 650 mg PO Q6 PRN PRN Reason: Pain, moderate (4-7) Albuterol/Ipratropium (Duoneb 3 Mg/0.5 Mg (3 Ml) Ud) 3 ml INH RQ6 [facility] Last Admin: 04/30/17 20:10 Dose: 3 ml Apixaban (Eliquis) 5 mg PO BID [facility] Last Admin: 04/30/17 18:13 Dose: 5 mg Diltiazem HCl (Cardizem Cd) 300 mg PO DAILY [facility] Last Admin: 04/30/17 09:44 Dose: 300 mg Docusate Sodium (Colace) 100 mg PO BID [facility] Last Admin: 04/30/17 18:13 Dose: 100 mg Famotidine (Pepcid) 20 mg PO DAILY [facility] Last Admin: 04/30/17 09:44 Dose: 20 mg Ferrous Sulfate (Feosol) 325 mg PO TID [facility] Last Admin: 04/30/17 18:13 Dose: 325 mg Ceftriaxone Sodium 1 gm/ (Sodium Chloride) 100 mls @ 100 mls/hr IVPB DAILY [facility] Last Admin: 04/30/17 09:44 Dose: 100 mls/hr Losartan Potassium (Cozaar) 100 mg PO DAILY [facility] Last Admin: 04/30/17 09:44 Dose: 100 mg Metoprolol Tartrate (Lopressor) 50 mg PO BID [facility] Last Admin: 04/30/17 18:13 Dose: 50 mg Rosuvastatin Calcium (Crestor) 10 mg PO HS [facility] Last Admin: 04/30/17 21:40 Dose: 10 mg Tramadol HCl (Ultram) 50 mg PO TID [facility] Last Admin: 04/30/17 18:13 Dose: 50 mg - Labs Labs: PT 13.2 SECONDS (9.7-12.2) H 04/29/17 09:33 INR 1.2 04/29/17 09:33 APTT 31 SECONDS (21-34) 04/29/17 09:33 - Constitutional Appears: No Acute Distress, Chronically Ill - Head Exam Head Exam: ATRAUMATIC, NORMAL INSPECTION, NORMOCEPHALIC - Eye Exam Eye Exam: EOMI, Normal appearance, PERRL Pupil Exam: NORMAL ACCOMODATION, PERRL - Respiratory Exam Respiratory Exam: Decreased Breath Sounds, Rales, Rhonchi - Cardiovascular Exam Cardiovascular Exam: REGULAR RHYTHM, +S1, +S2. absent: Murmur - GI/Abdominal Exam GI & Abdominal Exam: Soft, Normal Bowel Sounds. absent: Tenderness Assessment and Plan (1) Ascites Status: Acute (2) Ascites, malignant Status: Acute (3) Malignant pleural effusion Status: Acute
[2017-05-01] MEDS: Albuterol-Ipratrop 3 mg / 0.5 (3 ml) UD INH SCH ×4 (01:56→19:59)
[2017-05-01 02:46] LABS: RBC URINE 1 /hpf (0-3); URINE BILIRUBIN NEGATIVE (NEGATIVE); URINE BLOOD NEGATIVE (NEGATIVE); URINE COLOR Yellow (YELLOW); URINE GLUCOSE (UA) NORMAL (Normal); URINE HYALINE CAST 0-2 /lpf (0-2); URINE KETONE NEGATIVE (NEGATIVE); URINE LEUKOCYTE ESTERASE NEG Leu/uL (Negative); URINE PROTEIN NEGATIVE (NEGATIVE); URINE UROBILINOGEN NORMAL mg/dL (0.2-1.0); WBC URINE 4 /hpf (0-5)
[2017-05-01 08:15] LABS: BASO % 0.5 % (0.0-2.0); EOS # 0.1 K/uL (0.0-0.7); EOS % 1.4 % (0.0-4.0); LYMPH # 1.4 K/uL (1.0-4.3); LYMPH % 21.9 % (20.0-40.0); MEAN CELL VOLUME 80.9 fL (81.0-99.0); MEAN CORPUSCULAR HEMOGLOBIN 24.9 pg (27.0-31.0); MEAN CORPUSCULAR HGB CONC 30.8 g/dL (33.0-37.0); MEAN PLATELET VOLUME 7.2 fL (7.2-11.7); MONO # 0.7 K/uL (0.0-0.8); MONO % 10.4 % (0.0-10.0); NRBC % 0.1 % (0.0-2.0); WHITE BLOOD COUNT 6.5 K/uL (4.8-10.8)
[2017-05-01 09:39] LABS: CHLORIDE 102 mmol/L (98-107); SODIUM 139 mmol/L (132-148)
[2017-05-01 09:40] LABS: POTASSIUM 3.8 mmol/L (3.6-5.2)
[2017-05-01 09:42] LABS: CARBON DIOXIDE 28 mmol/L (22-30); GFR AFRICAN-AMERICAN > 60
[2017-05-01 09:43] LABS: BLOOD UREA NITROGEN 13 mg/dL (7-17); CALCIUM 9.4 mg/dl (8.6-10.4); GLUCOSE,RANDOM 97 mg/dL (65-105)
--- NOTE | 2017-05-01 10:38 | PCM.SURG1 ---
Surgeon's Initial Post Op Note - Surgeon's Notes Surgeon: LILLIAN Hassan MD Nutrition Intern: NONE Type of Anesthesia: Local Pre-Operative Diagnosis: Right pleural effusion Operative Findings: US showed large right effusion Post-Operative Diagnosis: Right pleural effusion Operation Performed: US guided thoracentesis. Specimen/Specimens Removed: 1200 cc of slight serosanguinous fluid Estimated Blood Loss: EBL {In ML}: 0 Blood Products Given: N/A Drains Used: No Drains Post-Op Condition: Fair Date of Surgery/Procedure: 05/01/17 Time of Surgery/Procedure: 10:35
[2017-05-01] MEDS: diltiaZEM 300 mg/24 Hours CD Cap PO SCH ×2 (11:00→12:17)
--- NOTE | 2017-05-01 11:03 | US ---
PROCEDURE: Date of procedure: 05/01/2017 Procedure: 1. Ultrasound-guided Right thoracentesis, CPT 05631 Medications: 6 cc 1% Lidocaine HISTORY: Right pleural effusion, shortness of breath TECHNIQUE: Following informed consent ,the Patients' right chest was marked. Procedure time-out was called, and the patient was placed in the sitting position and limited ultrasound showed a large right effusion. The patient's right back was prepped and draped in the usual sterile fashion. After the skin was anesthetized with lidocaine, a drainage catheter was advanced under ultrasound guidance into the pleural space. Ultrasound-guided thoracentesis was performed. A total of 1200 cubic centimeters of slight serosanguinous fluid removed without complication. A Xeroform dressing was applied. IMPRESSION: Ultrasound guided Right thoracentesis. There were no immediate complications.
--- NOTE | 2017-05-01 11:58 | RAD ---
HISTORY: Status post right thoracentesis. COMPARISON: 04/29/2017 FINDINGS: The right MediPort terminates at the cavoatrial junction. LUNGS: There is airspace disease in the left lateral mid lung and lower lobe. PLEURA: There is a small right pneumothorax. No evidence of midline shift. There is also small left pleural effusion. CARDIOVASCULAR: Stable. OSSEOUS STRUCTURES: Question of nondisplaced fractures in the left lower ribs. VISUALIZED UPPER ABDOMEN: Normal. OTHER FINDINGS: None. IMPRESSION: 1. Status post right thoracentesis, small right pneumothorax. 2. Small left pleural effusion and left lateral mid lung and lower lobe atelectasis/pneumonia.
--- NOTE | 2017-05-01 13:28 | PCM.IRP ---
History of Present Illness - History of Present Illness History of Present Illness: Pt is s/p right thoracentesis with a 15-20 % pneumothorax. The repeat cxr showed slight increase. This may be not a true increase given positional change. Pneumothorax is felt to represent space from the pleural effusion removed and inability of the lung to fully expand. The pt is clinically stable and has no increase oxygen requirements. Plan: Will continue to follow and will consider placing a chest tube if the PTX increases and patient decompensates. Please call with any questions. Nicolas Hassan MD [phone] Objective - Vital Signs/Intake and Output Vital Signs (last 24 hours): Vital Signs - 24 hr 04/30/17 04/30/17 04/30/17 15:00 15:25 16:00 Temperature 98.1 F Pulse Rate 70 72 72 Respiratory 20 Rate Blood Pressure 142/92 H O2 Sat by Pulse 100 Oximetry 04/30/17 04/30/17 05/01/17 18:14 23:15 00:00 Temperature 97.4 F L Pulse Rate 83 79 76 Respiratory 20 20 Rate Blood Pressure 162/83 H 154/80 H O2 Sat by Pulse 94 L Oximetry 05/01/17 05/01/17 05/01/17 07:35 08:37 10:15 Temperature 97.7 F Pulse Rate 78 77 Respiratory 20 Rate Blood Pressure 146/78 O2 Sat by Pulse 99 96 Oximetry Intake and Output (last 12 hours): Intake & Output 04/30/17 05/01/17 05/01/17 18:59 06:59 18:59 Intake Total 320 Balance 320 Intake: Oral 320 Other: # Voids Urine, Voided 1 # Bowel Movements 0 - Medications Medications: Current Medications Acetaminophen (Tylenol 325mg Tab) 650 mg PO Q6 PRN PRN Reason: Pain, moderate (4-7) Albuterol/Ipratropium (Duoneb 3 Mg/0.5 Mg (3 Ml) Ud) 3 ml INH RQ6 [facility] Last Admin: 05/01/17 08:30 Dose: 3 ml Apixaban (Eliquis) 5 mg PO BID [facility] Last Admin: 05/01/17 11:00 Dose: Not Given Diltiazem HCl (Cardizem Cd) 300 mg PO DAILY [facility] Last Admin: 05/01/17 12:17 Dose: 300 mg Docusate Sodium (Colace) 100 mg PO BID [facility] Last Admin: 05/01/17 11:00 Dose: Not Given Famotidine (Pepcid) 20 mg PO DAILY [facility] Last Admin: 05/01/17 12:42 Dose: 20 mg Ferrous Sulfate (Feosol) 325 mg PO TID [facility] Last Admin: 05/01/17 13:13 Dose: 325 mg Ceftriaxone Sodium 1 gm/ (Sodium Chloride) 100 mls @ 100 mls/hr IVPB DAILY [facility] Last Admin: 05/01/17 12:42 Dose: 100 mls/hr Losartan Potassium (Cozaar) 100 mg PO DAILY [facility] Last Admin: 05/01/17 12:42 Dose: 100 mg Metoprolol Tartrate (Lopressor) 50 mg PO BID [facility] Last Admin: 05/01/17 11:01 Dose: Not Given Rosuvastatin Calcium (Crestor) 10 mg PO [facility] Last Admin: 04/30/17 21:40 Dose: 10 mg Tramadol HCl (Ultram) 50 mg PO TID [facility] Last Admin: 05/01/17 13:12 Dose: 50 mg - Labs Labs (last 24 hours): Laboratory Results - last 24 hr 05/01/17 05/01/17 05/01/17 02:20 07:56 07:56 WBC 6.5 RBC 4.45 Hgb 11.1 Hct 36.0 MCV 80.9 L MCH 24.9 L MCHC 30.8 L RDW 17.0 H Plt Count 291 MPV 7.2 Neut % (Auto) 65.8 Lymph % (Auto) 21.9 [place] % (Auto) 10.4 H Eos % (Auto) 1.4 Baso % (Auto) 0.5 Neut # 4.3 Lymph # 1.4 Rains # 0.7 Eos # 0.1 Baso # 0.0 Sodium 139 Potassium 3.8 Chloride 102 Carbon Dioxide 28 Anion Gap 13 BUN 13 Creatinine 0.6 L Est GFR ( Amer) > 60 Est GFR (Non-Af Amer) > 60 Random Glucose 97 Calcium 9.4 Urine Color Yellow Urine Clarity Clear Urine pH 5.0 Ur Specific [place] 1.018 Urine Protein Negative Urine Glucose (UA) Normal Urine Ketones Negative Urine Blood Negative Urine Nitrate Negative Urine Bilirubin Negative Urine Urobilinogen Normal Ur Leukocyte Esterase Neg Urine WBC (Auto) 4 Urine RBC (Auto) 1 Ur Squamous Epith Cells 3 Hyaline Casts 0-2
--- NOTE | 2017-05-01 13:45 | PCM.SURG1 ---
Surgeon's Initial Post Op Note - Surgeon's Notes Surgeon: Nicolas Hassan MD Roll Forming Machine Set Up Mechanic: NONE Type of Anesthesia: Local Pre-Operative Diagnosis: Poor venous access Operative Findings: Patent right basilic vein Post-Operative Diagnosis: Poor venous access Operation Performed: Right basilic vein single lumen picc placement, 35 cm. Tip in SVC. Specimen/Specimens Removed: none Estimated Blood Loss: EBL {In ML}: 2 Blood Products Given: N/A Drains Used: No Drains Post-Op Condition: Fair Date of Surgery/Procedure: 05/01/17 Time of Surgery/Procedure: 13:45
--- NOTE | 2017-05-01 16:11 | CP.PCM.CON ---
History of Present Illness - History of Present Illness History of Present Illness: Palliative consult Requested by Manoj ESTES Reason : Goals of care, code status patient is a 71 yo female admitted with SOB, LEs swelling X 1 week. Patient has a Hx of multiple admissions to the hospital for symptoms of malignant disease. CT chest was significant for large ;eft pleural effusion and Thoracentisis performed, drained 500 cc. PMH: ovarian CA, lung CA, malignant ascites, DM, HTN, PE Soc. Hx: , lives alone Fam. Hx: unknown Review of Systems - Constitutional Constitutional: Weakness - EENT Eyes: absent: As Per HPI, Blind Spots, Blurred Vision, Change in Vision, Decreased Night Vision, Diplopia, Discharge, Dry Eye, Exophthalmos, Floaters, Irritation, Itchy Eyes, Loss of Peripheral Vision, Pain, Photophobia, Requires Corrective Lenses, Sees Flashes, Spots in Vision, Tunnel Vision, Other Visual Disturbances, Loss of Vision, Other Ears: absent: As Per HPI, Decreased Hearing, Ear Discharge, Ear Pain, Tinnitus, Abnormal Hearing, Disequilibrium, Dizziness, Other Nose/Mouth/Throat: absent: As Per HPI, Epistaxis, Nasal Congestion, Nasal Discharge, Nasal Obstruction, Nasal Trauma, Nose Pain, Post Nasal Drip, Sinus Pain, Sinus Pressure, Bleeding Gums, Change in Voice, Dental Pain, Dry Mouth, Dysphagia, Halitosis, Hoarsness, Lip Swelling, Mouth Lesions, Mouth Pain, Odynophagia, Sore Throat, Throat Swelling, Tongue Swelling, Facial Pain, Neck Pain, Neck Mass, Other - Breasts Breasts: absent: As Per HPI, Change in Shape, Mass, Pain, Nipple Discharge, Nipple Inversion, Skin Changes, Swelling, Other - Cardiovascular Cardiovascular: Dyspnea on Exertion, Leg Edema - Respiratory Respiratory: Dyspnea on Exertion - Gastrointestinal Gastrointestinal: absent: As Per HPI, Abdominal Pain, Belching, Bloating, Change in Bowel Habits, Change in Stool Character, Coffee Ground Emesis, Constipation, Cramping, Diarrhea, Dyspepsia, Dysphagia, Early Satiety, Excessive Flatus, Fecal Incontinence, Heartburn, Hematemesis, Hematochezia, Loose Stools, Melena, Nausea, Odynophagia, Temesmus, Vomiting, Other - Genitourinary Genitourinary: absent: As Per HPI, Change in Urinary Stream, Difficulty Urinating, Dysuria, Flank Pain, Hematuria, Pyuria, Nocturia, Urinary Incontinence, Urinary Frequency, Urinary Hesitance, Urinary Urgency, Voiding Freq/Small Amts, Freq UTI, Hx Renal/Bladder Calculi, Hx /Renal Surgery, Bladder Distension, Other - Reproductive: Female Reproductive:Female: Post Menopausal - Menstruation Menstruation: Post Menopausal - Musculoskeletal Musculoskeletal: Muscle Weakness - Integumentary Integumentary: Dry Skin - Neurological Neurological: Weakness - Psychiatric Psychiatric: absent: As Per HPI, Abnormal Sleep Pattern, Anhedonia, Anxiety, Auditory Hallucinations, Behavioral Changes, Change in Appetite, Change in Libido, Confusion, Depression, Difficulty Concentrating, Hallucinations, Homicidal Ideation, Hopelessness, Irritability, Memory Loss, Mood Swings, Panic Attacks, Paranoia, Suicidal Ideation, Visual Hallucinations, Tactile Hallucinations, Other - Endocrine Endocrine: Fatigue - Hematologic/Lymphatic Hematologic: absent: As Per HPI, Easy Bleeding, Easy Bruising, Lymphadenopathy, Other Past Patient History - Infectious Disease Hx of Infectious Diseases: None - Past Medical History & Family History Past Medical History?: Yes - Past Social History Smoking Status: Former Smoker - CARDIAC Hx Hypercholesterolemia: Yes Hx Hypertension: Yes - PULMONARY Hx Asthma: Yes Hx Pulmonary Embolism: Yes - NEUROLOGICAL Hx Seizures: Yes (UP TIL AGE 14YRS.) - HEENT Hx HEENT Problems: Yes Hx Cataracts: Yes (LEFT) - ENDOCRINE/METABOLIC Hx Diabetes Mellitus Type 2: Yes - HEMATOLOGICAL/ONCOLOGICAL Hx Anemia: Yes - INTEGUMENTARY Hx Dermatological Problems: No - MUSCULOSKELETAL/RHEUMATOLOGICAL Hx Arthritis: Yes (GENERALIZED) Hx Rheumatoid Arthritis: Yes - GASTROINTESTINAL Hx Gastrointestinal Disorders: No Hx Crohn's Disease: No Hx Diverticulitis: No Hx Gall Bladder Disease: No Hx Gastritis: No Hx Pancreatitis: No - GENITOURINARY/GYNECOLOGICAL Hx Genitourinary Disorders: No Hx Sexually Transmitted Disorders: No - PSYCHIATRIC Hx Substance Use: No - SURGICAL HISTORY Hx Surgeries: Yes Hx Hysterectomy: Yes Other/Comment: Leonidas cath to right chest. - ANESTHESIA Hx Anesthesia: Yes Hx Anesthesia Reactions: No Hx Malignant Hyperthermia: No Has any member of the family had a problem w/ anesthesia?: No Meds Allergies/Adverse Reactions: Allergies Allergy/AdvReac Type Severity Reaction Status Date / Time No Known Allergies Allergy Verified 12/17/16 18:57 - Medications Medications: Current Medications Acetaminophen (Tylenol 325mg Tab) 650 mg PO Q6 PRN PRN Reason: Pain, moderate (4-7) Albuterol/Ipratropium (Duoneb 3 Mg/0.5 Mg (3 Ml) Ud) 3 ml INH RQ6 [facility] Last Admin: 05/01/17 13:39 Dose: 3 ml Apixaban (Eliquis) 5 mg PO BID [facility] Last Admin: 05/01/17 11:00 Dose: Not Given Diltiazem HCl (Cardizem Cd) 300 mg PO DAILY [facility] Last Admin: 05/01/17 12:17 Dose: 300 mg Docusate Sodium (Colace) 100 mg PO BID [facility] Last Admin: 05/01/17 11:00 Dose: Not Given Famotidine (Pepcid) 20 mg PO DAILY [facility] Last Admin: 05/01/17 12:42 Dose: 20 mg Ferrous Sulfate (Feosol) 325 mg PO TID [facility] Last Admin: 05/01/17 13:13 Dose: 325 mg Ceftriaxone Sodium 1 gm/ (Sodium Chloride) 100 mls @ 100 mls/hr IVPB DAILY [facility] Last Admin: 05/01/17 12:42 Dose: 100 mls/hr Losartan Potassium (Cozaar) 100 mg PO DAILY [facility] Last Admin: 05/01/17 12:42 Dose: 100 mg Metoprolol Tartrate (Lopressor) 50 mg PO BID [facility] Last Admin: 05/01/17 11:01 Dose: Not Given Rosuvastatin Calcium (Crestor) 10 mg PO HS [facility] Last Admin: 04/30/17 21:40 Dose: 10 mg Tramadol HCl (Ultram) 50 mg PO TID [facility] Last Admin: 05/01/17 13:12 Dose: 50 mg Physical Exam - Constitutional Appears: Chronically Ill - Head Exam Head Exam: ATRAUMATIC, NORMAL INSPECTION, NORMOCEPHALIC - Eye Exam Eye Exam: EOMI, Normal appearance, PERRL Pupil Exam: NORMAL ACCOMODATION, PERRL - ENT Exam ENT Exam: Mucous Membranes Moist, Normal Exam - Neck Exam Neck exam: Positive for: Normal Inspection - Respiratory Exam Respiratory Exam: Decreased Breath Sounds, NORMAL BREATHING PATTERN - Cardiovascular Exam Cardiovascular Exam: REGULAR RHYTHM, +S1, +S2 - GI/Abdominal Exam GI & Abdominal Exam: Normal Bowel Sounds, Soft - Rectal Exam Rectal Exam: Deferred - Extremities Exam Extremities exam: Positive for: pedal edema - Back Exam Back exam: NORMAL INSPECTION - Neurological Exam Neurological exam: Alert, Oriented x3 - Psychiatric Exam Psychiatric exam: Normal Affect, Normal Mood - Skin Skin Exam: Normal Color Results - Vital Signs Recent Vital Signs: Last Vital Signs Temp 97.7 F 05/01/17 07:35 Pulse 77 05/01/17 08:37 Resp 20 05/01/17 07:35 BP 146/78 05/01/17 07:35 Pulse Ox 96 05/01/17 10:15 - Labs Result Diagrams: 05/01/17 07:56 05/01/17 07:56 Labs: Laboratory Results - last 24 hr 05/01/17 05/01/17 05/01/17 02:20 07:56 07:56 WBC 6.5 RBC 4.45 Hgb 11.1 Hct 36.0 MCV 80.9 L MCH 24.9 L MCHC 30.8 L RDW 17.0 H Plt Count 291 MPV 7.2 Neut % (Auto) 65.8 Lymph % (Auto) 21.9 [place] % (Auto) 10.4 H Eos % (Auto) 1.4 Baso % (Auto) 0.5 Neut # 4.3 Lymph # 1.4 [place] # 0.7 Eos # 0.1 Baso # 0.0 Sodium 139 Potassium 3.8 Chloride 102 Carbon Dioxide 28 Anion Gap 13 BUN 13 Creatinine 0.6 L Est GFR ( Amer) > 60 Est GFR (Non-Af Amer) > 60 Random Glucose 97 Calcium 9.4 Urine Color Yellow Urine Clarity Clear Urine pH 5.0 Ur Specific [place] 1.018 Urine Protein Negative Urine Glucose (UA) Normal Urine Ketones Negative Urine Blood Negative Urine Nitrate Negative Urine Bilirubin Negative Urine Urobilinogen Normal Ur Leukocyte Esterase Neg Urine WBC (Auto) 4 Urine RBC (Auto) 1 Ur Squamous Epith Cells 3 Hyaline Casts 0-2 Assessment & Plan - Assessment and Plan (Free Text) Assessment: palliative consult Code status prior to consult , Full Code, there is no advance directive on chart. PPS 30% I reviewed medical records, all diagnostic studies, examined and interviewed patient in the bed and discussed her presentation with daughter Latonia. POLST completed. Patient is alert, oriented X 3 in no acute distress. Post thoracentesis. Breathing non labored. Patient reports being able to breath easier. I reviewed her clinical presentation and suggested that cancer was a chronic progressive disease and that many people in her condition have advance directive. Patient agreed. Patient very specific about end of life care. Does not want her life to be prolonged if meaningful recovery not expected. This was discussed to daughter Shaye over the phone, and she concurred. POLST completed. Impression * Chronically ill patient with metastatis disease and malignant ascites * S/P thoracentesis, feels much better * Code status discussed, patient choose DNR/DNI. Daughter concurred. Suggestion * Symptomatic Tx * Looks stable for transfer * DNR/DNI * POLST on chart Thank you very much for consulting palliative care,
--- NOTE | 2017-05-01 17:17 | CP.PCM.PN ---
Subjective - Date & Time of Evaluation Date of Evaluation: 05/01/17 Time of Evaluation: 14:40 - Subjective Subjective: patient seen and examined. Patient lying comfortably in no distress Status post thoracentesis 1200 cc off fluid removed from right lung complicated by small pneumothorax Patient states breathing much improved Objective - Vital Signs/Intake and Output Vital Signs (last 24 hours): Temp Pulse Resp BP Pulse Ox 97.7 F 77 20 146/78 96 05/01/17 07:35 05/01/17 08:37 05/01/17 07:35 05/01/17 07:35 05/01/17 10:15 Intake and Output: 05/01/17 05/01/17 06:59 18:59 Intake Total 320 Balance 320 - Medications Medications: Current Medications Acetaminophen (Tylenol 325mg Tab) 650 mg PO Q6 PRN PRN Reason: Pain, moderate (4-7) Albuterol/Ipratropium (Duoneb 3 Mg/0.5 Mg (3 Ml) Ud) 3 ml INH RQ6 [facility] Last Admin: 05/01/17 13:39 Dose: 3 ml Apixaban (Eliquis) 5 mg PO BID [facility] Last Admin: 05/01/17 11:00 Dose: Not Given Diltiazem HCl (Cardizem Cd) 300 mg PO DAILY [facility] Last Admin: 05/01/17 12:17 Dose: 300 mg Docusate Sodium (Colace) 100 mg PO BID [facility] Last Admin: 05/01/17 11:00 Dose: Not Given Famotidine (Pepcid) 20 mg PO DAILY [facility] Last Admin: 05/01/17 12:42 Dose: 20 mg Ferrous Sulfate (Feosol) 325 mg PO TID [facility] Last Admin: 05/01/17 13:13 Dose: 325 mg Ceftriaxone Sodium 1 gm/ (Sodium Chloride) 100 mls @ 100 mls/hr IVPB DAILY [facility] Last Admin: 05/01/17 12:42 Dose: 100 mls/hr Losartan Potassium (Cozaar) 100 mg PO DAILY [facility] Last Admin: 05/01/17 12:42 Dose: 100 mg Metoprolol Tartrate (Lopressor) 50 mg PO BID [facility] Last Admin: 05/01/17 11:01 Dose: Not Given Rosuvastatin Calcium (Crestor) 10 mg PO HS [facility] Last Admin: 04/30/17 21:40 Dose: 10 mg Tramadol HCl (Ultram) 50 mg PO TID [facility] Last Admin: 05/01/17 13:12 Dose: 50 mg - Labs Labs: 05/01/17 07:56 05/01/17 07:56 PT 13.2 SECONDS (9.7-12.2) H 04/29/17 09:33 INR 1.2 04/29/17 09:33 APTT 31 SECONDS (21-34) 04/29/17 09:33 - Head Exam Head Exam: ATRAUMATIC, NORMOCEPHALIC - Eye Exam Eye Exam: Normal appearance - ENT Exam ENT Exam: Mucous Membranes Moist - Neck Exam Neck Exam: Normal Inspection - Respiratory Exam Respiratory Exam: Decreased Breath Sounds - Cardiovascular Exam Cardiovascular Exam: REGULAR RHYTHM - GI/Abdominal Exam GI & Abdominal Exam: Soft, Normal Bowel Sounds - Extremities Exam Extremities Exam: Pedal Edema - Neurological Exam Neurological Exam: Alert Assessment and Plan (1) Malignant pleural effusion Assessment & Plan: status post thoracentesis by IR and 1200 cc of fluid removed Patient breathing much improved Followup chest x-ray Status: Acute (2) Ascites, malignant Status: Acute
--- NOTE | 2017-05-01 23:46 | CP.PCM.PN ---
Subjective - Date & Time of Evaluation Date of Evaluation: 05/01/17 Time of Evaluation: 21:00 - Subjective Subjective: patient seen and examined. Patient lying comfortably in no distress Status post thoracentesis 1200 cc off fluid removed from right lung complicated by small pneumothorax Patient states breathing much improved Objective - Vital Signs/Intake and Output Vital Signs (last 24 hours): Temp Pulse Resp BP Pulse Ox 98.1 F 87 18 136/69 99 05/01/17 17:31 05/01/17 17:31 05/01/17 17:31 05/01/17 17:31 05/01/17 17:31 - Medications Medications: Current Medications Acetaminophen (Tylenol 325mg Tab) 650 mg PO Q6 PRN PRN Reason: Pain, moderate (4-7) Albuterol/Ipratropium (Duoneb 3 Mg/0.5 Mg (3 Ml) Ud) 3 ml INH RQ6 [facility] Last Admin: 05/01/17 19:59 Dose: 3 ml Apixaban (Eliquis) 5 mg PO BID [facility] Last Admin: 05/01/17 17:31 Dose: 5 mg Diltiazem HCl (Cardizem Cd) 300 mg PO DAILY [facility] Last Admin: 05/01/17 12:17 Dose: 300 mg Docusate Sodium (Colace) 100 mg PO BID [facility] Last Admin: 05/01/17 17:26 Dose: 100 mg Famotidine (Pepcid) 20 mg PO DAILY [facility] Last Admin: 05/01/17 12:42 Dose: 20 mg Ferrous Sulfate (Feosol) 325 mg PO TID [facility] Last Admin: 05/01/17 17:27 Dose: 325 mg Ceftriaxone Sodium 1 gm/ (Sodium Chloride) 100 mls @ 100 mls/hr IVPB DAILY [facility] Last Admin: 05/01/17 12:42 Dose: 100 mls/hr Losartan Potassium (Cozaar) 100 mg PO DAILY [facility] Last Admin: 05/01/17 12:42 Dose: 100 mg Metoprolol Tartrate (Lopressor) 50 mg PO BID [facility] Last Admin: 05/01/17 17:31 Dose: 50 mg Rosuvastatin Calcium (Crestor) 10 mg PO HS [facility] Last Admin: 05/01/17 21:24 Dose: 10 mg Tramadol HCl (Ultram) 50 mg PO TID [facility] Last Admin: 06/16/17 17:27 Dose: 50 mg - Labs Labs: 05/01/17 07:56 05/01/17 07:56 PT 13.2 SECONDS (9.7-12.2) H 04/29/17 09:33 INR 1.2 04/29/17 09:33 APTT 31 SECONDS (21-34) 04/29/17 09:33 Assessment and Plan (1) Ascites Status: Acute (2) Ascites, malignant Status: Acute (3) Malignant pleural effusion Status: Acute
[2017-05-02] MEDS: Albuterol-Ipratrop 3 mg / 0.5 (3 ml) UD INH SCH ×4 (02:07→20:37)
[2017-05-02] MEDS: diltiaZEM 300 mg/24 Hours CD Cap PO SCH (09:35)
[2017-05-02 15:28] VITALS: RESP 20
--- NOTE | 2017-05-02 17:23 | CP.PCM.PN ---
Subjective - Date & Time of Evaluation Date of Evaluation: 05/02/17 Time of Evaluation: 15:20 - Subjective Subjective: Patient seen and examined. Patient states breathing is much improved after thoracentesis Complaining of slight chest discomfort Objective - Vital Signs/Intake and Output Vital Signs (last 24 hours): Temp Pulse Resp BP Pulse Ox 98.1 F 86 20 125/74 96 05/02/17 15:27 05/02/17 15:27 05/02/17 15:27 05/02/17 15:27 05/02/17 15:27 - Medications Medications: Current Medications Acetaminophen (Tylenol 325mg Tab) 650 mg PO Q6 PRN PRN Reason: Pain, moderate (4-7) Albuterol/Ipratropium (Duoneb 3 Mg/0.5 Mg (3 Ml) Ud) 3 ml INH RQ6 [facility] Last Admin: 05/02/17 13:52 Dose: 3 ml Apixaban (Eliquis) 5 mg PO BID [facility] Last Admin: 05/02/17 09:35 Dose: 5 mg Diltiazem HCl (Cardizem Cd) 300 mg PO DAILY [facility] Last Admin: 05/02/17 09:35 Dose: 300 mg Docusate Sodium (Colace) 100 mg PO BID [facility] Last Admin: 05/02/17 09:34 Dose: 100 mg Famotidine (Pepcid) 20 mg PO DAILY [facility] Last Admin: 05/02/17 09:34 Dose: 20 mg Ferrous Sulfate (Feosol) 325 mg PO TID [facility] Last Admin: 05/02/17 13:45 Dose: 325 mg Ceftriaxone Sodium 1 gm/ (Sodium Chloride) 100 mls @ 100 mls/hr IVPB DAILY [facility] Last Admin: 05/02/17 09:32 Dose: 100 mls/hr Losartan Potassium (Cozaar) 100 mg PO DAILY [facility] Last Admin: 05/02/17 09:33 Dose: 100 mg Metoprolol Tartrate (Lopressor) 50 mg PO BID [facility] Last Admin: 05/01/17 17:31 Dose: 50 mg Rosuvastatin Calcium (Crestor) 10 mg PO HS [facility] Last Admin: 05/01/17 21:24 Dose: 10 mg Tramadol HCl (Ultram) 50 mg PO TID [facility] Last Admin: 05/02/17 13:44 Dose: 50 mg - Labs Labs: 05/01/17 07:56 05/01/17 07:56 PT 13.2 SECONDS (9.7-12.2) H 04/29/17 09:33 INR 1.2 04/29/17 09:33 APTT 31 SECONDS (21-34) 04/29/17 09:33 - Constitutional Appears: No Acute Distress - Head Exam Head Exam: ATRAUMATIC, NORMOCEPHALIC - Eye Exam Eye Exam: Normal appearance - ENT Exam ENT Exam: Mucous Membranes Moist - Neck Exam Neck Exam: Full ROM, Normal Inspection - Respiratory Exam Respiratory Exam: Decreased Breath Sounds - Cardiovascular Exam Cardiovascular Exam: REGULAR RHYTHM - GI/Abdominal Exam GI & Abdominal Exam: Soft, Normal Bowel Sounds - Extremities Exam Extremities Exam: Pedal Edema Assessment and Plan (1) Malignant pleural effusion Assessment & Plan: status post thoracentesis and breathing much improved stable from pulmonary standpoint Status: Acute (2) Ascites, malignant Status: Acute
--- NOTE | 2017-05-02 18:00 | CP.PCM.PN ---
Subjective - Date & Time of Evaluation Date of Evaluation: 05/02/17 Time of Evaluation: 10:00 - Subjective Subjective: Patient seen and examined. Patient states breathing is much improved after thoracentesis Complaining of slight chest discomfort Objective - Vital Signs/Intake and Output Vital Signs (last 24 hours): Temp Pulse Resp BP Pulse Ox 98.1 F 86 20 125/74 96 05/02/17 15:27 05/02/17 15:27 05/02/17 15:27 05/02/17 15:27 05/02/17 15:27 - Medications Medications: Current Medications Acetaminophen (Tylenol 325mg Tab) 650 mg PO Q6 PRN PRN Reason: Pain, moderate (4-7) Albuterol/Ipratropium (Duoneb 3 Mg/0.5 Mg (3 Ml) Ud) 3 ml INH RQ6 [facility] Last Admin: 05/02/17 13:52 Dose: 3 ml Apixaban (Eliquis) 5 mg PO BID [facility] Last Admin: 05/02/17 09:35 Dose: 5 mg Diltiazem HCl (Cardizem Cd) 300 mg PO DAILY [facility] Last Admin: 05/02/17 09:35 Dose: 300 mg Docusate Sodium (Colace) 100 mg PO BID [facility] Last Admin: 05/02/17 09:34 Dose: 100 mg Famotidine (Pepcid) 20 mg PO DAILY [facility] Last Admin: 05/02/17 09:34 Dose: 20 mg Ferrous Sulfate (Feosol) 325 mg PO TID [facility] Last Admin: 05/02/17 13:45 Dose: 325 mg Ceftriaxone Sodium 1 gm/ (Sodium Chloride) 100 mls @ 100 mls/hr IVPB DAILY [facility] Last Admin: 05/02/17 09:32 Dose: 100 mls/hr Losartan Potassium (Cozaar) 100 mg PO DAILY [facility] Last Admin: 05/02/17 09:33 Dose: 100 mg Metoprolol Tartrate (Lopressor) 50 mg PO BID [facility] Last Admin: 05/01/17 17:31 Dose: 50 mg Rosuvastatin Calcium (Crestor) 10 mg PO HS [facility] Last Admin: 05/01/17 21:24 Dose: 10 mg Tramadol HCl (Ultram) 50 mg PO TID [facility] Last Admin: 05/02/17 13:44 Dose: 50 mg - Labs Labs: 05/01/17 07:56 05/01/17 07:56 PT 13.2 SECONDS (9.7-12.2) H 04/29/17 09:33 INR 1.2 04/29/17 09:33 APTT 31 SECONDS (21-34) 04/29/17 09:33 - Constitutional Appears: No Acute Distress - Head Exam Head Exam: ATRAUMATIC, NORMAL INSPECTION, NORMOCEPHALIC - Eye Exam Eye Exam: EOMI, Normal appearance, PERRL Pupil Exam: NORMAL ACCOMODATION, PERRL - Respiratory Exam Respiratory Exam: Decreased Breath Sounds - Cardiovascular Exam Cardiovascular Exam: REGULAR RHYTHM, +S1, +S2. absent: Murmur - GI/Abdominal Exam GI & Abdominal Exam: Soft, Normal Bowel Sounds. absent: Tenderness Assessment and Plan (1) Ascites Status: Acute (2) Ascites, malignant Status: Acute (3) Malignant pleural effusion Status: Acute
[2017-05-03] MEDS: Albuterol-Ipratrop 3 mg / 0.5 (3 ml) UD INH SCH ×4 (01:47→19:48)
[2017-05-03] MEDS: diltiaZEM 300 mg/24 Hours CD Cap PO SCH (10:51)
--- NOTE | 2017-05-03 23:29 | CP.PCM.PN ---
Subjective - Date & Time of Evaluation Date of Evaluation: 05/03/17 Time of Evaluation: 10:15 - Subjective Subjective: Pt seen & evaluated, also seen by surgery, does not need any other intervention , is maintaining fair saturation, no shortness of breath Objective - Vital Signs/Intake and Output Vital Signs (last 24 hours): Temp Pulse Resp BP Pulse Ox 97.6 F 68 20 138/76 97 05/03/17 15:35 05/03/17 17:30 05/03/17 15:35 05/03/17 15:35 05/03/17 15:35 - Medications Medications: Current Medications Acetaminophen (Tylenol 325mg Tab) 650 mg PO Q6 PRN PRN Reason: Pain, moderate (4-7) Albuterol/Ipratropium (Duoneb 3 Mg/0.5 Mg (3 Ml) Ud) 3 ml INH RQ6 [facility] Last Admin: 05/03/17 19:48 Dose: 3 ml Diltiazem HCl (Cardizem Cd) 300 mg PO DAILY [facility] Last Admin: 05/03/17 10:51 Dose: 300 mg Docusate Sodium (Colace) 100 mg PO BID [facility] Last Admin: 05/03/17 17:52 Dose: 100 mg Famotidine (Pepcid) 20 mg PO DAILY [facility] Last Admin: 05/03/17 10:52 Dose: 20 mg Ferrous Sulfate (Feosol) 325 mg PO TID [facility] Last Admin: 05/03/17 17:52 Dose: 325 mg Ceftriaxone Sodium 1 gm/ (Sodium Chloride) 100 mls @ 100 mls/hr IVPB DAILY [facility] Last Admin: 05/03/17 10:52 Dose: 100 mls/hr Losartan Potassium (Cozaar) 100 mg PO DAILY [facility] Last Admin: 05/03/17 10:51 Dose: 100 mg Metoprolol Tartrate (Lopressor) 50 mg PO BID [facility] Last Admin: 05/03/17 17:53 Dose: 50 mg Rosuvastatin Calcium (Crestor) 10 mg PO HS [facility] Last Admin: 05/03/17 21:51 Dose: 10 mg Tramadol HCl (Ultram) 50 mg PO TID [facility] Last Admin: 05/03/17 17:53 Dose: 50 mg - Labs Labs: 05/01/17 07:56 05/01/17 07:56 PT 13.2 SECONDS (9.7-12.2) H 04/29/17 09:33 INR 1.2 04/29/17 09:33 APTT 31 SECONDS (21-34) 04/29/17 09:33 - Constitutional Appears: No Acute Distress - Head Exam Head Exam: ATRAUMATIC, NORMAL INSPECTION, NORMOCEPHALIC - Eye Exam Eye Exam: EOMI, Normal appearance, PERRL Pupil Exam: NORMAL ACCOMODATION, PERRL - Respiratory Exam Respiratory Exam: Decreased Breath Sounds, Rales, Rhonchi - Cardiovascular Exam Cardiovascular Exam: REGULAR RHYTHM, +S1, +S2. absent: Murmur - GI/Abdominal Exam GI & Abdominal Exam: Soft, Normal Bowel Sounds. absent: Tenderness Assessment and Plan (1) Ascites Status: Acute (2) Ascites, malignant Status: Acute (3) Malignant pleural effusion Status: Acute
[2017-05-04] MEDS: Albuterol-Ipratrop 3 mg / 0.5 (3 ml) UD INH SCH ×4 (01:50→20:40)
[2017-05-04] MEDS: diltiaZEM 300 mg/24 Hours CD Cap PO SCH (09:48)
--- NOTE | 2017-05-04 10:42 | RAD ---
Chest x-ray single frontal view History: Right-sided pneumothorax. Comparison: 05/01/2017 Findings: Persistent small right basilar pneumothorax. Moderate loculated left pleural effusion. Prominent consolidative changes in the left mid to lower lung zone. Additional consolidative changes at the residual right lung base. Lines and tubes in stable position. Venous congestion. Cardiomegaly. Degenerative changes in the spine and shoulders. Impression: Persistent small right basilar pneumothorax. Moderate loculated left pleural effusion. Prominent consolidative changes in the left mid to lower lung zone. Additional consolidative changes at the residual right lung base. Lines and tubes in stable position. Venous congestion. Cardiomegaly. Degenerative changes in the spine and shoulders.
--- NOTE | 2017-05-04 23:22 | CP.PCM.PN ---
Subjective - Date & Time of Evaluation Date of Evaluation: 05/04/17 Time of Evaluation: 19:10 - Subjective Subjective: Pt seen & evaluted, laying in bed, not short of breath, on oxygen requesting to go for [facility] in [facility] Objective - Vital Signs/Intake and Output Vital Signs (last 24 hours): Temp Pulse Resp BP Pulse Ox 97.3 F L 67 20 140/76 97 05/04/17 15:31 05/04/17 15:31 05/04/17 15:31 05/04/17 15:31 05/04/17 15:31 Intake and Output: 05/04/17 05/05/17 18:59 06:59 Output Total 300 Balance -300 - Medications Medications: Current Medications Acetaminophen (Tylenol 325mg Tab) 650 mg PO Q6 PRN PRN Reason: Pain, moderate (4-7) Albuterol/Ipratropium (Duoneb 3 Mg/0.5 Mg (3 Ml) Ud) 3 ml INH RQ6 [facility] Last Admin: 05/04/17 20:40 Dose: 3 ml Diltiazem HCl (Cardizem Cd) 300 mg PO DAILY [facility] Last Admin: 05/04/17 09:48 Dose: 300 mg Docusate Sodium (Colace) 100 mg PO BID [facility] Last Admin: 05/04/17 17:31 Dose: 100 mg Famotidine (Pepcid) 20 mg PO DAILY [facility] Last Admin: 05/04/17 09:47 Dose: 20 mg Ferrous Sulfate (Feosol) 325 mg PO TID [facility] Last Admin: 05/04/17 17:31 Dose: 325 mg Ceftriaxone Sodium 1 gm/ (Sodium Chloride) 100 mls @ 100 mls/hr IVPB DAILY [facility] Last Admin: 05/04/17 09:45 Dose: 100 mls/hr Losartan Potassium (Cozaar) 100 mg PO DAILY [facility] Last Admin: 05/04/17 09:49 Dose: 100 mg Metoprolol Tartrate (Lopressor) 50 mg PO BID [facility] Last Admin: 05/04/17 17:32 Dose: 50 mg Rosuvastatin Calcium (Crestor) 10 mg PO HS [facility] Last Admin: 05/04/17 21:39 Dose: 10 mg Tramadol HCl (Ultram) 50 mg PO TID [facility] Last Admin: 05/04/17 17:32 Dose: 50 mg - Labs Labs: 05/01/17 07:56 05/01/17 07:56 PT 13.2 SECONDS (9.7-12.2) H 04/29/17 09:33 INR 1.2 04/29/17 09:33 APTT 31 SECONDS (21-34) 04/29/17 09:33 - Constitutional Appears: No Acute Distress, Chronically Ill - Head Exam Head Exam: ATRAUMATIC, NORMAL INSPECTION, NORMOCEPHALIC - Eye Exam Eye Exam: EOMI, Normal appearance, PERRL Pupil Exam: NORMAL ACCOMODATION, PERRL - Respiratory Exam Respiratory Exam: Clear to Ausculation Bilateral, NORMAL BREATHING PATTERN - Cardiovascular Exam Cardiovascular Exam: REGULAR RHYTHM, +S1, +S2. absent: Murmur - GI/Abdominal Exam GI & Abdominal Exam: Soft, Normal Bowel Sounds. absent: Tenderness Assessment and Plan (1) Ascites Status: Acute (2) Ascites, malignant Status: Acute (3) Malignant pleural effusion Status: Acute
[2017-05-05 01:15] VITALS: O2SAT 98
[2017-05-05] MEDS: Albuterol-Ipratrop 3 mg / 0.5 (3 ml) UD INH SCH ×2 (07:39→13:32)
[2017-05-05] MEDS: diltiaZEM 300 mg/24 Hours CD Cap PO SCH (10:10)
--- NOTE | 2017-05-05 12:11 | RAD ---
Chest x-ray single frontal view History: Pneumothorax. Comparison: 05/01/2017 Findings: Persistent small to moderate right sided hydropneumothorax. Persistent moderate to large loculated left pleural effusion. Persistent consolidative changes in the mid to lower lung zones bilaterally. Cardiomegaly. Lines and tubes in stable position. Degenerative changes in the spine and shoulders. Impression: Persistent small to moderate right sided hydropneumothorax. Persistent moderate to large loculated left pleural effusion. Persistent consolidative changes in the mid to lower lung zones bilaterally. Cardiomegaly.
[2017-05-05] MEDS ORDERED: Aluminum Hydroxide/Magnesium Hydroxide Susp (30 mL) PO ONE (12:30)
--- NOTE | 2017-05-05 13:16 | CP.PCM.PN ---
Subjective - Date & Time of Evaluation Date of Evaluation: 05/05/17 Time of Evaluation: 12:25 - Subjective Subjective: Pt seen and examined today, states feels much better, sob improved , denies any chest pain, abdominal pain, n/v , c/o mild heart burn a febrile Objective - Vital Signs/Intake and Output Vital Signs (last 24 hours): Temp Pulse Resp BP Pulse Ox 98.1 F 87 20 143/78 98 05/05/17 07:00 05/05/17 07:00 05/05/17 07:00 05/05/17 07:00 05/05/17 07:00 - Medications Medications: Current Medications Acetaminophen (Tylenol 325mg Tab) 650 mg PO Q6 PRN PRN Reason: Pain, moderate (4-7) Albuterol/Ipratropium (Duoneb 3 Mg/0.5 Mg (3 Ml) Ud) 3 ml INH RQ6 [facility] Last Admin: 05/05/17 07:39 Dose: 3 ml Diltiazem HCl (Cardizem Cd) 300 mg PO DAILY [facility] Last Admin: 05/05/17 10:10 Dose: 300 mg Docusate Sodium (Colace) 100 mg PO BID [facility] Last Admin: 05/05/17 10:09 Dose: 100 mg Famotidine (Pepcid) 20 mg PO DAILY [facility] Last Admin: 05/05/17 10:09 Dose: 20 mg Ferrous Sulfate (Feosol) 325 mg PO TID [facility] Last Admin: 05/05/17 10:09 Dose: 325 mg Losartan Potassium (Cozaar) 100 mg PO DAILY [facility] Last Admin: 05/05/17 10:09 Dose: 100 mg Metoprolol Tartrate (Lopressor) 50 mg PO BID [facility] Last Admin: 05/05/17 10:09 Dose: 50 mg Rosuvastatin Calcium (Crestor) 10 mg PO HS [facility] Last Admin: 05/04/17 21:39 Dose: 10 mg Tramadol HCl (Ultram) 50 mg PO TID [facility] Last Admin: 05/05/17 10:18 Dose: 50 mg - Labs Labs: 05/01/17 07:56 05/01/17 07:56 PT 13.2 SECONDS (9.7-12.2) H 04/29/17 09:33 INR 1.2 04/29/17 09:33 APTT 31 SECONDS (21-34) 04/29/17 09:33 - Constitutional Appears: Well, No Acute Distress - Respiratory Exam Respiratory Exam: Decreased Breath Sounds, Rhonchi, NORMAL BREATHING PATTERN - Cardiovascular Exam Cardiovascular Exam: REGULAR RHYTHM, +S1, +S2 - GI/Abdominal Exam GI & Abdominal Exam: Soft, Normal Bowel Sounds Assessment and Plan - Assessment and Plan (Free Text) Assessment: 71 yr old female admitted for sob /Malignant pleural effusion, , Dyspnea s/p thoracentesis by IR and pt clinically improved CT - chest No evidence of acute central pulmonary embolus. . Large right-sided effusion with loculated components and atelectasis. Smaller probable loculated left-sided effusion with in situ drainage catheter. . . Abdominal ascites with possible loculated components.Mediastinal adenopathy. Few small bilateral hilar lymph nodes also felt present. s/p thoracentesis , CXR -Persistent small right basilar pneumothorax. Moderate loculated left pleural effusion.Prominent consolidative changes in the left mid to lower lung zone. Additional consolidative changes at the residual right lung base. Lines and tubes in stable position. Venous congestion.Cardiomegaly. Seen by Dr. woodard today , cleared for discharge to [facility] today D/W Dr. Aranda, stable fo r discharge to [facility] and Dr. Aranda will follow the patient at [facility] Discharge plan discussed with patient who understands and agrees with plan
[2017-05-05 17:14] VITALS: BP 156/74; PULSE 72; TEMP 97.9
--- NOTE | 2017-05-06 13:08 | CP.PCM.DIS ---
Provider - Provider Date of Admission: 04/29/17 12:42 Attending physician: Migue Aranda MD Time Spent in preparation of Discharge (in minutes): 50 Diagnosis - Discharge Diagnosis (1) Ascites Status: Acute (2) Ascites, malignant Status: Acute (3) Malignant pleural effusion Status: Acute Hospital Course - Lab Results Lab Results: Micro Results 05/01/17 15:00 Pleural Fluid Gram Stain - Final 05/01/17 15:00 Pleural Fluid Body Fluid Culture - Final No growth. 05/01/17 15:00 Pleural Fluid Gram Stain - Final Most Recent Lab Values WBC 6.5 K/uL (4.8-10.8) 05/01/17 07:56 RBC 4.45 Mil/uL (3.80-5.20) 05/01/17 07:56 Hgb 11.1 g/dL (11.0-16.0) 05/01/17 07:56 Hct 36.0 % (34.0-47.0) 05/01/17 07:56 MCV 80.9 fL (81.0-99.0) L 05/01/17 07:56 MCH 24.9 pg (27.0-31.0) L 05/01/17 07:56 MCHC 30.8 g/dL (33.0-37.0) L 05/01/17 07:56 RDW 17.0 % (11.5-14.5) H 05/01/17 07:56 Plt Count 291 K/uL (130-400) 05/01/17 07:56 MPV 7.2 fL (7.2-11.7) 05/01/17 07:56 Neut % (Auto) 65.8 % (50.0-75.0) 05/01/17 07:56 Lymph % (Auto) 21.9 % (20.0-40.0) 05/01/17 07:56 [place] % (Auto) 10.4 % (0.0-10.0) H 05/01/17 07:56 Eos % (Auto) 1.4 % (0.0-4.0) 05/01/17 07:56 Baso % (Auto) 0.5 % (0.0-2.0) 05/01/17 07:56 Neut # 4.3 K/uL (1.8-7.0) 05/01/17 07:56 Lymph # 1.4 K/uL (1.0-4.3) 05/01/17 07:56 [place] # 0.7 K/uL (0.0-0.8) 05/01/17 07:56 Eos # 0.1 K/uL (0.0-0.7) 05/01/17 07:56 Baso # 0.0 K/uL (0.0-0.2) 05/01/17 07:56 PT 13.2 SECONDS (9.7-12.2) H 04/29/17 09:33 INR 1.2 04/29/17 09:33 APTT 31 SECONDS (21-34) 04/29/17 09:33 Sodium 139 mmol/L (132-148) 05/01/17 07:56 Potassium 3.8 mmol/L (3.6-5.2) 05/01/17 07:56 Chloride 102 mmol/L (98-107) 05/01/17 07:56 Carbon Dioxide 28 mmol/L (22-30) 05/01/17 07:56 Anion Gap 13 (10-20) 05/01/17 07:56 BUN 13 mg/dL (7-17) 05/01/17 07:56 Creatinine 0.6 MG/DL (0.7-1.2) L 05/01/17 07:56 Est GFR ( Amer) > 60 05/01/17 07:56 Est GFR (Non-Af Amer) > 60 05/01/17 07:56 POC Glucose (mg/dL) 132 mg/dL (65-110) H 05/05/17 16:41 Random Glucose 97 mg/dL (65-105) 05/01/17 07:56 Calcium 9.4 mg/dl (8.6-10.4) 05/01/17 07:56 Total Bilirubin 0.5 mg/dL (0.2-1.3) 04/29/17 08:35 AST 23 U/L (14-36) 04/29/17 08:35 ALT 18 U/L (9-52) 04/29/17 08:35 Alkaline Phosphatase 108 U/L (38-126) 04/29/17 08:35 Total Creatine Kinase 44 U/L (30-135) 04/29/17 08:35 CK-MB (Mass) 1.69 ng/mL (0.0-3.38) 04/29/17 08:35 Troponin I < 0.0120 ng/mL (0.00-0.120) 04/29/17 08:35 NT-Pro-B Natriuret Pep 306 pg/mL (0-900) 04/29/17 08:35 Total Protein 7.1 g/dL (6.3-8.3) 04/29/17 08:35 Albumin 3.5 g/dL (3.5-5.0) D 04/29/17 08:35 Globulin 3.6 gm/dL (2.2-3.9) 04/29/17 08:35 Albumin/Globulin Ratio 1.0 (1.0-2.1) 04/29/17 08:35 Urine Color Yellow (YELLOW) 05/01/17 02:20 Urine Clarity Clear (Clear) 05/01/17 02:20 Urine pH 5.0 (5.0-8.0) 05/01/17 02:20 Ur Specific [place] 1.018 (1.003-1.030) 05/01/17 02:20 Urine Protein Negative mg/dL (NEGATIVE) 05/01/17 02:20 Urine Glucose (UA) Normal mg/dL (Normal) 05/01/17 02:20 Urine Ketones Negative mg/dL (NEGATIVE) 05/01/17 02:20 Urine Blood Negative (NEGATIVE) 05/01/17 02:20 Urine Nitrate Negative (NEGATIVE) 05/01/17 02:20 Urine Bilirubin Negative (NEGATIVE) 05/01/17 02:20 Urine Urobilinogen Normal mg/dL (0.2-1.0) 05/01/17 02:20 Ur Leukocyte Esterase Neg Roger/uL (Negative) 05/01/17 02:20 Urine WBC (Auto) 4 /hpf (0-5) 05/01/17 02:20 Urine RBC (Auto) 1 /hpf (0-3) 05/01/17 02:20 Ur Squamous Epith Cells 3 /hpf (0-5) 05/01/17 02:20 Hyaline Casts 0-2 /lpf (0-2) 05/01/17 02:20 - Hospital Course Hospital Course: 71 yr old female admitted for sob /Malignant pleural effusion, , Dyspnea s/p thoracentesis by IR and pt clinically improved CT - chest No evidence of acute central pulmonary embolus. . Large right-sided effusion with loculated components and atelectasis. Smaller probable loculated left-sided effusion with in situ drainage catheter. . . Abdominal ascites with possible loculated components.Mediastinal adenopathy. Few small bilateral hilar lymph nodes also felt present. s/p thoracentesis , CXR -Persistent small right basilar pneumothorax. Moderate loculated left pleural effusion.Prominent consolidative changes in the left mid to lower lung zone. Additional consolidative changes at the residual right lung base. Lines and tubes in stable position. Venous congestion.Cardiomegaly. Seen by Dr. woodard today , cleared for discharge to [facility] today .I will follow the patient at [facility] Discharge plan discussed with patient who understands and agrees with plan Discharge Exam - Head Exam Head Exam: ATRAUMATIC, NORMAL INSPECTION, NORMOCEPHALIC - Eye Exam Eye Exam: EOMI, Normal appearance, PERRL Pupil Exam: NORMAL ACCOMODATION, PERRL - ENT Exam ENT Exam: Mucous Membranes Moist - Respiratory Exam Respiratory Exam: Decreased Breath Sounds, Rales, Rhonchi - Cardiovascular Exam Cardiovascular Exam: REGULAR RHYTHM, +S1, +S2 - GI/Abdominal Exam GI & Abdominal Exam: Normal Bowel Sounds - Rectal Exam Rectal Exam: NORMAL INSPECTION Discharge Plan - Discharge Medications Prescriptions: Ondansetron [Zofran] 4 mg PO Q8H PRN #20 tab PRN Reason: Nausea/Vomiting - Follow Up Plan Condition: STABLE Disposition: REHAB FACILITY/REHAB UNIT Instructions: Thoracentesis (DC), Pleural Effusion (DC) Additional Instructions: Please admit patient under Dr. Aranda service - Call Dr. Aranda upon patinet arrival to the facility Continue medication as per Med. REc. Please repeat CXR on thursday - f/u pneumothorax Referrals: Migue Aranda MD [Staff Provider] -
== END 2017-05-05 17:46 | DRG 180 ==
LOC: C.ER 07:59 → C.9E 12:42 → C.6T 17:06
PROVIDERS: ADMIT Internal Medicine; ATTEND Internal Medicine
PROC: 0W993ZZ Drainage of Right Pleural Cavity, Percutaneous Approach (ICD-10-PCS; principal; 2017-05-01)
DX: J91.0 Malignant pleural effusion (principal); J18.9 Pneumonia, unspecified organism; R18.0 Malignant ascites; C56.9 Malignant neoplasm of unspecified ovary; D64.9 Anemia, unspecified; E11.9 Type 2 diabetes mellitus without complications; I10 Essential (primary) hypertension; J95.811 Postprocedural pneumothorax; M06.9 Rheumatoid arthritis, unspecified; M19.90 Unspecified osteoarthritis, unspecified site; E78.00 Pure hypercholesterolemia, unspecified; Z87.891 Personal history of nicotine dependence; J45.909 Unspecified asthma, uncomplicated; Z66 Do not resuscitate; Z51.5 Encounter for palliative care; Y84.4 Aspiration of fluid as the cause of abnormal reaction of the patient, or of later complication, without mention of misadventure at the time of the procedure; Z86.711 Personal history of pulmonary embolism